=== PATIENT | female | born 1940 | race Caucasian/White ===

== ENCOUNTER → 2017-04-13 13:57 | Outpatient (CLI) | payer MEDICARE, SELFPAY ==
[2017-04-13 15:16] LABS: Absolute Lymphocyte Count 2.19 X10^3/ul (0.83-4.51); Absolute Neutrophil Count 9.7 X10^3/uL (2.0-7.7); Basophil# 0.07 X10^3/uL; Basophil% 0.5 % (0-1); Eosinophil# 0.39 X10^3/uL; Hematocrit 42.2 % (37-47); Hemoglobin 13.9 g/dl (12.0-15.0); Lymphocyte # 2.19 X10^3/ul (4.0); Lymphocyte % 16.6 % (19-41); Mean Corp Hgb Conc 32.9 g/gl (32-36); Mean Corpuscular Hgb 26.4 pg (27.0-32.0); Mean Corpuscular Volume 80.2 fL (81-99); Mean Platelet Vol. 11.4 fl (6.2-12.0); Monocyte# 0.81 X10^3/uL; Monocyte% 6.1 % (0-10); Neutrophil # 9.67 X10^3/uL (2.7-7.7); Neutrophil % 73.4 % (47-70); Platelet Count 323 K/mm3 (150-450); RBC Distribution Width SD 46.7 fl (35.1-43.9); Red Blood Count 5.26 M/mm3 (4.2-5.4); White Blood Count 13.2 K/mm3 (4.4-11.0)
[2017-04-13 15:17] LABS: POSITIVE COUNT NO; POSITIVE DIFFERENTIAL NO; POSITIVE MORPHOLOGY NO
[2017-04-13 16:02] LABS: AST(SGOT) 22 U/L (15-37); Alanine Aminotransfer ALT/SGPT 20 U/L (13-56); Albumin, Serum 3.8 g/dL (3.2-5.0); Alkaline Phosphatase 82 U/L (45-117); Anion Gap 11 (5-15); BUN 21 mg/dL (7-18); Calcium,Total 9.3 mg/dL (8.5-10.1); Chloride 100 mmol/L (98-107); Creatinine, Serum 0.96 mg/dL (0.55-1.02); EST Glomerular Filtration Rate 60 mL/min (>60); Est Glom Filt Rate - Afr Amer 73 mL/min (>60); Glucose 98 mg/dL (74-106); Potassium 4.1 mmol/L (3.5-5.1); Protein, Total 7.8 g/dL (6.4-8.2); Sodium Level 135 mmol/L (136-145); Thyroid Stim Hormone (TSH) 0.99 uIU/mL (0.358-3.74)
[2017-04-14 11:32] LABS: Vitamin D,25 Hydroxy 32.4 ng/mL (19.95-100.01)
== END ==
PROVIDERS: Visit Provider Family Medicine Geriatric Medicine
DX: I10 Essential (primary) hypertension (principal); E55.9 Vitamin D deficiency, unspecified
CPT/HCPCS: 36415; 80053; 82306; 84443; 85025

== ENCOUNTER → 2017-05-18 11:46 | Outpatient (CLI) | payer MEDICARE, SELFPAY ==
--- NOTE | 2017-05-18 11:49 | RAD_ITS ---
STUDY: X-RAY - LUMBAR SPINE REASON FOR EXAM: Female, 77 years old. Low back pain, no known injury TECHNIQUE: 2 view(s) of the lumbar spine were obtained. COMPARISON: None FINDINGS: There is an exaggerated lumbar lordosis. There is a mild thoracolumbar levoscoliosis. There is a normal alignment of the vertebrae. There is a mild decrease in vertical height with anterior wedging of the L1 and L2 vertebral bodies as well as mild decrease in vertical height of L3. There is disc space narrowing with reactive sclerosis of the adjacent endplates at the L1-2 and L2-3 levels. There is no evidence of acute fracture or spondylolisthesis. There are densely calcified plaques of the abdominal aorta and iliac arteries. RAD/Lumbar Spine 2 or 3 Views IMPRESSION: Decrease in vertical height of the L1, L2, and L3 vertebral bodies with reactive sclerosis and disc space narrowing at these levels. Findings are suggestive of old osteoporotic endplate collapse. The bones are osteopenic. There is a mild thoracolumbar levoscoliosis. There is no evidence of acute fracture or spondylolisthesis. Densely calcified plaques of the abdominal aorta and iliac arteries. Electronically Signed: Waqas Fong MD at 17:31 EDT , Service support ,
== END ==
PROVIDERS: Family Provider Family Medicine Geriatric Medicine; PCP Family Medicine Geriatric Medicine; Visit Provider Family Medicine Geriatric Medicine
DX: M54.5 Low back pain (principal)
CPT/HCPCS: 72100

== ENCOUNTER → 2017-10-20 10:38 | Outpatient (CLI) | payer MEDICARE, SELFPAY ==
--- NOTE | 2017-10-22 19:59 | LEAS ---
Arterial Study - Arterial Study Arterial Study: This is a 77-year-old female with a history of hypertension and coronary artery disease. The patient presents with bilateral lower extremity pain with ambulation, suspicious for intermittent claudication. She also experiences rest pain in her right foot. Suspecting the presence of atherosclerotic peripheral arterial occlusive disease, the patient was brought to the noninvasive vascular laboratory at this time for the purpose of bilateral noninvasive lower extremity arterial assessment. Doppler signal assessment was used to evaluate the pulses at ankle level bilaterally. The posterior tibial and dorsalis pedis pulses were monophasic bilaterally. Segmental limb pressures were obtained at ankle level bilaterally. The right ankle pressure, as determined by posterior tibial pulse, was measured at 33 mmHg. The right ankle pressure, as determined by dorsalis pedis pulse, was measured at 38 mmHg. The left ankle pressure, as determined by posterior tibial pulse, was measured at 20 mmHg. The left ankle pressure, as determined by dorsalis pedis pulse, was measured at 46 mmHg. Pulse-volume recordings were obtained at ankle and digital levels bilaterally. Waveform amplitudes were markedly diminished bilaterally. Resting ankle-brachial indices were calculated bilaterally. The resting right ankle-brachial index was calculated to be 0.36. The resting left ankle-brachial index was calculated to be 0.46. Impression: Based upon the findings of this resting noninvasive lower extremity arterial study, there is evidence of severe arterial occlusive disease in the lower extremities bilaterally. Monophasic waveforms were noted at ankle level bilaterally. Resting ankle-brachial indices were severely diminished bilaterally. In summary, there is evidence of severe arterial occlusive disease in the lower extremities bilaterally.
== END ==
PROVIDERS: Family Provider Family Medicine Geriatric Medicine; PCP Family Medicine Geriatric Medicine; Visit Provider Family Medicine Geriatric Medicine
DX: I73.9 Peripheral vascular disease, unspecified (principal)
CPT/HCPCS: 93922

== ENCOUNTER → 2017-11-16 07:40 | Outpatient (CLI) | payer MEDICARE, SELFPAY ==
--- NOTE | 2017-11-16 07:46 | ADU_ITS ---
Reason For Study: ATHEROSCLEROSIS Right Velocities Left Velocities Common Iliac Artery, dist = 65.2 cm./sec. Ext Iliac Artery, dist = 133.0 cm./sec. Common Femoral Artery, mid = 78.6 cm./sec. Common Femoral Artery, mid = 98.2 cm./sec. Supf Femoral Artery, prox = 96.2 cm./sec. Supf. Femoral Artery, prox = 69.9 cm./sec. Supf Femoral Artery, mid = 60.5 cm./sec. Supf. Femoral Artery, mid = 37.6 cm./sec. Supf Femoral Artery, dist. = 53.0 cm./sec. Supf. Femoral Artery, dist = 51.9 cm./sec. Profunda Femoral Artery = 30.2 cm./sec. Profunda Femoral Artery = 56.2 cm./sec. Popliteal Artery, prox. = 37.7 cm./sec. Popliteal Artery, proximal, = 30.6 cm./sec. Popliteal Artery, mid = 21.7 cm./sec. Popliteal Artery, mid = 25.5 cm./sec. Popliteal Artery, dist = 25.2 cm./sec. Popliteal Artery, distal = 27.5 cm./sec. Post. Tibial Artery, prox = 25.5 cm./sec. Post. Tibial Artery, prox = 28.3 cm./sec. Post. Tibial Artery, mid = 15.9 cm./sec. Post Tibial Artery, mid = 22.1 cm./sec. Post. Tibial Artery, dist = 13.4 cm./sec. Post Tibial Artery, dist. = 18.3 cm./sec. Peroneal Artery, prox = 11.2 cm./sec. Peroneal Artery, prox = 21.9 cm./sec. Peroneal Artery, mid = 13.0 cm./sec. Peroneal Artery, mid = 24.5 cm./sec. Peroneal Artery, dist = Unable to obtain Peroneal Artery,dist. = 13.3 cm./sec. velocity. Ant.Tibial Artery, prox = 17.4 cm./sec. Ant. Tibial Artery, prox = 17.3 cm./sec. Ant Tibial Artery, mid = 17.6 cm./sec. Ant. Tibial Artery, mid = 14.9 cm./sec. Ant. Tibial Artery, distal = 21.2 cm./sec. Ant. Tibial Artery, dist = 17.9 cm./sec. Procedure The exam was diagnostic. Technically difficult study. Exam performed in department. Interpretation Summary 1. Right distal peroneal with no flow, otherwise all vessels widely patent. But monophasic flow noted throughout. Ordering Physician: Antwan Buckley Referring Physician: Cody Hassan Chi Performed By: Darcie Braga, FABRICIO, RVT
== END ==
PROVIDERS: Family Provider Family Medicine Geriatric Medicine; PCP Family Medicine Geriatric Medicine; Visit Provider Surgery Vascular Surgery
DX: I70.235 Atherosclerosis of native arteries of right leg with ulceration of other part of foot (principal)
CPT/HCPCS: 93925

== ENCOUNTER → 2017-11-27 08:57 | Outpatient (CLI) | payer MEDICARE, SELFPAY ==
[2017-11-27 10:02] LABS: Creatinine, Serum 1.03 mg/dL (0.55-1.02); EST Glomerular Filtration Rate 55 mL/min (>60); Est Glom Filt Rate - Afr Amer 67 mL/min (>60)
--- NOTE | 2017-11-27 10:56 | CT_ITS ---
STUDY: CTA OF THE ABDOMINAL AORTA AND BILATERAL LOWER EXTREMITIES REASON FOR EXAM: Female, 77 years old. Infected toes of the right foot. RADIATION DOSAGE (If Supplied By Facility): CTDIvol = ( 6.40 ) mGy, DLP = ( 988.38 ) mGycm TECHNIQUE: Axial CT angiography multi-detector data acquisition was obtained from the dome of the liver to the feet following intravenous administration of 100CC ml of Isovue 370 contrast. Axial images and MIP images were reconstructed from the axial data set. Post-processing of the angiographic images was performed, with multiplanar reformation and 3D reconstruction. Individualized dose optimization techniques were used for this CT. TECHNICAL QUALITY: Good COMPARISON: None. Descriptors of Narrowing: None (0%) Mild (< 50%) Moderate (50-70%) Severe (70-90%) Subtotal/Total Occlusion (90-100%) Non-Evaluable (technically non-diagnostic FINDINGS: Moderate sized hiatal hernia. Diffuse fatty infiltration of the liver. Multiple bilateral renal cysts. The patient is status post cholecystectomy. Abdominal aorta: Diffuse atherosclerotic plaque formation of the abdominal aorta. Mural thrombus. The distal abdominal aorta is slightly dilated and measures 2.4 cm. Celiac and superior mesenteric arteries: Nonstenotic calcific plaque at the origin of the superior mesenteric and celiac arteries. Inferior mesenteric artery: Patent and enlarged. Right renal artery(arteries): Not stenotic calcific plaques at the origin of the right renal artery. Left renal artery(arteries): Nonstenotic calcific plaque at the origin of the left renal artery. Right common iliac artery: Diffuse calcific plaque with areas of stenosis. Right external iliac artery: Diffuse calcific plaque with focal areas of stenosis. Right internal iliac artery: No demonstrated narrowing. Left common iliac artery: Diffuse calcific plaque with areas of stenosis. Left external iliac artery: Diffuse calcific plaque with areas of stenosis. Left internal iliac artery: No demonstrated narrowing. RIGHT LOWER EXTREMITY Right common femoral artery: Focal tight stenosis at its origin. Right profundus femoris: No demonstrated narrowing. Right superficial femoral: Patent with multiple focal stenoses throughout its course. Right popliteal artery: No demonstrated narrowing. Right tibioperoneal trunk: No demonstrated narrowing. Right anterior tibial artery: No demonstrated narrowing. Right posterior tibial artery: No demonstrated narrowing. Right peroneal artery: No demonstrated narrowing. LEFT LOWER EXTREMITY Left common femoral artery: No demonstrated narrowing. Left profundus femoris: No demonstrated narrowing. Left superficial femoral: Focal occlusion in the distal portion of the left superficial femoral artery. Left popliteal artery: No demonstrated narrowing. Left tibioperoneal trunk: No demonstrated narrowing. Left anterior tibial artery: No demonstrated narrowing. Left posterior tibial artery: No demonstrated narrowing. Left peroneal artery: No demonstrated narrowing. CT/CTA Abd w/Runoff W/WO Contrast IMPRESSION: Multiple plaque formation as described. Atherosclerotic plaques and mural thrombus of the abdominal aorta. Focal occlusion of the distal portion of the left superficial femoral artery with reconstitution of the popliteal artery. Electronically Signed: Jatinder Olivas MD at 13:12 EDT Tel [phone], Service support ,
== END ==
PROVIDERS: Surgery Vascular Surgery; Family Provider Family Medicine Geriatric Medicine; PCP Family Medicine Geriatric Medicine; Visit Provider Family Medicine Geriatric Medicine
DX: I73.9 Peripheral vascular disease, unspecified (principal); I70.235 Atherosclerosis of native arteries of right leg with ulceration of other part of foot
CPT/HCPCS: 36415; 75635; 82565; Q9967

== ENCOUNTER 2017-12-06 08:58 | Day surgery (SDC) | payer MEDICARE, SELFPAY ==
[2017-12-05 14:27] VITALS: BMI 25.4
[2017-12-06 09:11] LABS: Hematocrit 41.2 % (37-47); Hemoglobin 13.5 g/dl (12.0-15.0); Mean Corp Hgb Conc 32.8 g/gl (32-36); Mean Corpuscular Hgb 28.2 pg (27.0-32.0); Mean Platelet Vol. 9.7 fl (6.2-12.0); Platelet Count 371 K/mm3 (150-450); RBC Distribution Width CV 13.3 % (11.6-14.6); Red Blood Count 4.79 M/mm3 (4.2-5.4); Scan Indicated on CBC? Y/N NO; White Blood Count 12.7 K/mm3 (4.4-11.0)
[2017-12-06 09:33] LABS: Albumin, Serum 3.7 g/dL (3.2-5.0); BUN 24 mg/dL (7-18); BUN/Creat Ratio 16.6 RATIO (10-20); Calcium,Total 10.1 mg/dL (8.5-10.1); Chloride 101 mmol/L (98-107); Creatinine, Serum 1.45 mg/dL (0.55-1.02); EST Glomerular Filtration Rate 37 mL/min (>60); Est Glom Filt Rate - Afr Amer 45 mL/min (>60); Glucose 163 mg/dL (74-106); Phosphorus 3.6 mg/dL (2.5-4.9); Potassium 4.1 mmol/L (3.5-5.1); Sodium Level 135 mmol/L (136-145)
--- NOTE | 2017-12-06 11:51 | PCM.OPRPT ---
Report of Operation Date of Procedure: 12/06/17 Pre-Operative Diagnosis: PAD with ulcer right foot Post-Operative Diagnosis: The same Surgery/Procedure Performed:: 1. Ultrasound-guided access retrograde left brachial artery. 2. Aortogram with bilateral iliofemoral imaging. With right leg angioplasty the popliteal artery. 3. Stent right common iliac with a 7 x 29 Nichol. 4. Stent to the left common iliac with a 7 x 29 Nichol Type of Anesthesia:: Sedation,Conscious Description of Procedure: Patient brought to the Complaint Evaluation Supervisor. Underwent the appropriate timeout consent. Underwent sedation. Was prepped and draped in a sterile fashion. We did ultrasound-guided access retrograde in the left brachial artery. Put a Glidewire up brought in a 5 [place] sheath and gave 3000 units of heparin. Using a KMP catheter we got the Glidewire down the descending thoracic aorta the infrarenal aorta. With switch to a stiff Glidewire brought in a long 6 [place] 90 cm sheath. The wire was through the right side. We did an aortogram showing almost subtotal occlusion on the right common iliac severe stenosis left common iliac rest iliacs appear to have good flow into the common femoral artery. Some plaque noted but no severe stenosis we stented the right common iliac into the aorta is some narrowing of the distal aorta with a 7 x 29 Nichol we ballooned it further into the aorta with another 7 mm balloon. We then get the sheath into the stent image from there with oblique views showing the right external iliac common femoral still widely patent good flow into the profunda the SFA moderate narrowing proximally with good flow through this. Some calcifications noted throughout the vanessa but no significant stenosis through the rest of the SFA and popliteal to just below the knee. There is a little more severe stenosis in the left common iliac now, we got the wire through here at the sheath through and then stented this with a 7 x 29 Nichol. We did a completion aortogram showing bilateral common iliac artery stents widely patent with good flow through here. They had a little crusting on each other into the aortic segment. But much improved flow. We gave 20 of protamine as we have given 3000 units of heparin earlier. We put in a short 6 [place] sheath. This was then removed pressure held good hemostasis she was brought to recovery stable condition Sedation: This 77-year-old underwent moderate sedation given by Dr. Antwan Buckley. She was monitored for over 30 minutes of the procedure. She was given fentanyl and Versed. She was monitored with EKG blood pressure and pulse ox. See the EMR for the complete record.
--- NOTE | 2017-12-06 11:56 | OP.PCM_ITS ---
Report of Operation Date of Procedure: 12/06/17 Pre-Operative Diagnosis: PAD with ulcer right foot Post-Operative Diagnosis: The same Surgery/Procedure Performed:: 1. Ultrasound-guided access retrograde left brachial artery. 2. Aortogram with bilateral iliofemoral imaging. With right leg angioplasty the popliteal artery. 3. Stent right common iliac with a 7 x 29 Nichol. 4. Stent to the left common iliac with a 7 x 29 Nichol Type of Anesthesia:: Sedation,Conscious Description of Procedure: Patient brought to the Insulation Hoseman. Underwent the appropriate timeout consent. Underwent sedation. Was prepped and draped in a sterile fashion. We did ultrasound-guided access retrograde in the left brachial artery. Put a Glidewire up brought in a 5 [place] sheath and gave 3000 units of heparin. Using a KMP catheter we got the Glidewire down the descending thoracic aorta the infrarenal aorta. With switch to a stiff Glidewire brought in a long 6 [place] 90 cm sheath. The wire was through the right side. We did an aortogram showing almost subtotal occlusion on the right common iliac severe stenosis left common iliac rest iliacs appear to have good flow into the common femoral artery. Some plaque noted but no severe stenosis we stented the right common iliac into the aorta is some narrowing of the distal aorta with a 7 x 29 Nichol we ballooned it further into the aorta with another 7 mm balloon. We then get the sheath into the stent image from there with oblique views showing the right external iliac common femoral still widely patent good flow into the profunda the SFA moderate narrowing proximally with good flow through this. Some calcifications noted throughout the vanessa but no significant stenosis through the rest of the SFA and popliteal to just below the knee. There is a little more severe stenosis in the left common iliac now, we got the wire through here at the sheath through and then stented this with a 7 x 29 Nichol. We did a completion aortogram showing bilateral common iliac artery stents widely patent with good flow through here. They had a little crusting on each other into the aortic segment. But much improved flow. We gave 20 of protamine as we have given 3000 units of heparin earlier. We put in a short 6 [place] sheath. This was then removed pressure held good hemostasis she was brought to recovery stable condition Sedation: This 77-year-old underwent moderate sedation given by Dr. Antwan Buckley. She was monitored for over 30 minutes of the procedure. She was given fentanyl and Versed. She was monitored with EKG blood pressure and pulse ox. See the EMR for the complete record.
== END 2017-12-06 16:51 | disposition home or self-care (01) ==
LOC: CLSP 08:59
PROVIDERS: Family Provider Family Medicine Geriatric Medicine; PCP Family Medicine Geriatric Medicine; Referring Provider Surgery Vascular Surgery; Visit Provider Surgery Vascular Surgery
DX: I70.235 Atherosclerosis of native arteries of right leg with ulceration of other part of foot (principal); I74.5 Embolism and thrombosis of iliac artery; I70.213 Atherosclerosis of native arteries of extremities with intermittent claudication, bilateral legs; I10 Essential (primary) hypertension; E78.00 Pure hypercholesterolemia, unspecified; M19.90 Unspecified osteoarthritis, unspecified site; I25.2 Old myocardial infarction; Z79.82 Long term (current) use of aspirin; Z79.899 Other long term (current) drug therapy; Z85.828 Personal history of other malignant neoplasm of skin; Z87.891 Personal history of nicotine dependence; Z95.5 Presence of coronary angioplasty implant and graft
CPT/HCPCS: 36245; 36246; 36415; 37221; 75716; 76937; 80069; 85027; 99152; 99153; J7040; Q9967; C1725; C1769; C1876; C1894

== ENCOUNTER → 2017-12-11 11:00 | Outpatient (CLI) | payer MEDICARE, SELFPAY ==
[2017-12-11 12:46] LABS: Anion Gap 12 (5-15); BUN 21 mg/dL (7-18); BUN/Creat Ratio 16.9 RATIO (10-20); Calcium,Total 10.1 mg/dL (8.5-10.1); Chloride 96 mmol/L (98-107); Creatinine, Serum 1.24 mg/dL (0.55-1.02); EST Glomerular Filtration Rate 45 mL/min (>60); Est Glom Filt Rate - Afr Amer 54 mL/min (>60); Glucose 138 mg/dL (74-106); Potassium 3.5 mmol/L (3.5-5.1); Sodium Level 132 mmol/L (136-145); Uric Acid 7.3 mg/dL (2.6-6.0)
[2017-12-11 12:51] LABS: Absolute Lymphocyte Count 1.13 X10^3/ul (0.83-4.51); Absolute Neutrophil Count 8.8 X10^3/uL (2.0-7.7); Basophil# 0.03 X10^3/uL; Basophil% 0.3 % (0-1); Eosinophil# 0.37 X10^3/uL; Eosinophils% 3.4 % (0-5); Hematocrit 38.2 % (37-47); Hemoglobin 12.5 g/dl (12.0-15.0); Lymphocyte # 1.13 X10^3/ul (4.0); Lymphocyte % 10.2 % (19-41); Mean Corp Hgb Conc 32.7 g/gl (32-36); Mean Corpuscular Hgb 27.8 pg (27.0-32.0); Mean Corpuscular Volume 84.9 fL (81-99); Mean Platelet Vol. 10.3 fl (6.2-12.0); Monocyte# 0.71 X10^3/uL; Monocyte% 6.4 % (0-10); Neutrophil # 8.79 X10^3/uL (2.7-7.7); Neutrophil % 79.6 % (47-70); POSITIVE COUNT NO; POSITIVE DIFFERENTIAL NO; POSITIVE MORPHOLOGY NO; Platelet Count 366 K/mm3 (150-450); RBC Distribution Width CV 13.4 % (11.6-14.6)
[2017-12-11 12:57] LABS: Erythrocyte Sedimentation Rate 42 mm/hr (0-30)
== END ==
PROVIDERS: Family Provider Family Medicine Geriatric Medicine; PCP Family Medicine Geriatric Medicine; Visit Provider Family Medicine Geriatric Medicine
DX: M10.9 Gout, unspecified (principal)
CPT/HCPCS: 36415; 80048; 84550; 85025; 85652; 86140

== ENCOUNTER → 2017-12-11 12:29 | Outpatient (CLI) | payer MEDICARE, SELFPAY ==
--- NOTE | 2017-12-11 12:38 | CT_ITS ---
STUDY: CTA OF THE ABDOMINAL AORTA AND BILATERAL LOWER EXTREMITIES REASON FOR EXAM: Female, 77 years old. Pain, redness of the right toes, right leg ulcer and gangrene of the toe. History of stents. RADIATION DOSAGE (If Supplied By Facility): DLP = ( 1038 ) mGycm TECHNIQUE: Axial CT angiography multi-detector data acquisition was obtained from the lung bases to the toes following intravenous administration of 100 ml of Isovue 370 contrast. Axial images and MIP images were reconstructed from the axial data set. Post-processing of the angiographic images was performed, with multiplanar reformation and 3D reconstruction. Individualized dose optimization techniques were used for this CT. TECHNICAL QUALITY: Good COMPARISON: None. Descriptors of Narrowing: None (0%) Mild (< 50%) Moderate (50-70%) Severe (70-90%) Subtotal/Total Occlusion (90-100%) Non-Evaluable (technically non-diagnostic FINDINGS: Abdominopelvic body wall soft tissues: No acute process. Lower extremity soft tissues: There is mild circumferential edema in the subcutaneous fat of the mid lower legs, ankles and the dorsum of the foot bilaterally, relatively symmetric right to left. Inferior chest: Clear lung bases with features of COPD/emphysema. Prominent sliding hiatal hernia containing a portion of the gastric fundus. Evidence of reflux into the middle 3rd of the esophagus with circumferential thickening of the wall the esophagus suggesting the presence of reflux esophagitis. Borderline cardiomegaly. Prominent three-vessel coronary calcifications. Mild aortic valve calcifications and mitral annulus calcifications. Nondilated aortic root and central pulmonary arteries. Ectasia in particular of the left atrium. Hepatobiliary: Mild hepatomegaly, craniocaudal right liver 18 cm. Gallbladder absent. Nondilated biliary tree. Pancreas: Mild atrophy. Spleen: Normal. Adrenal glands: Normal. Urogenital: Multiple benign renal cysts bilaterally, the largest on the left measuring 5.9 cm. The largest on the right measuring 5.1 cm. Normal collecting systems, ureters, urinary bladder. Uterus absent. No adnexal mass or cyst. Pelvic floor and sidewalls and retroperitoneum: No mass or lymphadenopathy. Gastric: Hiatal hernia, otherwise no acute process. Small bowel and mesentery: No acute process. Large bowel: The appendix is not clearly visible. No acute inflammatory features in the region of the cecum. Scattered diverticulosis of the proximal to mid large bowel more diffuse in the sigmoid colon without evidence of acute diverticulitis. Normal rectum. Free fluid or free air: None. Abdominopelvic vasculature: Prominent calcified plaque of the wall of the aorta. Mild narrowing of the origins of the celiac trunk and superior mesenteric artery, and renal arteries. JORGE L patent. Extensive the common iliac arteries bilaterally are patent. Moderate plaque of the external iliac arteries bilaterally contributing to mild stenosis. Moderate plaque of the internal iliac arteries bilaterally contributing to mild stenosis. Right lower extremity vasculature: [employer]IR moderate calcified plaque, less than 50% stenosis. DFA mild plaque at its origin, widely patent arborization. SFA moderate calcified plaque in the proximal 3rd, contributing to moderately severe stenosis in the vicinity of 70%. Scattered plaque thereafter through the distal SFA contributing to only mild luminal narrowing. Popliteal mild plaque, less than 50% stenosis. Tibioperoneal trunk and trifurcation no significant plaque, three-vessel runoff to the ankle, flow seen to the distal digits. Left lower extremity vasculature: Moderate calcified plaque [employer] CHAIR with less than 50% stenosis. Mild plaque at the origin of the DFA, no stenosis, widely patent arborization. SFA severe plaque at its origin, near occlusive stenosis greater than 90% proximally, moderate stenosis 50-70% mid SFA, occluded distal SFA. Popliteal reconstituted via deep arterial collaterals with minimal plaque, no stenosis. Tibioperoneal trifurcation mild plaque, no stenosis, three-vessel runoff to the ankle, attenuated flow into the foot compared to the right. CT/CTA Abd w/Runoff W/WO Contrast IMPRESSION: 1. Hilum hernia with evidence of reflux and suspected reflux esophagitis. 2. Diverticulosis without diverticulitis. 3. No other acute abdominopelvic process is evident. 4. Bilateral lower leg and pedal edema. 5. No evidence of hemodynamically significant aortoiliac stenosis. 6. Right lower extremity only mild stenosis femoral vessels, vigorous three-vessel runoff to the ankle and flow seen to the distal digits. 7. Near occlusive stenosis of the proximal left SFA, moderately severe stenosis of the mid left SFA, and occlusion of the distal, reconstituted by deep collaterals into the popliteal artery. 8. From the popliteal artery downward, no stenosis. However, flow into the foot is attenuated secondary to stenosis at the level of the distal SFA and proximal SFA. Majority of flow into the left lower extremity via the deep femoral artery, deep muscular collaterals and geniculate collaterals. Electronically Signed: Zaheer Couch, at 14:15 EDT Tel , Service support ,
--- NOTE | 2017-12-11 12:59 | VDLE_ITS ---
Reason For Study: LEG SWELLING RIGHT LEFT GSV is normal. GSV is normal. CFV is compressible, spontaneous, phasic, CFV is compressible, spontaneous, phasic, competent and demonstrates normal competent, and demonstrates normal augmentation. augmentation. FV is compressible, spontaneous, phasic, FV is compressible, spontaneous, phasic, competent and demonstrates normal competent and demonstrates normal augmentation. augmentation. POP V is compressible, spontaneous, phasic, POP V is compressible, spontaneous, phasic, competent and demonstrates normal competent and demonstrates normal augmentation. augmentation. T/P Trunk is compressible. T/P Trunk is compressible. PTV is compressible. PTV is compressible. RT PerV is compressible. LT PerV is compressible. Procedure Exam performed in department. A preliminary report was called and/or faxed to Dr. Hassan. Interpretation Summary Deep veins of the lower extremities are bilaterally patent and compressible segmentally. There is no evidence of deep vein thrombosis on either side. Valvular competence appears intact within the proximal deep venous systems bilaterally. The greater saphenous veins appear bilaterally patent and compressible segmentally. Ordering Physician: Cody Hassan Referring Physician: Cody Hassan Chi Performed By: Tamica Russo RVT
== END ==
PROVIDERS: Family Provider Family Medicine Geriatric Medicine; PCP Family Medicine Geriatric Medicine; Visit Provider Family Medicine Geriatric Medicine
DX: R60.0 Localized edema (principal); I96 Gangrene, not elsewhere classified; I70.235 Atherosclerosis of native arteries of right leg with ulceration of other part of foot; L03.039 Cellulitis of unspecified toe; M10.9 Gout, unspecified
CPT/HCPCS: 36415; 75635; 80048; 84550; 85025; 85652; 86140; 93970; Q9967

== ENCOUNTER → 2017-12-12 18:00 | Outpatient (CLI) | payer MEDICARE, SELFPAY | PROVIDERS: Family Provider Family Medicine Geriatric Medicine; PCP Family Medicine Geriatric Medicine; Referring Provider Podiatrist; Visit Provider Podiatrist | DX: L03.031 Cellulitis of right toe (principal) | CPT/HCPCS: 87070; 87075; 87077; 87186; 87205 ==

== ENCOUNTER 2018-01-03 10:45 | Outpatient (RCR) | payer MEDICARE, SELFPAY ==
[2017-12-27 09:53] VITALS: BP 144/75; PULSE 129; RESP 16; TEMP 36.3; BMI 24.9
--- NOTE | 2017-12-27 11:26 | RAD_ITS ---
STUDY: X-RAY RIGHT FOOT, FIFTH TOE REASON FOR EXAM: Female, 77 years old. Ulcer TECHNIQUE: Three view(s) of the toe were obtained. COMPARISON: None. FINDINGS: Bones: There is no obvious cortical destruction or periosteal reaction. Joints: The visualized joints are unremarkable. Soft tissues: There is a soft tissue defect in the tip of the fifth toe. Foreign body: None RAD/Toe(s) Min 2 Views IMPRESSION: There are no obvious radiographic signs of osteomyelitis in the fifth toe, however early osteomyelitis may be present at the tuft of the distal phalanx since this is in close proximity to the ulcer. Electronically Signed: Diana Alcaraz MD at 23:58 EDT Tel Direct: [phone], Service support ,
--- NOTE | 2017-12-27 11:52 | PCM.WC.HP ---
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 Current Visit: Yes Code(s): L97.512 - Non-pressure chronic ulcer of other part of right foot with fat layer exposed (2) Peripheral vascular disease Status: Chronic Current Visit: Yes Code(s): I73.9 - Peripheral vascular disease, unspecified (3) Hammer toe of right foot Status: Chronic Current Visit: Yes Code(s): M20.41 - Other hammer toe(s) (acquired), right foot (4) Malnutrition Status: Suspected Current Visit: Yes Code(s): E46 - Unspecified protein-calorie malnutrition History of Present Illness Date of Service: 12/27/17 Chief Complaint: right fifth toe ulcer History of Wound: This 77-year-old pleasant female patient with multiple comorbidities presents to the wound healing center today for right fifth toe ulcer. This is been present for over 1 month. She was previously treated by her primary care physician, Dr. Hassan as well as Dr. Buckley who performed a right leg angioplasty to the popliteal artery and stent to the right common iliac artery and stent to the left common iliac artery under conscious sedation on December 06, 2017 at [facility]. She has been wearing closed shoes. She denies taking nutritional supplements. She applies Betadine and a Vaseline type dressing to the open ulcer site. She denies redness odor fever, chill, nausea, vomiting. She denies specific traumatic incident. She denies having a previous foot x-ray. Her pain is rated as mild to moderate at rest and with direct touch. 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 (Chronic) Peripheral vascular disease (Chronic) Hammer toe of right foot (Chronic) Past Medical History: Hypertension, peripheral vascular disease on Plavix Surgical History: angioplasty Allergies/Adverse Reactions: Allergies No Known Allergies Allergy (Verified 12/05/17 14:36) Home Medications: Ambulatory Orders Medication Instructions Recorded Amlodipine [Norvasc] 5 mg PO DAILY 12/05/17 Aspirin 325 mg PO DAILY@0800 12/05/17 Atorvastatin Calcium [Lipitor] 40 mg PO QHS 12/05/17 Cilostazol 100 mg PO BID 12/05/17 Cinnamon Bark [Cinnamon] 1,000 mg PO DAILY 12/05/17 Fish Oil/Dha/Epa [Fish Oil 1,200 2 each PO DAILY 12/05/17 mg Fish Oil] Lisinopril/Hydrochlorothiazide 1 tablet PO DAILY 12/05/17 [Zestoretic 12/15.5 Tablet] Metoprolol Tartrate [Lopressor 50 mg PO DAILY 12/05/17 (Beta Jamison)] Multivitamin [Daily Multiple 1 each PO DAILY 12/05/17 Vitamin] Lives: Alone Smoking Status: Former smoker Tobacco Use: Non-smoker Review of Systems Constitutional: Denies: Chills, Fever, Weakness Cardiovascular: Denies: Chest Pain, Claudication Respiratory: Denies: Shortness of Breath Gastrointestinal: Denies: Nausea, Vomiting Musculoskeletal: Reports: Foot Pain. Denies: Joint Tenderness, Leg Pain Skin: Reports: Skin Changes, Wounds Neurological: Denies: Numbness - Physical Exam Vital Signs Temp Pulse Resp BP 97.3 F L 129 H 16 144/75 H 12/27/17 09:53 12/27/17 09:53 12/27/17 09:53 12/27/17 09:53 General: Alert, Oriented x3, Cooperative HEENT: Atraumatic Extremities: No cyanosis, Capillary Refill Less than 3 Seconds - Digits 1, 2, 3, 4 right foot. Capillary fill time is delayed to the distal tip of the fifth toe where the ulcer site is noted, No Calf Tenderness - Negative Yunior and Crawford sign bilateral, Diminished Peripheral Pulses - 2 out of 4 palpable dorsalis pedis pulse right foot and nonpalpable posterior tibial artery pulse right, Edema - Very scant edema to right foot compared to contralateral limb, Tenderness - Tenderness with ulcer manipulation right fifth toe Skin: Ulcer/ Wound - No purulence, erythema, streaking, odor, or infection. The ulcer site is covered with the fibronecrotic plug upon debridement there is fibrous tissue and very minimal sub-hemorrhagic and subcutaneous tissue exposed. The peripheral skin is hairless and atrophic. There is no interdigital maceration or other ulcer sites noted bilateral lower extremities. Wound Measurements and Assessment WC - Nurse 1 - General Ulcer Measurement Start: 12/27/17 09:53 Freq: Status: Active Protocol: Activity Type Activity Date Activity User E-Sign Co-Sign Detail Recorded Client Recorded Date Recorded By Document 12/27/17 09:53 [id number] 12/27/17 10:12 12/27/17 09:53 Wound Center Nurse 1 [Ulcer Assessment] R 5TH TOE -Combined with other wound No -Current Size (cm) - Length 1.9 -Current Size (cm) - Width 1.0 -Current Size (cm) - Depth 0.1 -Total Square Cm 1.90 -Date of Last Picture (Recall this 12/27/17 field) -Photo Taken Yes -Tunneling No -Undermining/Tunneling No -Circular Undermining No -Exudate Amt None Present (0 %) -Wound Margin Distinct, Outline Attached -Granulation Amt None Present (0 %) -Slough/Fibrin Yes -Necrosis Amt Large (67-100%) -Necrotic Tissue Type Eschar -Texture (Zora-wound Skin Appearance) Assessed Scarring -Moisture (Zora-wound Skin Appearance Assessed ) Dry/Scaly -Color (Zora-wound Skin Appearance) Assessed Erythema -Temperature (Zora-wound Skin No Abnormality Appearance) (Pt Warm) -Tenderness on Palpation (Zora-wound No Skin Appearance) -Ulcer Cleansing Rinsed/ Irrigated with Saline -Foul Odor after Cleansing No -Anesthetic Used 4% Lidocaine Solution [Edema Assessment] -Right Calf (cm) 31.5 -Right Ankle (cm) 20.5 -Left Calf (cm) 32 -Left Ankle (cm) 20 WC - Nurse 2 - General Ulcer CM Notes Start: 12/27/17 09:53 Freq: Status: Active Protocol: Activity Type Activity Date Activity User E-Sign Co-Sign Detail Recorded Client Recorded Date Recorded By Document 12/27/17 10:53 [id number] 12/27/17 10:56 12/27/17 10:53 Wound Center Nurse 2 [Procedure/Treatment] R 5TH TOE -Time 10:53 -Correct Patient Yes -Correct Side, Site, Position Yes -Correct Procedure Yes -Procedure Performed Yes -Type of Procedure Debridement -Clinical Debridement Subcutaneous -Post Debridement Size (cm) - Length 2.0 -Post Debridement Size (cm) - Width 1.2 -Post Debridement Size (cm) - Depth 0.1 -Total Square Cm 2.40 -Wound/Ulcer Outcome Not Healed -Ulcer Cleansing Rinsed/ Irrigated with Saline -Foul Odor after Cleansing No -Bioengineered Tissue No -Topical Lidocaine (%) 4 -Bleeding Controlled with Pressure -Treatment Response Procedure Tolerated Well [See Physician Procedure note for Specifics] Pain Scale: 0-10 Numeric [Pain] -Is Patient Pain Free? Yes Musculoskeletal: No Tenderness to Palpation of Joints or Extremities, Muscle Wasting, - - Dorsal contraction and varus rotation of the right fifth toe. The compartments of the right foot ankle and leg remains soft to touch. Neurological: Sensory exam intact to light touch and pain Psych/Mental Status: Normal Affect, Appropriate Debridement Note Post-Debridement Measurements/Treatment WC - Nurse 2 - General Ulcer CM Notes Start: 12/27/17 09:53 Freq: Status: Active Protocol: Activity Type Activity Date Activity User E-Sign Co-Sign Detail Recorded Client Recorded Date Recorded By Document 12/27/17 10:53 [id number] 12/27/17 10:56 TM 12/27/17 10:53 Wound Center Nurse 2 R 5TH TOE -Time 10:53 -Correct Patient Yes -Correct Side, Site, Position Yes -Correct Procedure Yes -Procedure Performed Yes -Type of Procedure Debridement -Clinical Debridement Subcutaneous -Post Debridement Size (cm) - Length 2.0 -Post Debridement Size (cm) - Width 1.2 -Post Debridement Size (cm) - Depth 0.1 -Total Square Cm 2.40 -Wound/Ulcer Outcome Not Healed -Ulcer Cleansing Rinsed/ Irrigated with Saline -Foul Odor after Cleansing No -Bioengineered Tissue No -Topical Lidocaine (%) 4 -Bleeding Controlled with Pressure -Treatment Response Procedure Tolerated Well Pain Scale: 0-10 Numeric Is Patient Pain Free? 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 Hammertoe right fifth toe. Peripheral vascular disease status post intervention. Malnutrition suspected Plan: I reviewed and discussed her case today. I reviewed her previous diagnostic data including her vascular surgery intervention performed by Dr. Buckley on 12/06/2017. It is also noted that she had a venous duplex Doppler performed on 12/11/2017 which demonstrated incompetent bilateral veins and there was no evidence of a deep venous thrombosis bilateral. She also had some lab work performed including a CBC, ESR, and CMP. No leukocytosis was noted. Her previous sedimentation rate was 42. Her previous uric acid was 7.3. Her hemoglobin A1c was 6.1%. It appears that her creatinine function is also within fairly normal range. Her C-reactive protein was 17.2. Subcutaneous excisional debridement was performed is noted in the clinical panel. I recommend changing the dressing daily with hydrogel; this was demonstrated. To offload this ulcer friable site with a surgical shoe that she already has at home. To bring to clinic next week for modifications. I recommend nutritional supplementation and a prescription for Hal was provided. I also recommended foot x-ray and an order form was provided for her to obtain later today. As her wound progresses and improves in quality advanced wound care products will be considered. We discussed the anticipated healing time and management course. I answered all of her questions. To follow-up at the wound healing center next week or call sooner if she has any questions or concerns. She was reassured there are no local or systemic signs of infection noted today.
--- NOTE | 2017-12-27 11:56 | HP.PCM_ITS ---
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 Current Visit: Yes Code(s): L97.512 - Non-pressure chronic ulcer of other part of right foot with fat layer exposed (2) Peripheral vascular disease Status: Chronic Current Visit: Yes Code(s): I73.9 - Peripheral vascular disease, unspecified (3) Hammer toe of right foot Status: Chronic Current Visit: Yes Code(s): M20.41 - Other hammer toe(s) (acquired), right foot (4) Malnutrition Status: Suspected Current Visit: Yes Code(s): E46 - Unspecified protein- calorie malnutrition History of Present Illness Date of Service: 12/27/17 Chief Complaint: right fifth toe ulcer History of Wound: This 77-year-old pleasant female patient with multiple comorbidities presents to the wound healing center today for right fifth toe ulcer. This is been present for over 1 month. She was previously treated by her primary care physician, Dr. Hassan as well as Dr. Buckley who performed a right leg angioplasty to the popliteal artery and stent to the right common iliac artery and stent to the left common iliac artery under conscious sedation on December 06, 2017 at [facility]. She has been wearing closed shoes. She denies taking nutritional supplements. She applies Betadine and a Vaseline type dressing to the open ulcer site. She denies redness odor fever, chill, nausea, vomiting. She denies specific traumatic incident. She denies having a previous foot x-ray. Her pain is rated as mild to moderate at rest and with direct touch. 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 (Chronic) Peripheral vascular disease (Chronic) Hammer toe of right foot (Chronic) Past Medical History: Hypertension, peripheral vascular disease on Plavix Surgical History: angioplasty Allergies/Adverse Reactions: Allergies No Known Allergies Allergy (Verified 12/05/17 14:36) Home Medications: Ambulatory Orders Medication Instructions Recorded Amlodipine [Norvasc] 5 mg PO DAILY 12/05/17 Aspirin 325 mg PO DAILY@0800 12/05/17 Atorvastatin Calcium [Lipitor] 40 mg PO QHS 12/05/17 Cilostazol 100 mg PO BID 12/05/17 Cinnamon Bark [Cinnamon] 1,000 mg PO DAILY 12/05/17 Fish Oil/Dha/Epa [Fish Oil 1,200 2 each PO DAILY 12/05/17 mg Fish Oil] Lisinopril/Hydrochlorothiazide 1 tablet PO DAILY 12/05/17 [Zestoretic 12/15.5 Tablet] Metoprolol Tartrate [Lopressor 50 mg PO DAILY 12/05/17 (Beta Jamison)] Multivitamin [Daily Multiple 1 each PO DAILY 12/05/17 Vitamin] Lives: Alone Smoking Status: Former smoker Tobacco Use: Non-smoker Review of Systems Constitutional: Denies: Chills, Fever, Weakness Cardiovascular: Denies: Chest Pain, Claudication Respiratory: Denies: Shortness of Breath Gastrointestinal: Denies: Nausea, Vomiting Musculoskeletal: Reports: Foot Pain. Denies: Joint Tenderness, Leg Pain Skin: Reports: Skin Changes, Wounds Neurological: Denies: Numbness - Physical Exam Vital Signs Temp Pulse Resp BP 97.3 F L 129 H 16 144/75 H 12/27/17 09:53 12/27/17 09:53 12/27/17 09:53 12/27/17 09:53 General: Alert, Oriented x3, Cooperative HEENT: Atraumatic Extremities: No cyanosis, Capillary Refill Less than 3 Seconds - Digits 1, 2, 3, 4 right foot. Capillary fill time is delayed to the distal tip of the fifth toe where the ulcer site is noted, No Calf Tenderness - Negative Yunior and Crawford sign bilateral, Diminished Peripheral Pulses - 2 out of 4 palpable dorsalis pedis pulse right foot and nonpalpable posterior tibial artery pulse right, Edema - Very scant edema to right foot compared to contralateral limb, Tenderness - Tenderness with ulcer manipulation right fifth toe Skin: Ulcer/ Wound - No purulence, erythema, streaking, odor, or infection. The ulcer site is covered with the fibronecrotic plug upon debridement there is fibrous tissue and very minimal sub-hemorrhagic and subcutaneous tissue exposed. The peripheral skin is hairless and atrophic. There is no interdigital maceration or other ulcer sites noted bilateral lower extremities. Wound Measurements and Assessment WC - Nurse 1 - General Ulcer Measurement Start: 12/27/17 09:53 Freq: Status: Active Protocol: Activity Type Activity Date Activity User E-Sign Co-Sign Detail Recorded Client Recorded Date Recorded By Document 12/27/17 09:53 [id number] 12/27/17 10:12 12/27/17 09:53 Wound Center Nurse 1 [Ulcer Assessment] R 5TH TOE -Combined with other wound No -Current Size (cm) - Length 1.9 -Current Size (cm) - Width 1.0 -Current Size (cm) - Depth 0.1 -Total Square Cm 1.90 -Date of Last Picture (Recall this 12/27/17 field) -Photo Taken Yes -Tunneling No -Undermining/Tunneling No -Circular Undermining No -Exudate Amt None Present (0 %) -Wound Margin Distinct, Outline Attached -Granulation Amt None Present (0 %) -Slough/Fibrin Yes -Necrosis Amt Large (67-100%) -Necrotic Tissue Type Eschar -Texture (Zora-wound Skin Appearance) Assessed Scarring -Moisture (Zora-wound Skin Appearance Assessed ) Dry/Scaly -Color (Zora-wound Skin Appearance) Assessed Erythema -Temperature (Zora-wound Skin No Abnormality Appearance) (Pt Warm) -Tenderness on Palpation (Zoar-wound No Skin Appearance) -Ulcer Cleansing Rinsed/ Irrigated with Saline -Foul Odor after Cleansing No -Anesthetic Used 4% Lidocaine Solution [Edema Assessment] -Right Calf (cm) 31.5 -Right Ankle (cm) 20.5 -Left Calf (cm) 32 -Left Ankle (cm) 20 WC - Nurse 2 - General Ulcer CM Notes Start: 12/27/17 09:53 Freq: Status: Active Protocol: Activity Type Activity Date Activity User E-Sign Co-Sign Detail Recorded Client Recorded Date Recorded By Document 12/27/17 10:53 [id number] 12/27/17 10:56 12/27/17 10:53 Wound Center Nurse 2 [Procedure/Treatment] R 5TH TOE -Time 10:53 -Correct Patient Yes -Correct Side, Site, Position Yes -Correct Procedure Yes -Procedure Performed Yes -Type of Procedure Debridement -Clinical Debridement Subcutaneous -Post Debridement Size (cm) - Length 2.0 -Post Debridement Size (cm) - Width 1.2 -Post Debridement Size (cm) - Depth 0.1 -Total Square Cm 2.40 -Wound/Ulcer Outcome Not Healed -Ulcer Cleansing Rinsed/ Irrigated with Saline -Foul Odor after Cleansing No -Bioengineered Tissue No -Topical Lidocaine (%) 4 -Bleeding Controlled with Pressure -Treatment Response Procedure Tolerated Well [See Physician Procedure note for Specifics] Pain Scale: 0-10 Numeric [Pain] -Is Patient Pain Free? Yes Musculoskeletal: No Tenderness to Palpation of Joints or Extremities, Muscle Wasting, - - Dorsal contraction and varus rotation of the right fifth toe. The compartments of the right foot ankle and leg remains soft to touch. Neurological: Sensory exam intact to light touch and pain Psych/Mental Status: Normal Affect, Appropriate Debridement Note Post-Debridement Measurements/Treatment WC - Nurse 2 - General Ulcer CM Notes Start: 12/27/17 09:53 Freq: Status: Active Protocol: Activity Type Activity Date Activity User E-Sign Co-Sign Detail Recorded Client Recorded Date Recorded By Document 12/27/17 10:53 [id number] 12/27/17 10:56 TM 12/27/17 10:53 Wound Center Nurse 2 R 5TH TOE -Time 10:53 -Correct Patient Yes -Correct Side, Site, Position Yes -Correct Procedure Yes -Procedure Performed Yes -Type of Procedure Debridement -Clinical Debridement Subcutaneous -Post Debridement Size (cm) - Length 2.0 -Post Debridement Size (cm) - Width 1.2 -Post Debridement Size (cm) - Depth 0.1 -Total Square Cm 2.40 -Wound/Ulcer Outcome Not Healed -Ulcer Cleansing Rinsed/ Irrigated with Saline -Foul Odor after Cleansing No -Bioengineered Tissue No -Topical Lidocaine (%) 4 -Bleeding Controlled with Pressure -Treatment Response Procedure Tolerated Well Pain Scale: 0-10 Numeric Is Patient Pain Free? 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 Hammertoe right fifth toe. Peripheral vascular disease status post intervention. Malnutrition suspected Plan: I reviewed and discussed her case today. I reviewed her previous diagnostic data including her vascular surgery intervention performed by Dr. Buckley on 12/06/2017. It is also noted that she had a venous duplex Doppler per formed on 12/11/2017 which demonstrated incompetent bilateral veins and there was no evidence of a deep venous thrombosis bilateral. She also had some lab work performed including a CBC, ESR, and CMP. No leukocytosis was noted. Her previous sedimentation rate was 42. Her previous uric acid was 7.3. Her hemoglobin A1c was 6.1%. It appears that her creatinine function is also within fairly normal range. Her C-reactive protein was 17.2. Subcutaneous excisional debridement was performed is noted in the clinical panel. I recommend changing the dressing daily with hydrogel; this was demonstrated. To offload this ulcer friable site with a surgical shoe that she already has at home. To bring to clinic next week for modifications. I recommend nutritional supplementation and a prescription for Hal was provided. I also recommended foot x-ray and an order form was provided for her to obtain later today. As her wound progresses and improves in quality advanced wound care products will be considered. We discussed the anticipated healing time and management course. I answered all of her questions. To follow-up at the wound healing center next week or call sooner if she has any questions or concerns. She was reassured there are no local or systemic signs of infection noted today.
[2018-01-03 10:32] VITALS: BP 125/72; PULSE 109; RESP 18; TEMP 36.4; BMI 24.9
--- NOTE | 2018-01-03 13:08 | PCM.WC.PN ---
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 Code(s): L97.512 - Non-pressure chronic ulcer of other part of right foot with fat layer exposed (2) Peripheral vascular disease Status: Chronic Code(s): I73.9 - Peripheral vascular disease, unspecified (3) Hammer toe of right foot Status: Chronic Code(s): M20.41 - Other hammer toe(s) (acquired), right foot (4) Malnutrition Status: Suspected Code(s): E46 - Unspecified protein-calorie malnutrition Type of Wound Date of Service: 01/03/18 Chief Complaint: right fifth toe ulcer History of Wound: This 77-year-old pleasant female patient with multiple comorbidities presents to the wound healing center today for right fifth toe ulcer. This is been present for over 1 month. She was previously treated by her primary care physician, Dr. Hassan as well as Dr. Buckley who performed a right leg angioplasty to the popliteal artery and stent to the right common iliac artery and stent to the left common iliac artery under conscious sedation on December 06, 2017 at [facility]. She denies redness odor fever, chill, nausea, vomiting. She continues to wear closed shoes and this is not recommended. She discontinued all of the recommended wound care and daily dressing changes because she cannot see the ulcer. She admits she has trouble with her eyes. Progress of Wound: Stable - Physical Exam Vital Signs Temp Pulse Resp BP 97.5 F L 109 H 18 125/72 H 01/03/18 10:32 01/03/18 10:32 01/03/18 10:32 01/03/18 10:32 General: Alert, Oriented x3, Cooperative HEENT: Atraumatic Extremities: No cyanosis, Capillary Refill Less than 3 Seconds, No Calf Tenderness - Negative Yunior and Crawford right, Diminished Peripheral Pulses, Edema - Minor, - - Dorsal contraction varus rotation of fifth toe. No crepitus on palpation of the right foot Skin: Ulcer/ Wound - No purulence, no erythema, streaking, no odor, no acute signs of infection. The peripheral skin is hairless and atrophic. The wound bed is fibrous and dry. There is no exposed deep tissue or eschar noted today Wound Measurements and Assessment WC - Nurse 1 - General Ulcer Measurement Start: 12/27/17 09:53 Freq: Status: Active Protocol: Activity Type Activity Date Activity User E-Sign Co-Sign Detail Recorded Client Recorded Date Recorded By Document 01/03/18 10:32 [id number] 01/03/18 10:33 01/03/18 10:32 Wound Center Nurse 1 [Ulcer Assessment] R 5TH TOE -Combined with other wound No -Current Size (cm) - Length 1 -Current Size (cm) - Width 0.6 -Current Size (cm) - Depth 0.1 -Total Square Cm 0.6 -Photo Taken No -Epithelialization Medium 34-66% -Tunneling No -Undermining/Tunneling No -Circular Undermining No -Exudate Amt None Present (0 %) -Granulation Amt None Present (0 %) -Slough/Fibrin Yes -Necrosis Amt Large (67-100%) -Necrotic Tissue Type Adherent Slough -Structure Exposed N/A -Texture (Zora-wound Skin Appearance) Assessed -Moisture (Zora-wound Skin Appearance Assessed ) Dry/Scaly -Color (Zora-wound Skin Appearance) Assessed -Temperature (Zora-wound Skin No Abnormality Appearance) (Pt Warm) -Tenderness on Palpation (Zora-wound No Skin Appearance) -Ulcer Cleansing Rinsed/ Irrigated with Saline -Foul Odor after Cleansing No -Anesthetic Used 5% Lidocaine Gel [Edema Assessment] -Lower Limb Edema Present Yes -Left Calf (cm) 30.8 -Left Ankle (cm) 18.6 - Nurse 2 - General Ulcer CM Notes Start: 12/27/17 09:53 Freq: Status: Active Protocol: Activity Type Activity Date Activity User E-Sign Co-Sign Detail Recorded Client Recorded Date Recorded By Document 01/03/18 10:46 [id number] 01/03/18 10:47 01/03/18 10:46 Wound Center Nurse 2 [Procedure/Treatment] R 5TH TOE -Time 10:46 -Correct Patient Yes -Correct Side, Site, Position Yes -Correct Procedure Yes -Procedure Performed Yes -Type of Procedure Debridement -Clinical Debridement Subcutaneous -Post Debridement Size (cm) - Length 1.0 -Post Debridement Size (cm) - Width 0.9 -Post Debridement Size (cm) - Depth 0.1 -Total Square Cm 0.90 -Wound/Ulcer Outcome Not Healed -Ulcer Cleansing Rinsed/ Irrigated with Saline -Foul Odor after Cleansing No -Bioengineered Tissue No -Topical Lidocaine (%) 5 -Bleeding Controlled with Pressure -Treatment Response Procedure Tolerated Well [See Physician Procedure note for Specifics] Pain Scale: 0-10 Numeric [Pain] -Is Patient Pain Free? Yes Musculoskeletal: No Tenderness to Palpation of Joints or Extremities, Muscle Wasting Neurological: Sensory exam intact to light touch and pain Psych/Mental Status: Normal Affect, Appropriate Debridement Note Post-Debridement Measurements/Treatment WC - Nurse 2 - General Ulcer CM Notes Start: 12/27/17 09:53 Freq: Status: Active Protocol: Activity Type Activity Date Activity User E-Sign Co-Sign Detail Recorded Client Recorded Date Recorded By Document 12/27/17 10:53 [id number] 12/27/17 10:56 TM Document 01/03/18 10:46 [id number] 01/03/18 10:47 TM 12/27/17 01/03/18 10:53 10:46 Wound Center Nurse 2 R 5TH TOE -Time 10:53 10:46 -Correct Patient Yes Yes -Correct Side, Site, Position Yes Yes -Correct Procedure Yes Yes -Procedure Performed Yes Yes -Type of Procedure Debridement Debridement -Clinical Debridement Subcutaneous Subcutaneous -Post Debridement Size (cm) - Length 2.0 1.0 -Post Debridement Size (cm) - Width 1.2 0.9 -Post Debridement Size (cm) - Depth 0.1 0.1 -Total Square Cm 2.40 0.90 -Wound/Ulcer Outcome Not Healed Not Healed -Ulcer Cleansing Rinsed/ Rinsed/ Irrigated with Irrigated with Saline Saline -Foul Odor after Cleansing No No -Bioengineered Tissue No No -Topical Lidocaine (%) 4 5 -Bleeding Controlled with Pressure Pressure -Treatment Response Procedure Procedure Tolerated Well Tolerated Well Pain Scale: 0-10 Numeric Is Patient Pain Free? Yes Yes Wound debrided: 5th toe Laterality: Right Type of Debridement: Excisional debridement Anesthesia Used: 4% Lidocaine Solution Depth: in the subcutaneous layer Percentage of wound debrided: 100 Instrument Used: #15 blade Tissue Removed: fibrous, devitalized subcutaneous, biofilm, slough Severity: Fat Layer Exposed Amount of bleeding with debridement: Mild Bleeding Controlled with: Pressure Patient tolerated procedure well Assessment/Plan Clinical Impression(s) from Imaging Studies Toe X-Ray 12/27/17 11:26 IMPRESSION: There are no obvious radiographic signs of osteomyelitis in the fifth toe, however early osteomyelitis may be present at the tuft of the distal phalanx since this is in close proximity to the ulcer. Electronically Signed: Diana Alcaraz MD at 23:58 EDT Tel Direct: [phone], Service support , Assessment: Right fifth toe ulcer with fat layer exposed. Hammertoe right fifth toe. Peripheral vascular disease status post intervention. Malnutrition suspected Plan: I reviewed and discussed her case today. I reviewed her previous diagnostic data including her vascular surgery intervention performed by Dr. Buckley on 12/06/2017. It is also noted that she had a venous duplex Doppler performed on 12/11/2017 which demonstrated incompetent bilateral veins and there was no evidence of a deep venous thrombosis bilateral. She also had some lab work performed including a CBC, ESR, and CMP. No leukocytosis was noted. Her previous sedimentation rate was 42. Her previous uric acid was 7.3. Her hemoglobin A1c was 6.1%. It appears that her creatinine function is also within fairly normal range. Her C-reactive protein was 17.2. Her foot x-ray was reviewed and I do not appreciate any osseous destruction periosteal reaction and soft tissue emphysema foreign body or acute fracture dislocation to the right foot particularly adjacent to the ulceration site. Subcutaneous excisional debridement was performed is noted in the clinical panel. I recommend changing the dressing daily with hydrogel; this was demonstrated. Compliance was discussed with the dressing care and offloading; this is imperative for healing. To offload this ulcer friable site with a surgical shoe that she already has at home. She is not amenable to wearing open toe shoe but will bring an athletic shoe next week and I will cut the upper part of the shoe to offload this ulcer site. To bring to clinic next week for modifications. I recommend nutritional supplementation and a prescription for Hal was provided. As her wound progresses and improves in quality advanced wound care products will be considered. This ulcer is less than 1 cm in diameter and she will not qualify at this time. We discussed the anticipated healing time and management course. I answered all of her questions. To follow-up at the wound healing center next week or call sooner if she has any questions or concerns. She was reassured there are no local or systemic signs of infection noted today.
== END 2018-01-03 23:59 ==
LOC: WC 10:45
PROVIDERS: Family Provider Family Medicine Geriatric Medicine; PCP Family Medicine Geriatric Medicine; Referring Provider Podiatrist; Visit Provider Podiatrist
DX: I73.9 Peripheral vascular disease, unspecified (principal); L97.512 Non-pressure chronic ulcer of other part of right foot with fat layer exposed; M20.41 Other hammer toe(s) (acquired), right foot; I10 Essential (primary) hypertension; Z87.891 Personal history of nicotine dependence; Z79.899 Other long term (current) drug therapy; Z79.82 Long term (current) use of aspirin; R09.89 Other specified symptoms and signs involving the circulatory and respiratory systems
CPT/HCPCS: 11042; 73660; 99213; G0463

== ENCOUNTER 2018-01-31 09:00 | Outpatient (RCR) | payer MEDICARE, SELFPAY ==
[2018-01-04 02:00] VITALS: BP 125/72; PULSE 109; RESP 18; TEMP 36.4
[2018-01-10 08:43] VITALS: BP 122/59; PULSE 121; RESP 20; TEMP 35.8
--- NOTE | 2018-01-10 09:29 | PCM.WC.PN ---
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 Current Visit: Yes Code(s): L97.512 - Non-pressure chronic ulcer of other part of right foot with fat layer exposed (2) Peripheral vascular disease Status: Chronic Current Visit: Yes Code(s): I73.9 - Peripheral vascular disease, unspecified (3) Hammer toe of right foot Status: Chronic Current Visit: Yes Code(s): M20.41 - Other hammer toe(s) (acquired), right foot (4) Malnutrition Status: Suspected Current Visit: Yes Code(s): E46 - Unspecified protein-calorie malnutrition Type of Wound Date of Service: 01/10/18 Chief Complaint: right fifth toe ulcer History of Wound: This 77-year-old pleasant female patient with multiple comorbidities presents to the wound healing center today for right fifth toe ulcer. Dr. Buckley performed a right leg angioplasty to the popliteal artery and stent to the right common iliac artery and stent to the left common iliac artery under conscious sedation on December 06, 2017 at [facility]. She denies redness odor fever, chill, nausea, vomiting. She brought her shoe to get modified today to take pressure off of the site. She has been compliant with dressing changes this past week. Progress of Wound: Improving quality - Physical Exam Vital Signs Temp Pulse Resp BP 96.5 F L 121 H 20 H 122/59 H 01/10/18 08:43 01/10/18 08:43 01/10/18 08:43 01/10/18 08:43 General: Alert, Oriented x3, Cooperative Extremities: No cyanosis, No edema, Capillary Refill Less than 3 Seconds, No Calf Tenderness, Diminished Peripheral Pulses, - - Subtle varus rotation of right fifth toe Skin: Ulcer/ Wound - No purulence, no erythema, streaking, no odor, no infection. Though ulcer wound bed has increased pale granulation tissue decreased fibrous tissue and resolved eschar tissue. There is no adjacent interdigital maceration. The peripheral skin is hairless and atrophic. Wound Measurements and Assessment WC - Nurse 1 - General Ulcer Measurement Start: 01/10/18 08:43 Freq: Status: Active Protocol: Activity Type Activity Date Activity User E-Sign Co-Sign Detail Recorded Client Recorded Date Recorded By Document 01/10/18 08:43 DL [id number] 01/10/18 08:49 DL 01/10/18 08:43 Wound Center Nurse 1 [Ulcer Assessment] R 5TH TOE -Current Size (cm) - Length 1.2 -Current Size (cm) - Width 0.5 -Current Size (cm) - Depth 0.1 -Total Square Cm 0.60 -Photo Taken No -Exudate Amt Small (1-33%) -Exudate Type Serosanguineous -Wound Margin Distinct, Outline Attached -Granulation Amt Small (1-33%) -Granulation Quality [place] -Necrosis Amt Large (67-100%) -Necrotic Tissue Type Adherent Slough -Structure Exposed N/A -Texture (Zora-wound Skin Appearance) Scarring -Moisture (Zora-wound Skin Appearance Maceration ) -Color (Zora-wound Skin Appearance) No Abnormality -Temperature (Zora-wound Skin No Abnormality Appearance) (Pt Warm) -Tenderness on Palpation (Zora-wound No Skin Appearance) -Ulcer Cleansing Wound Cleanser -Foul Odor after Cleansing No -Anesthetic Used 4% Lidocaine Solution WC - Nurse 2 - General Ulcer CM Notes Start: 01/10/18 08:43 Freq: Status: Active Protocol: Activity Type Activity Date Activity User E-Sign Co-Sign Detail Recorded Client Recorded Date Recorded By Document 01/10/18 09:00 [id number] 01/10/18 09:01 REGINO 01/10/18 09:00 Wound Center Nurse 2 [Procedure/Treatment] -Time 09:00 -Correct Patient Yes -Correct Side, Site, Position Yes -Correct Procedure Yes -Procedure Performed Yes -Type of Procedure Debridement -Clinical Debridement Subcutaneous -Post Debridement Size (cm) - Length 1.3 -Post Debridement Size (cm) - Width 0.7 -Post Debridement Size (cm) - Depth 0.1 -Total Square Cm 0.91 -Wound/Ulcer Outcome Not Healed -Ulcer Cleansing Rinsed/ Irrigated with Saline -Foul Odor after Cleansing No -Bioengineered Tissue No -Bleeding Controlled with Pressure -Treatment Response Procedure Tolerated Well [See Physician Procedure note for Specifics] Pain Scale: 0-10 Numeric [Pain] -Is Patient Pain Free? Yes Musculoskeletal: No Tenderness to Palpation of Joints or Extremities, Muscle Wasting Neurological: Sensory exam intact to light touch and pain Psych/Mental Status: Normal Affect, Appropriate Debridement Note Post-Debridement Measurements/Treatment WC - Nurse 2 - General Ulcer CM Notes Start: 01/10/18 08:43 Freq: Status: Active Protocol: Activity Type Activity Date Activity User E-Sign Co-Sign Detail Recorded Client Recorded Date Recorded By Document 01/10/18 09:00 [email or web address] [id number] 01/10/18 09:01 REGINO 01/10/18 09:00 Wound Center Nurse 2 R 5TH TOE -Time 09:00 -Correct Patient Yes -Correct Side, Site, Position Yes -Correct Procedure Yes -Procedure Performed Yes -Type of Procedure Debridement -Clinical Debridement Subcutaneous -Post Debridement Size (cm) - Length 1.3 -Post Debridement Size (cm) - Width 0.7 -Post Debridement Size (cm) - Depth 0.1 -Total Square Cm 0.91 -Wound/Ulcer Outcome Not Healed -Ulcer Cleansing Rinsed/ Irrigated with Saline -Foul Odor after Cleansing No -Bioengineered Tissue No -Bleeding Controlled with Pressure -Treatment Response Procedure Tolerated Well Pain Scale: 0-10 Numeric Is Patient Pain Free? 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 Hammertoe right fifth toe. Peripheral vascular disease status post intervention. Malnutrition suspected Plan: I reviewed and discussed her case today. I reviewed her previous diagnostic data including her vascular surgery intervention performed by Dr. Buckley on 12/06/2017. It is also noted that she had a venous duplex Doppler performed on 12/11/2017 which demonstrated incompetent bilateral veins and there was no evidence of a deep venous thrombosis bilateral. She also had some lab work performed including a CBC, ESR, and CMP. No leukocytosis was noted. Her previous sedimentation rate was 42. Her previous uric acid was 7.3. Her hemoglobin A1c was 6.1%. It appears that her creatinine function is also within fairly normal range. Her C-reactive protein was 17.2. Her x-rays are previously reviewed without any acute injuries, soft tissue emphysema, foreign body, or osseous destruction adjacent to the ulcer site. Subcutaneous excisional debridement was performed is noted in the clinical panel. I recommend changing the dressing daily with santyl; this was demonstrated. This will be ordered for her to change at home and apply it with nickel thickness. To offload this ulcer friable site with a surgical shoe that she already has at home. Her shoe was modified by cutting a hole in the upper and last portion to relieve pressure to the ulcer site. I recommend nutritional supplementation and a prescription for Hal was provided. As her wound progresses and improves in quality advanced wound care products will be considered. We discussed the anticipated healing time and management course. I also recommend nutritional supplementation optimize healing. She obtain Hal however is no longer able to afford this on a long-term basis. I also recommended taking Glucerna or Premier as an alternative option. I answered all of her questions. To follow-up at the wound healing center next week or call sooner if she has any questions or concerns.
--- NOTE | 2018-01-10 09:33 | PN.PCM_ITS ---
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 Current Visit: Yes Code(s): L97.512 - Non-pressure chronic ulcer of other part of right foot with fat layer exposed (2) Peripheral vascular disease Status: Chronic Current Visit: Yes Code(s): I73.9 - Peripheral vascular disease, unspecified (3) Hammer toe of right foot Status: Chronic Current Visit: Yes Code(s): M20.41 - Other hammer toe(s) (acquired), right foot (4) Malnutrition Status: Suspected Current Visit: Yes Code(s): E46 - Unspecified protein- calorie malnutrition Type of Wound Date of Service: 01/10/18 Chief Complaint: right fifth toe ulcer History of Wound: This 77-year-old pleasant female patient with multiple comorbidities presents to the wound healing center today for right fifth toe ulcer. Dr. Buckley performed a right leg angioplasty to the popliteal artery and stent to the right common iliac artery and stent to the left common iliac artery under conscious sedation on December 06, 2017 at [facility]. She denies redness odor fever, chill, nausea, vomiting. She brought her shoe to get modified today to take pressure off of the site. She has been compliant with dressing changes this past week. Progress of Wound: Improving quality - Physical Exam Vital Signs Temp Pulse Resp BP 96.5 F L 121 H 20 H 122/59 H 01/10/18 08:43 01/10/18 08:43 01/10/18 08:43 01/10/18 08:43 General: Alert, Oriented x3, Cooperative Extremities: No cyanosis, No edema, Capillary Refill Less than 3 Seconds, No Calf Tenderness, Diminished Peripheral Pulses, - - Subtle varus rotation of right fifth toe Skin: Ulcer/ Wound - No purulence, no erythema, streaking, no odor, no infection. Though ulcer wound bed has increased pale granulation tissue decreased fibrous tissue and resolved eschar tissue. There is no adjacent interdigital maceration. The peripheral skin is hairless and atrophic. Wound Measurements and Assessment WC - Nurse 1 - General Ulcer Measurement Start: 01/10/18 08:43 Freq: Status: Active Protocol: Activity Type Activity Date Activity User E-Sign Co-Sign Detail Recorded Client Recorded Date Recorded By Document 01/10/18 08:43 DL [id number] 01/10/18 08:49 DL 01/10/18 08:43 Wound Center Nurse 1 [Ulcer Assessment] R 5TH TOE -Current Size (cm) - Length 1.2 -Current Size (cm) - Width 0.5 -Current Size (cm) - Depth 0.1 -Total Square Cm 0.60 -Photo Taken No -Exudate Amt Small (1-33%) -Exudate Type Serosanguineous -Wound Margin Distinct, Outline Attached -Granulation Amt Small (1-33%) -Granulation Quality [place] -Necrosis Amt Large (67-100%) -Necrotic Tissue Type Adherent Slough -Structure Exposed N/A -Texture (Zora-wound Skin Appearance) Scarring -Moisture (Zora-wound Skin Appearance Maceration ) -Color (Zora-wound Skin Appearance) No Abnormality -Temperature (Zora-wound Skin No Abnormality Appearance) (Pt Warm) -Tenderness on Palpation (Zora-wound No Skin Appearance) -Ulcer Cleansing Wound Cleanser -Foul Odor after Cleansing No -Anesthetic Used 4% Lidocaine Solution WC - Nurse 2 - General Ulcer CM Notes Start: 01/10/18 08:43 Freq: Status: Active Protocol: Activity Type Activity Date Activity User E-Sign Co-Sign Detail Recorded Client Recorded Date Recorded By Document 01/10/18 09:00 [id number] 01/10/18 09:01 REGINO 01/10/18 09:00 Wound Center Nurse 2 [Procedure/Treatment] -Time 09:00 -Correct Patient Yes -Correct Side, Site, Position Yes -Correct Procedure Yes -Procedure Performed Yes -Type of Procedure Debridement -Clinical Debridement Subcutaneous -Post Debridement Size (cm) - Length 1.3 -Post Debridement Size (cm) - Width 0.7 -Post Debridement Size (cm) - Depth 0.1 -Total Square Cm 0.91 -Wound/Ulcer Outcome Not Healed -Ulcer Cleansing Rinsed/ Irrigated with Saline -Foul Odor after Cleansing No -Bioengineered Tissue No -Bleeding Controlled with Pressure -Treatment Response Procedure Tolerated Well [See Physician Procedure note for Specifics] Pain Scale: 0-10 Numeric [Pain] -Is Patient Pain Free? Yes Musculoskeletal: No Tenderness to Palpation of Joints or Extremities, Muscle Wasting Neurological: Sensory exam intact to light touch and pain Psych/Mental Status: Normal Affect, Appropriate Debridement Note Post-Debridement Measurements/Treatment WC - Nurse 2 - General Ulcer CM Notes Start: 01/10/18 08:43 Freq: Status: Active Protocol: Activity Type Activity Date Activity User E-Sign Co-Sign Detail Recorded Client Recorded Date Recorded By Document 01/10/18 09:00 REGINO [id number] 01/10/18 09:01 REGINO 01/10/18 09:00 Wound Center Nurse 2 R 5TH TOE -Time 09:00 -Correct Patient Yes -Correct Side, Site, Position Yes -Correct Procedure Yes -Procedure Performed Yes -Type of Procedure Debridement -Clinical Debridement Subcutaneous -Post Debridement Size (cm) - Length 1.3 -Post Debridement Size (cm) - Width 0.7 -Post Debridement Size (cm) - Depth 0.1 -Total Square Cm 0.91 -Wound/Ulcer Outcome Not Healed -Ulcer Cleansing Rinsed/ Irrigated with Saline -Foul Odor after Cleansing No -Bioengineered Tissue No -Bleeding Controlled with Pressure -Treatment Response Procedure Tolerated Well Pain Scale: 0-10 Numeric Is Patient Pain Free? 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 Hammertoe right fifth toe. Peripheral vascular disease status post intervention. Malnutrition suspected Plan: I reviewed and discussed her case today. I reviewed her previous diagnostic data including her vascular surgery intervention performed by Dr. Buckley on 12/06/2017. It is also noted that she had a venous duplex Doppler performed on 12/11/2017 which demonstrated incompetent bilateral veins and there was no evidence of a deep venous thrombosis bilateral. She also had some lab work performed including a CBC, ESR, and CMP. No leukocytosis was noted. Her previous sedimentation rate was 42. Her previous uric acid was 7.3. Her hemoglobin A1c was 6.1%. It appears that her creatinine function is also within fairly normal range. Her C-reactive protein was 17.2. Her x-rays are previously reviewed without any acute injuries, soft tissue emphysema, foreign body, or osseous destruction adjacent to the ulcer site. Subcutaneous excisional debridement was performed is noted in the clinical panel. I recommend changing the dressing daily with santyl; this was demonstrated. This will be ordered for her to change at home and apply it with nickel thickness. To offload this ulcer friable site with a surgical shoe that she already has at home. Her shoe was modified by cutting a hole in the upper and last portion to relieve pressure to the ulcer site. I recommend nutritional supplementation and a prescription for Hal was provided. As her wound progresses and improves in quality advanced wound care products will be considered. We discussed the anticipated healing time and management course. I also recommend nutritional supplementation optimize healing. She obtain Hal however is no longer able to afford this on a long-term basis. I also recommended taking Glucerna or Premier as an alternative option. I answered all of her questions. To follow- up at the wound healing center next week or call sooner if she has any questions or concerns.
[2018-01-17 08:52] VITALS: BP 128/68; PULSE 96; RESP 18; TEMP 36
--- NOTE | 2018-01-17 09:29 | PCM.WC.PN ---
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 Current Visit: Yes Code(s): L97.512 - Non-pressure chronic ulcer of other part of right foot with fat layer exposed (2) Peripheral vascular disease Status: Chronic Current Visit: Yes Code(s): I73.9 - Peripheral vascular disease, unspecified (3) Hammer toe of right foot Status: Chronic Current Visit: Yes Code(s): M20.41 - Other hammer toe(s) (acquired), right foot (4) Malnutrition Status: Suspected Current Visit: Yes Code(s): E46 - Unspecified protein-calorie malnutrition Type of Wound Date of Service: 01/17/18 Chief Complaint: right fifth toe ulcer History of Wound: This 77-year-old pleasant female patient with multiple comorbidities presents to the wound healing center today for right fifth toe ulcer. Dr. Buckley performed a right leg angioplasty to the popliteal artery and stent to the right common iliac artery and stent to the left common iliac artery under conscious sedation on December 06, 2017 at [facility]. She denies redness odor fever, chill, nausea, vomiting. She brought her shoe to get modified today to take pressure off of the site. She has been compliant with dressing changes and recommended offloading this past week. She has stopped her Plavix due to some dark discoloration on her hands. She denies blood in her stool urine or her oral cavity while brushing teeth. She try to follow-up with Dr. Buckley and was unable to get in today. She denies that she received a phone call in regards to obtaining her Santyl prescription medication that was ordered last week. Progress of Wound: Improving quality - Physical Exam Vital Signs Temp Pulse Resp BP 96.8 F L 96 18 128/68 H 01/17/18 08:52 01/17/18 08:52 01/17/18 08:52 01/17/18 08:52 General: Alert, Oriented x3, Cooperative Extremities: No cyanosis, Capillary Refill Less than 3 Seconds, No Calf Tenderness - Negative Yunior and Crawford sign bilateral, Edema - Mild right fifth toe, Tenderness - Tenderness with ulcer manipulation Skin: Ulcer/ Wound - No purulence, erythema, streaking, odor, infection, deep tissue exposure. The peripheral skin is hairless and atrophic. Wound Measurements and Assessment WC - Nurse 1 - General Ulcer Measurement Start: 01/10/18 08:43 Freq: Status: Active Protocol: Activity Type Activity Date Activity User E-Sign Co-Sign Detail Recorded Client Recorded Date Recorded By Document 01/17/18 08:52 [id number] 01/17/18 08:57 DL 01/17/18 08:52 Wound Center Nurse 1 [Ulcer Assessment] R 5TH TOE -Current Size (cm) - Length 0.8 -Current Size (cm) - Width 0.6 -Current Size (cm) - Depth 0.1 -Total Square Cm 0.48 -Photo Taken No -Exudate Amt None Present (0 %) -Wound Margin Flat & Intact -Granulation Amt None Present (0 %) -Necrosis Amt Large (67-100%) -Necrotic Tissue Type Adherent Slough -Structure Exposed N/A -Texture (Zora-wound Skin Appearance) No Abnormality -Moisture (Zora-wound Skin Appearance Dry/Scaly ) -Color (Zora-wound Skin Appearance) Erythema Rubor -Temperature (Zora-wound Skin No Abnormality Appearance) (Pt Warm) -Tenderness on Palpation (Zora-wound Yes Skin Appearance) -Ulcer Cleansing Rinsed/ Irrigated with Saline -Foul Odor after Cleansing No -Anesthetic Used 4% Lidocaine Solution WC - Nurse 2 - General Ulcer CM Notes Start: 01/10/18 08:43 Freq: Status: Active Protocol: Activity Type Activity Date Activity User E-Sign Co-Sign Detail Recorded Client Recorded Date Recorded By Document 01/17/18 09:21 [id number] 01/17/18 09:23 01/17/18 09:21 Wound Center Nurse 2 [Procedure/Treatment] -Time 09:22 -Correct Patient Yes -Correct Side, Site, Position Yes -Correct Procedure Yes -Procedure Performed Yes -Type of Procedure Debridement -Clinical Debridement Subcutaneous -Post Debridement Size (cm) - Length 0.9 -Post Debridement Size (cm) - Width 0.7 -Post Debridement Size (cm) - Depth 0.1 -Total Square Cm 0.63 -Wound/Ulcer Outcome Not Healed -Ulcer Cleansing Rinsed/ Irrigated with Saline -Foul Odor after Cleansing No -Bioengineered Tissue No -Injectable Lidocaine (%) 1 -Bleeding Controlled with Pressure -Treatment Response Procedure Tolerated Well [See Physician Procedure note for Specifics] Pain Scale: 0-10 Numeric [Pain] -Is Patient Pain Free? Yes Musculoskeletal: No Tenderness to Palpation of Joints or Extremities, Muscle Wasting, - - Varus rotation right fifth toe Neurological: Sensory exam intact to light touch and pain Psych/Mental Status: Normal Affect, Appropriate Debridement Note Post-Debridement Measurements/Treatment WC - Nurse 2 - General Ulcer CM Notes Start: 01/10/18 08:43 Freq: Status: Active Protocol: Activity Type Activity Date Activity User E-Sign Co-Sign Detail Recorded Client Recorded Date Recorded By Document 01/10/18 09:00 [id number] 01/10/18 09:01 Document 01/17/18 09:21 [id number] 01/17/18 09:23 TM 01/10/18 01/17/18 09:00 09:21 Wound Center Nurse 2 R 5TH TOE -Time 09:00 09:22 -Correct Patient Yes Yes -Correct Side, Site, Position Yes Yes -Correct Procedure Yes Yes -Procedure Performed Yes Yes -Type of Procedure Debridement Debridement -Clinical Debridement Subcutaneous Subcutaneous -Post Debridement Size (cm) - Length 1.3 0.9 -Post Debridement Size (cm) - Width 0.7 0.7 -Post Debridement Size (cm) - Depth 0.1 0.1 -Total Square Cm 0.91 0.63 -Wound/Ulcer Outcome Not Healed Not Healed -Ulcer Cleansing Rinsed/ Rinsed/ Irrigated with Irrigated with Saline Saline -Foul Odor after Cleansing No No -Bioengineered Tissue No No -Injectable Lidocaine (%) 1 -Bleeding Controlled with Pressure Pressure -Treatment Response Procedure Procedure Tolerated Well Tolerated Well Pain Scale: 0-10 Numeric Is Patient Pain Free? 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 Hammertoe right fifth toe. Peripheral vascular disease status post intervention. Malnutrition suspected Plan: I reviewed and discussed her case today. I reviewed her previous diagnostic data including her vascular surgery intervention performed by Dr. Buckley on 12/06/2017. It is also noted that she had a venous duplex Doppler performed on 12/11/2017 which demonstrated incompetent bilateral veins and there was no evidence of a deep venous thrombosis bilateral. She also had some lab work performed including a CBC, ESR, and CMP. No leukocytosis was noted. Her previous sedimentation rate was 42. Her previous uric acid was 7.3. Her hemoglobin A1c was 6.1%. It appears that her creatinine function is also within fairly normal range. Her C-reactive protein was 17.2. Her x-rays are previously reviewed without any acute injuries, soft tissue emphysema, foreign body, or osseous destruction adjacent to the ulcer site. Subcutaneous excisional debridement was performed is noted in the clinical panel after administration of local anesthetic; she tolerated this very well. I recommend changing the dressing daily with santyl; this was demonstrated. This will be ordered for her to change at home and apply it with nickel thickness. To offload this ulcer friable site with a surgical shoe that she already has at home. Her shoe was modified by cutting a hole in the upper and last portion to relieve pressure to the ulcer site at her previous visit. I recommend nutritional supplementation and a prescription for Hal was provided. As her wound progresses and improves in quality advanced wound care products will be considered. We discussed the anticipated healing time and management course. I also recommend nutritional supplementation optimize healing. She obtain Hal however is no longer able to afford this on a long-term basis. I also recommended taking Glucerna or Premier as an alternative option. I recommend she follow-up with Dr. Buckley and call his office to review her concern about the Plavix use with either the physician or his nurse. I advised her not to stop any medication on her own. She does not appear to have any other acute bleeding sequela issues; she will monitor this very closely. I answered all of her questions. To follow-up at the wound healing center next week or call sooner if she has any questions or concerns.
--- NOTE | 2018-01-17 09:47 | PN.PCM_ITS ---
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 Current Visit: Yes Code(s): L97.512 - Non-pressure chronic ulcer of other part of right foot with fat layer exposed (2) Peripheral vascular disease Status: Chronic Current Visit: Yes Code(s): I73.9 - Peripheral vascular disease, unspecified (3) Hammer toe of right foot Status: Chronic Current Visit: Yes Code(s): M20.41 - Other hammer toe(s) (acquired), right foot (4) Malnutrition Status: Suspected Current Visit: Yes Code(s): E46 - Unspecified protein- calorie malnutrition Type of Wound Date of Service: 01/17/18 Chief Complaint: right fifth toe ulcer History of Wound: This 77-year-old pleasant female patient with multiple comorbidities presents to the wound healing center today for right fifth toe ulcer. Dr. Buckley performed a right leg angioplasty to the popliteal artery and stent to the right common iliac artery and stent to the left common iliac artery under conscious sedation on December 06, [address] [facility]. She denies redness odor fever, chill, nausea, vomiting. She brought her shoe to get modified today to take pressure off of the site. She has been compliant with dressing changes and recommended offloading this past week. She has stopped her Plavix due to some dark discoloration on her hands. She denies blood in her stool urine or her oral cavity while brushing teeth. She try to follow-up with Dr. Buckley and was unable to get in today. She denies that she received a phone call in regards to obtaining her Santyl prescription medication that was ordered last week. Progress of Wound: Improving quality - Physical Exam Vital Signs Temp Pulse Resp BP 96.8 F L 96 18 128/68 H 01/17/18 08:52 01/17/18 08:52 01/17/18 08:52 01/17/18 08:52 General: Alert, Oriented x3, Cooperative Extremities: No cyanosis, Capillary Refill Less than 3 Seconds, No Calf Tenderness - Negative Yunior and Crawford sign bilateral, Edema - Mild right fifth toe, Tenderness - Tenderness with ulcer manipulation Skin: Ulcer/ Wound - No purulence, erythema, streaking, odor, infection, deep tissue exposure. The peripheral skin is hairless and atrophic. Wound Measurements and Assessment WC - Nurse 1 - General Ulcer Measurement Start: 01/10/18 08:43 Freq: Status: Active Protocol: Activity Type Activity Date Activity User E-Sign Co-Sign Detail Recorded Client Recorded Date Recorded By Document 01/17/18 08:52 [id number] 01/17/18 08:57 DL 01/17/18 08:52 Wound Center Nurse 1 [Ulcer Assessment] R 5TH TOE -Current Size (cm) - Length 0.8 -Current Size (cm) - Width 0.6 -Current Size (cm) - Depth 0.1 -Total Square Cm 0.48 -Photo Taken No -Exudate Amt None Present (0 %) -Wound Margin Flat & Intact -Granulation Amt None Present (0 %) -Necrosis Amt Large (67-100%) -Necrotic Tissue Type Adherent Slough -Structure Exposed N/A -Texture (Zora-wound Skin Appearance) No Abnormality -Moisture (Zora-wound Skin Appearance Dry/Scaly ) -Color (Zora-wound Skin Appearance) Erythema Rubor -Temperature (Zora-wound Skin No Abnormality Appearance) (Pt Warm) -Tenderness on Palpation (Zora-wound Yes Skin Appearance) -Ulcer Cleansing Rinsed/ Irrigated with Saline -Foul Odor after Cleansing No -Anesthetic Used 4% Lidocaine Solution WC - Nurse 2 - General Ulcer CM Notes Start: 01/10/18 08:43 Freq: Status: Active Protocol: Activity Type Activity Date Activity User E-Sign Co-Sign Detail Recorded Client Recorded Date Recorded By Document 01/17/18 09:21 [id number] 01/17/18 09:23 01/17/18 09:21 Wound Center Nurse 2 [Procedure/Treatment] -Time 09:22 -Correct Patient Yes -Correct Side, Site, Position Yes -Correct Procedure Yes -Procedure Performed Yes -Type of Procedure Debridement -Clinical Debridement Subcutaneous -Post Debridement Size (cm) - Length 0.9 -Post Debridement Size (cm) - Width 0.7 -Post Debridement Size (cm) - Depth 0.1 -Total Square Cm 0.63 -Wound/Ulcer Outcome Not Healed -Ulcer Cleansing Rinsed/ Irrigated with Saline -Foul Odor after Cleansing No -Bioengineered Tissue No -Injectable Lidocaine (%) 1 -Bleeding Controlled with Pressure -Treatment Response Procedure Tolerated Well [See Physician Procedure note for Specifics] Pain Scale: 0-10 Numeric [Pain] -Is Patient Pain Free? Yes Musculoskeletal: No Tenderness to Palpation of Joints or Extremities, Muscle Wasting, - - Varus rotation right fifth toe Neurological: Sensory exam intact to light touch and pain Psych/Mental Status: Normal Affect, Appropriate Debridement Note Post-Debridement Measurements/Treatment WC - Nurse 2 - General Ulcer CM Notes Start: 01/10/18 08:43 Freq: Status: Active Protocol: Activity Type Activity Date Activity User E-Sign Co-Sign Detail Recorded Client Recorded Date Recorded By Document 01/10/18 09:00 [id number] 01/10/18 09:01 Document 01/17/18 09:21 [id number] 01/17/18 09:23 TM 01/10/18 01/17/18 09:00 09:21 Wound Center Nurse 2 R 5TH TOE -Time 09:00 09:22 -Correct Patient Yes Yes -Correct Side, Site, Position Yes Yes -Correct Procedure Yes Yes -Procedure Performed Yes Yes -Type of Procedure Debridement Debridement -Clinical Debridement Subcutaneous Subcutaneous -Post Debridement Size (cm) - Length 1.3 0.9 -Post Debridement Size (cm) - Width 0.7 0.7 -Post Debridement Size (cm) - Depth 0.1 0.1 -Total Square Cm 0.91 0.63 -Wound/Ulcer Outcome Not Healed Not Healed -Ulcer Cleansing Rinsed/ Rinsed/ Irrigated with Irrigated with Saline Saline -Foul Odor after Cleansing No No -Bioengineered Tissue No No -Injectable Lidocaine (%) 1 -Bleeding Controlled with Pressure Pressure -Treatment Response Procedure Procedure Tolerated Well Tolerated Well Pain Scale: 0-10 Numeric Is Patient Pain Free? 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 Hammertoe right fifth toe. Peripheral vascular disease status post intervention. Malnutrition suspected Plan: I reviewed and discussed her case today. I reviewed her previous diagnostic data including her vascular surgery intervention performed by Dr. Buckley on 12/06/2017. It is also noted that she had a venous duplex Doppler performed on 12/11/2017 which demonstrated incompetent bilateral veins and there was no evidence of a deep venous thrombosis bilateral. She also had some lab work performed including a CBC, ESR, and CMP. No leukocytosis was noted. Her previous sedimentation rate was 42. Her previous uric acid was 7.3. Her hemoglobin A1c was 6.1%. It appears that her creatinine function is also within fairly normal range. Her C-reactive protein was 17.2. Her x-rays are previously reviewed without any acute injuries, soft tissue emphysema, foreign body, or osseous destruction adjacent to the ulcer site. Subcutaneous excisional debridement was performed is noted in the clinical panel after administration of local anesthetic; she tolerated this very well. I recommend changing the dressing daily with santyl; this was demonstrated. This will be ordered for her to change at home and apply it with nickel thickness. To offload this ulcer friable site with a surgical shoe that she already has at home. Her shoe was modified by cutting a hole in the upper and last portion to relieve pressure to the ulcer site at her previous visit. I recommend nutritional supplementation and a prescription for Hal was provided. As her wound progresses and improves in quality advanced wound care products will be considered. We discussed the anticipated healing time and management course. I also recommend nutritional supplementation optimize healing. She obtain Hal however is no longer able to afford this on a long-term basis. I also recommended taking Glucerna or Premier as an alternative option. I recommend she follow-up with Dr. Buckley and call his office to review her concern about the Plavix use with either the physician or his nurse. I advised her not to stop any medication on her own. She does not appear to have any other acute bleeding sequela issues; she will monitor this very closely. I answered all of her questions. To follow-up at the wound healing center next week or call jose cortez if she has any questions or concerns.
[2018-01-24 09:00] VITALS: BP 120/70; PULSE 103; RESP 18; TEMP 35.9
--- NOTE | 2018-01-24 11:35 | PN.PCM_ITS ---
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 Code(s): L97.512 - Non-pressure chronic ulcer of other part of right foot with fat layer exposed (2) Peripheral vascular disease Status: Chronic Code(s): I73.9 - Peripheral vascular disease, unspecified (3) Hammer toe of right foot Status: Chronic Code(s): M20.41 - Other hammer toe(s) (acquired), right foot (4) Malnutrition Status: Suspected Code(s): E46 - Unspecified protein-calorie malnutrition Type of Wound Date of Service: 01/24/18 Chief Complaint: right fifth toe ulcer History of Wound: This 77-year-old pleasant female patient with multiple comorbi dities presents to the wound healing center today for right fifth toe ulcer. Dr. Buckley performed a right leg angioplasty to the popliteal artery and stent to the right common iliac artery and stent to the left common iliac artery under conscious sedation on December 06, 2017 at [facility]. She denies redness odor fever, chill, nausea, vomiting. She brought her shoe to get modified today to take pressure off of the site. She has been compliant with dressing changes and recommended offloading this past week. She apply Santyl as advised. Progress of Wound: Improving - Physical Exam Vital Signs Temp Pulse Resp BP 96.6 F L 103 H 18 120/70 01/24/18 09:00 01/24/18 09:00 01/24/18 09:00 01/24/18 09:00 General: Alert, Oriented x3, Cooperative Extremities: No cyanosis, Capillary Refill Less than 3 Seconds, No Calf Tenderness, Diminished Peripheral Pulses, Edema, - - Dorsal contraction right fifth toe Skin: Ulcer/ Wound - No purulence, erythema, swelling, odor, or infection. Peripheral epithelialization is noted and there is no deep tissue exposure or necrosis. The peripheral skin is very hairless and atrophic. Wound Measurements and Assessment WC - Nurse 1 - General Ulcer Measurement Start: 01/10/18 08:43 Freq: Status: Active Protocol: Activity Type Activity Date Activity User E-Sign Co-Sign Detail Recorded Client Recorded Date Recorded By Document 01/24/18 09:00 JF [id number] 01/24/18 09:05 [email or web address] 01/24/18 09:00 Wound Center Nurse 1 [Ulcer Assessment] R 5TH TOE -Combined with other wound No -Current Size (cm) - Length 0.5 -Current Size (cm) - Width 0.1 -Current Size (cm) - Depth 0.1 -Total Square Cm 0.05 -Photo Taken Yes -Epithelialization Large 67-100% -Tunneling No -Undermining/Tunneling No -Circular Undermining No -Exudate Amt Small (1-33%) -Exudate Type Serosanguineous -Wound Margin Flat & Intact -Granulation Amt Medium (34-66%) -Granulation Quality Pale -Slough/Fibrin Yes -Necrosis Amt Small (1-33%) -Necrotic Tissue Type Adherent Slough -Structure Exposed N/A -Texture (Zora-wound Skin Appearance) Assessed Callus -Moisture (Zora-wound Skin Appearance Assessed ) -Color (Zora-wound Skin Appearance) Assessed -Temperature (Zora-wound Skin No Abnormality Appearance) (Pt Warm) -Tenderness on Palpation (Zora-wound No Skin Appearance) -Ulcer Cleansing Rinsed/ Irrigated with Saline -Foul Odor after Cleansing No -Anesthetic Used 4% Lidocaine Solution [Edema Assessment] -Lower Limb Edema Present NA WC - Nurse 2 - General Ulcer CM Notes Start: 01/10/18 08:43 Freq: Status: Active Protocol: Activity Type Activity Date Activity User E-Sign Co-Sign Detail Recorded Client Recorded Date Recorded By Document 01/24/18 09:13 [id number] 01/24/18 09:14 01/24/18 09:13 Wound Center Nurse 2 [Procedure/Treatment] R 5TH TOE -Time 09:13 -Correct Patient Yes -Correct Side, Site, Position Yes -Correct Procedure Yes -Procedure Performed Yes -Type of Procedure Debridement -Clinical Debridement Subcutaneous -Post Debridement Size (cm) - Length 0.7 -Post Debridement Size (cm) - Width 0.2 -Post Debridement Size (cm) - Depth 0.1 -Total Square Cm 0.14 -Wound/Ulcer Outcome Not Healed -Ulcer Cleansing Rinsed/ Irrigated with Saline -Foul Odor after Cleansing No -Bioengineered Tissue No -Topical Lidocaine (%) 4 -Bleeding Controlled with Pressure -Treatment Response Procedure Tolerated Well [See Physician Procedure note for Specifics] Pain Scale: 0-10 Numeric [Pain] -Is Patient Pain Free? Yes Musculoskeletal: No Tenderness to Palpation of Joints or Extremities, Muscle Wasting Neurological: Sensory exam intact to light touch and pain Psych/Mental Status: Normal Affect, Appropriate Debridement Note Post-Debridement Measurements/Treatment WC - Nurse 2 - General Ulcer CM Notes Start: 01/10/18 08:43 Freq: Status: Active Protocol: Activity Type Activity Date Activity User E-Sign Co-Sign Detail Recorded Client Recorded Date Recorded By Document 01/10/18 09:00 [id number] 01/10/18 09:01 JF Document 01/17/18 09:21 TM [id number] 01/17/18 09:23 TM Document 01/24/18 09:13 [id number] 01/24/18 09:14 TM 01/10/18 01/17/18 01/24/18 09:00 09:21 09:13 Wound Center Nurse 2 R 5TH TOE -Time 09:00 09:22 09:13 -Correct Patient Yes Yes Yes -Correct Side, Site, Position Yes Yes Yes -Correct Procedure Yes Yes Yes -Procedure Performed Yes Yes Yes -Type of Procedure Debridement Debridement Debridement -Clinical Debridement Subcutaneous Subcutaneous Subcutaneous -Post Debridement Size (cm) - Length 1.3 0.9 0.7 -Post Debridement Size (cm) - Width 0.7 0.7 0.2 -Post Debridement Size (cm) - Depth 0.1 0.1 0.1 -Total Square Cm 0.91 0.63 0.14 -Wound/Ulcer Outcome Not Healed Not Healed Not Healed -Ulcer Cleansing Rinsed/ Rinsed/ Rinsed/ Irrigated with Irrigated with Irrigated with Saline Saline Saline -Foul Odor after Cleansing No No No -Bioengineered Tissue No No No -Topical Lidocaine (%) 4 -Injectable Lidocaine (%) 1 -Bleeding Controlled with Pressure Pressure Pressure -Treatment Response Procedure Procedure Procedure Tolerated Well Tolerated Well Tolerated Well Pain Scale: 0-10 Numeric Is Patient Pain Free? Yes Yes Yes Wound debrided: distal toe Laterality: Right Wound Grade/Stage: stage 3 Type of Debridement: Excisional debridement Anesthesia Used: 4% Lidocaine Solution Depth: in the subcutaneous layer Percentage of wound debrided: 100 Instrument Used: #15 blade Tissue Removed: fibrous, devitalized subcutaneous, biofilm, slough Severity: Fat Layer Exposed Amount of bleeding with debridement: Mild Bleeding Controlled with: Pressure Patient tolerated procedure well Assessment/Plan Assessment: Right fifth toe ulcer with fat layer exposed. Hammertoe right fifth toe. Peripheral vascular disease status post intervention. Malnutrition suspected Plan: I reviewed and discussed her case today. I reviewed her previous diagnostic data including her vascular surgery intervention performed by Dr. Buckley on 12/06/2017. It is also noted that she had a venous duplex Doppler performed on 12/11/2017 which demonstrated incompetent bilateral veins and there was no evidence of a deep venous thrombosis bilateral. She also had some lab work performed including a CBC, ESR, and CMP. No leukocytosis was noted. Her previous sedimentation rate was 42. Her previous uric acid was 7.3. Her hemoglobin A1c was 6.1%. It appears that her creatinine function is also within fairly normal range. Her C-reactive protein was 17.2. Her x-rays are previously reviewed without any acute injuries, soft tissue emphysema, foreign body, or osseous destruction adjacent to the ulcer site. Subcutaneous excisional debridement was performed is noted in the clinical panel after administration of local anesthetic; she tolerated this very well. I recommend changing the dressing daily with santyl; this was demonstrated. She was advised to apply this with nickel thickness. To offload this ulcer friable site with her modified Skechers shoe that has a hole cut out at the toe ulcer site. I recommend nutritional supplementation and a prescription for Hal was provided previously. As her wound progresses and improves in quality advanced wound care products will be considered. We discussed the anticipated healing time and management course. I also recommend nutritional supplementation optimize healing. She obtain Hal however is no longer able to afford this on a long- term basis. I also recommended taking Glucerna or Premier as an alternative option. I answered all of her questions. To follow-up at the wound healing center next week or call sooner if she has any questions or concerns.
[2018-01-31 08:46] VITALS: BP 114/68; PULSE 107; RESP 18; TEMP 36.5
--- NOTE | 2018-01-31 09:47 | PCM.WC.PN ---
(1) Ulcer of right foot with fat layer exposed Status: Resolved Current Visit: Yes Code(s): L97.512 - Non-pressure chronic ulcer of other part of right foot with fat layer exposed (2) Peripheral vascular disease Status: Chronic Current Visit: Yes Code(s): I73.9 - Peripheral vascular disease, unspecified (3) Hammer toe of right foot Status: Chronic Current Visit: Yes Code(s): M20.41 - Other hammer toe(s) (acquired), right foot (4) Malnutrition Status: Suspected Current Visit: Yes Code(s): E46 - Unspecified protein-calorie malnutrition Type of Wound Chief Complaint: right fifth toe ulcer healed History of Wound: This 77-year-old pleasant female patient with multiple comorbidities presents to the wound healing center today for right fifth toe ulcer. Dr. Buckley performed a right leg angioplasty to the popliteal artery and stent to the right common iliac artery and stent to the left common iliac artery under conscious sedation on December 06, 2017 at [facility]. She denies redness odor fever, chill, nausea, vomiting. She denies drainage or pain the last four days. Progress of Wound: healed - Physical Exam Vital Signs Temp Pulse Resp BP 97.7 F L 107 H 18 114/68 01/31/18 08:46 01/31/18 08:46 01/31/18 08:46 01/31/18 08:46 General: Alert, Oriented x3, Cooperative Extremities: No cyanosis, Capillary Refill Less than 3 Seconds, No Calf Tenderness, Diminished Peripheral Pulses, - - varus right fifth toe rotation noted Skin: Ulcer/ Wound - full epithelialization noted. no purulence, no odor, no necrosis, no erythema, no infection, no interdigital maceration. the adjacent skin is hairless and atrophic Wound Measurements and Assessment WC - Nurse 1 - General Ulcer Measurement Start: 01/10/18 08:43 Freq: Status: Active Protocol: Activity Type Activity Date Activity User E-Sign Co-Sign Detail Recorded Client Recorded Date Recorded By Document 01/31/18 08:46 DL [id number] 01/31/18 08:50 DL 01/31/18 08:46 Wound Center Nurse 1 [Ulcer Assessment] R 5TH TOE -Current Size (cm) - Length 0.1 -Current Size (cm) - Width 0.1 -Current Size (cm) - Depth 1 -Total Square Cm 0.01 -Photo Taken No -Exudate Amt None Present (0 %) -Wound Margin Thickened -Granulation Amt Large (67-100%) -Granulation Quality Pale [place] -Necrosis Amt Small (1-33%) -Necrotic Tissue Type Adherent Slough -Structure Exposed N/A -Texture (Zora-wound Skin Appearance) Scarring -Moisture (Zora-wound Skin Appearance Dry/Scaly ) -Color (Zora-wound Skin Appearance) No Abnormality -Temperature (Zora-wound Skin No Abnormality Appearance) (Pt Warm) -Tenderness on Palpation (Zora-wound No Skin Appearance) -Ulcer Cleansing Rinsed/ Irrigated with Saline -Foul Odor after Cleansing No -Anesthetic Used 5% Lidocaine Gel WC - Nurse 2 - General Ulcer CM Notes Start: 01/10/18 08:43 Freq: Status: Active Protocol: Activity Type Activity Date Activity User E-Sign Co-Sign Detail Recorded Client Recorded Date Recorded By Document 01/31/18 09:07 [id number] 01/31/18 09:11 01/31/18 09:07 Wound Center Nurse 2 [Procedure/Treatment] -Time 09:08 -Correct Patient Yes -Correct Side, Site, Position Yes -Correct Procedure Yes -Procedure Performed Yes -Post Debridement Size (cm) - Length 0 -Post Debridement Size (cm) - Width 0 -Post Debridement Size (cm) - Depth 0 -Total Square Cm 0 -Wound/Ulcer Outcome Healed- Epithelialized -Ulcer Cleansing Rinsed/ Irrigated with Saline -Foul Odor after Cleansing No -Bioengineered Tissue No -Topical Lidocaine (%) 4 -Bleeding Controlled with NA -Treatment Response Procedure Tolerated Well [See Physician Procedure note for Specifics] Pain Scale: 0-10 Numeric [Pain] -Is Patient Pain Free? Yes Musculoskeletal: No Tenderness to Palpation of Joints or Extremities, Muscle Wasting Neurological: Sensory exam intact to light touch and pain Psych/Mental Status: Normal Affect, Appropriate Debridement Note Post-Debridement Measurements/Treatment - Nurse 2 - General Ulcer CM Notes Start: 01/10/18 08:43 Freq: Status: Active Protocol: Activity Type Activity Date Activity User E-Sign Co-Sign Detail Recorded Client Recorded Date Recorded By Document 01/10/18 09:00 [id number] 01/10/18 09:01 Document 01/17/18 09:21 [id number] 01/17/18 09:23 TM Document 01/24/18 09:13 [id number] 01/24/18 09:14 TM Document 01/31/18 09:07 [id number] 01/31/18 09:11 01/10/18 01/17/18 01/24/18 09:00 09:21 09:13 Wound Center Nurse 2 R 5TH TOE -Time 09:00 09:22 09:13 -Correct Patient Yes Yes Yes -Correct Side, Site, Position Yes Yes Yes -Correct Procedure Yes Yes Yes -Procedure Performed Yes Yes Yes -Type of Procedure Debridement Debridement Debridement -Clinical Debridement Subcutaneous Subcutaneous Subcutaneous -Post Debridement Size (cm) - Length 1.3 0.9 0.7 -Post Debridement Size (cm) - Width 0.7 0.7 0.2 -Post Debridement Size (cm) - Depth 0.1 0.1 0.1 -Total Square Cm 0.91 0.63 0.14 -Wound/Ulcer Outcome Not Healed Not Healed Not Healed -Ulcer Cleansing Rinsed/ Rinsed/ Rinsed/ Irrigated with Irrigated with Irrigated with Saline Saline Saline -Foul Odor after Cleansing No No No -Bioengineered Tissue No No No -Topical Lidocaine (%) 4 -Injectable Lidocaine (%) 1 -Bleeding Controlled with Pressure Pressure Pressure -Treatment Response Procedure Procedure Procedure Tolerated Well Tolerated Well Tolerated Well Pain Scale: 0-10 Numeric Is Patient Pain Free? Yes Yes Yes 01/31/18 09:07 Wound Center Nurse 2 R 5TH TOE -Time 09:08 -Correct Patient Yes -Correct Side, Site, Position Yes -Correct Procedure Yes -Procedure Performed Yes -Type of Procedure -Clinical Debridement -Post Debridement Size (cm) - Length 0 -Post Debridement Size (cm) - Width 0 -Post Debridement Size (cm) - Depth 0 -Total Square Cm 0 -Wound/Ulcer Outcome Healed- Epithelialized -Ulcer Cleansing Rinsed/ Irrigated with Saline -Foul Odor after Cleansing No -Bioengineered Tissue No -Topical Lidocaine (%) 4 -Injectable Lidocaine (%) -Bleeding Controlled with NA -Treatment Response Procedure Tolerated Well Pain Scale: 0-10 Numeric Is Patient Pain Free? Yes No debridement was completed today - healed today Assessment/Plan Active Problems Peripheral vascular disease (Chronic) Hammer toe of right foot (Chronic) Assessment: Right fifth toe ulcer healed. Hammertoe right fifth toe. Peripheral vascular disease status post intervention. Malnutrition suspected Plan: I reviewed and discussed her case today. Her ulcer site has healed today. She was advised she can discontinue dressing care. She was advised to wear properly fitted shoes that do not pressure on this toe site. I reviewed her previous diagnostic data including her vascular surgery intervention performed by Dr. Buckley on 12/06/2017. To follow-up as advised. To check her lower extremities daily and to apply moisturization cream to maintain good skin integrity. She is discharged from the wound healing center at this time and she was advised to follow-up as needed. I offered her a routine check and palliative home health care provider at the [facility] and she defers today. I answered multiple questions.
--- NOTE | 2018-01-31 09:53 | PN.PCM_ITS ---
(1) Ulcer of right foot with fat layer exposed Status: Resolved Current Visit: Yes Code(s): L97.512 - Non-pressure chronic ulcer of other part of right foot with fat layer exposed (2) Peripheral vascular disease Status: Chronic Current Visit: Yes Code(s): I73.9 - Peripheral vascular disease, unspecified (3) Hammer toe of right foot Status: Chronic Current Visit: Yes Code(s): M20.41 - Other hammer toe(s) (acquired), right foot (4) Malnutrition Status: Suspected Current Visit: Yes Code(s): E46 - Unspecified protein- calorie malnutrition Type of Wound Chief Complaint: right fifth toe ulcer healed History of Wound: This 77-year-old pleasant female patient with multiple comorbidities presents to the wound healing center today for right fifth toe ulcer. Dr. Buckley performed a right leg angioplasty to the popliteal artery and stent to the right common iliac artery and stent to the left common iliac artery under conscious sedation on December 06, 2017 at [facility]. She denies redness odor fever, chill, nausea, vomiting. She denies drainage or pain the last four days. Progress of Wound: healed - Physical Exam Vital Signs Temp Pulse Resp BP 97.7 F L 107 H 18 114/68 01/31/18 08:46 01/31/18 08:46 01/31/18 08:46 01/31/18 08:46 General: Alert, Oriented x3, Cooperative Extremities: No cyanosis, Capillary Refill Less than 3 Seconds, No Calf Tenderness, Diminished Peripheral Pulses, - - varus right fifth toe rotation noted Skin: Ulcer/ Wound - full epithelialization noted. no purulence, no odor, no necrosis, no erythema, no infection, no interdigital maceration. the adjacent skin is hairless and atrophic Wound Measurements and Assessment WC - Nurse 1 - General Ulcer Measurement Start: 01/10/18 08:43 Freq: Status: Active Protocol: Activity Type Activity Date Activity User E-Sign Co-Sign Detail Recorded Client Recorded Date Recorded By Document 01/31/18 08:46 DL [id number] 01/31/18 08:50 DL 01/31/18 08:46 Wound Center Nurse 1 [Ulcer Assessment] R 5TH TOE -Current Size (cm) - Length 0.1 -Current Size (cm) - Width 0.1 -Current Size (cm) - Depth 1 -Total Square Cm 0.01 -Photo Taken No -Exudate Amt None Present (0 %) -Wound Margin Thickened -Granulation Amt Large (67-100%) -Granulation Quality Pale Damon -Necrosis Amt Small (1-33%) -Necrotic Tissue Type Adherent Slough -Structure Exposed N/A -Texture (Zora-wound Skin Appearance) Scarring -Moisture (Zora-wound Skin Appearance Dry/Scaly ) -Color (Zora-wound Skin Appearance) No Abnormality -Temperature (Zora-wound Skin No Abnormality Appearance) (Pt Warm) -Tenderness on Palpation (Zora-wound No Skin Appearance) -Ulcer Cleansing Rinsed/ Irrigated with Saline -Foul Odor after Cleansing No -Anesthetic Used 5% Lidocaine Gel WC - Nurse 2 - General Ulcer CM Notes Start: 01/10/18 08:43 Freq: Status: Active Protocol: Activity Type Activity Date Activity User E-Sign Co-Sign Detail Recorded Client Recorded Date Recorded By Document 01/31/18 09:07 [id number] 01/31/18 09:11 01/31/18 09:07 Wound Center Nurse 2 [Procedure/Treatment] -Time 09:08 -Correct Patient Yes -Correct Side, Site, Position Yes -Correct Procedure Yes -Procedure Performed Yes -Post Debridement Size (cm) - Length 0 -Post Debridement Size (cm) - Width 0 -Post Debridement Size (cm) - Depth 0 -Total Square Cm 0 -Wound/Ulcer Outcome Healed- Epithelialized -Ulcer Cleansing Rinsed/ Irrigated with Saline -Foul Odor after Cleansing No -Bioengineered Tissue No -Topical Lidocaine (%) 4 -Bleeding Controlled with NA -Treatment Response Procedure Tolerated Well [See Physician Procedure note for Specifics] Pain Scale: 0-10 Numeric [Pain] -Is Patient Pain Free? Yes Musculoskeletal: No Tenderness to Palpation of Joints or Extremities, Muscle Wasting Neurological: Sensory exam intact to light touch and pain Psych/Mental Status: Normal Affect, Appropriate Debridement Note Post-Debridement Measurements/Treatment - Nurse 2 - General Ulcer CM Notes Start: 01/10/18 08:43 Freq: Status: Active Protocol: Activity Type Activity Date Activity User E-Sign Co-Sign Detail Recorded Client Recorded Date Recorded By Document 01/10/18 09:00 [id number] 01/10/18 09:01 Document 01/17/18 09:21 [id number] 01/17/18 09:23 TM Document 01/24/18 09:13 [id number] 01/24/18 09:14 TM Document 01/31/18 09:07 [id number] 01/31/18 09:11 01/10/18 01/17/18 01/24/18 09:00 09:21 09:13 Wound Center Nurse 2 R 5TH TOE -Time 09:00 09:22 09:13 -Correct Patient Yes Yes Yes -Correct Side, Site, Position Yes Yes Yes -Correct Procedure Yes Yes Yes -Procedure Performed Yes Yes Yes -Type of Procedure Debridement Debridement Debridement -Clinical Debridement Subcutaneous Subcutaneous Subcutaneous -Post Debridement Size (cm) - Length 1.3 0.9 0.7 -Post Debridement Size (cm) - Width 0.7 0.7 0.2 -Post Debridement Size (cm) - Depth 0.1 0.1 0.1 -Total Square Cm 0.91 0.63 0.14 -Wound/Ulcer Outcome Not Healed Not Healed Not Healed -Ulcer Cleansing Rinsed/ Rinsed/ Rinsed/ Irrigated with Irrigated with Irrigated with Saline Saline Saline -Foul Odor after Cleansing No No No -Bioengineered Tissue No No No -Topical Lidocaine (%) 4 -Injectable Lidocaine (%) 1 -Bleeding Controlled with Pressure Pressure Pressure -Treatment Response Procedure Procedure Procedure Tolerated Well Tolerated Well Tolerated Well Pain Scale: 0-10 Numeric Is Patient Pain Free? Yes Yes Yes 01/31/18 09:07 Wound Center Nurse 2 R 5TH TOE -Time 09:08 -Correct Patient Yes -Correct Side, Site, Position Yes -Correct Procedure Yes -Procedure Performed Yes -Type of Procedure -Clinical Debridement -Post Debridement Size (cm) - Length 0 -Post Debridement Size (cm) - Width 0 -Post Debridement Size (cm) - Depth 0 -Total Square Cm 0 -Wound/Ulcer Outcome Healed- Epithelialized -Ulcer Cleansing Rinsed/ Irrigated with Saline -Foul Odor after Cleansing No -Bioengineered Tissue No -Topical Lidocaine (%) 4 -Injectable Lidocaine (%) -Bleeding Controlled with NA -Treatment Response Procedure Tolerated Well Pain Scale: 0-10 Numeric Is Patient Pain Free? Yes No debridement was completed today - healed today Assessment/Plan Active Problems Peripheral vascular disease (Chronic) Hammer toe of right foot (Chronic) Assessment: Right fifth toe ulcer healed. Hammertoe right fifth toe. Peripheral vascular disease status post intervention. Malnutrition suspected Plan: I reviewed and discussed her case today. Her ulcer site has healed today. She was advised she can discontinue dressing care. She was advised to wear properly fitted shoes that do not pressure on this toe site. I reviewed her previous diagnostic data including her vascular surgery intervention performed by Dr. Buckley on 12/06/2017. To follow-up as advised. To check her lower e xtremities daily and to apply moisturization cream to maintain good skin integrity. She is discharged from the wound healing center at this time and she was advised to follow-up as needed. I offered her a routine check and palliative palliative care specialist at the [facility] and she defers today. I answered multiple questions.
== END 2018-02-02 23:59 ==
LOC: WC 09:00
PROVIDERS: Family Provider Family Medicine Geriatric Medicine; PCP Family Medicine Geriatric Medicine; Referring Provider Podiatrist; Visit Provider Podiatrist
DX: I73.9 Peripheral vascular disease, unspecified (principal); L97.512 Non-pressure chronic ulcer of other part of right foot with fat layer exposed; M20.41 Other hammer toe(s) (acquired), right foot; I10 Essential (primary) hypertension; R09.89 Other specified symptoms and signs involving the circulatory and respiratory systems; Z87.891 Personal history of nicotine dependence; Z79.899 Other long term (current) drug therapy; Z79.82 Long term (current) use of aspirin
CPT/HCPCS: 11042; 97602; 99213; G0463

== ENCOUNTER → 2018-04-16 11:31 | Outpatient (CLI) | payer MEDICARE, SELFPAY ==
[2018-04-16 13:45] LABS: Basophil# 0.05 X10^3/uL; Basophil% 0.4 % (0-1); Eosinophil# 0.17 X10^3/uL; Eosinophils% 1.3 % (0-5); Hemoglobin 13.6 g/dl (12.0-15.0); Lymphocyte % 15.4 % (19-41); Mean Corp Hgb Conc 32.4 g/gl (32-36); Mean Corpuscular Hgb 28.2 pg (27.0-32.0); Mean Platelet Vol. 10.2 fl (6.2-12.0); Monocyte# 0.76 X10^3/uL; Monocyte% 5.9 % (0-10); Neutrophil # 9.96 X10^3/uL (2.7-7.7); Neutrophil % 76.7 % (47-70); Platelet Count 431 K/mm3 (150-450); RBC Distribution Width CV 13.6 % (11.6-14.6); RBC Distribution Width SD 43.2 fl (35.1-43.9); Red Blood Count 4.83 M/mm3 (4.2-5.4)
[2018-04-16 13:47] LABS: POSITIVE COUNT NO; POSITIVE DIFFERENTIAL NO; POSITIVE MORPHOLOGY NO
[2018-04-16 13:58] LABS: Vitamin D,25 Hydroxy 32.9 ng/mL (29.95-100.01)
[2018-04-16 14:04] LABS: AST(SGOT) 23 U/L (15-37); Alanine Aminotransfer ALT/SGPT 32 U/L (13-56); Albumin, Serum 3.8 g/dL (3.2-5.0); Alkaline Phosphatase 103 U/L (45-117); Anion Gap 14 (5-15); BUN 19 mg/dL (7-18); BUN/Creat Ratio 17.4 RATIO (10-20); Calcium,Total 9.5 mg/dL (8.5-10.1); Chloride 100 mmol/L (98-107); Creatinine, Serum 1.09 mg/dL (0.55-1.02); EST Glomerular Filtration Rate 52 mL/min (>60); Est Glom Filt Rate - Afr Amer 63 mL/min (>60); Glucose 103 mg/dL (74-106); Potassium 4.2 mmol/L (3.5-5.1); Protein, Total 7.8 g/dL (6.4-8.2); Sodium Level 137 mmol/L (136-145); Thyroid Stim Hormone (TSH) 1.08 uIU/mL (0.358-3.74); Uric Acid 5.8 mg/dL (2.6-6.0)
== END ==
PROVIDERS: Family Provider Family Medicine Geriatric Medicine; PCP Family Medicine Geriatric Medicine; Visit Provider Family Medicine Geriatric Medicine
DX: I10 Essential (primary) hypertension (principal); E55.9 Vitamin D deficiency, unspecified; M10.9 Gout, unspecified
CPT/HCPCS: 36415; 80053; 82306; 84443; 84550; 85025

== ENCOUNTER → 2018-05-01 10:11 | Outpatient (CLI) | payer MEDICARE, SELFPAY | PROVIDERS: Family Provider Family Medicine Geriatric Medicine; PCP Family Medicine Geriatric Medicine; Visit Provider Family Medicine Geriatric Medicine | DX: R69 Illness, unspecified (principal) ==

== ENCOUNTER 2018-10-08 16:35 | Emergency (ER) | payer MEDICARE, SELFPAY ==
[2018-10-08 16:36] VITALS: BP 162/87; PULSE 116; RESP 16; TEMP 36.4; BMI 25.1
--- NOTE | 2018-10-08 18:03 | ED.VIS.GEN ---
History of Present Illness Chief Complaint: Laceration Detail of Chief Complaint: Skin avulsion right fourth finger Informant: Patient Onset: Today Current Severity: Moderate Maximum Severity: Moderate Narrative: Patient was using a mandolin to slice a cucumber. She suffered a skin avulsion to the distal aspect of the right fourth finger. She continues to have bleeding. She is not on blood thinners. Past Medical History - Allergies and Home Meds Allergies/Adverse Reactions: Allergies No Known Allergies Allergy (Verified 12/05/17 14:36) Primary Care Physician: Cody Hassan Chi, MD [Primary Care Provider] - Prior records reviewed: Yes Past Medical History: - - Reviewed Surgical History: angioplasty Smoking Status: Former smoker Review of Systems General: Denies: Chills, Fever Eyes: Denies: Visual changes - bilaterally ENT: Denies: Bilateral ear pain Cardiovascular: Denies: Chest pain Respiratory: Denies: Dyspnea Gastrointestinal: Denies: Abdominal pain, Nausea, Vomiting Musculoskeletal: Reports: Arthralgias, Extremity Pain Neurological: Denies: Headache, Weakness, Parasthesia Psych: Denies: Depression Hematologic: Denies: Easy bruising Allergy: Denies: Uticaria Physical Exam Vital Signs/Narrative: Vital Signs Temp Pulse Resp BP 10/08/18 16:36 97.5 F L 116 H 16 162/87 H Inital Vital Signs reviewed: Yes General: Well nourished, Well developed ENT: Moist mucous membranes Cardiovascular: Regular rate, Regular rhythm Respiratory: No distress Extremities: - - There is an approximately 4 x 6 mm area of skin avulsion on the distal right fourth finger. Mild bleeding is noted. She has good range of motion. Wound is not deep enough to involve bone. Neurological: Alert, Oriented x3, Normal Strength, Normal Sensation Psychological: Normal affect Diagnostic/Tx/Re-eval - Medical Decision Making Tourniquet was tight at the proximal fourth finger. Wound is cleansed and silver nitrate used. Surgifoam was then placed and pressure dressing was applied. Patient held the hand and elevation. On repeat examination patient did have some bleeding through the gauze dressing. This was removed down to the level of the Surgifoam. Hand was cleansed. No active bleeding noted at this time. Wound was redressed and on final repeat check she has no bleeding through the dressing. Patient will follow with her PCP. ED Disposition - Plan for ED Patient: Disposition: Home or Assisted Living Diagnosis: Avulsion of skin of finger Instructions: Skin Avulsion Referrals: Cody Hassan Chi, MD [Primary Care Provider] - 1 Week
[2018-10-08] MEDS: Silver Nitrate (BKC) 2 EACH TOPICAL (18:39)
[2018-10-08] MEDS: Acetaminophen 325 MG Tablet 650 MG PO (19:09)
[2018-10-08 19:19] VITALS: BP 123/78; PULSE 100; RESP 17; O2SAT 98
== END 2018-10-08 19:19 | disposition home or self-care (01) ==
PROVIDERS: Emergency Provider Emergency Medicine; Family Provider Family Medicine Geriatric Medicine; PCP Family Medicine Geriatric Medicine
DX: S61.204A Unspecified open wound of right ring finger without damage to nail, initial encounter (principal); Z87.891 Personal history of nicotine dependence; W26.8XXA Contact with other sharp object(s), not elsewhere classified, initial encounter; Y93.G1 Activity, food preparation and clean up; Y92.000 Kitchen of unspecified non-institutional (private) residence as the place of occurrence of the external cause; Y99.8 Other external cause status
CPT/HCPCS: 99283

== ENCOUNTER → 2018-10-18 | Outpatient (CLI) | payer MEDICARE, SELFPAY ==
[2018-10-08 16:36] VITALS: BMI 25.1
[2018-10-18 12:51] LABS: Absolute Lymphocyte Count 1.04 X10^3/uL (0.83-4.51); Absolute Neutrophil Count 5.1 X10^3/uL (2.0-7.7); Basophil# 0.06 X10^3/uL; Basophil% 0.8 % (0-1); Eosinophil# 0.48 X10^3/uL; Eosinophils% 6.5 % (0-5); Hematocrit 41.2 % (37-47); Lymphocyte # 1.04 X10^3/ul (4.0); Lymphocyte % 14.2 % (19-41); Mean Corp Hgb Conc 31.6 g/dL (32-36); Mean Corpuscular Hgb 26.1 pg (27.0-32.0); Mean Corpuscular Volume 82.6 fL (81-99); Mean Platelet Vol. 10.7 fl (6.2-12.0); Monocyte% 8.2 % (0-10); NRBC Flagged by Analyzer 0 % (0-5); Neutrophil # 5.13 X10^3/uL (2.7-7.7); Platelet Count 310 K/mm3 (150-450); RBC Distribution Width CV 15.4 % (11.6-14.6); RBC Distribution Width SD 46.2 fl (35.1-43.9); Red Blood Count 4.99 M/mm3 (4.2-5.4); White Blood Count 7.3 K/mm3 (4.4-11.0)
[2018-10-18 13:13] LABS: Vitamin D,25 Hydroxy 39.2 ng/mL (29.95-100.01)
[2018-10-18 13:14] LABS: ALB/GLOB Ratio 0.9 RATIO (0.9-2.4); AST(SGOT) 22 U/L (15-37); Alanine Aminotransfer ALT/SGPT 24 U/L (13-56); Albumin, Serum 3.7 g/dL (3.2-5.0); Alkaline Phosphatase 104 U/L (45-117); Anion Gap 7 (5-15); BUN 16 mg/dL (7-18); BUN/Creat Ratio 13.4 RATIO (10-20); Calcium,Total 9.5 mg/dL (8.5-10.1); Chloride 106 mmol/L (98-107); Creatinine, Serum 1.19 mg/dL (0.55-1.02); EST Glomerular Filtration Rate 47 mL/min (>60); Est Glom Filt Rate - Afr Amer 57 mL/min (>60); Globulin 4.1 g/dL (2.2-4.2); Glucose 113 mg/dL (74-106); Potassium 4.2 mmol/L (3.5-5.1); Protein, Total 7.8 g/dL (6.4-8.2); Sodium Level 138 mmol/L (136-145); Thyroid Stim Hormone (TSH) 1.66 uIU/mL (0.358-3.74)
== END | disposition home or self-care (01) ==
LOC: POLAB3 09:30
PROVIDERS: Family Provider Family Medicine Geriatric Medicine; PCP Family Medicine Geriatric Medicine; Visit Provider Family Medicine Geriatric Medicine
DX: E55.9 Vitamin D deficiency, unspecified (principal); I10 Essential (primary) hypertension
CPT/HCPCS: 36415; 80053; 82306; 84443; 85025

== ENCOUNTER 2018-12-07 10:56 | Emergency (ER) | payer MEDICARE, SELFPAY ==
[2018-12-07 10:58] VITALS: BP 145/81; PULSE 105; RESP 14; TEMP 36.2; O2SAT 81; BMI 25.3
[2018-12-07 11:01] VITALS: O2SAT 92
--- NOTE | 2018-12-07 11:04 | ED.RN ---
AWARE OF PT SX.
--- NOTE | 2018-12-07 11:09 | CT_ITS ---
We are attempting to reach an attending provider to discuss findings. An addendum with communication details will be sent when the communication is complete. STUDY: CT BRAIN WITHOUT CONTRAST REASON FOR EXAM: Female, 78 years old. LEFT SIDED WEAKNESS since last night per family RADIATION DOSAGE (If Supplied By Facility): CTDIvol = ( 44.99 ) mGy, DLP = ( 745.49 ) mGycm TECHNIQUE: Transaxial CT imaging of the brain was performed without administration of intravenous contrast material. Individualized dose optimization techniques were used for this CT. COMPARISON: None. FINDINGS: There is a right temporoparietal hypodensity, consistent with acute infarct. There is cerebral atrophy with widening of the extra-axial spaces and ventricular dilatation. There are areas of decreased attenuation within the white matter tracts of the supratentorial brain, consistent with microvascular disease changes. Normal soft tissue structures. There is left mastoid opacification. CT/Brain/Head without Contrast IMPRESSION: Acute right MCA infarction. No intracranial hemorrhage. Electronically Signed: Ruddy Dobbs MD at 11:40 EDT Tel , Service support ,
--- NOTE | 2018-12-07 11:09 | EKG12_ITS ---
Test Reason : STROKE Blood Pressure : / mmHG Vent. Rate : 106 BPM Atrial Rate : 088 BPM P-R Int : 000 ms QRS Dur : 102 ms QT Int : 364 ms P-R-T Axes : 000 074 217 degrees QTc Int : 483 ms Atrial fibrillation with rapid ventricular response Low voltage QRS (Limb Leads) Septal infarct, age undetermined ST & T wave abnormality, consider lateral ischemia Abnormal ECG Confirmed by FARNAZ ROSS, TAE ([id number]), online content editor EMILEE FREEMAN ([id number]) on 12/11/2018 10:17:19 AM Referred By: KENTRELL Confirmed By:TAE OSEI MD
--- NOTE | 2018-12-07 11:11 | ED.VIS.STROK ---
History of Present Illness Chief Complaint: Weakness Informant: Patient, Family Onset: Today - 899 Quality and Location: Left Facial Droop, Left Arm Parasthesia, Left Leg Parasthesia, Left Arm Weakness, Left Leg Weakness, Slurred Speech Onset: 899 Current Severity: Moderate Maximum Severity: Moderate Worsened by: Nothing Relieved by: Nothing Associated Symptoms: Headache - Right-sided. Negative for: Nausea, Vomiting, Chest Pain Narrative: Patient is an elderly woman who lives with her son. Her son is out of state. She presents because of difficulty with speech and use of left side. Onset 899. She reports mild right-sided head discomfort. She denies taking any anticoagulant. She states her vision is poor because she does not have her glasses. She has no other complaints. Prior similar symptoms: No Recent Illness/Hospitalization: No - Past Medical History (1) Peripheral vascular disease Status: Chronic (2) Malnutrition Status: Suspected Past Medical History - Allergies and Home Meds Allergies/Adverse Reactions: Allergies coffee (Coffea arabica) Adverse Reaction (Verified 12/07/18 11:01) Abd cramps/diarrhea Primary Care Physician: Cody Hassan Chi, MD [Primary Care Provider] - Prior records reviewed: Yes Surgical History: angioplasty Lives: With Family Smoking Status: Never smoker Alcohol: None Drugs: None Review of Systems General: Denies: Chills, Fever, Subjective, Sweats Eyes: Denies: Visual changes - bilaterally, Blurred Vision - bilaterally, Diplopia ENT: Denies: Bilateral ear pain, Rhinorrhea, Sore throat Cardiovascular: Denies: Chest pain, Palpitations Respiratory: Denies: Dyspnea, Cough, Dyspnea on exertion Gastrointestinal: Denies: Abdominal pain, Nausea, Vomiting, Diarrhea, Melena, Hematochezia Genitourinary: Denies: Dysuria, Hematuria, Frequency Musculoskeletal: Denies: Myalgias, Arthralgias, Neck pain, Back pain, Swelling, Extremity Pain, -, - Skin: Denies: Rash, Wounds Neurological: Reports: Headache, Weakness, Parasthesia, Numbness Hematologic: Denies: Easy bruising, Easy bleeding STROKE Vital Signs/Narrative: Vital Signs Temp Pulse Resp BP Pulse Ox 12/07/18 11:01 92 12/07/18 10:58 97.1 F L 105 H 14 145/81 H 81 Inital Vital Signs reviewed: Yes - NIHSS Initial 1a Level of Consciousness: 1 1b LOC Questions (Score 2 if aphasic/stupor): 0 1c LOC Commands (Only score 1st attempt): 0 2 Best Gaze (If aphasic, use reflexive mvmts.): 0 3 Visual: 0 4 Facial Palsy: 1 5 Motor Arm Right (UN = amputation/fusion): 0 5 Motor Arm Left: 3 6 Motor Leg Right: 0 6 Motor Leg Left: 1 7 Limb ataxia (Only + if out of proportion): 0 8 Sensory (Aphasia/stupor=0 or 1, coma=2): 2 9 Best Language: 0 10 Dysarthria (mute, coma=2, intubated=UN): 1 11 Extinction and Inattention (only scored if +): 1 Total Score: 10 General: Well nourished, Well developed Head: Normocephalic, Atraumatic Eyes: Perrl, EOMI. Negative for: Pale conjunctiva, Scleral icterus ENT: Moist mucous membranes, No rhinorrhea, TM's clear Neck: Supple, Nontender, No lymphadenopathy, No JVD Cardiovascular: Regular rate, Regular rhythm, No murmurs, Normal S1, Normal S2 Respiratory: No distress, CTA bilaterally, Chest nontender Abdomen: Soft, Nontender, Nondistended, Normal bowel sounds Back: Nontender, Normal Inspection Extremities: Nontender, No edema Skin: Normal color, No rash Neurological: Oriented x3. Negative for: Alert, Cranial nerves II-XII grossly intact, Normal Strength, Normal Sensation, Normal DTR Psychological: Normal affect Diagnostic/Tx/Re-eval - EKG Initial EKG Interpretation: Atrial Fibrillation - Ocular rate is 106. QRS duration 102 ms. QT duration 3 and 64 ms. There is evidence of low voltage. Decreased anterior forces noted. No ossific ST-T wave changes are noted. - Medical Decision Making Stroke Team Activated: Yes Reviewed Inclusion/Exclusion criteria: Yes Was Patient considered for Endovascular Intervention?: Yes - Obtaining CTA of the head neck IV Alteplase (t-PA) Administered: No - Large stroke seen on CAT scan and onset unknown No contraindications for IV Alteplase (t-PA) administration.: Yes - Not a candidate for thrombolytics Alteplase (t-PA) risks, benefits, alternative discussed: No I was informed by patient's nurse that sister believes this may have started a week ago and was waxing and waning. Patient now states she was not able to use her left hand last evening. Hence, the consent is truly unknown. Stroke order set was initiated. Patient has findings consistent with a stroke. Spoke with neurologist at [facility]. Dr. Tapia who would like a CTA of the head neck and patient will be transferred to [facility]. The [facility] transfer line will be contacted. Critical care time (excluding procedures): 30-74 minutes - Critical care time 32 minutes which included discussion with patient and family. Also involved discussion with neurologist at [facility] by telemedicine and to facilitate critical care air transport as well. ED Disposition - Plan for ED Patient: Disposition: [facility] Diagnosis: Acute right arterial ischemic stroke, middle cerebral artery (MCA), Atrial fibrillation with rapid ventricular response Referrals: Cody Hassan Chi, MD [Primary Care Provider] -
[2018-12-07 11:12] VITALS: BP 137/94; PULSE 115; RESP 18; TEMP 36.6; O2SAT 97
[2018-12-07 11:26] LABS: Bedside Glucose 120 mg/dL (70-110)
--- NOTE | 2018-12-07 11:34 | CT_ITS ---
STUDY: CTA HEAD AND NECK WITH CONTRAST REASON FOR EXAM: Female, 78 years old. Right-sided stroke RADIATION DOSAGE (If Supplied By Facility): CTDIvol = ( 27.45 ) mGy, DLP = ( 658.48 ) mGycm TECHNIQUE: CT angiography was performed with a multi-detector CT scanner. Data acquisition was obtained from the skull base through the vertex following intravenous administration of IV Isovue 370 100. MIP images were reconstructed from the axial data set. Post-processing of the angiographic images was performed, with multiplanar reformation and 3D reconstruction. Individualized dose optimization techniques were used for this CT. COMPARISON: 12/07/2018 CT head FINDINGS: There is punctate calcification involving the right greater than left petrous carotid artery. There is calcified plaque formation of the right cavernous carotid artery, with a mild stenosis (less than 50%). There is calcified plaque formation of the left cavernous carotid artery, with a mild stenosis (less than 50%). Normal right A1 segments of the anterior cerebral artery. Normal left A1 segments of the anterior cerebral artery. There is non-visualization of the anterior communicating artery (ACOM). Normal bilateral A2 segments of the anterior cerebral arteries. There is occlusion of the insular branch of right M2 image #208 axial views. There is a visualized absence of vascularity and low attenuation compatible with acute infarct within the right posterior temporal lobe extending into the right parietal lobe. There is edema and effacement of the smaller vessels. Normalleft M1 and M2 segments of the middle cerebral arteries, with a normal M1 bifurcation. Normal right posterior communicating artery (PCOM). Normal left posterior communicating artery (PCOM). There is punctate calcification of the left-sided vertebral artery. Normal basilar artery with a normal basilar bifurcation. The visualized bilateral superior cerebellar (SCA) arteries are normal. Normal bilateral P1, P2 and visualized P3 segments of the posterior cerebral arteries. There is no demonstrated aneurysm of the [place]. There is atrophy. As mentioned above there is a acute right MCA infarct. AORTIC ARCH: There is calcification of the aorta with tortuosity. This calcification takeoff of the left subclavian left carotid and the innominate. There is visualized moderate to large bilateral effusions and pulmonary edema. RIGHT CAROTID ARTERIES: Normal right common carotid artery (CCA). There is moderate atherosclerotic plaque formation with moderate narrowing of the right carotid bulb. There is moderate atherosclerotic plaque formation of the origin of the right internal carotid artery with an estimated stenosis of 50-69% stenosis. There is atherosclerotic tortuous elongation of the cervical portion of the right internal carotid artery. There is mild atherosclerotic plaque formation of the origin of the right external carotid artery with less than 50% cross sectional diameter stenosis. LEFT CAROTID ARTERIES: Normal left common carotid artery (CCA). There is moderate atherosclerotic plaque formation with moderate narrowing of the carotid bulb. There is moderate atherosclerotic plaque formation of the origin of the left internal carotid artery with an estimated stenosis of 50-69% stenosis. There is atherosclerotic tortuous elongation of the cervical portion of the left internal carotid artery. There is mild atherosclerotic plaque formation of the origin of the left external carotid artery with less than 50% cross sectional diameter stenosis. VERTEBRAL ARTERIES: Normal bilateral vertebral arteries. There is visualized degenerative change in the cervical spine. CT/CTA Head AND Neck W/ Contrast IMPRESSION: Acute occlusion of the insular segment of the right M2/MCA artery. Acute right MCA infarction. These findings were caught on a stat basis to Dr. Major. 50-69% stenosis of the bilateral carotid arteries. Moderate to large bilateral effusions. Atherosclerotic disease of the visualized aorta Degenerative change of the thoracolumbar spine. N.B. : The above information has been verbally conveyed by Nohemi Almaraz MD to Dr. Major;[phone], on 12/07/2018 12:56:17 (ET). Electronically Signed: Nohemi Almaraz MD at 13:05 EDT Tel , Service support ,
[2018-12-07 11:36] LABS: Absolute Lymphocyte Count 1.23 X10^3/uL (0.83-4.51); Absolute Neutrophil Count 8.7 X10^3/uL (2.0-7.7); Basophil# 0.07 X10^3/uL; Basophil% 0.7 % (0-1); Eosinophil# 0.09 X10^3/uL; Eosinophils% 0.8 % (0-5); Hematocrit 41.2 % (37-47); Hemoglobin 13.3 g/dL (12.0-15.0); Lymphocyte # 1.23 X10^3/ul (4.0); Lymphocyte % 11.5 % (19-41); Mean Corp Hgb Conc 32.3 g/dL (32-36); Mean Corpuscular Hgb 26.6 pg (27.0-32.0); Mean Corpuscular Volume 82.4 fL (81-99); Mean Platelet Vol. 10.6 fl (6.2-12.0); Monocyte# 0.57 X10^3/uL; Monocyte% 5.3 % (0-10); NRBC Flagged by Analyzer 0 % (0-5); Neutrophil # 8.68 X10^3/uL (2.7-7.7); Neutrophil % 81.1 % (47-70); Platelet Count 351 K/mm3 (150-450); RBC Distribution Width CV 14.8 % (11.6-14.6); RBC Distribution Width SD 44.5 fl (35.1-43.9); White Blood Count 10.7 K/mm3 (4.4-11.0)
[2018-12-07 11:39] VITALS: BP 141/86; PULSE 101; RESP 14; O2SAT 96
[2018-12-07 11:48] VITALS: BP 144/88; PULSE 111; RESP 22; O2SAT 95
[2018-12-07 11:53] LABS: Anion Gap 7 (5-15); BUN 11 mg/dL (7-18); BUN/Creat Ratio 12.5 RATIO (10-20); Calcium,Total 9.2 mg/dL (8.5-10.1); Chloride 101 mmol/L (98-107); Creatinine, Serum 0.88 mg/dL (0.55-1.02); EST Glomerular Filtration Rate 66 mL/min (>60); Est Glom Filt Rate - Afr Amer 80 mL/min (>60); Estimated Creatinine Clearance 46.23 ml/min; Glucose 133 mg/dL (74-106); Potassium 3.3 mmol/L (3.5-5.1); Sodium Level 134 mmol/L (136-145)
[2018-12-07 11:57] LABS: International Normalized Ratio 1.2; Prothrombin Time (Protime)PT. 14.8 SECONDS (11.7-14.9)
[2018-12-07 11:58] LABS: Partial Thromboplast Time 28.2 Seconds (24.1-36.2)
[2018-12-07 12:09] VITALS: BP 138/81; PULSE 107; RESP 23; O2SAT 94
--- NOTE | 2018-12-07 12:29 | CHAPLAIN ---
Type of Pastoral Visit ___ Initial Visit ___ Follow-up Visit ___ On-call Visit ___ General Patient Visit ___ Spiritual Assessment ___ Family Conference ___ Bereavement _x__ Rapid Response ___ Code Blue ___ Other (describe below) Pastoral Care Referral From ___ Patient ___ Family ___ Nurse ___ Physician ___ Chief Nuclear Medicine Technologist ___ Operating System Programmer _x__ Other (describe below) Sacrament/Intervention ___ Active listening ___ Anointing ___ Moravian ___ Bereavement ___ Communion ___ Bharati exploration ___ ___ Life review _x__ Prayer ___ Reconciliation ___ Sacrament of Sick _x__ Supportive presence ___ Wedding ___ Other (describe below) Pastoral Comments responded to stroke alert in ED; patient and family in room; pt will be transferred out; 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
== END 2018-12-07 12:30 | disposition short-term general hospital (02) ==
PROVIDERS: Emergency Provider Emergency Medicine; Family Provider Family Medicine Geriatric Medicine; PCP Family Medicine Geriatric Medicine
DX: I63.9 Cerebral infarction, unspecified (principal); R29.810 Facial weakness; R20.2 Paresthesia of skin; G83.21 Monoplegia of upper limb affecting right dominant side; G83.14 Monoplegia of lower limb affecting left nondominant side; R47.81 Slurred speech; I48.91 Unspecified atrial fibrillation; R40.2420 Glasgow coma scale score 9-12, unspecified time; I73.9 Peripheral vascular disease, unspecified
CPT/HCPCS: 70450; 70496; 70498; 80048; 82962; 84484; 85025; 85610; 85730; 93005; 99285; J7030; A4216

== ENCOUNTER → 2019-04-18 11:01 | Outpatient (CLI) | payer MEDICARE, SELFPAY ==
[2019-04-18 12:33] LABS: Absolute Neutrophil Count 6.9 X10^3/uL (2.0-7.7); Eosinophil# 0.69 X10^3/uL; Eosinophils% 6.6 % (0-5); Hematocrit 40.8 % (37-47); Hemoglobin 12.4 g/dL (12.0-15.0); Mean Corp Hgb Conc 30.4 g/dL (32-36); Mean Corpuscular Hgb 23.4 pg (27.0-32.0); Mean Platelet Vol. 11.2 fl (6.2-12.0); Monocyte# 0.75 X10^3/uL; Monocyte% 7.1 % (0-10); NRBC Flagged by Analyzer 0 % (0-5); Neutrophil # 6.85 X10^3/uL (2.7-7.7); Platelet Count 352 K/mm3 (150-450); RBC Distribution Width CV 15.7 % (11.6-14.6); RBC Distribution Width SD 43.4 fl (35.1-43.9); White Blood Count 10.5 K/mm3 (4.4-11.0)
[2019-04-18 12:57] LABS: Vitamin D,25 Hydroxy 37.2 ng/mL (29.95-100.01)
[2019-04-18 13:08] LABS: ALB/GLOB Ratio 0.9 RATIO (0.9-2.4); AST(SGOT) 18 U/L (15-37); Alanine Aminotransfer ALT/SGPT 23 U/L (13-56); Albumin, Serum 3.5 g/dL (3.2-5.0); Alkaline Phosphatase 101 U/L (45-117); Anion Gap 7 (5-15); BUN 20 mg/dL (7-18); BUN/Creat Ratio 20.1 RATIO (10-20); Calcium,Total 9.4 mg/dL (8.5-10.1); Chloride 108 mmol/L (98-107); Creatinine, Serum 0.99 mg/dL (0.55-1.02); EST Glomerular Filtration Rate 57 mL/min (>60); Est Glom Filt Rate - Afr Amer 70 mL/min (>60); Globulin 3.9 g/dL (2.2-4.2); Glucose 106 mg/dL (74-106); Potassium 4.1 mmol/L (3.5-5.1); Protein, Total 7.4 g/dL (6.4-8.2); Sodium Level 139 mmol/L (136-145); Thyroid Stim Hormone (TSH) 2.16 uIU/mL (0.358-3.74)
== END ==
PROVIDERS: PCP Family Medicine Geriatric Medicine; Visit Provider Family Medicine Geriatric Medicine
DX: I10 Essential (primary) hypertension (principal); E55.9 Vitamin D deficiency, unspecified
CPT/HCPCS: 36415; 80053; 82306; 84443; 85025

== ENCOUNTER → 2019-08-30 12:50 | Outpatient (CLI) | payer MEDICARE, SELFPAY ==
[2019-08-14 08:45] VITALS: BMI 24.4
--- NOTE | 2019-08-30 12:51 | ECHOD_ITS ---
Version 2 Reason For Study: Arrhythmia Procedure This was a 2D Doppler, Color Flow transthoracic echocardiogram. Exam performed in department. Left Ventricle Normal LV size. Mild concentric left ventricular hypertrophy. The estimated ejection fraction is 20 %. Severe segmental systolic dysfunction (see wall motion). Infero-Basal: Akinetic. The rest of the wall segments are hypokinetic. Right Ventricle Normal RV size. Normal systolic function. Atria The left atrium is severely enlarged. The right atrium is mildly enlarged. Mitral Valve Bileaflet diffuse mitral valve thickening. Mild-Moderate (1-2+) eccentric mitral valve insufficiency. Tricuspid Valve Normal tricuspid valve. Unable to estimate RV systolic pressure due to insufficient tricuspid regurgitant envelope. Aortic Valve Normal aortic valve. Mild (1+) aortic valve insufficiency. Pulmonic Valve Normal pulmonic valve. Mild (1+) pulmonic valve insufficiency. Great Vessels Normal aortic root. The pulmonary artery is normal size. Normal inferior vena cava. Pericardium/Pleural No pericardial effusion. MMode/2D Measurements & Calculations LVIDd: 4.9 cm IVSd: 1.5 cm LVOT diam: 2.0 cm LVIDs: 4.3 cm LVPWd: 1.2 cm LVOT area: 3.1 cm2 FS: 13.6 % Ao root diam: 3.0 cm LAV(MOD-bp): 128.5 ml LA A4 area: 31.3 cm2 LA dimension: 4.5 cm LAV(MOD-bp) Indexed: 75.6 ml/m2 LAV(MOD-sp2): 125.7 ml LAV(MOD-sp4): 117.1 ml RA A4 area: 16.4 cm2 Time Measurements MV dec time: 0.17 sec Doppler Measurements & Calculations MV E max callie: 88.4 cm/sec MV V2 max: 100.8 cm/sec MV P1/2t max callie: 100.3 cm/sec MV A max callie: 38.8 cm/sec MV max P.1 mmHg MV P1/2t: 45.0 msec MV E/A: 2.3 MV V2 mean: 49.2 cm/sec MV dec slope: 653.0 cm/sec2 MV mean P.2 mmHg MV V2 VTI: 19.5 cm MVA(P1/2t): 4.9 cm2 MVA(VTI): 2.9 cm2 Ao V2 max: 168.9 cm/sec AI max callie: 490.5 cm/sec LV V1 max: 104.0 cm/sec Ao max P.4 mmHg AI max P.3 mmHg LV V1 max P.3 mmHg Ao V2 mean: 115.5 cm/sec LV V1 mean P.2 mmHg Ao mean P.0 mmHg AI dec slope: 444.3 cm/sec2 LV V1 mean: 68.1 cm/sec Ao V2 VTI: 30.1 cm AI P1/2t: 323.4 msec LV V1 VTI: 18.7 cm JAYA(I,D): 1.9 cm2 JAYA(V,D): 1.9 cm2 MR max callie: 507.6 cm/sec SV(LVOT): 57.4 ml PA V2 max: 66.4 cm/sec MR max P.0 mmHg MR mean callie: 386.7 cm/sec MR mean P.8 mmHg MR VTI: 154.5 cm Interpretation Summary Normal LV size. The left atrium is severely enlarged. Mild-Moderate (1-2+) eccentric mitral valve insufficiency. Mild (1+) aortic valve insufficiency. Mild concentric left ventricular hypertrophy. The estimated ejection fraction is 20 %. Ordering Physician: Esvin Varghese Referring Physician: Cody Hassan Chi Performed By: Surjit Avila RCS
== END ==
PROVIDERS: PCP Family Medicine Geriatric Medicine; Referring Provider Internal Medicine Cardiovascular Disease; Visit Provider Internal Medicine Cardiovascular Disease
DX: I48.0 Paroxysmal atrial fibrillation (principal); I25.10 Atherosclerotic heart disease of native coronary artery without angina pectoris
CPT/HCPCS: 93306

== ENCOUNTER 2019-10-25 20:59 | Observation (INO) | payer MEDICARE, SELFPAY ==
[2019-08-14 08:45] VITALS: BMI 24.4
[2019-10-25] VITALS (8 sets, daily range): BP systolic 97–140; BP diastolic 60–79; PULSE 101–127; RESP 20–96; TEMP 36.2–36.4; O2SAT 94–100; BMI 25.3; BMI 23.8
--- NOTE | 2019-10-25 21:01 | EKG12_ITS ---
Test Reason : STROKE TEAM Blood Pressure : / mmHG Vent. Rate : 109 BPM Atrial Rate : 108 BPM P-R Int : 000 ms QRS Dur : 106 ms QT Int : 338 ms P-R-T Axes : 000 058 123 degrees QTc Int : 455 ms Poor data quality, interpretation may be adversely affected Atrial fibrillation with rapid ventricular response with premature ventricular or aberrantly conducte d complexes Septal infarct , age undetermined ST & T wave abnormality, consider lateral ischemia Abnormal ECG Confirmed by TINA ROSS, JONN ([id number]), publication editor SAKSHI SINGH ([id number]) on 10/29/2019 9:01:09 AM Referred By: Confirmed By:KAITLIN WILDER MD
--- NOTE | 2019-10-25 21:01 | CT_ITS ---
We are attempting to reach an attending provider to discuss findings. An addendum with communication details will be sent when the communication is complete. STUDY: CT BRAIN WITHOUT CONTRAST REASON FOR EXAM: Female, 79 years old. Stroke evaluation RADIATION DOSAGE (If Supplied By Facility): CTDIvol = ( 44.99 ) mGy, DLP = ( 880.47 ) mGycm TECHNIQUE: Transaxial CT imaging of the brain was performed without administration of intravenous contrast material. Individualized dose optimization techniques were used for this CT. COMPARISON: December 07 2018 FINDINGS: Examination is mildly to moderately degraded by motion. Some diagnostic information is available. There is vague ill-defined mixed density in the right posterior temporal and adjacent parietal lobe representing chronic infarct and likely internal partially dense parenchyma. There is no mass effect, midline shift, hydrocephalus or herniation. The skull is intact without depressed fractures. CT/Brain/Head without Contrast IMPRESSION: 1. Technically limited exam. In the presence of neurologic symptoms recommend repeat with patient immobilization to avoid motion artifact. 2. Remote right temporoparietal extensive infarct. Electronically Signed: Josias Cortez, at 21:24 EDT Tel , Service support ,
[2019-10-25] MEDS: LORazepam 2 MG/ML Syringe 1 MG IV (21:02)
--- NOTE | 2019-10-25 21:02 | CT_ITS ---
We are attempting to reach an attending provider to discuss findings. An addendum with communication details will be sent when the communication is complete. STUDY: CTA HEAD AND NECK WITH CONTRAST REASON FOR EXAM: Female, 79 years old. POSS STROKE. RADIATION DOSAGE (If Supplied By Facility): CTDIvol = ( 25.675 ) mGy, DLP = ( 701.82 ) mGycm TECHNIQUE: CT angiography was performed with a multi-detector CT scanner. Data acquisition was obtained from the skull base through the vertex following intravenous administration of IV 100 ML ISOVUE 370. MIP images were reconstructed from the axial data set. Post-processing of the angiographic images was performed, with multiplanar reformation and 3D reconstruction. Individualized dose optimization techniques were used for this CT. COMPARISON: No relevant priors. FINDINGS: The aorta has a normal branching pattern. Right brachiocephalic, right subclavian, right common carotid, left common carotid and left subclavian arteries are patent. Vertebral arteries arise bilaterally from the subclavian arteries and a patent in the cervical intraosseous segments. There are bilateral calcified atherosclerotic plaques producing low-grade, less than 30%, stenosis in the left ICA. Right ICA is patent. Remainder of the cervical carotids are patent. External carotid arteries are patent. Base of skull carotids are patent with mild cavernous segment atherosclerosis. Bifurcations, anterior and middle cervical arteries and proximal branches are patent. There is a large left and small right posterior communicating arteries. Intradural vertebral arteries, basilar and superior cerebellar arteries are patent. Left P1 is hypoplastic. CT/CTA Head AND Neck W/ Contrast IMPRESSION: 1. Patent craniocervical arteries. 2. No intracranial large vessel occlusion. Electronically Signed: Josias Cortez, at 21:29 EDT Tel , Service support ,
[2019-10-25 21:25] LABS: Absolute Lymphocyte Count 2.15 X10^3/uL (0.83-4.51); Absolute Neutrophil Count 5.7 X10^3/uL (2.0-7.7); Basophil# 0.09 X10^3/uL; Eosinophil# 0.53 X10^3/uL; Eosinophils% 5.7 % (0-5); Hemoglobin 11.6 g/dL (12.0-15.0); Lymphocyte # 2.15 X10^3/ul (4.0); Mean Corp Hgb Conc 30.5 g/dL (32-36); Mean Corpuscular Hgb 22.9 pg (27.0-32.0); Mean Corpuscular Volume 75.1 fL (81-99); Mean Platelet Vol. 10.4 fl (6.2-12.0); Monocyte# 0.84 X10^3/uL; NRBC Flagged by Analyzer 0 % (0-5); Neutrophil # 5.71 X10^3/uL (2.7-7.7); Platelet Count 355 K/mm3 (150-450); RBC Distribution Width CV 18.1 % (11.6-14.6); RBC Distribution Width SD 48.6 fl (35.1-43.9); Red Blood Count 5.06 M/mm3 (4.2-5.4); White Blood Count 9.4 K/mm3 (4.4-11.0)
[2019-10-25 21:32] LABS: International Normalized Ratio 1.3; Prothrombin Time (Protime)PT. 15.3 SECONDS (11.7-14.9)
[2019-10-25 21:33] LABS: Partial Thromboplast Time 28.7 Seconds (24.1-36.2)
[2019-10-25 21:42] LABS: Anion Gap 11 (5-15); BUN 21 mg/dL (7-18); BUN/Creat Ratio 18.6 RATIO (10-20); Calcium,Total 8.5 mg/dL (8.5-10.1); Chloride 105 mmol/L (98-107); Creatinine, Serum 1.13 mg/dL (0.55-1.02); EST Glomerular Filtration Rate 49 mL/min (>60); Est Glom Filt Rate - Afr Amer 60 mL/min (>60); Estimated Creatinine Clearance 36.92 ml/min; Glucose 148 mg/dL (74-106); Potassium 3.9 mmol/L (3.5-5.1); Sodium Level 135 mmol/L (136-145)
--- NOTE | 2019-10-25 21:45 | RAD_ITS ---
STUDY: X-RAY CHEST REASON FOR EXAM: Female, 79 years old. STROKE. WEAKNESS TECHNIQUE: Frontal view of the chest COMPARISON: August 29 2012 FINDINGS: there are extensive bilateral, right greater than left ill-defined probably interstitial mixed pulmonary opacities. There is no pneumothorax. Detection of pulmonary edema is not reliable. Cardiac size is normal. There are no pleural effusions or pneumothorax. The skeletal structures are intact. RAD/Chest 1 View IMPRESSION: Extensive bilateral pulmonary opacities, unclear etiology, possibly acute viral pneumonia. Refer to definitive confirmatory imaging. Electronically Signed: Josias Cortez, at 22:04 EDT Tel , Service support ,
--- NOTE | 2019-10-25 22:09 | HP.PCM_ITS ---
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 fib who presents emergency department with slurred speech. Her symptoms started 30 minutes prior to arrival at the emergency department treated . Associated with her symptoms is left facial droop. Patient had a CVA in December 2018 which affected her left arm. On this presentation she reports left arm weakness no different from when she had a CVA in 2019. At emergency department she was found with repeated movements of her left and she was given Ativan for probable partial seizure. Patient is on home Eliquis and was not a candidate for TPA. Past Medical History Past Medical History (Chronic Problems): Chronic Problems (Last Reviewed 10/26/19 @ 02:[address] 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 Paroxysmal atrial fibrillation (Chronic) Onset Date: 12/2018 I48.0 Paroxysmal supraventricular tachycardia (Chronic) I47.1 Hyperlipidemia (Chronic) E78.5 Peripheral vascular occlusive disease (Chronic) I73.9 Bilateral iliac stents 12/2017 Hammer toe of right foot M20.41 History of right MCA stroke Z86.73 Peripheral vascular disease I73.9 Malnutrition E46 Ulcer of right foot with fat layer exposed (Resolved) L97.512 Allergies coffee (Coffea arabica) Adverse Reaction (Verified 10/25/19 21:09) Abd cramps/diarrhea Home Medications: Ambulatory Orders Medication Instructions Recorded Atorvastatin Calcium [Lipitor] 40 mg PO QHS 12/05/17 apixaban 5 mg tablet 5 mg PO BID 05/21/19 cilostazol 100 mg tablet 100 mg PO BID tab 08/14/19 metoprolol tartrate 50 mg tablet 50 mg PO BID #60 tab 08/14/19 Surgical History: Surgical History (Last Reviewed 10/26/19 @ 02:[address] Ellis Ontiveros MD) History of coronary artery stent placement (Chronic) Onset Date: 03/18/99 Z95.5 [id number] RCA and Prox RPDA 3.0 x 23 mm and 3.0 x 13 mm Multi-Link Rx Tristar 03/18/1999 History of loop recorder (Chronic) Onset Date: 12/11/18 Z98.890 History of angioplasty of peripheral vessel Onset Date: 12/2017 Z98.62 right leg angioplasty-popliteal artery, Stent right common iliac with a 7 x 29 Nichol, Stent to the left common iliac with a 7 x 29 Nichol 12/2017 Surgical History: angioplasty Smoking Status: Former smoker - *Family History Maternal Family History: Family History (Last Reviewed 10/26/19 @ 02:[address] Ellis Ontiveros MD) Other CAD (coronary artery disease) Review of Systems Constitutional: Denies: Chills, Fever, Weight Change HEENT: Denies: Head Aches, Sinus Congestion, Sinus Drainage Cardiovascular: Denies: Chest Pain, Palpitations Respiratory: Denies: Cough, Shortness of breath at rest, Sputum production Gastrointestinal: Denies: Abdominal Pain, Nausea, Vomiting Genitourinary: Denies: Dysuria Musculoskeletal: Denies: Joint Pain, Joint Tenderness Skin: Denies: Rash, Wounds Neurological: Reports: Slurred speech, Focal weakness - Chronic left arm. Denies: Numbness, Tingling Psychiatric: Denies: Anxiety, Depression, Homicidal Ideations, Suicidal Ideations Hematologic/ Lymphatic: Denies: Easy Bruising, Easy Bleeding VTE Information - Inpt Only VTE Present on Admission: No VTE Mechan Device Prophylaxis: None VTE Pharm Prophylaxis ordered?: No Reason prophylaxis not ordered:: Treatment Not Indicated - Continue home Eliquis for A. fib Patient Problems: Active and Suspected Problems (Last Reviewed 10/26/19 @ 02:[address] Ellis Ontiveros MD) Stroke-like symptoms (Acute) - Physical Exam Vitals/I&O's: Vital Signs Temp Pulse Resp BP Pulse Ox 97.2 F L 117 H 24 H 140/79 H 100 10/25/19 21:35 10/25/19 21:31 10/25/19 21:31 10/25/19 21:31 10/25/19 21:31 Oxygen Flow Rate (L/min) 15 Oxygen Delivery Method Non-Rebreather Weight: 69 kg Body Mass Index (BMI) 25.3 Finger Stick Blood Glucose 124 General: Alert, Oriented x3, Cooperative HEENT: Atraumatic, PERRLA, EOMI, Normocephalic Neck: Supple, No JVD, Negative Carotid Bruits Lungs: Clear to auscultation, Normal air movement, No rhonchi, No wheeze, No ra les Cardiovascular: Normal S1, Normal S2, No murmurs, Tachycardic Abdomen: Bowel Sounds Present, Soft, Non Tender Extremities: No edema, Capillary Refill Less than 3 Seconds Skin: No rashes, No breakdown Musculoskeletal: No Tenderness to Palpation of Joints or Extremities Neurological: Cranial nerves II-XII grossly intact, Motor Exam 5/5 strength throughout, - - Mild dysarthria. Mild left facial droop Psych/Mental Status: Normal Affect, Appropriate Laboratory Results 10/25/19 21:15: WBC 9.4, RBC 5.06, Hgb 11.6 L, Hct 38.0, MCV 75.1 L, MCH 22.9 L, MCHC 30.5 L, RDW Std Deviation 48.6 H, RDW Coeff of Zachary 18.1 H, Plt Count 355, MPV 10.4, Immature Gran % (Auto) 0.300, Neut % (Auto) 61.0, Lymph % (Auto) 23.0, [place] % (Auto) 9.0, Eos % (Auto) 5.7 H, Baso % (Auto) 1.0, Absolute Neuts (auto) 5.7, Absolute Lymphs (auto) 2.15, Nucleated RBC % 0 10/25/19 21:15: PT 15.3 H, INR 1.3, APTT 28.7 10/25/19 21:15: Sodium 135 L, Potassium 3.9, Chloride 105, Carbon Dioxide 19.0 L , Anion Gap 11, BUN 21 H, Creatinine 1.13 H, Estim Creat Clear Calc 36.92, Est GFR (MDRD) Af Amer 60, Est GFR (MDRD) Non-Af 49 L, BUN/Creatinine Ratio 18.6, Glucose 148 H, Calcium 8.5, Troponin I < 0.015 Current Medications Labetalol HCl (Trandate) 20 mg IV X1 PRN PRN Reason: BLOOD PRESSURE Assessment/Plan All Active Problems (Last Reviewed 10/26/19 @ 02:[address] Ellis Ontiveros MD) Stroke-like symptoms (Acute) Ulcer of right foot with fat layer exposed (Resolved) The patient is a 79 year old F with a significant history of CVA; ischemic cardiomyopathy; paroxysmal A. fib who presents emergency department with slurred speech; facial droop and was found to have repeated movements of her left upper extremity. Strokelike symptoms Frequent NINDS NIH Scale was 0 CT of the head and CTA head and neck was unrevealing. -Check Hba1c, Lipid level Physical therapy, occupational therapy and speech therapy to work with patient. N.p.o. until bedside swallow eval. patient feels swallow eval and speech therapy will see patient. Daily aspirin added High intensity statin continued Permissive hypertension. Control blood pressure with labetalol for systolic blood pressure of more than 220 or diastolic blood pressure of more than 120. -Permissive HTN for 24 hrs, intermediate teacher goal BP < 120/80 mmHg and goal Hba1c < 7% MRI in a.m. Echocardiogram ordered. Atrial fibrillation Because of permissive hypertension hold home metoprolol for now. Eliquis continued Abnormal chest x-ray Chest x-ray with diffuse opacities. Covid test negative. Patient is a low risk of covid. We will get a CT scan of chest. DVT prophylaxis not indicated since patient is on Eliquis. Inpatient E&M: 61126 Init Hosp L3
--- NOTE | 2019-10-25 23:23 | ED.DCSUM_ITS ---
- ER Visit Summary Date of Service: 10/25/19 Chief Complaint: Stroke like symptoms History of Present Illness: The patient is a 79 F presenting with stroke symptoms. This started 30 minutes prior to arrival. Patient started having difficulty speaking. She had left facial droop and difficulty controlling her left arm. Per EMS she had left arm weakness. He has history of previous stroke. She is on Eliquis. She has a history of A. fib. Stroke team was called on patient's arrival. Physical Examination: Blood pressure 124/72, temp 97.2, heart rate 127, respiratory rate 36. Pulse ox 95% on nasal cannula. Alert no acute distress. HEENT exam is unremarkable. Neck is supple. Lungs are diminished bilaterally. Heart is irregularly irregular and tachycardic Abdomen is soft nontender nondistended. Extremities are unremarkable. Skin is warm and dry. NIH 5 Remainder of exam is unremarkable. Emergency Department Course and Treatment: On arrival to the ED patient is having what appears to be a left arm focal seizure. She was given Ativan with improvement of the symptoms. She was taken straight to CT scan. CT head shows no acute bleed. CTA head and neck shows no large vessel occlusion. [facility] telemetry consultation recommends admission for further stroke work-up. She is not a TPA candidate due to Eliquis. Her initial NIH was 5: 2 for dysarthria, 1 for facial droop, 1 for sensation, 1 for left arm drift. Repeat NIH is 3: 1 for dysarthria, 1 for sensation, and 1 for facial droop. Patient was admitted to the hospitalist. Chest x-ray then returned read by radiology as extensive bilateral pulmonary opacities concern for viral pneumonia. COVID test was added on. Patient denied fever, cough or other complaints. EKG is A. fib rate of 109. CBC, chemistries unremarkable. Troponin is negative. Patient will be admitted to the ICU. Disposition: Admission Impression: Acute CVA, viral pneumonia This note was generated with [employer] dictation software. It may contain incorrect words, spelling, and punctuation that were not noted in review of the chart prior to signing ED Disposition - Plan for ED Patient: Disposition: Home or Assisted Living
[2019-10-26] VITALS (25 sets, daily range): BP systolic 116–177; BP diastolic 43–137; PULSE 86–126; RESP 14–22; TEMP 36.2–37.3; O2SAT 94–100; BMI 23.8
[2019-10-26 01:14] LABS: Probe Check PASS; Specimen Processing Control PASS
--- NOTE | 2019-10-26 02:26 | CT_ITS ---
HISTORY: PNEUMONIA TECHNIQUE: Helically acquired images were obtained of the chest. A radiation dose optimization technique was used for this scan. IV Contrast dosage and agent: None. COMPARISON: A CT scan of the abdomen and pelvis was performed on December 11, 2017 and began at the level of the ascending thoracic aorta and images all of the heart and much of the lower lungs FINDINGS: # of images incl. paperwork: [id number] LUNGS AND LARGE AIRWAYS: Interstitial lung disease likely representing interstitial pulmonary edema is present throughout. There is some alveolar edema as well. This is slightly greater in the right lung than left. PLEURA: Tiny pleural effusions with some area of pleural thickening BONES: A levoscoliosis is present at the thoracolumbar junction. Vertebral body height is fairly well preserved. Degenerative disc disease is greatest within the lower cervical spine. Facets are adequately aligned. No acute rib lesions are perceived. HEART AND PERICARDIUM: The heart is enlarged. Severe coronary artery calcific ASCVD. Aortic valvular disease. VESSELS: Is severely diseased with calcific plaque without aneurysm MEDIASTINUM AND FERNANDO: Some mediastinal lymph nodes are present SOFT TISSUES: The thyroid gland is atrophic. Moderate-sized paraesophageal hiatal hernia. Dense calcifications within both kidneys likely representing contrast related to the CTA of the head performed earlier. Renal cysts remain. CT/Chest without Contrast IMPRESSION: Cardiomegaly with interstitial and alveolar pulmonary edema and tiny pleural effusions suggestive CHF in this patient with severe coronary artery atherosclerotic disease. Moderate-sized paraesophageal hernia.. Individualized dose optimization techniques were used for this CT. at 0415 Reported and signed by: Sebas Hood MD Electronically Signed: Sebas Hood MD at 4:14 EDT Tel , Service support ,
--- NOTE | 2019-10-26 03:11 | NURSING ---
spoke with ED regarding patient's glasses, forrest Multani, assistant corporate secretary, stated ED RN gave patient's glasses to son.
[2019-10-26 03:13] LABS: Hemoglobin A1c 6.6 % (3.8-5.6)
[2019-10-26 04:42] LABS: Anion Gap 4 (5-15); BUN 17 mg/dL (7-18); BUN/Creat Ratio 18.3 RATIO (10-20); Calcium,Total 8.5 mg/dL (8.5-10.1); Chloride 107 mmol/L (98-107); Cholesterol 123 mg/dL (200); Creatinine, Serum 0.93 mg/dL (0.55-1.02); EST Glomerular Filtration Rate 62 mL/min (>60); Est Glom Filt Rate - Afr Amer 75 mL/min (>60); Estimated Creatinine Clearance 44.86 ml/min; Glucose 117 mg/dL (74-106); High Density Lipoprotein 52 mg/dL; Potassium 4.2 mmol/L (3.5-5.1); Sodium Level 137 mmol/L (136-145); Triglycerides 51 mg/dL; Very Low Density Lipoprotein 10 mg/dL (5-40)
--- NOTE | 2019-10-26 09:15 | PCM.PN.HOSP ---
Patient Problems: Active and Suspected Problems (Last Reviewed 10/26/19 @ 02:[address] Ellis Ontiveros MD) Stroke-like symptoms (Acute) Subjective: Doing well, no issues overnight. She feels like she is doing better and speaking better. NIH is scored at the 1-2 Vitals/I&O's: Vital Signs Temp Pulse Resp BP Pulse Ox 98.1 F 100 22 H 177/92 H 95 10/26/19 05:00 10/26/19 07:36 10/26/19 07:36 10/26/19 07:36 10/26/19 07:36 Oxygen Flow Rate (L/min) 1 Oxygen Delivery Method Room Air Weight: 143 lb 8.335 oz Body Mass Index (BMI) 23.8 Finger Stick Blood Glucose 124 General: Alert, Oriented x3, Cooperative, No apparent distress HEENT: Atraumatic, PERRLA, EOMI, Normocephalic Oral: Moist Mucosa Neck: Supple, No JVD Lungs: Clear to auscultation, Normal air movement, No rhonchi, No wheeze, No rales, Diminished Cardiovascular: Regular rate, Regular Rhythm, Normal S1, Normal S2, No murmurs Abdomen: Soft, Non Tender, Non-Distended, No Hepato-splenomegaly Extremities: No edema, Capillary Refill Less than 3 Seconds Skin: No rashes, No breakdown Neurological: Deep Tendon Reflexes 2+/4 and Symmetrical, Neuro grossly intact, Motor Exam 5/5 strength throughout, Sensory exam intact to light touch and pain, - - No dysarthria or facial droop this morning Psych/Mental Status: Normal Affect, Appropriate Laboratory Results 10/25/19 21:15: WBC 9.4, RBC 5.06, Hgb 11.6 L, Hct 38.0, MCV 75.1 L, MCH 22.9 L, MCHC 30.5 L, RDW Std Deviation 48.6 H, RDW Coeff of Zachary 18.1 H, Plt Count 355, MPV 10.4, Immature Gran % (Auto) 0.300, Neut % (Auto) 61.0, Lymph % (Auto) 23.0, Coryell % (Auto) 9.0, Eos % (Auto) 5.7 H, Baso % (Auto) 1.0, Absolute Neuts (auto) 5.7, Absolute Lymphs (auto) 2.15, Nucleated RBC % 0 10/25/19 21:15: PT 15.3 H, INR 1.3, APTT 28.7 10/25/19 21:15: Sodium 135 L, Potassium 3.9, Chloride 105, Carbon Dioxide 19.0 L, Anion Gap 11, BUN 21 H, Creatinine 1.13 H, Estim Creat Clear Calc 36.92, Est GFR (MDRD) Af Amer 60, Est GFR (MDRD) Non-Af 49 L, BUN/Creatinine Ratio 18.6, Glucose 148 H, Calcium 8.5, Troponin I < 0.015 10/25/19 21:15: Hemoglobin A1c 6.6 H 10/26/19 00:01: COVID-19 ([facility]) Negative 10/26/19 04:10: Sodium 137, Potassium 4.2, Chloride 107, Carbon Dioxide 26.0, Anion Gap 4 L, BUN 17, Creatinine 0.93, Estim Creat Clear Calc 44.86, Est GFR (MDRD) Af Amer 75, Est GFR (MDRD) Non-Af 62, BUN/Creatinine Ratio 18.3, Glucose 117 H, Calcium 8.5, Triglycerides 51, Cholesterol 123, LDL Cholesterol 61, VLDL Cholesterol 10, HDL Cholesterol 52 Current Medications Acetaminophen (Tylenol) 650 mg PO Q6H PRN PRN PRN Reason: Pain Score 1-10/Temp > 100.7 F Apixaban (Eliquis) 5 mg PO BID [facility] Aspirin (Aspirin, Baby) 81 mg PO DAILY@0800 [facility] Atorvastatin Calcium (Lipitor) 40 mg PO QHS [facility] Cilostazol (Pletal) 100 mg PO BID [facility] Hydralazine HCl (Apresoline Iv) 5 mg IV Q30M PRN PRN Reason: to maintain BP goals Sodium Chloride () 250 mls @ 15 mls/hr IV .[id number] PRN PRN Reason: Saline Flush Sodium Chloride () 250 mls @ 15 mls/hr IV .[id number] PRN PRN Reason: Additional IVPB Infusion Labetalol HCl (Trandate) 10 - 20 mg IV Q10M PRN PRN PRN Reason: to Maintain BP Goals Melatonin (Melatonin) 3 mg PO QHS PRN PRN PRN Reason: INSOMNIA Sodium Chloride () 10 - 40 ml IV UD PRN PRN Reason: SALINE FLUSH STROKE Vital Signs/Narrative: Vital Signs Pulse Resp BP Pulse Ox 10/26/19 07:36 100 22 H 177/92 H 95 10/26/19 07:32 97 10/26/19 06:30 125 H 16 166/85 H 99 10/26/19 05:30 93 20 H 131/70 H 99 Medical Necessity - Tobacco Use Smoking Status: Former smoker Assessment/Plan All Active Problems (Last Reviewed 10/26/19 @ 02:[address] Ellis Ontiveros MD) Stroke-like symptoms (Acute) Ulcer of right foot with fat layer exposed (Resolved) 1. Right CVA versus TIA -When she presented she had significant deficits with a facial dysarthria and a facial droop -Unfortunately she is precluded from TPA secondary to her Eliquis -Aspirin was added -We will obtain an MRI, the echo can be discontinued as she had an echo in August of this year -Can likely transfer out of the ICU today as she is improving 2. A. fib/HTN/HLD/CAD status post stents/peripheral vascular disease -Tinea with Eliquis and aspirin, blood pressure is also stable -Can restart her home metoprolol as well as cilostazol -Continue with Lipitor VTE: Eliquis OBSV E&M: 81100 Subsequent observation care L2
--- NOTE | 2019-10-26 10:30 | MRI_ITS ---
STUDY: MRI BRAIN WITHOUT CONTRAST REASON FOR EXAM: Female, 79 years old. va,slurred speech, lt facial droop, hx prior rt mca stroke TECHNIQUE: Standardized multiplanar fat and water weighted pulse sequences were obtained. COMPARISON: October 25 2019 FINDINGS: There is a large remote right posterior MCA division infarct involving majority of the temporal lobe with extension into the parietal lobe with hemosiderin staining and cortical laminar necrosis. There is no acute infarct. There is no acute intracranial hemorrhage. There is no mass effect, hydrocephalus or herniation. Appearance is similar to recent CT. MRI/Brain without Contrast IMPRESSION: 1. No acute infarct. 2. Remote right MCA infarct. Electronically Signed: Josias Cortez, at 14:27 EDT Tel , Service support ,
--- NOTE | 2019-10-26 11:29 | ECHOD_ITS ---
Reason For Study: TIA/CVA Procedure This was a 2D Doppler, Color Flow transthoracic echocardiogram. Exam performed portable in patient room. Left Ventricle Severely dilated left ventricle. Mild eccentric left ventricular hypertrophy. No LV thrombus. The estimated ejection fraction is 15-20 %. There is severe global hypokinesis of the left ventricle. Right Ventricle Normal right ventricle. Mitral Valve Moderate mitral annular calcification. Mild-Moderate (1-2+) mitral valve insufficiency. Tricuspid Valve Trivial tricuspid valve insufficiency. Aortic Valve Moderate restriction of the aortic valve. Mild to moderate aortic stenosis. Mild (1+) aortic valve insufficiency. Pulmonic Valve Normal pulmonic valve. Mild (1+) pulmonic valve insufficiency. Pericardium/Pleural No pericardial effusion. Medication Performed a rapid injection of agitated mix of 9 cc saline and 1cc air to assess for atrial septal defect. MMode/2D Measurements & Calculations LVIDd: 4.6 cm IVSd: 1.2 cm LVOT diam: 2.0 cm LVIDs: 3.8 cm LVPWd: 0.82 cm LVOT area: 3.0 cm2 RVDd: 3.3 cm FS: 16.7 % Ao root diam: 3.3 cm LAV(MOD-bp): 90.9 ml LVAd ap4: 31.7 cm2 LAV(MOD-bp) Indexed: 51.6 ml/m2 EDV(MOD-sp4): 111.0 ml LAV(MOD-sp2): 87.9 ml EDV(sp4-el): 111.5 ml LAV(MOD-sp4): 94.7 ml LVAs ap4: 26.2 cm2 ESV(MOD-sp4): 76.4 ml ESV(sp4-el): 76.8 ml EF(MOD-sp4): 31.2 % EF(sp4-el): 31.1 % SV(MOD-sp4): 34.6 ml SV(sp4-el): 34.7 ml LA A4 area: 26.5 cm2 LA dimension(2D): 5.5 cm RA A4 area: 19.1 cm2 Doppler Measurements & Calculations MV E max callie: 84.3 cm/sec Ao V2 max: 176.0 cm/sec AI max callie: 454.2 cm/sec Ao max P.4 mmHg AI max P.6 mmHg Ao V2 mean: 116.2 cm/sec Ao mean P.1 mmHg AI dec slope: 305.6 cm/sec2 Ao V2 VTI: 30.3 cm AI P1/2t: 435.4 msec JAYA(I,D): 1.6 cm2 JAYA(V,D): 1.6 cm2 LV V1 max: 92.3 cm/sec SV(LVOT): 47.2 ml PA V2 max: 64.0 cm/sec LV V1 max P.5 mmHg LV V1 mean P.7 mmHg LV V1 mean: 60.4 cm/sec LV V1 VTI: 15.8 cm Interpretation Summary The estimated ejection fraction is 15-20 %. There is severe global hypokinesis of the left ventricle. Mild-Moderate (1-2+) mitral valve insufficiency. Moderate mitral annular calcification. Trivial tricuspid valve insufficiency. Mild to moderate aortic stenosis. Recommendation: Consider DSE for AV stenosis accurate assessment if clinically indicated. Ordering Physician: Ellis Ontiveros Referring Physician: Cody Hassan Chi Performed By: Sonal Gay RDCS
[2019-10-26] MEDS: Cilostazol 50 MG Tablet 100 MG PO ×2 (12:39→21:06)
[2019-10-26] MEDS: Aspirin 81 MG TAB.CHEW PO (12:39)
[2019-10-26] MEDS: APIXABAN 5 MG TABLET PO ×2 (12:39→21:06)
--- NOTE | 2019-10-26 14:30 | CASEMGMT ---
RN CM Assessment Chart reviewed, Patient was @ testing and moving to another unit. Presentation: difficulty speaking, L facial droop, L arm weakness. MRI pending. Diagnosis: Possible Stroke PCP: Dr. Hassan Pharmacy: [facility] Benefit: yes Insurance: Felipe BURRELL LNOK: SonTuan Living arrangements: one story home, lives with son and grandson. Prior independent with ADLs, family assists with home management. DME: [employer]ator Transportation: family drives DC Plan: anticipate home. PT eval recommended further therapy, OT- no therapy recommended. If pt is dc'd, recommend script for outpatient therapy for discharge. Kylah MARESN RN ACM
--- NOTE | 2019-10-26 14:58 | CM.UR ---
KEVIN HAMILTON Note: Intro role of CM to patient and [facility] form explained re: Observation status for treatment of stroke like symptoms. Pt is awake and alert. Explained hospitalization will be paid per? insurance policy for Outpatient billing?and condition will continue to be evaluated for Inpt necessity. Also let pt know that [facility] sends paper in the billing packet with their phone number if questions arise. Discussed Pharmacy section of [facility] form and self administered medication guideline.? Pt verbalizes understanding, questions answered. Form signed and placed in chart, copy to pt. KENROY BROWN BSN CM
[2019-10-26] MEDS: Metoprolol Tartrate 50 MG Tablet PO (17:19)
[2019-10-26] MEDS: Atorvastatin Calcium 40 MG Tablet PO (21:06)
[2019-10-27] VITALS (9 sets, daily range): BP systolic 113–140; BP diastolic 70–76; PULSE 83–114; RESP 16; TEMP 36.4–37.2; O2SAT 98–99
[2019-10-27] MEDS: Aspirin 81 MG TAB.CHEW PO (09:24)
[2019-10-27] MEDS: APIXABAN 5 MG TABLET PO (09:24)
[2019-10-27] MEDS: Metoprolol Tartrate 50 MG Tablet PO (09:24)
[2019-10-27] MEDS: Cilostazol 50 MG Tablet 100 MG PO (09:25)
--- NOTE | 2019-10-27 13:15 | NURSING ---
Spoke with son, Tuan. He informed this RN that he does want pt to get therapy however does not want pt to go to inpatient SNF d/t COVID. Dr. Shannon updated.
--- NOTE | 2019-10-27 15:11 | DCINST_ITS ---
- Discharge Diagnoses Current Active Problems: Current Active and Chronic Problems (Last Reviewed 10/26/19 @ 02:[address] Ellis Ontiveros MD) Stroke-like symptoms (Acute) You will use the following diet at home:: Cardiac Your food should be the consistency of: Regular Your liquids should be the consistency of: Regular/Thin Discharge Activity: Return to Normal Activity Call your doctor if you observe: Fever of 101 or Higher, Shortness of breath, Dizziness, Fainting spells, Swelling in the ankles, Chest pain, Increased palpitations (irregular heartbeat) Allergies/Adverse Reactions: Allergies coffee (Coffea arabica) Adverse Reaction (Verified 10/25/19 21:09) Abd cramps/diarrhea Medications to take at Discharge Atorvastatin Calcium [Lipitor] 40 mg PO QHS 12/05/17 apixaban 5 mg tablet 5 mg PO BID 05/21/19 cilostazol 100 mg tablet 100 mg PO BID tab 08/14/19 metoprolol tartrate 50 mg tablet 50 mg PO BID #60 tab 08/14/19 Aspirin [Aspirin, Baby] 81 mg PO DAILY@0800 #0 tab.chew 10/27/19 Primary Care Physician: Cody Hassan Chi, MD [Primary Care Provider] - Please follow up with your Primary Care Physician in: 3-5 days Test Results: Test results from this visit will be discussed in further detail at your follow- up appointment, if applicable. Please Follow Up With: Neurology When: 2-4 weeks
--- NOTE | 2019-10-27 15:13 | PCM.DC.SUM ---
Discharge Date and Diagnosis - Problem List Patient Problems: Active and Suspected Problems (Last Reviewed 10/26/19 @ 02:[address] Ellis Ontiveros MD) Stroke-like symptoms (Acute) Date of Admission: 10/25/19 Date of Discharge: 10/27/19 - Primary Discharge Diagnosis Acute Problems: Active Problems (Last Reviewed 10/26/19 @ 02:[address] Ellis Ontiveros MD) Stroke-like symptoms (Acute) - Secondary Discharge Diagnosis Chronic Problems: Chronic Problems (Last Reviewed 10/26/19 @ 02:[address] 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 Technically limited exam. In the presence of neurologic symptoms recommend repeat with patient immobilization to avoid motion artifact. 2. Remote right temporoparietal extensive infarct. Electronically Signed: Josias Cortez, at 21:24 EDT Tel , Service support , ADDENDUM: 10/25/19 2132 IMPRESSION: 1. Technically limited exam. In the presence of neurologic symptoms recommend repeat with patient immobilization to avoid motion artifact. 2. Remote right temporoparietal extensive infarct. N.B. : The above information has been verbally conveyed by Josias Cortez to Maryan Bocanegra MD, on 10/25/2019 21:25:55 (ET). Electronically Signed: Josias Cortez, at 21:24 EDT Tel , Service support , Head/Neck CTA 10/25/19 21:02 IMPRESSION: 1. Patent craniocervical arteries. 2. No intracranial large vessel occlusion. Electronically Signed: Josias Cortez, at 21:29 EDT Tel , Service support , ADDENDUM: 10/25/19 2141 IMPRESSION: 1. Patent craniocervical arteries. 2. No intracranial large vessel occlusion. N.B. : The above information has been verbally conveyed by Josias Cortez to Maryan Bocanegra MD, on 10/25/2019 21:34:42 (ET). Electronically Signed: Josias Cortez at 21:29 EDT Tel , Service support , Chest X-Ray 10/25/19 21:45 IMPRESSION: Extensive bilateral pulmonary opacities, unclear etiology, possibly acute viral pneumonia. Refer to definitive confirmatory imaging. Electronically Signed: Josias Cortez at 22:04 EDT Tel , Service support , Chest CT 10/26/19 02:26 IMPRESSION: Cardiomegaly with interstitial and alveolar pulmonary edema and tiny pleural effusions suggestive CHF in this patient with severe coronary artery atherosclerotic disease. Moderate-sized paraesophageal hernia.. Individualized dose optimization techniques were used for this CT. at 0415 Reported and signed by: Sebas Hood MD Electronically Signed: Sebas Hood MD at 4:14 EDT Tel , Service support , Brain MRI 10/26/19 10:30 IMPRESSION: 1. No acute infarct. 2. Remote right MCA infarct. Electronically Signed: Josias Cortez, at 14:27 EDT Tel , Service support , Echo: Interpretation Summary The estimated ejection fraction is 15-20 %. There is severe global hypokinesis of the left ventricle. Mild-Moderate (1-2+) mitral valve insufficiency. Moderate mitral annular calcification. Trivial tricuspid valve insufficiency. Mild to moderate aortic stenosis. Recommendation: Consider DSE for AV stenosis accurate assessment if clinically indicated. Consults: [facility] neurology Operations: None Procedures: 2-D Echocardiogram Summary of Care Provided: Per HPI: The patient is a 79 year old F with a significant history of CVA; ischemic cardiomyopathy; paroxysmal A. fib who presents emergency department with slurred speech. Her symptoms started 30 minutes prior to arrival at the emergency department treated . Associated with her symptoms is left facial droop. Patient had a CVA in December 2018 which affected her left arm. On this presentation she reports left arm weakness no different from when she had a CVA in 2019. At emergency department she was found with repeated movements of her left and she was given Ativan for probable partial seizure. Patient is on home Eliquis and was not a candidate for TPA. Hospital Course: 1. Right CVA/UUP-89-tpcl-old female who presented to the hospital with left facial droop, aphasia, dysarthria underwent a MRI of the brain which did not show a lesion, other than her previous MCA stroke on the right. Unfortunately even though she came in on time because she is on Eliquis secondary to her A. fib she was not a candidate for TPA. She was admitted for further observation and monitoring. All of her deficits resolved and today she has an NIH of 0. Her son states that she is about back to baseline, she still has some left upper extremity weakness though this is chronic since December 2018. I discussed with him the possible plan for discharge today and if he felt comfortable taking her home, and he stated that he felt that she would do fine at home today and would be happy to take her home. I discussed the risks and benefits of discharge with both him and his mother both of whom expressed understanding of the risks and benefits of discharge. 2. A. fib, hypertension, hyperlipidemia, CAD status post stents, peripheral vascular disease are all chronic medical conditions which complicate her care and her home medications were continued where appropriate Patient Problems: Active and Suspected Problems (Last Reviewed 10/26/19 @ 02:[address] Ellis Ontiveros MD) Stroke-like symptoms (Acute) - Physical Exam Vitals/I&O's: Vital Signs Temp Pulse Resp BP Pulse Ox 98.1 F 83 16 113/76 99 10/27/19 09:00 10/27/19 11:06 10/27/19 09:00 10/27/19 09:00 10/27/19 09:00 Oxygen Flow Rate (L/min) 1 Oxygen Delivery Method Room Air Weight: 143 lb 8.335 oz Body Mass Index (BMI) 23.8 Finger Stick Blood Glucose 124 Intake and Output for Last 24 Hours 10/25/19 10/26/19 10/27/19 23:59 23:59 23:59 Intake Total 630 / 1050 1080 / 1080 Balance 630 / 1050 1080 / 1080 General: Alert, Oriented x3, Cooperative, No apparent distress HEENT: Atraumatic, PERRLA, EOMI, Normocephalic Oral: Moist Mucosa Neck: Supple, No JVD Lungs: Clear to auscultation, Normal air movement, No rhonchi, No wheeze, No rales, Diminished Cardiovascular: Regular rate, Regular Rhythm, Normal S1, Normal S2, No murmurs Abdomen: Soft, Non Tender, Non-Distended, No Hepato-splenomegaly Extremities: No edema, Capillary Refill Less than 3 Seconds Skin: No rashes, No breakdown Neurological: Deep Tendon Reflexes 2+/4 and Symmetrical, Neuro grossly intact, Motor Exam 5/5 strength throughout, Sensory exam intact to light touch and pain, - - No dysarthria or facial droop this morning Psych/Mental Status: Normal Affect, Appropriate Current Medications Acetaminophen (Tylenol) 650 mg PO Q6H PRN PRN PRN Reason: Pain Score 1-10/Temp > 100.7 F Apixaban (Eliquis) 5 mg PO BID [facility] Last Admin: 10/27/19 09:24 Dose: 5 mg Documented by: Aspirin (Aspirin, Baby) 81 mg PO DAILY@0800 [facility] Last Admin: 10/27/19 09:24 Dose: 81 mg Documented by: Atorvastatin Calcium (Lipitor) 40 mg PO QHS [facility] Last Admin: 10/26/19 21:06 Dose: 40 mg Documented by: Cilostazol (Pletal) 100 mg PO BID [facility] Last Admin: 10/27/19 09:25 Dose: 100 mg Documented by: Hydralazine HCl (Apresoline Iv) 5 mg IV Q30M PRN PRN Reason: to maintain BP goals Sodium Chloride () 250 mls @ 15 mls/hr IV .[id number] PRN PRN Reason: Saline Flush Sodium Chloride () 250 mls @ 15 mls/hr IV .[id number] PRN PRN Reason: Additional IVPB Infusion Labetalol HCl (Trandate) 10 - 20 mg IV Q10M PRN PRN PRN Reason: to Maintain BP Goals Melatonin (Melatonin) 3 mg PO QHS PRN PRN PRN Reason: INSOMNIA Metoprolol Tartrate (Lopressor (Beta Jamison)) 50 mg PO BID [facility] Last Admin: 10/27/19 09:24 Dose: 50 mg Documented by: Sodium Chloride () 10 - 40 ml IV UD PRN PRN Reason: SALINE FLUSH Discharge Activity: Return to Normal Activity Call your doctor if you observe: Fever of 101 or Higher, Shortness of breath, Dizziness, Fainting spells, Swelling in the ankles, Chest pain, Increased palpitations (irregular heartbeat) Home Medications: Medications to take at Discharge Atorvastatin Calcium [Lipitor] 40 mg PO QHS 12/05/17 apixaban 5 mg tablet 5 mg PO BID 05/21/19 cilostazol 100 mg tablet 100 mg PO BID tab 08/14/19 metoprolol tartrate 50 mg tablet 50 mg PO BID #60 tab 08/14/19 Aspirin [Aspirin, Baby] 81 mg PO DAILY@0800 #0 tab.chew 10/27/19 Primary Care Physician: Cody Hassan Chi, MD [Primary Care Provider] - Please follow up with your Primary Care Physician in: 3-5 days Please Follow Up With: Neurology When: 2-4 weeks Disposition: Home Minutes spent on discharge:: 35 Patient Condition:: Stable Medical Necessity - Tobacco Use Smoking Status: Former smoker Meaningful Use Info Meaningful Use Diagnoses (Choose all that apply): None applicable OBSV E&M: 53819 Observation care discharge
== END 2019-10-27 15:12 | disposition home or self-care (01) ==
LOC: ED 21:10 → PCU 22:54 → ICU 10-26 03:53 → PCU 10-28 08:14
PROVIDERS: Admitting Provider Hospitalist; Emergency Provider Emergency Medicine; PCP Family Medicine Geriatric Medicine; Visit Provider Family Medicine
DX: R47.1 Dysarthria and anarthria (principal); R29.810 Facial weakness; I48.0 Paroxysmal atrial fibrillation; R29.700 NIHSS score 0; I25.5 Ischemic cardiomyopathy; I25.10 Atherosclerotic heart disease of native coronary artery without angina pectoris; I25.2 Old myocardial infarction; E78.5 Hyperlipidemia, unspecified; I47.1 Supraventricular tachycardia; Z86.73 Personal history of transient ischemic attack (TIA), and cerebral infarction without residual deficits; Z79.899 Other long term (current) drug therapy; Z79.01 Long term (current) use of anticoagulants; Z95.5 Presence of coronary angioplasty implant and graft; Z87.891 Personal history of nicotine dependence; I10 Essential (primary) hypertension; I73.9 Peripheral vascular disease, unspecified
CPT/HCPCS: 70450; 70496; 70498; 70551; 71045; 71250; 80048; 80061; 83036; 84484; 85025; 85610; 85730; 87635; 92526; 92610; 93005; 93306; 96374; 97116; 97162; 97165; 97802; 99218; 99285; J7030; Q9967; A4216; G0378; U0003

== ENCOUNTER → 2019-10-30 14:54 | Outpatient (CLI) | payer MEDICARE, SELFPAY ==
[2019-10-26 10:41] VITALS: BMI 23.8
[2019-10-30 15:34] LABS: Absolute Lymphocyte Count 1.58 X10^3/uL (0.83-4.51); Absolute Neutrophil Count 5.6 X10^3/uL (2.0-7.7); Basophil# 0.08 X10^3/uL; Basophil% 0.8 % (0-1); Eosinophils% 15.7 % (0-5); Hematocrit 39.4 % (37-47); Lymphocyte # 1.58 X10^3/ul (4.0); Lymphocyte % 16.6 % (19-41); Mean Corp Hgb Conc 30.5 g/dL (32-36); Mean Corpuscular Hgb 22.8 pg (27.0-32.0); Mean Corpuscular Volume 74.8 fL (81-99); Mean Platelet Vol. 10.8 fl (6.2-12.0); Monocyte# 0.72 X10^3/uL; Monocyte% 7.6 % (0-10); NRBC Flagged by Analyzer 0 % (0-5); Neutrophil # 5.63 X10^3/uL (2.7-7.7); Neutrophil % 59.1 % (47-70); Platelet Count 396 K/mm3 (150-450); RBC Distribution Width CV 18.8 % (11.6-14.6); RBC Distribution Width SD 49.1 fl (35.1-43.9); Red Blood Count 5.27 M/mm3 (4.2-5.4); White Blood Count 9.5 K/mm3 (4.4-11.0)
[2019-10-30 16:27] LABS: ALB/GLOB Ratio 0.9 RATIO (0.9-2.4); AST(SGOT) 20 U/L (15-37); Alanine Aminotransfer ALT/SGPT 18 U/L (13-56); Albumin, Serum 3.6 g/dL (3.2-5.0); Alkaline Phosphatase 102 U/L (45-117); Anion Gap 6 (5-15); BUN 24 mg/dL (7-18); BUN/Creat Ratio 19.5 RATIO (10-20); Calcium,Total 9.5 mg/dL (8.5-10.1); Chloride 108 mmol/L (98-107); Creatinine, Serum 1.23 mg/dL (0.55-1.02); EST Glomerular Filtration Rate 45 mL/min (>60); Est Glom Filt Rate - Afr Amer 54 mL/min (>60); Globulin 3.8 g/dL (2.2-4.2); Glucose 127 mg/dL (74-106); Protein, Total 7.4 g/dL (6.4-8.2); Sodium Level 138 mmol/L (136-145); Thyroid Stim Hormone (TSH) 3.09 uIU/mL (0.358-3.74)
== END ==
PROVIDERS: PCP Family Medicine Geriatric Medicine; Referring Provider Family Medicine Geriatric Medicine; Visit Provider Family Medicine Geriatric Medicine
DX: E55.9 Vitamin D deficiency, unspecified (principal); I10 Essential (primary) hypertension
CPT/HCPCS: 36415; 80053; 82306; 84443; 85025

== ENCOUNTER → 2020-01-13 06:42 | Outpatient (CLI) | payer MEDICARE, SELFPAY ==
[2019-12-18 11:25] VITALS: BMI 23.4
--- NOTE | 2020-01-13 09:20 | STRESSREP_ITS ---
Stress Test Report Pharmacologic myocardial perfusion stress test. History of coronary artery disease and supraventricular tachyarrhythmia. Stress protocol: Resting EKG demonstrates atrial fibrillation with a rate of 83 bpm incomplete left bundle branch block is noted. Resting blood pressure is 132/76 mmHg. 0.4 mg of regadenoson was infused per usual protocol followed by rapid venous saline flush injection continuous EKG monitoring was performed. The maximum heart rate attained was 109 bpm which was 76% of max impacted heart rate the maximum worklo ad was 1 metabolic equivalent. At rest nonspecific ST-T wave changes were noted at peak infusion nonspecific ST-T wave changes were noted. Myocardial perfusion protocol. 11.2 mCi of technetium 99m sestamibi was injected at rest. 0.4 mg of regadenoson was infused per usual protocol. At peak infusion 33.3 mCi of technetium 99m sestamibi was injected stress images were obtained stress and rest images were reconstructed and compared in the short axis vertical long horizontal long axis. Gated images were also obtained Perfusion SPECT analysis: Review of the stress images demonstrate normal uptake of tracer noted in the septum and lateral wall. The mid to distal anterior wall, apex and the entire inferior wall has a perfusion defect. The resting images demonstrate a similar pattern. The above appears to be suggestive of multiterritory infarct involving the distal anterior wall as well as the inferior wall. No obvious reversibility is noted to suggest ischemia though small robert-infarct ischemia cannot be completely excluded. Gated SPECT analysis: The gated ejection fraction is 40%. Conclusion: Ischemic cardiomyopathy. Previous mid to distal anterior infarct noted. Previous inferior infarct noted. Reduced ejection fraction of 40% with segmental wall motion abnormalities noted. Atrial fibrillation present.
== END ==
PROVIDERS: PCP Family Medicine Geriatric Medicine; Referring Provider Physician Assistant Medical; Visit Provider Physician Assistant Medical
DX: I25.10 Atherosclerotic heart disease of native coronary artery without angina pectoris (principal)
CPT/HCPCS: 78452; 93017; A9500; A4216; J2785

== ENCOUNTER 2020-01-21 10:06 | Day surgery (SDC) | payer MEDICARE, SELFPAY ==
[2019-12-18 11:25] VITALS: BMI 23.4
[2020-01-17 09:56] LABS: Anion Gap 3 (5-15); BUN 14 mg/dL (7-18); BUN/Creat Ratio 12.7 RATIO (10-20); Calcium,Total 9.1 mg/dL (8.5-10.1); Chloride 109 mmol/L (98-107); EST Glomerular Filtration Rate 51 mL/min (>60); Est Glom Filt Rate - Afr Amer 62 mL/min (>60); Glucose 130 mg/dL (74-106); Potassium 4.1 mmol/L (3.5-5.1); Sodium Level 138 mmol/L (136-145)
[2020-01-20 09:10] VITALS: BMI 23.4
--- NOTE | 2020-01-21 05:49 | HP_ITS ---
HPI HPI History of Present Illness Details: This is a 79-year-old female that presents here today for a cardiovascular follow-up. She has a history of coronary artery disease with angioplasty and stenting in 1999. 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 Thrombus was noted in the right MCA. She was transferred to [facility]. She was noted at that time to be in atrial fibrillation. During her hospital stay she had multiple episodes of SVT. She did undergo a loop recorder. Echocardiogram at that time demonstrated an ejection fraction of 37%, abnormal diastolic dysfunction, severe left atrial enlargement, mild aortic stenosis and mild regurgitation. LINDSAY did not demonstrate any patent foramen ovale or thrombus. She was discharged home on metoprolol, aspirin, and atorvastatin and Eliquis. She does have a history of peripheral vascular occlusive disease requiring stenting in her lower extremities and hyperlipidemia. She presented to our office for a follow-up in August of this year. It appears that her metoprolol had been stopped. This was restarted. We did obtain an echocardiogram which demonstrated an ejection fraction of 20%. Plan was to repeat her echocardiogram since we resumed her metoprolol. Patient was in the hospital in October for TIA. Neurology felt that her TIA was related to the recent of her son. Pt sts that overall she has been doing okay since she came home from the hospital. She does not have any SOB with exertion unless she is walking up the steps. She does not have any orthopnea. She no longer has swelling since her medication was adjusted. She does not chest pain/heaviness. She does not have any lightheadedness/dizziness. She does not have any near syncope. 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 Is patient in pain?: No Allergies coffee (Coffea arabica) Adverse Reaction (Verified 12/18/19 11:23) Abd cramps/diarrhea Medications Atorvastatin Calcium [Lipitor] 40 mg PO QHS 12/05/17 [History Confirmed 12/18/19] apixaban 5 mg tablet 5 mg PO BID 05/21/19 [History Confirmed 12/18/19] cilostazol 100 mg tablet 100 mg PO BID tab 08/14/19 [History Confirmed 12/18/19] Aspirin [Aspirin, Baby] 81 mg PO DAILY@0800 #0 tab.chew 10/27/19 [Rx Confirmed 12/18/19] carvedilol 12.5 mg tablet 12.5 mg PO BID #180 tab 11/29/19 [Rx Confirmed 12/18/19] sacubitril 24 mg-valsartan 26 mg tablet 1 tab PO BID #60 tab 12/18/19 [Rx] [facility] Medical History Atherosclerosis of coronary artery of [place] heart without angina pectoris (Chronic) 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) Ischemic cardiomyopathy (Chronic) History of CVA (cerebrovascular accident) (Chronic 12/2018) Paroxysmal atrial fibrillation (Chronic 12/2018) Paroxysmal supraventricular tachycardia (Chronic) Hyperlipidemia (Chronic) Peripheral vascular occlusive disease (Chronic) Hammer toe of right foot (Chronic) History of right MCA stroke (Chronic) Peripheral vascular disease (Chronic) Malnutrition (Suspected) Ulcer of right foot with fat layer exposed (Resolved) Surgical History History of coronary artery stent placement (Chronic 03/18/99) History of loop recorder (Chronic 12/11/18) History of angioplasty of peripheral vessel (Resolved 12/2017) Family History Other CAD (coronary artery disease) Social History (Updated 12/19/19 @ 10:49 by Ellyn BENAVIDES, PA) Smoking Status: Former smoker ROS Const Const: Negative for fatigue, weakness, fever(s) or headache(s) Eyes Eyes: Negative for blind spots, loss of peripheral vision or transient loss of vision ENT ENT: Negative for headache(s), dizziness, tinnitus or Nosebleed/epistaxis Cardio Chest Pain: No Palpitations: No Edema: None Muscle aches with walking: None Resp Respiratory: Negative for SOB with activity, SOB at rest, SOB orthopnea\SOB lying down or Cough GI GI: Negative nausea, vomiting, heartburn or vomiting blood/hematemesis : Negative for hematuria Musc Musc: Negative for muscle aches/ myalgia Neuro Neuro: Negative for dizziness, lightheadedness, near syncope, syncope, orthostatic symptoms, headache(s) or weakness Bishop Hematologic/Lymphatic: Negative for easy bleeding Endo Endo: Negative for fatigue Cardiology Exam Const Appearance: cooperative, no acute distress and well developed Orientation: alert, awake and oriented x3 Head Head: normocephalic and atraumatic Mouth: moist mucous membranes Eyes General: appearance normal, both eyes and all related structures Conjunctivae: conjunctivae normal Pupils: PERRL EOM: EOM intact bilaterally Neck Neck: normal visual inspection, no lymphadenopathy and no JVD Carotids: Negative bruit Neck Mass: Negative Neck mass Chest Chest inspection: normal inspection of the chest and symmetric chest movement Auscultation: Bilateral: Clear to Auscultation Cardio Palpation: normal PMI Rate: regular rate Rhythm: irregularly irregular Heart sounds: S1 normal, S2 normal and murmur; negative rub or gallop Murmur: Grade 2/6, harsh and mid systolic GI GI: normal to inspection, soft, no hepatosplenomegaly and bowel sounds present; negative tender Neuro General: alert, awake, oriented x3, CN's II-XI intact bilaterally and moves all extremities Extremities Pulses: Normal: Right Posterior Tibial Pulse, Left Posterior Tibial Pulse, Right Radial Pulse, Left Radial Pulse Lower Extremity Edema: None: Bilateral Psych Psychological: normal affect Assessment & Plan 1. Atherosclerosis of coronary artery of [place] heart without angina pectoris I25.10 Plan With patient's history of coronary artery disease and decrease of her ejection fraction from 3531-6680 where it went from 37 to 20% would like to pursue a stress test to evaluate for underlying ischemia as a potential cause of her worsening heart function. Patient will continue with her Coreg, atorvastatin, aspirin. She is also going to be starting Entresto for her heart function. Patient Instructions I am going to obtain a stress test to evaluate for lack of blood flow, once this is done will decide if you need to have a cardioversion first or proceed to an ICD. Orders Orders: Nuclear Stress Test - Chemical 12/18/19 2. Ischemic cardiomyopathy I25.5 Plan Patient is undergoing a stress test to further evaluate her worsening heart function. She is not symptomatic with this. If this does not demonstrate any reversible ischemia would like for patient to consider a prophylactic ICD. She is agreeable to consider this. We will also continue to maximize her medications. She will be starting Entresto. We will continue to try and titrate upwards. 3. Paroxysmal atrial fibrillation I48.0 Plan It appears the patient's atrial fibrillation is more persistent. Patient's heart rate is controlled. She is on metoprolol. We are switching this to Coreg. She is also anticoagulated with a factor Xa inhibitor. Would consider a possible cardioversion however feel that her atrial fibrillation is likely more persistent with her significance of her enlarged atrium. 4. Hyperlipidemia E78.5 Plan Recent lipid profile demonstrates total cholesterol 1 23, HDL 52, LDL 61. She will continue with moderate intensity statin. 5. History of loop recorder Z98.890 Plan Patient will continue with regular scheduled loop recorder interrogations. 6. History of CVA (cerebrovascular accident) Z86.73 History of right MCA stroke w/ right parietal petechial hemorrhage Plan Detail Other Medications Discontinued: lisinopril Discontinued Reason: Discontinued by PCP/other physicians 2.5 mg PO DAILY 90 tabs 3RF Follow Up 12/18/19 (keep as is) Coding Level of Care Code Off vis,est,level 3 Diagnoses Atherosclerosis of coronary artery of [place] heart without angina pectoris I25.10 Ischemic cardiomyopathy I25.5 Paroxysmal atrial fibrillation I48.0 Hyperlipidemia E78.5 History of loop recorder Z98.890 History of CVA (cerebrovascular accident) Z86.73 Coding Level of Care Code Off vis,est,level 3 Diagnoses Atherosclerosis of coronary artery of [place] heart without angina pectoris I25.10 Ischemic cardiomyopathy I25.5 Paroxysmal atrial fibrillation I48.0 Hyperlipidemia E78.5 History of loop recorder Z98.890 History of CVA (cerebrovascular accident) Z86.73 Supplemental Info Supplemental Information Echocardiogram 10/2019: The estimated ejection fraction is 15-20 %. There is severe global hypokinesis of the left ventricle. Mild-Moderate (1-2+) mitral valve insufficiency. Moderate mitral annular calcification. Trivial tricuspid valve insufficiency. Mild to moderate aortic stenosis. Recommendation: Consider DSE for AV stenosis accurate assessment if clinically indicated. Echocardiogram 08/2019: Normal LV size. The left atrium is severely enlarged. Mild-Moderate (1-2+) eccentric mitral valve insufficiency. Mild (1+) aortic valve insufficiency. Mild concentric left ventricular hypertrophy. The estimated ejection fraction is 20 %. Labs LDL Cholesterol 61 mg/dL (0-130) 10/26/19 HDL Cholesterol 52 mg/dL (40-) 10/26/19 Triglycerides 51 mg/dL (-199) 10/26/19 VLDL Cholesterol 10 mg/dL (5-40) 10/26/19 Diagnostics Electrocardiogram 10/25/19 Echocardiogram 10/26/19 Pacemaker Check 10/29/19 Chest X-Ray 10/25/19
--- NOTE | 2020-01-21 12:30 | PRO.PCM_ITS ---
Procedure Report Date of Procedure: 01/21/20 CONSCIOUS SEDATION REPORT DATE OF SERVICE: January 21, 2020 BRIEF HISTORY OF PRESENT ILLNESS: The patient is a 79-year-old female who presented to [facility] for an elective outpatient cardioversion due to underlying atrial fibrillation. The patient denies ever having undergone a previous cardioversion. She is systemically anticoagulated on Eliquis. Her last surface echocardiogram revealed an ejection fraction of approximately 20%. She denies any previous anesthetic complications. She has never been diagnosed with obstructive sleep apnea before. PHYSICAL EXAMINATION: VITAL SIGNS: Reviewed and were acceptable. GENERAL: The patient is an elderly female, in no apparent distress, speaking in full sentences. HEENT: Normocephalic, atraumatic. Meet membranes are moist and pink. Good mouth opening noted. Trachea is midline. Good neck mobility. CHEST: S1, S2 irregularly irregular. No murmurs, rubs or gallops were noted. LUNGS: Clear to auscultation bilaterally without appreciable wheezes, rales or rhonchi. ABDOMEN: Soft, nontender, nondistended. Positive bowel sounds. EXTREMITIES: There is no clubbing, cyanosis or edema. ASA Class: II DESCRIPTION OF PROCEDURE: After confirmation of informed consent, the patient's anesthesia plan was reviewed in detail. Etomidate was chosen. Risks and benefits were reviewed and the patient agreed to proceed. At 1205, the patient was given 4 mg of etomidate. The patient achieved an appropriate level of sedation and was given a 200 joule synchronized cardioversion by Dr. Varghese at the bedside. This was successful in achieving normal sinus rhythm. The patient was monitored until 1215, at which time she reached her baseline mental status and function. The patient tolerated the procedure well. COMPLICATIONS: None ESTIMATED BLOOD LOSS: None RECOMMENDATIONS: Okay to recover in usual fashion. 9xxxx: Other Procedure See Report - [id number]
--- NOTE | 2020-01-24 10:43 | CARDIOVERS ---
Cardioversion Cardioversion: DC cardioversion 79-year-old lady with a history of atrial fibrillation flutter. Patient has been on anticoagulation. Patient was brought to the cardiac catheterization lab in the postabsorptive nonsedated state. Patient was seen by Dr. Min of the critical care division. Informed consent was obtained. Anterior posterior pads were applied. The patient was administered 4 mg of intravenous etomidate. 200 J of synchronized DC cardioversion energy were applied with prompt reversal to sinus rhythm. Patient tolerated the procedure well. Conclusion: Continue current medical therapy. Follow-up in my office.
== END 2020-01-21 13:10 | disposition home or self-care (01) ==
LOC: CLSP 10:07
PROVIDERS: Physician Assistant Medical; PCP Family Medicine Geriatric Medicine; Referring Provider Internal Medicine Cardiovascular Disease; Visit Provider Internal Medicine Cardiovascular Disease
DX: I48.0 Paroxysmal atrial fibrillation (principal); Z79.01 Long term (current) use of anticoagulants; Z95.5 Presence of coronary angioplasty implant and graft; I25.10 Atherosclerotic heart disease of native coronary artery without angina pectoris; E78.5 Hyperlipidemia, unspecified; Z79.82 Long term (current) use of aspirin; I25.2 Old myocardial infarction; I25.5 Ischemic cardiomyopathy; Z86.73 Personal history of transient ischemic attack (TIA), and cerebral infarction without residual deficits; I73.9 Peripheral vascular disease, unspecified; Z87.891 Personal history of nicotine dependence
CPT/HCPCS: 36415; 80048; 92960; 93005; J7040

== ENCOUNTER 2020-04-06 07:39 | Day surgery (SDC) | payer MEDICARE, SELFPAY ==
[2020-03-17 10:15] VITALS: BMI 23.3
[2020-03-17 12:33] LABS: Absolute Lymphocyte Count 1.65 X10^3/uL (0.83-4.51); Eosinophil# 0.71 X10^3/uL; Hematocrit 40.7 % (37-47); Hemoglobin 12.6 g/dL (12.0-15.0); Lymphocyte # 1.65 X10^3/ul (4.0); Lymphocyte % 16.2 % (19-41); Mean Corpuscular Hgb 24.3 pg (27.0-32.0); Mean Corpuscular Volume 78.6 fL (81-99); Mean Platelet Vol. 11.4 fl (6.2-12.0); Monocyte% 6.9 % (0-10); NRBC Flagged by Analyzer 0 % (0-5); Neutrophil # 6.99 X10^3/uL (2.7-7.7); Neutrophil % 68.5 % (47-70); Platelet Count 336 K/mm3 (150-450); RBC Distribution Width CV 18.4 % (11.6-14.6); RBC Distribution Width SD 51.9 fl (35.1-43.9); Red Blood Count 5.18 M/mm3 (4.2-5.4); White Blood Count 10.2 K/mm3 (4.4-11.0)
[2020-03-17 13:02] LABS: Anion Gap 6 (5-15); BUN 37 mg/dL (7-18); BUN/Creat Ratio 30.6 RATIO (10-20); Calcium,Total 9.6 mg/dL (8.5-10.1); Chloride 107 mmol/L (98-107); Creatinine, Serum 1.21 mg/dL (0.55-1.02); EST Glomerular Filtration Rate 46 mL/min (>60); Est Glom Filt Rate - Afr Amer 55 mL/min (>60); Glucose 110 mg/dL (74-106); Potassium 4.3 mmol/L (3.5-5.1); Sodium Level 138 mmol/L (136-145)
[2020-03-17 13:10] LABS: International Normalized Ratio 1.4; Prothrombin Time (Protime)PT. 16.8 SECONDS (11.7-14.9)
[2020-03-17 13:11] LABS: Partial Thromboplast Time 31.8 Seconds (24.1-36.2)
[2020-04-03 11:09] VITALS: BMI 24.0
--- NOTE | 2020-04-06 06:00 | HP_ITS ---
HPI HPI History of Present Illness Surgical H&P: Yes Details: This is a 79-year-old female that presents here today for a cardiovascular follow-up. She has a history of coronary artery disease with angioplasty and stenting in 1999. 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 Thrombus was noted in the right MCA. She was transferred to [facility]. She was noted at that time to be in atrial fibrillation. During her hospital stay she had multiple episodes of SVT. She did undergo a loop recorder. Echocardiogram at that time demonstrated an ejection fraction of 37%, abnormal diastolic dysfunction, severe left atrial enlargement, mild aortic stenosis and mild regurgitation. LINDSAY did not demonstrate any patent foramen ovale or thrombus. She was discharged home on metoprolol, aspirin, and atorvastatin and Eliquis. She does have a history of peripheral vascular occlusive disease requiring stenting in her lower extremities and hyperlipidemia. She presented to our office for a follow-up in August of this year. It appears that her metoprolol had been stopped. This was restarted. We did obtain an echocardiogram which demonstrated an ejection fraction of 20%. Plan was to repeat her echocardiogram since we resumed her metoprolol. Patient was in the hospital in October for TIA. Neurology felt that her TIA was related to the recent of her son. She did undergo a stress test to evaluate for underlying ischemia. Stress test demonstrated previous infarct persistent atrial fibrillation and cardiomyopathy. Patient did undergo a cardioversion 6 weeks ago. Her medications were optimized for her cardiomyopathy. Plan was to then consider a heart catheterization to further evaluate her cardiomyopathy. She has not had any chest pain. Overall from a heart standpoint she feels like she is doing well. She does not have any worsening shortness of breath. She does not have any irregular heartbeats that she is aware of. She does not have any lightheadedness dizziness. She does not have any lower extremity edema. She is not having any issues with claudication. 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 Is patient in pain?: No Allergies coffee (Coffea arabica) Adverse Reaction (Verified 03/17/20 10:13) Abd cramps/diarrhea Medications Atorvastatin Calcium [Lipitor] 40 mg PO QHS 12/05/17 [History Confirmed 03/17/20] apixaban 5 mg tablet 5 mg PO BID 05/21/19 [History Confirmed 03/17/20] cilostazol 100 mg tablet 100 mg PO BID tab 08/14/19 [History Confirmed 03/17/20] Aspirin [Aspirin, Baby] 81 mg PO DAILY@0800 #0 tab.chew 10/27/19 [Rx Confirmed 03/17/20] sacubitril 24 mg-valsartan 26 mg tablet 1 tab PO BID #60 tab 12/18/19 [Rx Confirmed 03/17/20] carvedilol 25 mg tablet 25 mg PO BID #180 tab 03/17/20 [Rx Confirmed 03/17/20] clopidogrel 75 mg tablet 75 mg PO DAILY #30 tab 03/17/20 [Rx Confirmed 03/17/20] [facility] Medical History Atherosclerosis of coronary artery of [place] heart without angina pectoris (Chronic) 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) Ischemic cardiomyopathy (Chronic) History of CVA (cerebrovascular accident) (Chronic 12/2018) Paroxysmal atrial fibrillation (Chronic 12/2018) Paroxysmal supraventricular tachycardia (Chronic) Hyperlipidemia (Chronic) Peripheral vascular occlusive disease (Chronic) Hammer toe of right foot (Chronic) History of right MCA stroke (Chronic) Peripheral vascular disease (Chronic) Malnutrition (Suspected) Ulcer of right foot with fat layer exposed (Resolved) Surgical History History of coronary artery stent placement (Chronic 03/18/99) History of loop recorder (Chronic 12/11/18) History of angioplasty of peripheral vessel (Resolved 12/2017) History of cardioversion (Resolved 01/21/20) Family History Other CAD (coronary artery disease) Social History (Updated 03/17/20 @ 11:25 by Ellyn BENAVIDES, PA) Smoking Status: Former smoker ROS Const Const: Negative for fatigue, weakness, fever(s) or headache(s) Eyes Eyes: Negative for blind spots, loss of peripheral vision or transient loss of vision ENT ENT: Negative for headache(s), dizziness, tinnitus or Nosebleed/epistaxis Cardio Chest Pain: No Palpitations: No Edema: None Muscle aches with walking: None Resp Respiratory: Negative for SOB with activity, SOB at rest, SOB orthopnea\SOB lying down or Cough GI GI: Negative nausea, vomiting, heartburn or vomiting blood/hematemesis : Negative for hematuria Musc Musc: Negative for muscle aches/ myalgia Neuro Neuro: Negative for dizziness, lightheadedness, near syncope, syncope, orthostatic symptoms, headache(s) or weakness Bishop Hematologic/Lymphatic: Negative for easy bleeding Endo Endo: Negative for fatigue Cardiology Exam Const Appearance: cooperative, no acute distress and well developed Orientation: alert, awake and oriented x3 Head Head: normocephalic and atraumatic Mouth: moist mucous membranes Eyes General: appearance normal, both eyes and all related structures Conjunctivae: conjunctivae normal Pupils: PERRL EOM: EOM intact bilaterally Neck Neck: normal visual inspection, no lymphadenopathy and no JVD Carotids: Negative bruit Neck Mass: Negative Neck mass Chest Chest inspection: normal inspection of the chest and symmetric chest movement Auscultation: Bilateral: Clear to Auscultation Cardio Palpation: normal PMI Rate: regular rate Rhythm: regular rhythm Heart sounds: S1 normal and S2 normal; negative rub, gallop or murmur GI GI: normal to inspection, soft, no hepatosplenomegaly and bowel sounds present; negative tender Neuro General: alert, awake, oriented x3, CN's II-XI intact bilaterally and moves all extremities Extremities Pulses: Normal: Right Posterior Tibial Pulse, Left Posterior Tibial Pulse, Right Radial Pulse, Left Radial Pulse Lower Extremity Edema: None: Bilateral Psych Psychological: normal affect Assessment & Plan 1. Atherosclerosis of coronary artery of [place] heart without angina pectoris I25.10 Plan Patient does not have any symptoms of angina however with her stress test that does demonstrate previous infarct and her cardiomyopathy would like to proceed with a diagnostic heart catheterization to further evaluate. Patient is agreeable to proceed. Instructions were given to her. Patient Instructions Your heart cath is scheduled for 04/06/2020. You will arrive at 0800 and your procedure will be 0930. 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 If not you can go home that afternoon. You need to stop your eliquis 3 days prior to your heart cath. Your last day will be 04/02. I am going to start your on Plavix, you can start this now. If you need a stent you will need to stay on this., If you dont, you can stop this. Stop the Pletal (cilostazol) now since your will be starting plavix (clopidogrel). If you do not need a stent this will be resumed since you will be stopping the plavix. Nothing it eat or drink after midnight, the night before your procedure. In the morning with a sip of water take your Plavix, ASA, carvedilolol, and your entresto. Orders Orders: Left Heart Cath/COR/LV Percut Today Basic Metabolic Profile (BMP) Today Partial Thromboplast Time Today Prothrombin Time w/INR Today CBC W/Diff, Automated Today 2. Ischemic cardiomyopathy I25.5 Plan Patient does not have any symptoms of congestive heart failure. Would like to continue to maximize her medications and increase her Coreg to 25 mg twice a day. Patient Instructions Increase your coreg to 25 mg twice a day 3. Paroxysmal atrial fibrillation I48.0 Plan Patient has not had any further recurrence. For now she will continue with her anticoagulation and her rate limiting medication. Orders Orders: Partial Thromboplast Time Today 4. Hyperlipidemia E78.5 Plan Recent lipid profile demonstrates total cholesterol 1 23, HDL 52, LDL 61. She will continue with moderate intensity statin. 5. Peripheral vascular occlusive disease I73.9 Bilateral iliac stents 12/2017 Plan She currently does not have any symptoms of claudication. This will be held until after her heart catheterization. If she requires stents we will continue to hold this. If she does not require stents she will resume this as she will be stopping her Plavix. 6. History of CVA (cerebrovascular accident) Z86.73 History of right MCA stroke w/ right parietal petechial hemorrhage Plan Detail Other Orders Orders: CBC W/Diff, Automated Today R29.90 Other Medications New: clopidogrel (Plavix) 75 mg PO DAILY 30 tabs 3RF Changed: From: carvedilol (Coreg) must administer with a meal/food 12.5 mg PO BID 180 tabs 3RF To: carvedilol must administer with a meal/food 25 mg PO BID 180 tabs 3RF Follow Up 1 Month (2 weeks after heart cath- mmm) Coding Level of Care Code Off vis,est,level 4 Diagnoses Atherosclerosis of coronary artery of [place] heart without angina pectoris I25.10 Ischemic cardiomyopathy I25.5 Paroxysmal atrial fibrillation I48.0 Hyperlipidemia E78.5 Peripheral vascular occlusive disease I73.9 History of CVA (cerebrovascular accident) Z86.73 Coding Level of Care Code Off vis,est,level 4 Diagnoses Atherosclerosis of coronary artery of [place] heart without angina pectoris I25.10 Ischemic cardiomyopathy I25.5 Paroxysmal atrial fibrillation I48.0 Hyperlipidemia E78.5 Peripheral vascular occlusive disease I73.9 History of CVA (cerebrovascular accident) Z86.73 Supplemental Info Supplemental Information Echocardiogram 10/2019: The estimated ejection fraction is 15-20 %. There is severe global hypokinesis of the left ventricle. Mild-Moderate (1-2+) mitral valve insufficiency. Moderate mitral annular calcification. Trivial tricuspid valve insufficiency. Mild to moderate aortic stenosis. Recommendation: Consider DSE for AV stenosis accurate assessment if clinically indicated. Echocardiogram 08/2019: Normal LV size. The left atrium is severely enlarged. Mild-Moderate (1-2+) eccentric mitral valve insufficiency. Mild (1+) aortic valve insufficiency. Mild concentric left ventricular hypertrophy. The estimated ejection fraction is 20 %. Stress test 01/2020: Ischemic cardiomyopathy. Previous mid to distal anterior infarct noted. Previous inferior infarct noted. Reduced ejection fraction of 40% with segmental wall motion abnormalities noted. Atrial fibrillation present. Diagnostics Electrocardiogram 01/28/20 Stress Test Nuclear Medicine 01/13/20 Stress Test 01/13/20 Pacemaker Check 02/05/20 COVID (Procedure Consent) Procedure Criteria Procedure Criteria: Yes Elective The surgeon/proceduralist and patient have discussed in detail the risk of exposure to and/or potential harm posed by the COVID-19 virus with having a surgery/procedure at this time versus the risk of? delaying the surgery/procedure. It is not possible to know either the risk of delaying the surgery or procedure or chance of getting an infection with perfect accuracy, but a joint decision was made between the patient and the surgeon/proceduralist ?to proceed at this time with the scheduled surgery/procedure as indicated on the consent form.
--- NOTE | 2020-04-06 09:42 | ECHOD_ITS ---
Reason For Study: CAD/ASHD Procedure This was a 2D Doppler, Color Flow transthoracic echocardiogram. Exam performed portable in patient room. Left Ventricle Normal LV size. Sigmoid septum. Left ventricular systolic function is normal. The estimated ejection fraction is 60 %. Stage 1 diastolic dysfunction. Right Ventricle Normal RV size. Normal systolic function. Atria The left atrium is moderately enlarged. Normal right atrium. Mitral Valve There is mild to moderate mitral annular calcification. Trivial eccentric mitral valve insufficiency. Tricuspid Valve Normal tricuspid valve. Mild tricuspid valve insufficiency. Pulmonary artery systolic pressure is 20 mmHg. Aortic Valve Trisinus/trileaflet aortic valve. Mild focal aortic valve calcification. Mild (1+) aortic valve insufficiency. Pulmonic Valve Normal pulmonic valve. Great Vessels Normal aortic root. The pulmonary artery is normal size. Normal inferior vena cava. Pericardium/Pleural No pericardial effusion. MMode/2D Measurements & Calculations LVIDd: 4.4 cm IVSd: 1.6 cm LVOT diam: 2.0 cm LVIDs: 3.4 cm LVPWd: 0.97 cm LVOT area: 3.0 cm2 RVDd: 3.6 cm FS: 22.6 % LAV(MOD-bp): 92.3 ml LA A4 area: 27.2 cm2 RA A4 area: 16.6 cm2 LAV(MOD-bp) Indexed: 54.9 ml/m2 LAV(MOD-sp2): 94.5 ml LAV(MOD-sp4): 89.7 ml Time Measurements MV dec time: 0.26 sec Doppler Measurements & Calculations MV E max moose: 63.4 cm/sec Lat Peak E' Moose: 5.8 cm/sec Med Peak E' Moose: 4.0 cm/sec MV A max moose: 76.4 cm/sec E/E' lat: 10.9 E/E' med: 15.8 MV E/A: 0.83 Ao V2 max: 216.9 cm/sec AI max moose: 355.8 cm/sec LV V1 max: 101.2 cm/sec Ao max P.8 mmHg AI max P.6 mmHg LV V1 max P.1 mmHg Ao V2 mean: 155.4 cm/sec AI dec slope: 196.2 cm/sec2 LV V1 mean P.1 mmHg Ao mean P.6 mmHg AI P1/2t: 531.0 msec LV V1 mean: 68.5 cm/sec Ao V2 VTI: 49.9 cm LV V1 VTI: 26.0 cm JAYA(I,D): 1.6 cm2 JAYA(V,D): 1.4 cm2 SV(LVOT): 78.7 ml PA V2 max: 126.4 cm/sec TR max moose: 197.4 cm/sec TR max P.6 mmHg Interpretation Summary Normal LV size. Sigmoid septum. Left ventricular systolic function is normal. The estimated ejection fraction is 60 %. Stage 1 diastolic dysfunction. Mild tricuspid valve insufficiency. The left atrium is moderately enlarged. Mild focal aortic valve calcification. Ordering Physician: Esvin Varghese Referring Physician: Cody Hassan Chi Performed By: Omi, Darcie, RDCS, RVT
--- NOTE | 2020-04-06 09:43 | CL.D_ITS ---
Patient Name: TOVA MCINTOSH Study Date: 04/06/2020 Performing: Esvin Varghese MD Ht: 64.17 inches 163 cm : 1940 Wt: 141.1 lbs 64 kg Age: 79 Gender: female BSA: 1.69 PROCEDURE(S) PERFORMED [id number]/LV CLINICAL PROFILE AND INDICATIONS Indications: Suspected CAD Heart Failure: NYHA Class: 2, Newly Diagnosed: No, Heart Failure Type: Systolic Stress/Imaging Date: 01/13/2020Stress Test with SPECT MPI: Positive Intermediate Risk CAD Presentations: Symptom unlikely to be ischemic. CONCLUSIONS Triple-vessel disease with poor LV function. RECOMMENDATIONS Medical therapy DESCRIPTION OF PROCEDURE The patient arrived to the procedure lab. The risks and benefits of the procedure as well as a full d escription of our services here and current unavailability of surgical backup were fully explained to the patient and/or their significant other prior to the catheterization. The Timeout was completed, verifying the correct patient and procedure. The patient's procedural site was prepped and draped in the usual fashion. Local anesthetic was given subcutaneously to right radial region with Lidocaine 2% . Using a modified Seldinger technique, arterial access was obtained via the right radial artery, a 6 Fr sheath was inserted. Right Coronary Artery selective angiography was then performed in multiple v iews using a 5 Fr. 4.0 Damascus catheter. Left Coronary Artery selective angiography was performed in mu ltiple views using a 5 Fr. 4.0 Damascus catheter. Left Ventriculography was performed in [place] projection using a 5 Fr. Pigtail catheter. LV to AO pullback pressures were then recorded.The arterial sheath was pulled and a TR Band was applied for hemostasis CORONARY ANGIOGRAPHY DOMINANCE: Right Dominant LEFT HEART ASSESSMENT Left Ventricular Ejection Fraction: by LV Gram 40% Anterior Hypokinesis - Severe. Inferior Mid Akinesis. Inferior Basal Hypokinesis - Severe LEFT MAIN: Mild calcification, Mild luminal irregularities LEFT ANTERIOR DESCENDING ARTERY: PROX LAD: Mild luminal irregularities less than 30% DIAGONAL 1: Ostial - is occluded SEPTAL: Large septal which is patent and provides blood flow to the apex as well as left to left and left to right collaterals. CIRCUMFLEX ARTERY: Moderate luminal irregularities up to 50% RAMUS: Mild luminal irregularities less than 30% RIGHT CORONARY ARTERY: MID RCA: Previously placed stent is occluded DISTAL RCA: Fills via collaterals COLLATERAL FLOW: Collateral flow from Right to Right Collateral flow from Left to Right COMPLICATIONS No Complications PROCEDURE MEDICATIONS Versed .5 mg IV Fentanyl 25 mcg IV Oxygen: 2 L/min via nasal cannula Baby Aspirin (81mg) 1 Tabs PO @ 04/06/2020 08:08:11 Heparin given IA 04/06/2020 09:06:05 Verapamil 2.5mg, Ntg 100mcgs, 2000 units of Heparin given IA 04/06/2020 09:06:05 SUMMARY OF HEMODYNAMIC DATA Time AIR REST ECG 08:06:49 AO 96/39 (57) SA 09:08:38 AO 91/37 (56) 09:11:36 LV 115/5, 15 09:20:13 LV 112/6, 15 09:20:20 LVp 113/9, 18 09:22:03 AOp 111/43 (67) 09:22:08 AO 118/43 (68) 09:24:15 Signed By Esvin Varghese MD On 04/06/2020 10:59:04 Signed By Esvin Varghese MD On 04/06/2020 09:42:03 Esvin Varghese MD
== END 2020-04-06 12:30 | disposition home or self-care (01) ==
PROVIDERS: Physician Assistant Medical; PCP Family Medicine Geriatric Medicine; Referring Provider Internal Medicine Cardiovascular Disease; Visit Provider Internal Medicine Cardiovascular Disease
DX: I25.10 Atherosclerotic heart disease of native coronary artery without angina pectoris (principal); E78.5 Hyperlipidemia, unspecified; I73.9 Peripheral vascular disease, unspecified; I48.0 Paroxysmal atrial fibrillation; I25.5 Ischemic cardiomyopathy; I25.2 Old myocardial infarction; Z79.899 Other long term (current) drug therapy; Z79.02 Long term (current) use of antithrombotics/antiplatelets; Z95.5 Presence of coronary angioplasty implant and graft; Z79.82 Long term (current) use of aspirin; Z79.01 Long term (current) use of anticoagulants; Z87.891 Personal history of nicotine dependence
CPT/HCPCS: 36415; 80048; 85025; 85610; 85730; 93005; 93306; 93458; 99152; 99153; J7040; Q9967; C1769; C1894

== ENCOUNTER → 2020-04-29 11:33 | Outpatient (CLI) | payer MEDICARE, SELFPAY ==
[2020-04-20 11:27] VITALS: BMI 24.1
[2020-04-29 11:56] LABS: Absolute Neutrophil Count 4.8 X10^3/uL (2.0-7.7); Basophil# 0.11 X10^3/uL; Basophil% 1.3 % (0-1); Eosinophil# 1.29 X10^3/uL; Eosinophils% 15.1 % (0-5); Hematocrit 35.8 % (37-47); Lymphocyte % 19.8 % (19-41); Mean Corp Hgb Conc 30.7 g/dL (32-36); Mean Corpuscular Hgb 25.2 pg (27.0-32.0); Mean Corpuscular Volume 82.1 fL (81-99); Mean Platelet Vol. 10.6 fl (6.2-12.0); Monocyte# 0.61 X10^3/uL; Monocyte% 7.1 % (0-10); NRBC Flagged by Analyzer 0 % (0-5); Neutrophil # 4.81 X10^3/uL (2.7-7.7); Neutrophil % 56.1 % (47-70); Platelet Count 363 K/mm3 (150-450); RBC Distribution Width CV 16.3 % (11.6-14.6); RBC Distribution Width SD 48.8 fl (35.1-43.9); Red Blood Count 4.36 M/mm3 (4.2-5.4); White Blood Count 8.6 K/mm3 (4.4-11.0)
[2020-04-29 12:26] LABS: Vitamin D,25 Hydroxy 30.9 ng/mL
[2020-04-29 12:41] LABS: ALB/GLOB Ratio 0.9 RATIO (0.9-2.4); AST(SGOT) 19 U/L (15-37); Alanine Aminotransfer ALT/SGPT 19 U/L (13-56); Albumin, Serum 3.4 g/dL (3.2-5.0); Alkaline Phosphatase 91 U/L (45-117); Anion Gap 6 (5-15); BUN 20 mg/dL (7-18); Calcium,Total 9.3 mg/dL (8.5-10.1); Chloride 108 mmol/L (98-107); Creatinine, Serum 1.25 mg/dL (0.55-1.02); EST Glomerular Filtration Rate 44 mL/min (>60); Est Glom Filt Rate - Afr Amer 53 mL/min (>60); Globulin 3.7 g/dL (2.2-4.2); Glucose 126 mg/dL (74-106); Potassium 4.1 mmol/L (3.5-5.1); Protein, Total 7.1 g/dL (6.4-8.2); Sodium Level 138 mmol/L (136-145); Thyroid Stim Hormone (TSH) 2.26 uIU/mL (0.358-3.74)
== END ==
PROVIDERS: PCP Family Medicine Geriatric Medicine; Visit Provider Family Medicine Geriatric Medicine
DX: E55.9 Vitamin D deficiency, unspecified (principal); I10 Essential (primary) hypertension
CPT/HCPCS: 36415; 80053; 82306; 84443; 85025

== ENCOUNTER → 2020-05-07 10:32 | Outpatient (CLI) | payer MEDICARE, SELFPAY ==
[2020-04-20 11:27] VITALS: BMI 24.1
[2020-05-07 12:17] LABS: Absolute Lymphocyte Count 1.29 X10^3/uL (0.83-4.51); Absolute Neutrophil Count 6.4 X10^3/uL (2.0-7.7); Basophil# 0.07 X10^3/uL; Basophil% 0.7 % (0-1); Eosinophil# 1.29 X10^3/uL; Eosinophils% 13.1 % (0-5); Hematocrit 34.6 % (37-47); Hemoglobin 10.6 g/dL (12.0-15.0); Lymphocyte # 1.29 X10^3/ul (4.0); Lymphocyte % 13.1 % (19-41); Mean Corp Hgb Conc 30.6 g/dL (32-36); Mean Corpuscular Hgb 24.9 pg (27.0-32.0); Mean Corpuscular Volume 81.4 fL (81-99); Mean Platelet Vol. 10.8 fl (6.2-12.0); Monocyte# 0.72 X10^3/uL; Monocyte% 7.3 % (0-10); NRBC Flagged by Analyzer 0 % (0-5); Neutrophil # 6.42 X10^3/uL (2.7-7.7); Neutrophil % 65.4 % (47-70); Platelet Count 353 K/mm3 (150-450); RBC Distribution Width CV 15.9 % (11.6-14.6); RBC Distribution Width SD 47.1 fl (35.1-43.9); Red Blood Count 4.25 M/mm3 (4.2-5.4); Reticulocyte Count 1.59 % (0.5-1.5); White Blood Count 9.8 K/mm3 (4.4-11.0)
[2020-05-07 12:45] LABS: Ferritin 14 ng/mL (8-252); Iron 25 ug/dL (50-170); Iron Binding Capacity,Total 429 ug/dL (250-450); PERCENT IRON SATURATION 5.8 % (15.0-55.0)
[2020-05-07 12:50] LABS: Vitamin B12 354 pg/mL (211-911)
== END ==
PROVIDERS: PCP Family Medicine Geriatric Medicine; Visit Provider Family Medicine Geriatric Medicine
DX: D50.9 Iron deficiency anemia, unspecified (principal)
CPT/HCPCS: 36415; 82607; 82728; 82746; 83540; 83550; 85025; 85045

== ENCOUNTER 2020-05-07 17:19 | Outpatient (RCR) | payer MEDICARE, SELFPAY ==
[2020-04-20 11:27] VITALS: BMI 24.1
[2020-05-07] MEDS: COVID-19 VACC, MRNA(PFIZER)/PF 30 MCG/0.3 ML SYRINGE IM (11:05)
[2020-06-09] MEDS: COVID-19 VACC, MRNA(PFIZER)/PF 30 MCG/0.3 ML SYRINGE IM (16:45)
== END 2020-05-07 23:59 ==
LOC: IMMUN 17:19
PROVIDERS: PCP Family Medicine Geriatric Medicine; Visit Provider Family Medicine
DX: Z23 Encounter for immunization (principal)
CPT/HCPCS: 0001A; 0002A

== ENCOUNTER 2020-05-19 15:45 | Emergency (ER) | payer MEDICARE, SELFPAY ==
[2020-04-20 11:27] VITALS: BMI 24.1
[2020-05-19] VITALS (11 sets, daily range): BP systolic 88–160; BP diastolic 9–104; PULSE 89–129; RESP 16–33; TEMP 36.8; O2SAT 95–99; BMI 24.0
--- NOTE | 2020-05-19 15:46 | CT_ITS ---
STUDY: CT HEAD STROKE PROTOCOL W/O CONTRAST INJECTION REASON FOR EXAM: Female, 80 years old. Neuro deficit, acute, stroke suspected RADIATION DOSAGE (If Supplied By Facility): CTDIvol = ( 44.99 ) mGy, DLP = ( a 46.73 ) mGycm TECHNIQUE: Transaxial CT imaging of the brain was performed without administration of intravenous contrast material. Individualized dose optimization techniques were used for this CT. COMPARISON: Comparison is made with prior study dated 10/25/2019. FINDINGS: Normal soft tissue structures. Normal calvarium. There is moderate cerebral atrophy with widening of the extra-axial spaces and ventricular dilatation. There are areas of decreased attenuation within the white matter tracts of the supratentorial brain, consistent with microvascular disease changes. Normal basal ganglia and thalami. Normal brainstem. Normal cerebellum. There is evidence of old infarction in the posterior right temporal parietal lobe. I suspect petechial hemorrhage along the gyri within the area of chronic infarction. Normal visualized paranasal sinuses. CT/STROKE Brain/Head without Cont IMPRESSION: Findings suggestive of possible petechial hemorrhage in a gyriform distribution at the level of the previous right posterior temporal parietal infarct. N.B. : The above information has been verbally conveyed by Jatinder Olivas MD to DAPHNIE Palomino on 05/19/2020 16:00:42 (ET). Electronically Signed: Jatinder Olivas MD at 16:01 EDT , Service support ,
--- NOTE | 2020-05-19 15:47 | CT_ITS ---
We are attempting to reach an attending provider to discuss findings. An addendum with communication details will be sent when the communication is complete. STUDY: CTA HEAD AND NECK WITH CONTRAST REASON FOR EXAM: Female, 80 years old. Neuro deficit, acute, stroke suspected RADIATION DOSAGE (If Supplied By Facility): CTDIvol = ( ) mGy, DLP = ( ) mGycm TECHNIQUE: CT angiography was performed with a multi-detector CT scanner. Data acquisition was obtained from the skull base through the vertex following intravenous administration of IV 100mL Isovue-370. MIP images were reconstructed from the axial data set. Post-processing of the angiographic images was performed, with multiplanar reformation and 3D reconstruction. Individualized dose optimization techniques were used for this CT. COMPARISON: No relevant priors. FINDINGS: Normal bilateral petrous carotid arteries. There is calcified plaque formation of the right cavernous carotid artery, without a cross-sectional luminal stenosis. There is calcified plaque formation of the left cavernous carotid artery, without a cross-sectional luminal stenosis. There is hypoplastic development of the right A1 segment of the anterior cerebral arteries with an atretic but intact artery. Normal left A1 segments of the anterior cerebral artery. Normal intact anterior communicating artery (ACOM). Normal bilateral A2 segments of the anterior cerebral arteries. Normal right M1 and M2 segments of the middle cerebral arteries, with a normal M1 bifurcation. Normal left M1 and M2 segments of the middle cerebral arteries, with a normal M1 bifurcation. Normal right posterior communicating artery (PCOM). There is a persistent origin of the left posterior cerebral artery with absence of the posterior communicating artery (PCOM). Normal bilateral vertebral arteries. Normal basilar artery with a normal basilar bifurcation. The visualized bilateral superior cerebellar (SCA) arteries are normal. Normal bilateral P1, P2 and visualized P3 segments of the posterior cerebral arteries. There is no demonstrated aneurysm of the [place] of [place]. There is no demonstrated abnormality of the visualized brain. AORTIC ARCH: Normal visualized aortic arch. Normal origins of the brachiocephalic, left common carotid, and left subclavian arteries. RIGHT CAROTID ARTERIES: Normal right common carotid artery (CCA). There is extensive atherosclerotic plaque formation with severe narrowing of the right carotid bulb with a hemodynamically significant stenosis. There is extensive atherosclerotic plaque formation of the origin of the right internal carotid artery with an estimated stenosis of greater than 70%. Normal visualized cervical portion of the right internal carotid artery. Normal origin of the right external carotid artery (ECA). LEFT CAROTID ARTERIES: Normal left common carotid artery (CCA). There is extensive atherosclerotic plaque formation with severe narrowing of the carotid bulb with a hemodynamically significant stenosis. There is extensive atherosclerotic plaque formation of the origin of the left internal carotid artery with an estimated stenosis of greater than 70%. Normal visualized cervical portion of the left internal carotid artery. Normal origin of the left external carotid artery (ECA). VERTEBRAL ARTERIES: Normal bilateral vertebral arteries. CT/STROKE CTA Head AND Neck W/Con IMPRESSION: 1. Normal CTA Head with contrast. 2. Severe (80%) carotid stenosis bilaterally. 3. Patent vertebral arteries bilaterally. Electronically Signed: Zaheer Argueta MD at 16:31 EDT Tel , Service support ,
--- NOTE | 2020-05-19 15:50 | CM.ED ---
SOCIAL WORK Stroke Alert Responded to Stroke Alert. Patient out of room at this time, no family present. This worker to remain available for needs. Norman Coleman, CHEMICAL EQUIPMENT SALES ENGINEER, MATERIAL HANDLING [employer]MENT [employer]
[2020-05-19] MEDS: LORazepam 2 MG/ML Syringe 1 MG IV (16:20)
--- NOTE | 2020-05-19 16:20 | RAD_ITS ---
STUDY: X-RAY CHEST REASON FOR EXAM: Female, 80 years old. Neuro deficit, acute, stroke suspected TECHNIQUE: Single AP portable view of the chest. 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 The lungs are clear and expanded. There is no demonstrated pleural abnormality. There is moderate cardiac enlargement. Normal mediastinum and thad. Normal visualized pulmonary arteries. Normal visualized aortic arch and descending thoracic aorta. There is a dextroscoliosis of the thoracic spine. Normal visualized ribs, clavicles, and shoulders. There is no demonstrated abnormality of the visualized soft tissue structures of the upper abdomen. RAD/Chest 1 View IMPRESSION: No active disease. Electronically Signed: Zaheer Argueta MD at 16:37 EDT Tel , Service support ,
[2020-05-19] MEDS: levETIRAcetam IV 1,000 MG/100 ML BAG 400 MG IV (16:24)
[2020-05-19 16:39] LABS: International Normalized Ratio 1.9; Prothrombin Time (Protime)PT. 21.2 SECONDS (11.7-14.9)
[2020-05-19 16:40] LABS: Partial Thromboplast Time 30.2 Seconds (24.1-36.2)
[2020-05-19 16:42] LABS: Absolute Lymphocyte Count 2.32 X10^3/uL (0.83-4.51); Absolute Neutrophil Count 4.5 X10^3/uL (2.0-7.7); Basophil% 1.2 % (0-1); Eosinophil# 0.53 X10^3/uL; Eosinophils% 6.3 % (0-5); Hematocrit 37.5 % (37-47); Hemoglobin 11.2 g/dL (12.0-15.0); Lymphocyte # 2.32 X10^3/ul (4.0); Lymphocyte % 27.6 % (19-41); Mean Corp Hgb Conc 29.9 g/dL (32-36); Mean Corpuscular Volume 80.5 fL (81-99); Mean Platelet Vol. 10.4 fl (6.2-12.0); Monocyte# 0.99 X10^3/uL; Monocyte% 11.8 % (0-10); NRBC Flagged by Analyzer 0 % (0-5); Neutrophil # 4.45 X10^3/uL (2.7-7.7); Neutrophil % 52.7 % (47-70); Platelet Count 376 K/mm3 (150-450); RBC Distribution Width CV 15.1 % (11.6-14.6); RBC Distribution Width SD 43.8 fl (35.1-43.9); Red Blood Count 4.66 M/mm3 (4.2-5.4); White Blood Count 8.4 K/mm3 (4.4-11.0)
--- NOTE | 2020-05-19 17:02 | ED.RN ---
salvatore did not want to start aqua mephylon. said they would take it with them.
[2020-05-19 17:16] LABS: Anion Gap 8 (5-15); BUN 21 mg/dL (7-18); BUN/Creat Ratio 18.3 RATIO (10-20); Calcium,Total 8.8 mg/dL (8.5-10.1); Chloride 102 mmol/L (98-107); Creatinine, Serum 1.15 mg/dL (0.55-1.02); EST Glomerular Filtration Rate 48 mL/min (>60); Est Glom Filt Rate - Afr Amer 59 mL/min (>60); Estimated Creatinine Clearance 37.13 ml/min; Glucose 125 mg/dL (74-106); Potassium 4.3 mmol/L (3.5-5.1); Sodium Level 132 mmol/L (136-145)
--- NOTE | 2020-05-19 18:52 | ED.DCSUM_ITS ---
History of Present Illness Chief Complaint: Neuro S/Sx Informant: Patient, Family Onset: Today Timing: Continuous Quality and Location: Left Facial Droop, Left Arm Weakness Narrative: Patient initially arrives as a stroke alert with concern for left-sided facial droop and left arm weakness. Initial NIH of 5. Patient states this began approximately 5 hours ago. Patient has had a history of CVA in the past and had some slight weakness to her left hand as well as some slight slurred speech but otherwise no residual deficits. Patient is on Eliquis and Plavix. Denies any recent head injury. Past Medical History - Allergies and Home Meds Allergies/Adverse Reactions: Allergies coffee (Coffea arabica) Adverse Reaction (Verified 05/19/20 16:08) Abd cramps/diarrhea Primary Care Physician: Cody Hassan Chi, MD [Primary Care Provider] - Prior records reviewed: Yes Past Medical History: - - CVA, HTN, COPD, CHF Surgical History: angioplasty Lives: With Family Smoking Status: Former smoker Alcohol: None Drugs: None Review of Systems General: Denies: Chills, Fever, Sweats Eyes: Denies: Visual changes - bilaterally, Diplopia ENT: Denies: Rhinorrhea, Sore throat Cardiovascular: Denies: Chest pain, Palpitations Respiratory: Denies: Dyspnea, Cough, Dyspnea on exertion Gastrointestinal: Denies: Abdominal pain, Nausea, Vomiting, Diarrhea, Melena, Hematochezia Genitourinary: Denies: Dysuria, Hematuria, Frequency Musculoskeletal: Denies: Back pain, Extremity Pain Skin: Denies: Rash, Wounds Neurological: Reports: Weakness, - - Facial droop. Denies: Headache, Numbness STROKE Vital Signs/Narrative: Vital Signs Temp Pulse Resp BP Pulse Ox 05/19/20 17:10 89 17 98/57 L 97 05/19/20 16:51 100 22 H 88/55 L 05/19/20 16:38 99 26 H 101/75 96 05/19/20 16:34 113 H 33 H 99/61 96 05/19/20 16:23 115 H 28 H 129/104 H 96 05/19/20 16:17 107 H 24 H 129/104 H 97 05/19/20 16:09 129 H 32 H 141/95 H 97 05/19/20 16:06 98 05/19/20 16:02 110 H 16 141/95 H 99 05/19/20 15:53 98.2 F 110 H 160/69 H 95 05/19/20 15:47 110 H 160/9 H 95 Inital Vital Signs reviewed: Yes General: Well nourished, Well developed Head: Normocephalic, Atraumatic Eyes: Perrl, EOMI ENT: Moist mucous membranes, No rhinorrhea Neck: Supple, Nontender Cardiovascular: Regular rate, Regular rhythm, No murmurs Respiratory: No distress, CTA bilaterally, Chest nontender Abdomen: Soft, Nontender, Nondistended, Normal bowel sounds Back: Nontender, Normal Inspection Extremities: Nontender, No edema Skin: Normal color, No rash Neurological: Alert, Oriented x3, Cranial nerves II-XII grossly intact, Normal Sensation, Right side facial droop, - - Drift of the left upper extremity. Mild slurred speech. Tremor of the left hand. Psychological: Normal affect Diagnostic/Tx/Re-eval Clinical Impression(s) from Imaging Studies Brain CT 05/19/20 15:46 IMPRESSION: Findings suggestive of possible petechial hemorrhage in a gyriform distribution at the level of the previous right posterior temporal parietal infarct. N.B. : The above information has been verbally conveyed by Jatinder Olivas MD to DAPHNIE Palomino on 05/19/2020 16:00:42 (ET). Electronically Signed: Jatinder Olivas MD at 16:01 EDT , Service support , ADDENDUM: 05/19/20 1608 IMPRESSION: Findings suggestive of possible petechial hemorrhage in a gyriform distribution at the level of the previous right posterior temporal parietal infarct. N.B. : The above information has been verbally conveyed by Jatnider Olivas MD to DAPHNIE Palomino on 05/19/2020 16:00:42 (ET). Electronically Signed: Jatinder Olivas MD at 16:01 EDT , Service support , Head/Neck CTA 05/19/20 15:47 IMPRESSION: 1. Normal CTA Head with contrast. 2. Severe (80%) carotid stenosis bilaterally. 3. Patent vertebral arteries bilaterally. Electronically Signed: Zaheer Argueta MD at 16:31 EDT Tel , Service support , ADDENDUM: 05/19/20 1641 IMPRESSION: 1. Normal CTA Head with contrast. 2. Severe (80%) carotid stenosis bilaterally. 3. Patent vertebral arteries bilaterally. N.B. : The above information has been verbally conveyed by Zaheer Argueta MD to Dr. Mavis MD, MD, on 05/19/2020 16:34:41 (ET). Electronically Signed: Zaheer Argueta MD at 16:31 EDT Tel , Service support , Chest X-Ray 05/19/20 16:20 IMPRESSION: No active disease. Electronically Signed: Zaheer Argueta MD at 16:37 EDT Tel , Service support , Laboratory Data 05/19/20 05/19/20 05/19/20 16:00 16:00 16:00 WBC 8.4 RBC 4.66 Hgb 11.2 L Hct 37.5 MCV 80.5 L MCH 24.0 L MCHC 29.9 L RDW Std Deviation 43.8 RDW Coeff of Zachary 15.1 H Plt Count 376 MPV 10.4 Immature Gran % (Auto) 0.400 Neut % (Auto) 52.7 Lymph % (Auto) 27.6 Loving % (Auto) 11.8 H Eos % (Auto) 6.3 H Baso % (Auto) 1.2 H Absolute Neuts (auto) 4.5 Absolute Lymphs (auto) 2.32 Nucleated RBC % 0 PT 21.2 H INR 1.9 APTT 30.2 Sodium 132 L Potassium 4.3 Chloride 102 Carbon Dioxide 22.0 Anion Gap 8 BUN 21 H Creatinine 1.15 H Estim Creat Clear Calc 37.13 Est GFR (MDRD) Af Amer 59 L Est GFR (MDRD) Non-Af 48 L BUN/Creatinine Ratio 18.3 Glucose 125 H Calcium 8.8 Troponin I < 0.015 Chest X-Ray - ED: 1 View, Read by ED Physician, Read by Radiologist, Normal - Medical Decision Making Stroke Team Activated: Yes Reviewed Inclusion/Exclusion criteria: Yes Was Patient considered for Endovascular Intervention?: No IV Alteplase (t-PA) Administered: No No contraindications for IV Alteplase (t-PA) administration.: Yes Patient initial NIH of 5. Sent emergently for CT brain and CTA of the head and neck. Patient began to have what appeared to be focal seizures in CAT scan. On return patient's NIH remains 5. Blood pressure 140/90. CT brain shows concern for punctate hemorrhage at the area of previous large MCA. Telestroke contacted. Following their exam they recommended Ativan and Keppra for her seizures. Also recommended transfer emergently by air to [facility] for further evaluation. tPA will not be given given she has intracranial hemorrhage. Neurologist feels this may be calcification so does not want to give Kcentra. Following discussion with [facility] they cannot fly into [place]. I feel patient needs emergent transport. [facility] transfer line was contacted and I spoke with neurologist Dr. Yu who stated the patient did need to be transferred to their neuro ICU. She did state that given she could not look at the films and they did have concern for intracranial hemorrhage given her being on Eliquis to give Kcentra. Patient was given Kcentra. Patient's focal seizures following the Ativan and Keppra significantly improved however she continued to have a slight tremor of her left hand as well as twitching to the left face. Patient became hypotensive was given 500 cc of normal saline shortly before the arrival of [facility]. After discussion with [facility] physician he will continue to give a small amount of volume and consider phenytoin and Ativan following resolution of her hypotension. Patient transported in critical but stable condition by air to [facility] for further treatment and evaluation. Dorsey: 1. Intracranial hemorrhage 2. Focal seizures 3. Hypotension Critical care time (excluding procedures): Performing Direct Patient Care at Bedside ED Disposition - Plan for ED Patient: Disposition: [facility] Referrals: Cody Hassan Chi, MD [Primary Care Provider] -
== END 2020-05-19 17:10 | disposition short-term general hospital (02) ==
LOC: ED 15:57
PROVIDERS: Emergency Provider Emergency Medicine; PCP Family Medicine Geriatric Medicine
DX: I62.9 Nontraumatic intracranial hemorrhage, unspecified (principal); I95.9 Hypotension, unspecified; Z87.891 Personal history of nicotine dependence; Z86.73 Personal history of transient ischemic attack (TIA), and cerebral infarction without residual deficits; Z79.02 Long term (current) use of antithrombotics/antiplatelets
CPT/HCPCS: 70450; 70496; 70498; 71045; 80048; 84484; 85025; 85610; 85730; 87426; 96374; 99285; C9132; Q9967; A4216; J3490

== ENCOUNTER → 2020-06-19 12:26 | Outpatient (CLI) | payer MEDICARE, SELFPAY ==
[2020-04-20 11:27] VITALS: BMI 24.1
[2020-05-19 16:00] VITALS: BMI 24.0
[2020-06-19 12:54] LABS: Basophil# 0.16 X10^3/uL; Basophil% 1.4 % (0-1); Eosinophils% 0.9 % (0-5); Hemoglobin 11.7 g/dL (12.0-15.0); Lymphocyte % 9.7 % (19-41); Mean Corp Hgb Conc 29.3 g/dL (32-36); Mean Corpuscular Hgb 23.3 pg (27.0-32.0); Mean Corpuscular Volume 79.7 fL (81-99); Mean Platelet Vol. 10.4 fl (6.2-12.0); Monocyte# 0.89 X10^3/uL; Monocyte% 7.8 % (0-10); NRBC Flagged by Analyzer 0 % (0-5); Neutrophil # 8.96 X10^3/uL (2.7-7.7); Neutrophil % 79.1 % (47-70); Platelet Count 442 K/mm3 (150-450); RBC Distribution Width CV 16.6 % (11.6-14.6); RBC Distribution Width SD 46.4 fl (35.1-43.9); Red Blood Count 5.02 M/mm3 (4.2-5.4); White Blood Count 11.3 K/mm3 (4.4-11.0)
[2020-06-19 13:26] LABS: Anion Gap 4 (5-15); BUN 21 mg/dL (7-18); BUN/Creat Ratio 29.2 RATIO (10-20); Calcium,Total 9.9 mg/dL (8.5-10.1); Chloride 102 mmol/L (98-107); Cholesterol 124 mg/dL (200); Creatinine, Serum 0.72 mg/dL (0.55-1.02); EST Glomerular Filtration Rate 83 mL/min (>60); Est Glom Filt Rate - Afr Amer 101 mL/min (>60); Glucose 97 mg/dL (74-106); High Density Lipoprotein 38 mg/dL; Potassium 4.2 mmol/L (3.5-5.1); Sodium Level 135 mmol/L (136-145); Triglycerides 125 mg/dL; Very Low Density Lipoprotein 25 mg/dL (5-40)
== END ==
PROVIDERS: PCP Family Medicine Geriatric Medicine; Visit Provider Family Medicine Geriatric Medicine
DX: D50.9 Iron deficiency anemia, unspecified (principal); E78.5 Hyperlipidemia, unspecified
CPT/HCPCS: 36415; 80048; 80061; 85025

== ENCOUNTER → 2020-07-02 10:08 | Outpatient (CLI) | payer MEDICARE, SELFPAY ==
[2020-05-19 16:00] VITALS: BMI 24.0
[2020-07-02 12:31] LABS: Absolute Lymphocyte Count 0.75 X10^3/uL (0.83-4.51); Absolute Neutrophil Count 7.8 X10^3/uL (2.0-7.7); Eosinophil# 0.12 X10^3/uL; Eosinophils% 1.2 % (0-5); Hematocrit 35.9 % (37-47); Hemoglobin 11.1 g/dL (12.0-15.0); Lymphocyte # 0.75 X10^3/ul (0.83-4.51); Lymphocyte % 7.6 % (19-41); Mean Corp Hgb Conc 30.9 g/dL (32-36); Mean Corpuscular Hgb 24.7 pg (27.0-32.0); Mean Corpuscular Volume 79.8 fL (81-99); Monocyte# 0.96 X10^3/uL; Monocyte% 9.8 % (0-10); NRBC Flagged by Analyzer 0 % (0-5); Neutrophil # 7.78 X10^3/uL (2.7-7.7); Neutrophil % 79.4 % (47-70); Platelet Count 341 K/mm3 (150-450); RBC Distribution Width SD 51.4 fl (35.1-43.9); White Blood Count 9.8 K/mm3 (4.4-11.0)
[2020-07-02 12:58] LABS: Anion Gap 7 (5-15); BUN 22 mg/dL (7-18); BUN/Creat Ratio 28.8 RATIO (10-20); Calcium,Total 9.2 mg/dL (8.5-10.1); Chloride 99 mmol/L (98-107); Creatinine, Serum 0.76 mg/dL (0.55-1.02); EST Glomerular Filtration Rate 78 mL/min (>60); Est Glom Filt Rate - Afr Amer 94 mL/min (>60); Glucose 85 mg/dL (74-106); Potassium 4.7 mmol/L (3.5-5.1); Sodium Level 134 mmol/L (136-145); Thyroid Stim Hormone (TSH) 4.07 uIU/mL (0.358-3.74)
== END ==
PROVIDERS: PCP Family Medicine Geriatric Medicine; Visit Provider Family Medicine Geriatric Medicine
DX: G92 Toxic encephalopathy (principal); R53.83 Other fatigue
CPT/HCPCS: 36415; 80048; 84443; 85025

== ENCOUNTER → 2020-07-20 16:04 | Outpatient (CLI) | payer MEDICARE, SELFPAY ==
[2020-05-19 16:00] VITALS: BMI 24.0
[2020-07-20 16:47] LABS: Absolute Lymphocyte Count 1.07 X10^3/uL (0.83-4.51); Absolute Neutrophil Count 4.9 X10^3/uL (2.0-7.7); Basophil# 0.05 X10^3/uL; Basophil% 0.7 % (0-1); Eosinophils% 2.9 % (0-5); Hematocrit 28.5 % (37-47); Hemoglobin 8.6 g/dL (12.0-15.0); Lymphocyte # 1.07 X10^3/ul (0.83-4.51); Lymphocyte % 15.5 % (19-41); Mean Corp Hgb Conc 30.2 g/dL (32-36); Mean Corpuscular Hgb 25.9 pg (27.0-32.0); Mean Corpuscular Volume 85.8 fL (81-99); Mean Platelet Vol. 10.6 fl (6.2-12.0); Monocyte% 10.1 % (0-10); NRBC Flagged by Analyzer 0 % (0-5); Neutrophil # 4.87 X10^3/uL (2.7-7.7); Neutrophil % 70.5 % (47-70); POSITIVE MORPHOLOGY YES; Platelet Count 304 K/mm3 (150-450); RBC Distribution Width CV 23.8 % (11.6-14.6); RBC Distribution Width SD 71.2 fl (35.1-43.9); Red Blood Count 3.32 M/mm3 (4.2-5.4); White Blood Count 6.9 K/mm3 (4.4-11.0)
[2020-07-20 16:48] LABS: Differential Indicated SCAN CRITERIA MET
[2020-07-20 17:05] LABS: Anion Gap 7 (5-15); BUN 22 mg/dL (7-18); BUN/Creat Ratio 21.8 RATIO (10-20); Calcium,Total 9.1 mg/dL (8.5-10.1); Chloride 103 mmol/L (98-107); Creatinine, Serum 1.01 mg/dL (0.55-1.02); EST Glomerular Filtration Rate 56 mL/min (>60); Est Glom Filt Rate - Afr Amer 68 mL/min (>60); Glucose 117 mg/dL (74-106); Potassium 3.9 mmol/L (3.5-5.1); Sodium Level 137 mmol/L (136-145)
[2020-07-20 17:24] LABS: Differential Comment SCANNED
[2020-07-20 17:55] LABS: Probe Check PASS; Staph aureus DNA By PCR POSITIVE (Negative)
[2020-07-20 17:56] LABS: M R Staph aureus DNA By PCR POSITIVE (Negative)
== END ==
PROVIDERS: PCP Family Medicine Geriatric Medicine; Visit Provider Family Medicine Geriatric Medicine
DX: L03.119 Cellulitis of unspecified part of limb (principal); R60.9 Edema, unspecified
CPT/HCPCS: 36415; 80048; 85025; 87070; 87077; 87205; 87640

== ENCOUNTER 2020-07-21 11:14 | Inpatient (IN) | payer MEDICARE, SELFPAY ==
[2020-05-19 16:00] VITALS: BMI 24.0
[2020-07-21] VITALS (11 sets, daily range): BP systolic 105–122; BP diastolic 65–74; PULSE 67–99; RESP 16–18; TEMP 35.9–37.1; O2SAT 92–98; BMI 23.5; BMI 22.6
--- NOTE | 2020-07-21 11:24 | EKG12_ITS ---
Test Reason : ABNORMAL LABS Blood Pressure : / mmHG Vent. Rate : 083 BPM Atrial Rate : 083 BPM P-R Int : 000 ms QRS Dur : 108 ms QT Int : 400 ms P-R-T Axes : 000 -15 012 degrees QTc Int : 470 ms Atrial fibrillation with premature ventricular or aberrantly conducted complexes Low voltage QRS Septal infarct , age undetermined Abnormal ECG Confirmed by TINA ROSS, JONN ([id number]), website/blog editor SAKSHI SINGH ([id number]) on 07/24/2020 11:24:29 A M Referred By: BERNICE Confirmed By:KAITLIN WILDER MD
[2020-07-21] MEDS: Ondansetron 4 MG/2 ML Vial IV (11:58)
[2020-07-21] MEDS: fentaNYL 100 MCG/2 ML Ampul 25 MCG IV (11:58)
[2020-07-21 12:42] LABS: Mucous, Urine 0 SEEN /hpf (<or=2+); Red Blood Cells-Urine 0 SEEN /hpf (0-5); Squamous Epithelial Cells - UA 0 SEEN /hpf (5-10)
[2020-07-21 12:52] LABS: Color, Urine Yellow (Yellow); Glucose, Dipstick Normal (Normal); Ketone-Dipstick Negative (Negative); Leukocyte Esterase-Dipstick 25 /ul (Negative); Nitrite-Dipstick Negative (Negative); Occult Blood-Urine Negative /ul (Negative); Protein-Dipstick Negative (Negative); Specific Gravity, Urine 1.005 (1.002-1.030); Urine Bilirubin Dipstick Negative (Negative); Urine Clarity Clear (Clear); Urine Urobilinogen Normal (Normal)
[2020-07-21 13:01] LABS: Absolute Lymphocyte Count 1.03 X10^3/uL (0.83-4.51); Absolute Neutrophil Count 4.8 X10^3/uL (2.0-7.7); Basophil# 0.08 X10^3/uL; Basophil% 1.2 % (0-1); Eosinophil# 0.22 X10^3/uL; Eosinophils% 3.2 % (0-5); Hematocrit 28.4 % (37-47); Hemoglobin 8.7 g/dL (12.0-15.0); Lymphocyte # 1.03 X10^3/ul (0.83-4.51); Lymphocyte % 14.9 % (19-41); Mean Corp Hgb Conc 30.6 g/dL (32-36); Mean Corpuscular Hgb 26.8 pg (27.0-32.0); Mean Corpuscular Volume 87.4 fL (81-99); Monocyte# 0.76 X10^3/uL; NRBC Flagged by Analyzer 0.3 % (0-5); Neutrophil # 4.79 X10^3/uL (2.7-7.7); Neutrophil % 69.3 % (47-70); POSITIVE MORPHOLOGY YES; Platelet Count 263 K/mm3 (150-450); RBC Distribution Width CV 24.1 % (11.6-14.6); RBC Distribution Width SD 73.4 fl (35.1-43.9); Red Blood Count 3.25 M/mm3 (4.2-5.4); White Blood Count 6.9 K/mm3 (4.4-11.0)
[2020-07-21 13:07] LABS: Differential Indicated SCAN CRITERIA MET
[2020-07-21 13:07] LABS: Bacteria 1+ /hpf (None Seen); White Blood Cells 0-5 SEEN /hpf (0-5)
[2020-07-21 13:22] LABS: ALB/GLOB Ratio 0.8 RATIO (0.9-2.4); AST(SGOT) 20 U/L (15-37); Alanine Aminotransfer ALT/SGPT 17 U/L (13-56); Alkaline Phosphatase 71 U/L (45-117); Anion Gap 9 (5-15); BUN 22 mg/dL (7-18); BUN/Creat Ratio 21.6 RATIO (10-20); Calcium,Total 9.3 mg/dL (8.5-10.1); Chloride 102 mmol/L (98-107); Creatinine, Serum 1.02 mg/dL (0.55-1.02); EST Glomerular Filtration Rate 56 mL/min (>60); Est Glom Filt Rate - Afr Amer 67 mL/min (>60); Estimated Creatinine Clearance 38.62 ml/min; Glucose 94 mg/dL (74-106); Potassium 4.6 mmol/L (3.5-5.1); Sodium Level 135 mmol/L (136-145)
[2020-07-21 13:25] LABS: Anisocytosis 1+; Poikilocytosis 1+
[2020-07-21 13:26] LABS: Burr Cells 2+
[2020-07-21 14:32] LABS: International Normalized Ratio 1.6; Prothrombin Time (Protime)PT. 18.6 SECONDS (11.7-14.9)
[2020-07-21 14:33] LABS: Partial Thromboplast Time 37.3 Seconds (24.1-36.2)
--- NOTE | 2020-07-21 14:42 | PCM.HP.STD ---
HPI - General General Date of Admission: 07/21/20 HPI Narrative TOVA MCINTOSH, is a 80 F with a PMH as outlined below who presents with a complaint of a RLE wound, with worsening edema. She saw hwer PCP in the office, and was given a dose of zosyn and clindamycin. Labs done showed Hb of 8.7, with a known baseline of 11-12. Wound swab done in the ER was positive for MRSA. She is being admitted for cellulitis and acute on chronic anemia. Stool for occult blood was pending. Vitals showed temperature of 97.9 Fahrenheit with pulse rate of 81 and blood pressure of 105/74 with respiratory of 18. She is being admitted for cellulitis of the RLE with acute on chronic anemia. She was started on IV vancomycin and Zosyn in the ED. Labs done showed WBC of 6.9 with hemoglobin of 8.7 and platelets of 263. Chemistry showed sodium of 135 with BUN of 22 and creatinine of 1.02. 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) Paroxysmal atrial fibrillation (12/2018) Paroxysmal supraventricular tachycardia Peripheral vascular disease Peripheral vascular occlusive disease Ulcer of right foot with fat layer exposed Home Medications apixaban 5 mg tablet 5 mg PO BID 05/21/19 [History Last Taken 07/21/20] atorvastatin 80 mg PO QHS 07/21/20 [History Last Taken 07/20/20] citalopram 10 mg PO DAILY 07/21/20 [History Last Taken 07/21/20] divalproex 250 mg PO TID 07/21/20 [History Last Taken 07/21/20] levetiracetam 1,000 mg PO BID 07/21/20 [History Last Taken 07/21/20] levothyroxine 25 mcg PO DAILY 07/21/20 [History Last Taken 07/19/20] metoprolol tartrate 25 mg PO BID 07/21/20 [History Last Taken 07/21/20] potassium chloride 20 meq PO DAILY 07/21/20 [History Last Taken 07/21/20] Allergy/AdvReac Type Severity Reaction Status Date / Time coffee (Coffea arabica) AdvReac Abd Verified 05/19/20 16:08 cramps/diarrhea Family History Other CAD (coronary artery disease) Surgical History (Updated 07/21/20 @ 15:43 by Debi Rosado) History of angioplasty of peripheral vessel (12/2017) History of cardioversion (01/21/20) History of coronary artery stent placement (03/18/99) History of hysterectomy History of left heart catheterization (04/06/20) History of loop recorder (12/11/18) Social History Smoking Status: Former smoker ROS Constitutional Constitutional: Reports anorexia; Denies chills, fatigue or fever(s) Eyes Eyes: Denies erythema or eye pain ENT HEENT: Denies abnormal hearing, ear pain, epistaxis, headache(s) or hearing loss Cardiovascular Cardiovascular: Denies chest pain, dyspnea on exertion, edema or palpitations Respiratory/Chest Respiratory/Chest: Denies cough or dyspnea Gastrointestinal Gastrointestinal: Denies abdominal pain Genitourinary Genitourinary: Denies burning urination or dysuria Neurologic Neurologic: Denies abnormal speech, confusion or focal weakness Psychiatric Psychiatric: Denies anxiety or depression Endocrine Endocrinology: Denies change in body appearance or cold intolerance Hematologic/Lymphatic Hematologic/Lymphatic: Denies anemia Vital Signs Vital Signs Vital Signs: 07/21/20 11:15 07/21/20 11:16 07/21/20 11:24 Temperature 97.9 F 96.6 F L 97.9 F Temperature Source Temporal Temporal Temporal Pulse Rate 81 81 Respiratory Rate 18 18 Blood Pressure 105/74 105/74 Blood Pressure Mean 84 84 Pulse Ox 98 98 Oxygen Delivery Method Room Air Room Air Room Air 07/21/20 14:16 07/21/20 14:18 Temperature 98.3 F Temperature Source Oral Pulse Rate Respiratory Rate 16 Blood Pressure 112/71 Blood Pressure Mean 84 Pulse Ox Oxygen Delivery Method Physical Exam Const alert and oriented x3 General Appearance: cooperative Orientation / Consciousness: lethargic HEENT normocephalic, head/scalp atraumatic, hearing grossly normal bilaterally and moist oral mucous membranes Eyes EOMs intact bilaterally and conjunctivae normal Neck no lymphadenopathy Resp normal respiratory effort Cardio regular rate, regular rhythm, S1 normal heart sound, S2 normal heart sound and no murmurs GI normal to inspection, nondistended, normoactive bowel sounds, soft to palpation, non-tender, non-distended and hepatosplenomegaly Palpation: hernia Extremity normal to inspection, full ROM and no clubbing, cyanosis or edema Peripheral Pulses: Yes pulses 2+ throughout Skin Skin Narrative: SPIKE has a superficial ulceration on the dorsum of her foot, measuring ~ 10cm x 8cm, appears to be due to a ruptured blister. Also has superficial erythema of the right foot extending up to mid palacios. Has 1+ pitting edema of right lower extremity. Neuro Neuro Narrative: has residual right sided weakness from recent stroke Sensorium / Orientation: awake and alert Psych Psych Narrative: flat affect Lab / Micro Data Result Diagrams: 07/22/20 06:50 07/22/20 06:50 Labs: Laboratory Results - last 24 hr 07/21/20 07/21/20 07/21/20 12:30 12:49 12:49 WBC 6.9 RBC 3.25 L Hgb 8.7 L Hct 28.4 L MCV 87.4 MCH 26.8 L MCHC 30.6 L RDW Std Deviation 73.4 H RDW Coeff of Zach[place] 24.1 H Plt Count 263 MPV 11.0 Immature Gran % (Auto) 0.400 Neut % (Auto) 69.3 Lymph % (Auto) 14.[address] [place] % (Auto) 11.0 H Eos % (Auto) 3.2 Baso % (Auto) 1.2 H Absolute Neuts (auto) 4.8 Absolute Lymphs (auto) 1.03 Nucleated RBC % 0.3 Poikilocytosis 1+ Anisocytosis 1+ Miles Cells 2+ PT INR APTT Sodium 135 L Potassium 4.6 Chloride 102 Carbon Dioxide 24.0 Anion Gap 9 BUN 22 H Creatinine 1.02 Estim Creat Clear Calc 38.62 Est GFR (MDRD) Af Amer 67 Est GFR (MDRD) Non-Af 56 L BUN/Creatinine Ratio 21.6 H Glucose 94 Calcium 9.3 Total Bilirubin 1.00 AST 20 ALT 17 Alkaline Phosphatase 71 Troponin I < 0.015 Total Protein 7.0 Albumin 3.0 L Globulin 4.0 Albumin/Globulin Ratio 0.8 L Urine Color Yellow Urine Clarity Clear Urine pH 7.0 Ur Specific [place] 1.005 Urine Protein Negative Urine Glucose (UA) Normal Urine Ketones Negative Urine Occult Blood Negative Urine Nitrite Negative Urine Bilirubin Negative Urine Urobilinogen Normal Ur Leukocyte Esterase 25 H Urine RBC 0 SEEN Urine WBC 0-5 SEEN Ur Squamous Epith Cells 0 SEEN Urine Bacteria 1+ Urine Mucus 0 SEEN 07/21/20 14:10 WBC RBC Hgb Hct MCV MCH MCHC RDW Std Deviation RDW Coeff of Zachary Plt Count MPV Immature Gran % (Auto) Neut % (Auto) Lymph % (Auto) [place] % (Auto) Eos % (Auto) Baso % (Auto) Absolute Neuts (auto) Absolute Lymphs (auto) Nucleated RBC % Poikilocytosis Anisocytosis Miles Cells PT 18.6 H INR 1.6 APTT 37.3 H Sodium Potassium Chloride Carbon Dioxide Anion Gap BUN Creatinine Estim Creat Clear Calc Est GFR (MDRD) Af Amer Est GFR (MDRD) Non-Af BUN/Creatinine Ratio Glucose Calcium Total Bilirubin AST ALT Alkaline Phosphatase Troponin I Total Protein Albumin Globulin Albumin/Globulin Ratio Urine Color Urine Clarity Urine pH Ur Specific [place] Urine Protein Urine Glucose (UA) Urine Ketones Urine Occult Blood Urine Nitrite Urine Bilirubin Urine Urobilinogen Ur Leukocyte Esterase Urine RBC Urine WBC Ur Squamous Epith Cells Urine Bacteria Urine Mucus Assessment & Plan Assessment/Plan (1) Cellulitis: PLAN: #Cellulitis of the RLE Admit to PCU on account of severe anemia. Patient started on IV vancomycin and Zosyn in the ED. In light of her MRSA screen be positive, will DC Zosyn and continue with IV vancomycin. Get blood cultures and wound cultures Consult wound care. Tylenol as needed for pain. Area of cellulitis demarcated to monitor for progression and/or resolution #Acute on chronic anemia Hemoglobin is 8.7 today. Patient's baseline hemoglobin is around 11. Son states he does remember having a colonoscopy but knows that she was being worked up for EGD and colonoscopy on account of chronic anemia prior to her having the stroke. She was able to have the work-up completed on account of her having stroke. Stool for occult blood is pending. DC Eliquis if stool for occult blood is positive. 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 Has residual right-sided weakness. On atorvastatin and metoprolol #Hypothyroidism: On Synthroid #History of seizure disorder: On Keppra and divalproex #History of afib: on metoprolol. on eliquis. Hold eliquis if fobt is positive DVT prophylaxis: on eliquis Code status: DNRCCA- no intubation CODE STATUS discussed with patient's son and he was counseled about differences between full code, DNR CCA and DNR CCA. He stated that mother had told him after she had her stroke that she did not want to have any resuscitation done if needed. Total aihs-bi-ssyx time 17 minutes. Visit Charges Inpatient E&M: 53104 Init Hosp L3 Procedures Hospitalists Procedures: 61094 Advncd Care Plan 30 Min
[2020-07-21 14:45] LABS: Lactic Acid 1.5 mmol/L (0.4-1.9)
--- NOTE | 2020-07-21 15:11 | EDS_ITS ---
HPI History of Present Illness Chief Complaint: Lower Extremity Injury Informant: patient, family and PCP Narrative Narrative: Patient is a 80-year-old female with extensive medical history including atrial fibrillation on Eliquis as well as recent ischemic stroke with some hemorrhagic conversion presenting by direction of her PCP for worsening cellulitis of her right foot. Patient has a wound on the dorsal aspect of her foot and has had swelling of her lower extremities has been present for the past week and a half. Patient blood work performed yesterday by her PCP and was found to have an acute anemia of 8.6. Patient denies any bleeding. Denies any black or blood in her stool. She had normal white blood cell count. She received a dose of IV Zosyn and clindamycin. She was reevaluated today and her PCP was concerned there was no improvement. In addition she test positive for MRSA from her wound swab. Patient was sent to the emergency room to be evaluated and to be admitted. Patient states has been feeling weak and cold but denies any specific complaints. 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) Paroxysmal atrial fibrillation (12/2018) Paroxysmal supraventricular tachycardia Peripheral vascular disease Peripheral vascular occlusive disease Ulcer of right foot with fat layer exposed Home Medications apixaban 5 mg tablet 5 mg PO BID 05/21/19 [History Last Taken 07/21/20] atorvastatin 80 mg PO QHS 07/21/20 [History Last Taken 07/20/20] citalopram 10 mg PO DAILY 07/21/20 [History Last Taken 07/21/20] divalproex 250 mg PO TID 07/21/20 [History Last Taken 07/21/20] levetiracetam 1,000 mg PO BID 07/21/20 [History Last Taken 07/21/20] levothyroxine 25 mcg PO DAILY 07/21/20 [History Last Taken 07/19/20] metoprolol tartrate 25 mg PO BID 07/21/20 [History Last Taken 07/21/20] potassium chloride 20 meq PO DAILY 07/21/20 [History Last Taken 07/21/20] Allergy/AdvReac Type Severity Reaction Status Date / Time coffee (Coffea arabica) AdvReac Abd Verified 05/19/20 16:08 cramps/diarrhea Family History Other CAD (coronary artery disease) Surgical History History of angioplasty of peripheral vessel (12/2017) History of cardioversion (01/21/20) History of coronary artery stent placement (03/18/99) History of left heart catheterization (04/06/20) History of loop recorder (12/11/18) Social History Smoking Status: Former smoker ROS ROS ED Constitutional Constitutional ED: Reports chills; Denies fever(s) or malaise Eyes Eyes: Denies blurry vision or loss of vision ENT ENT ED: Denies rhinorrhea or sore throat Cardiovascular Cardiovascular: Denies chest pain or dizziness Respiratory/Chest Respiratory/Chest: Denies cough or dyspnea Gastrointestinal Gastrointestinal: Denies melena, nausea or vomiting Genitourinary Genitourinary ED: Denies dysuria or hematuria Musculoskeletal Musculoskeletal: Denies arthralgias or myalgias Integumentary Reports rash and other Details: wound, right foot ; Denies wounds Neurologic Neurologic: Denies focal weakness or headache(s) Psychiatric Psychiatric: Denies anxiety or behavioral changes EXAM Physical Exam Const Vital Signs: 07/21/20 11:15 07/21/20 11:16 07/21/20 11:24 Temperature 97.9 F 96.6 F L 97.9 F Temperature Source Temporal Temporal Temporal Pulse Rate 81 81 Respiratory Rate 18 18 Blood Pressure 105/74 105/74 Blood Pressure Mean 84 84 Pulse Ox 98 98 Oxygen Delivery Method Room Air Room Air Room Air 07/21/20 14:16 07/21/20 14:18 Temperature 98.3 F Temperature Source Oral Pulse Rate Respiratory Rate 16 Blood Pressure 112/71 Blood Pressure Mean 84 Pulse Ox Oxygen Delivery Method Positive cachectic and no apparent distress General Appearance ED: cachectic and NAD Nutritional Appearance: cachectic HEENT Reports normocephalic and moist mucous membranes atraumatic Nose: no nasal discharge General Ear: hearing grossly impaired External Ear: external ears normal Mouth ED: Yes moist mucous membranes abnormal Mouth: moist mucous membranes abnormal Eyes PERRL and EOMs intact bilaterally General Eye ED: Yes pale conjunctiva Neck full ROM, no lymphadenopathy, supple and no meningeal signs Chest Wall inspection of chest normal Resp normal respiratory effort, normal air movement and clear to auscultation bilaterally Cardio regular rate and no murmurs Cardio Narrative: irregularly irregular GI normal to inspection, nondistended, normoactive bowel sounds Extremity full ROM Extremity Narrative: Bilateral bitting edema lower extremities up to mid palacios General Extremety ED: Yes edema General Extremity: edema Neuro oriented x3 and no focal motor deficits Psych mental status grossly normal and thought process normal Skin Skin Narrative: 6 cm circumferential wound dorsum of right foot consistent with an ulceration/ruptured blister. No active drainage. There is surrounding erythema and warmth of the foot and ankle going up to the midshin. No associated crepitus appreciated MDM MDM MDM Narrative Medical decision making narrative: Patient evaluated for anemia as well as cellulitis to her right foot. Exam is consistent with cellulitis. Patient is brown stool on rectal exam. Fecal occult is still pending. Patient is frail- appearing but does not meet criteria for sepsis. She started on broad-spectrum antibiotics include vancomycin and Zosyn especially she did test positive for MRSA yesterday. Blood cultures and urine culture pending. Patient be admitted for further evaluation of her anemia as well as cellulitis. Patient's anemia is stable from yesterday and her BUN is normal. I have a low suspicion for GI bleed. Patient's lactate is normal. She does not meet criteria for sepsis, severe sepsis or septic shock. She did have a delay in her work-up because of a difficult IV stick. Lab Data Attestation: I reviewed the patient's lab results. Labs: Laboratory Results - last 24 hr 07/21/20 07/21/20 07/21/20 12:30 12:49 12:49 WBC 6.9 RBC 3.25 L Hgb 8.7 L Hct 28.4 L MCV 87.4 MCH 26.8 L MCHC 30.6 L RDW Std Deviation 73.4 H RDW Coeff of Zach[place] 24.1 H Plt Count 263 MPV 11.0 Immature Gran % (Auto) 0.400 Neut % (Auto) 69.3 Lymph % (Auto) 14.9 L [place] % (Auto) 11.0 H Eos % (Auto) 3.2 Baso % (Auto) 1.2 H Absolute Neuts (auto) 4.8 Absolute Lymphs (auto) 1.03 Nucleated RBC % 0.3 Poikilocytosis 1+ Anisocytosis 1+ Miles Cells 2+ PT INR APTT Sodium 135 L Potassium 4.6 Chloride 102 Carbon Dioxide 24.0 Anion Gap 9 BUN 22 H Creatinine 1.02 Estim Creat Clear Calc 38.62 Est GFR (MDRD) Af Amer 67 Est GFR (MDRD) Non-Af 56 L BUN/Creatinine Ratio 21.6 H Glucose 94 Lactic Acid Calcium 9.3 Total Bilirubin 1.00 AST 20 ALT 17 Alkaline Phosphatase 71 Troponin I < 0.015 Total Protein 7.0 Albumin 3.0 L Globulin 4.0 Albumin/Globulin Ratio 0.8 L Urine Color Yellow Urine Clarity Clear Urine pH 7.0 Ur Specific [place] 1.005 Urine Protein Negative Urine Glucose (UA) Normal Urine Ketones Negative Urine Occult Blood Negative Urine Nitrite Negative Urine Bilirubin Negative Urine Urobilinogen Normal Ur Leukocyte Esterase 25 H Urine RBC 0 SEEN Urine WBC 0-5 SEEN Ur Squamous Epith Cells 0 SEEN Urine Bacteria 1+ Urine Mucus 0 SEEN 07/21/20 07/21/20 14:10 14:10 WBC RBC Hgb Hct MCV MCH MCHC RDW Std Deviation RDW Coeff of [place] Plt Count MPV Immature Gran % (Auto) Neut % (Auto) Lymph % (Auto) [place] % (Auto) Eos % (Auto) Baso % (Auto) Absolute Neuts (auto) Absolute Lymphs (auto) Nucleated RBC % Poikilocytosis Anisocytosis [place] Cells PT 18.6 H INR 1.6 APTT 37.3 H Sodium Potassium Chloride Carbon Dioxide Anion Gap BUN Creatinine Estim Creat Clear Calc Est GFR (MDRD) Af Amer Est GFR (MDRD) Non-Af BUN/Creatinine Ratio Glucose Lactic Acid 1.5 Calcium Total Bilirubin AST ALT Alkaline Phosphatase Troponin I Total Protein Albumin Globulin Albumin/Globulin Ratio Urine Color Urine Clarity Urine pH Ur Specific [place] Urine Protein Urine Glucose (UA) Urine Ketones Urine Occult Blood Urine Nitrite Urine Bilirubin Urine Urobilinogen Ur Leukocyte Esterase Urine RBC Urine WBC Ur Squamous Epith Cells Urine Bacteria Urine Mucus Rhythm Strip Rhythm Strip: A-fib Rate: 83 EKG Initial EKG: Attestation: I personally reviewed and interpreted this EKG as follows: Interpretation: Atrial Fibrillation Comments: Atrial fibrillation at a rate of 83 Normal QRS Normal QTC Left axis deviation Discharge Plan Triage Chief Complaint: Lower Extremity Injury ED Provider: Melva Toth Dx/Rx/DC Orders Clinical Impression: Cellulitis, Anemia, Open wound of right foot Primary Care Provider: Cody Hassan Chi Disposition Disposition: Acute Care Hospital [facility]
[2020-07-21] MEDS: 0.9% Normal Saline 1,000 ML 75 ML IV (18:04)
--- NOTE | 2020-07-21 18:54 | PCM.RX.CS ---
Consult Pharmacy has been consulted to manage selected antiobiotic: Vancomycin Type of Consult: New start Suspected Infection: Sepsis, Skin/Soft tissue Labs: Sodium 135 mmol/L (136-145) L 07/21/20 12:49 Potassium 4.6 mmol/L (3.5-5.1) 07/21/20 12:49 Chloride 102 mmol/L (98-107) 07/21/20 12:49 Carbon Dioxide 24.0 mmol/L (21.0-32.0) 07/21/20 12:49 Anion Gap 9 (5-15) 07/21/20 12:49 BUN 22 mg/dL (7-18) H 07/21/20 12:49 Creatinine 1.02 mg/dL (0.55-1.02) 07/21/20 12:49 Est GFR (MDRD) Af Amer 67 mL/min (>60) 07/21/20 12:49 Est GFR (MDRD) Non-Af 56 mL/min (>60) L 07/21/20 12:49 BUN/Creatinine Ratio 21.6 RATIO (10-20) H 07/21/20 12:49 Glucose 94 mg/dL (74-106) 07/21/20 12:49 Microbiology: Microbiology 07/21/20 Unknown Stool Stool Occult Blood (PEDRO) - Final Weight used for dosin kg Estimated Creatinine Clearance: 39ml/min Goal Trough: 15-20 mcg/mL Pharmacy Plan for Drug Dosing: NEW START IV VANCOMYCIN Consulting Physician: Chun Indication: Cellulitis\Sepsis Goal Trough: 15-20 SrCr: 1.02 CrCl: 39 Comments: pt received 1500mg IV x1 in the ER on 07/21/20 at 1512 Vancomcyin Dose: based on pts weight and renal function, recommend Vancomycin 750mg q24h starting 07/22/20 at 1500 Pending Level: 07/23/20 @ 1430 Pharmacy Service will continue to monitor and adjust dosing as required. Follow-Up Labs: Trough Vancomycin - 07/23/20 @ 1430
[2020-07-21] MEDS: Metoprolol Tartrate 25 MG Tablet PO (21:06)
[2020-07-21] MEDS: levETIRAcetam 1,000 MG Tablet 1000 MG PO (21:06)
[2020-07-21] MEDS: Atorvastatin Calcium 80 MG Tablet PO (21:07)
[2020-07-21] MEDS: Divalproex Sodium 125 MG SPRINKLE 250 MG PO (21:35)
[2020-07-22] VITALS (16 sets, daily range): BP systolic 104–114; BP diastolic 55–86; PULSE 70–103; RESP 15–18; TEMP 36.6–38.1; O2SAT 91–97
[2020-07-22] MEDS: Levothyroxine 25 MCG TABLET PO (05:31)
[2020-07-22] MEDS: Divalproex Sodium 125 MG SPRINKLE 250 MG PO ×3 (05:31→22:00)
[2020-07-22 07:09] LABS: Absolute Lymphocyte Count 0.84 X10^3/uL (0.83-4.51); Basophil# 0.07 X10^3/uL; Basophil% 1.2 % (0-1); Eosinophil# 0.18 X10^3/uL; Eosinophils% 3.1 % (0-5); Hematocrit 24.8 % (37-47); Hemoglobin 7.7 g/dL (12.0-15.0); Lymphocyte # 0.84 X10^3/ul (0.83-4.51); Lymphocyte % 14.5 % (19-41); Mean Corpuscular Hgb 26.5 pg (27.0-32.0); Mean Corpuscular Volume 85.2 fL (81-99); Mean Platelet Vol. 10.4 fl (6.2-12.0); Monocyte# 0.71 X10^3/uL; Monocyte% 12.2 % (0-10); NRBC Flagged by Analyzer 0.5 % (0-5); Neutrophil # 3.96 X10^3/uL (2.7-7.7); Neutrophil % 68.1 % (47-70); POSITIVE MORPHOLOGY YES; Platelet Count 288 K/mm3 (150-450); RBC Distribution Width CV 24.2 % (11.6-14.6); RBC Distribution Width SD 72.7 fl (35.1-43.9); Red Blood Count 2.91 M/mm3 (4.2-5.4); White Blood Count 5.8 K/mm3 (4.4-11.0)
[2020-07-22 07:10] LABS: Differential Indicated SCAN CRITERIA MET
[2020-07-22 07:36] LABS: Anisocytosis 1+; Burr Cells 1+; Differential Comment SCANNED
[2020-07-22 07:41] LABS: Anion Gap 6 (5-15); BUN 21 mg/dL (7-18); Calcium,Total 8.8 mg/dL (8.5-10.1); Chloride 105 mmol/L (98-107); Creatinine, Serum 0.95 mg/dL (0.55-1.02); EST Glomerular Filtration Rate 60 mL/min (>60); Est Glom Filt Rate - Afr Amer 73 mL/min (>60); Estimated Creatinine Clearance 41.46 ml/min; Glucose 116 mg/dL (74-106); Potassium 4.4 mmol/L (3.5-5.1); Sodium Level 138 mmol/L (136-145)
--- NOTE | 2020-07-22 08:12 | PCM.PN.HOSP ---
Subjective Subjective Patient is a 80-year-old lady with multiple comorbidities who presented with redness and erythema surrounding right foot dorsal surface wound. Objective Data Objective Data Vital Signs: Vital Signs Temp Pulse Resp BP Pulse Ox 97.9 F 90 18 114/66 92 07/22/20 03:03 07/22/20 07:03 07/22/20 03:03 07/22/20 03:03 07/22/20 07:30 Oxygen Flow Rate (L/min) 2 Oxygen Delivery Method Nasal Cannula Weight: 59.7 kg Body Mass Index (BMI) 22.6 Intake & Output: Intake and Output for Last 24 Hours 07/20/20 07/21/20 07/22/20 23:59 23:59 23:59 Intake Total 796.25 / 1096.25 700 / 700 Balance 796.25 / 1096.25 700 / 700 Lab / Micro Data Result Diagrams: 07/22/20 06:50 07/22/20 06:50 Micro: Microbiology 07/21/20 Unknown Stool Stool Occult Blood (PEDRO) - Final Rhythm Strip Rhythm Strip: A-fib Rate: 83 Physical Exam Narrative GENERAL: cooperative HEENT: Atraumatic; EYES; Anicteric, Normal Conjunctiva NECK; supple, normal thyroid, RESPIRATORY: Diminished to auscultation CARDIOVASCULAR: Irregular S1-S2 GI: soft, normoactive bowel sounds, : No Renal angle tenderness; EXTREMITIES: Trace edema, no clubbing, MUSCULOSKELETAL: no muscle waisting NEURO: Awake; no lateralizing signs. SKIN: An ulceration involving the dorsal surface of the right foot PSYCH; Flat affect Assessment & Plan Assessment/Plan (1) Cellulitis: PLAN: Patient is a 80-year-old lady with multiple comorbidities who presented with redness and erythema surrounding right foot dorsal surface wound. 1. Cellulitis surrounding the right foot dorsal surface wound ?Patient MRSA screen was positive subsequently started on vancomycin. Cultures sent. Consult placed wound care nurse 2. Anemia - Secondary to chronic disorder monitoring H&H and transfuse if patient becomes symptomatic or hemoglobin falls below 7 3. Hypothyroidism - Patient is on levothyroxine home dose continued 4. Seizure disorder ?Patient is on Keppra as well as valproic acid 5. Paroxysmal A. fib ?Rate controlled on metoprolol as well as systemic anticoagulation with Eliquis continued 6. Dyslipidemia -Patient is on statin therapy, continued at home dose 7. History of previous CVA (ischemic with hemorrhagic conversion) ?With patient has residual right-sided weakness 8. Hypertension - Blood pressure controlled, home medications continued with dose adjustment as needed 9. Depression ?Patient is on SSRI 10. DVT prophylaxis ?On Eliquis Visit Charges Inpatient E&M: 18030 Subs Hosp L2
--- NOTE | 2020-07-22 09:21 | NURSING ---
wound photo: right dorsal foot
[2020-07-22] MEDS: Metoprolol Tartrate 25 MG Tablet PO ×2 (10:53→21:59)
[2020-07-22] MEDS: Potassium Chloride Oral Tablet 20 MEQ PO (10:53)
[2020-07-22] MEDS: Citalopram 10 MG Tablet PO (10:53)
[2020-07-22] MEDS: levETIRAcetam 1,000 MG Tablet 1000 MG PO ×2 (10:53→22:00)
--- NOTE | 2020-07-22 11:15 | CASEMGMT ---
KEVIN HAMILTON Assessment: Face to Face with pt for initial transition planning/care coordination assessment. RN JOY introduced self and role at [facility], pt voices understanding and consents to assessment. Pt is A/O x4 and answers all questions appropriately at this time. Pt lying in bed, made no eye contact with CM. Care providers, pharmacy, and demographics verified/updated. Admitting Dx: cellulitis, acute on chronic anemia PCP: Mo Specialists: Pt denies having any specialists. [facility]erred [facility]acy: [facility] Insurance: [facility] Prescription Benefit: yes LW/HPOA: Pt denies having a LW/DPOA. LNOK: Tuan Bright, son; Willow Neyda, dtr Living Arrangements: Pt lives with her 3 sons and her ex in a two story home with 4 steps to enter with rails. Pt reports she is I in ADL's and denies concerns at home. Transportation: Pt states she drives and does not have issues with transportation. DME/HHC/SNF: Pt has a walker and shower chair. States she does not use walker. She said she was recently set up with home SN and PT through 's office but is unsure of who it is. CM called 's office and left message for nurse for this information. Pt denies any previous SNF stays. Pt states no concerns with going home at time of dc. Pt states no further concerns/needs. Pt would like to resume HHC at dc. CM to follow. Advised pt to ask CM if any further question/concerns/needs arise, voices understanding. Pt Goal: Home with HHC resumption. Plan: Home with resumption of HHC and family support.
--- NOTE | 2020-07-22 15:28 | CASEMGMT ---
Pt screened with [facility] Palliative Care Screening Tool due to Strata 3, pt did not meet criteria.
[2020-07-22] MEDS: Atorvastatin Calcium 80 MG Tablet PO (22:00)
[2020-07-23] VITALS (10 sets, daily range): BP systolic 93–121; BP diastolic 65–75; PULSE 72–92; RESP 15–18; TEMP 36.4–36.9; O2SAT 93–99
[2020-07-23 06:40] LABS: Absolute Lymphocyte Count 1.19 X10^3/uL (0.83-4.51); Absolute Neutrophil Count 5.3 X10^3/uL (2.0-7.7); Basophil# 0.07 X10^3/uL; Basophil% 0.9 % (0-1); Eosinophil# 0.25 X10^3/uL; Eosinophils% 3.1 % (0-5); Hematocrit 25.3 % (37-47); Hemoglobin 7.7 g/dL (12.0-15.0); Lymphocyte # 1.19 X10^3/ul (0.83-4.51); Lymphocyte % 14.8 % (19-41); Mean Corp Hgb Conc 30.4 g/dL (32-36); Mean Corpuscular Hgb 26.3 pg (27.0-32.0); Mean Corpuscular Volume 86.3 fL (81-99); Mean Platelet Vol. 10.2 fl (6.2-12.0); Monocyte# 1.13 X10^3/uL; Monocyte% 14.1 % (0-10); NRBC Flagged by Analyzer 0.5 % (0-5); Neutrophil # 5.33 X10^3/uL (2.7-7.7); Neutrophil % 66.2 % (47-70); POSITIVE MORPHOLOGY YES; Platelet Count 287 K/mm3 (150-450); RBC Distribution Width CV 23.9 % (11.6-14.6); Red Blood Count 2.93 M/mm3 (4.2-5.4)
[2020-07-23 06:54] LABS: Differential Indicated SCAN CRITERIA MET
[2020-07-23 07:06] LABS: Anion Gap 5 (5-15); BUN 19 mg/dL (7-18); Calcium,Total 8.6 mg/dL (8.5-10.1); Chloride 104 mmol/L (98-107); Creatinine, Serum 0.79 mg/dL (0.55-1.02); EST Glomerular Filtration Rate 75 mL/min (>60); Est Glom Filt Rate - Afr Amer 90 mL/min (>60); Estimated Creatinine Clearance 39.39 ml/min; Glucose 92 mg/dL (74-106); Potassium 4.3 mmol/L (3.5-5.1); Sodium Level 136 mmol/L (136-145)
--- NOTE | 2020-07-23 07:29 | PCM.PN.HOSP ---
Subjective Subjective Patient seen had a regular uneventful night. Wound cultures were positive for staph. Final identification and sensitivities pending. Initial MRSA screen was positive. Patient remains on vancomycin consult placed infectious disease Objective Data Objective Data Vital Signs: Vital Signs Temp Pulse Resp BP Pulse Ox 97.8 F 81 15 93/65 93 07/23/20 04:00 07/23/20 07:09 07/23/20 04:00 07/23/20 04:00 07/23/20 04:00 Oxygen Flow Rate (L/min) 2 Oxygen Delivery Method Nasal Cannula Weight: 59.7 kg Body Mass Index (BMI) 22.6 Intake & Output: Intake and Output for Last 24 Hours 07/21/20 07/22/20 07/23/20 23:59 23:59 23:59 Intake Total 796.25 / 1096.25 1848.75 / 1848.75 Balance 796.25 / 1096.25 1848.75 / 1848.75 Lab / Micro Data Result Diagrams: 07/23/20 06:15 07/23/20 06:15 Micro: Microbiology 07/21/20 18:10 Wound - Right Foot Gram Stain - Final 07/21/20 18:10 Wound - Right Foot Wound Culture - Preliminary Staphylococcus aureus 07/21/20 Unknown Stool Stool Occult Blood (PEDRO) - Final Rhythm Strip Rhythm Strip: A-fib Rate: 83 Physical Exam Narrative GENERAL: cooperative HEENT: Atraumatic; EYES; Anicteric, Normal Conjunctiva NECK; supple, normal thyroid, RESPIRATORY: Diminished to auscultation CARDIOVASCULAR: Irregular S1-S2 GI: soft, normoactive bowel sounds, : No Renal angle tenderness; EXTREMITIES: Trace edema, no clubbing, MUSCULOSKELETAL: no muscle waisting NEURO: Awake; right-sided weakness. SKIN: An ulceration involving the dorsal surface of the right foot PSYCH; Flat affect Assessment & Plan Assessment/Plan (1) Cellulitis: PLAN: Patient is a 80-year-old lady with multiple comorbidities who presented with redness and erythema surrounding right foot dorsal surface wound. 1. Cellulitis surrounding the right foot dorsal surface wound ?Patient MRSA screen was positive subsequently started on vancomycin. Cultures sent. Consult placed wound care nurse -Wound cultures positive for staph most likely MRSA final identification and sensitivities pending consult placed to infectious disease 2. Anemia - Secondary to chronic disorder monitoring H&H and transfuse if patient becomes symptomatic or hemoglobin falls below 7 -07/23/2020; patient hemoglobin still remains low ordered iron studies and an order given for patient to receive parenteral iron 3. Hypothyroidism - Patient is on levothyroxine home dose continued 4. Seizure disorder ?Patient is on Keppra as well as valproic acid 5. Paroxysmal A. fib ?Rate controlled on metoprolol as well as systemic anticoagulation with Eliquis continued 6. Dyslipidemia -Patient is on statin therapy, continued at home dose 7. History of previous CVA (ischemic with hemorrhagic conversion) ?With patient has residual right-sided weakness 8. Hypertension - Blood pressure controlled, home medications continued with dose adjustment as needed 9. Depression ?Patient is on SSRI 10. DVT prophylaxis ?On Eliquis Visit Charges Inpatient E&M: 40697 Subs Hosp L2
[2020-07-23 07:53] LABS: Differential Comment SCANNED; Schistocytes 1+
[2020-07-23 07:54] LABS: Acanthocytes 3+
[2020-07-23 07:55] LABS: Anisocytosis 2+
[2020-07-23 07:56] LABS: Hypochromasia 1+
[2020-07-23] MEDS: Divalproex Sodium 125 MG SPRINKLE 250 MG PO ×3 (08:30→21:22)
[2020-07-23] MEDS: Potassium Chloride Oral Tablet 20 MEQ PO (08:31)
[2020-07-23] MEDS: Metoprolol Tartrate 25 MG Tablet PO ×2 (08:31→21:27)
[2020-07-23] MEDS: Levothyroxine 25 MCG TABLET PO (08:31)
[2020-07-23] MEDS: Citalopram 10 MG Tablet PO (08:31)
[2020-07-23] MEDS: levETIRAcetam 1,000 MG Tablet 1000 MG PO ×2 (10:20→21:28)
--- NOTE | 2020-07-23 10:55 | CASEMGMT ---
Received tc back from 's office, pt is active with [facility]. 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 Aware pt to be dc'ing. Obtained phone and fax. [phone], [phone].
[2020-07-23 11:32] LABS: Ferritin 155 ng/mL (8-252); Iron 28 ug/dL (50-170); Iron Binding Capacity,Total 263 ug/dL (250-450); PERCENT IRON SATURATION 10.6 % (15.0-55.0)
[2020-07-23 12:13] LABS: Pathologist Review Reviewed
[2020-07-23 15:38] LABS: Vancomycin, Trough Level 8.1 ug/mL (5.0-15.0)
--- NOTE | 2020-07-23 17:10 | PCM.RX.CS ---
Consult Pharmacy has been consulted to manage selected antiobiotic: Vancomycin Type of Consult: Follow-up Suspected Infection: Sepsis, Skin/Soft tissue Prior Doses of Antibiotics Received/Current Regimen: 750MG IV Q24H. Labs: Sodium 136 mmol/L (136-145) 07/23/20 06:15 Potassium 4.3 mmol/L (3.5-5.1) 07/23/20 06:15 Chloride 104 mmol/L (98-107) 07/23/20 06:15 Carbon Dioxide 27.0 mmol/L (21.0-32.0) 07/23/20 06:15 Anion Gap 5 (5-15) 07/23/20 06:15 BUN 19 mg/dL (7-18) H 07/23/20 06:15 Creatinine 0.79 mg/dL (0.55-1.02) 07/23/20 06:15 Est GFR (MDRD) Af Amer 90 mL/min (>60) 07/23/20 06:15 Est GFR (MDRD) Non-Af 75 mL/min (>60) 07/23/20 06:15 BUN/Creatinine Ratio 24.0 RATIO (10-20) H 07/23/20 06:15 Glucose 92 mg/dL (74-106) 07/23/20 06:15 Vancomycin Trough 8.1 ug/mL (5.0-15.0) 07/23/20 14:33 Microbiology: Microbiology 07/21/20 18:10 Wound - Right Foot Gram Stain - Final 07/21/20 18:10 Wound - Right Foot Wound Culture - Preliminary Staphylococcus aureus 07/21/20 12:30 Urine, Clean Catch Urine Culture - Final Mixed Gram Positive Organisms 07/21/20 12:49 Blood Culture (Wb) - Left Forearm Blood Culture - Preliminary No growth in 48 hours. 07/21/20 11:46 Blood Culture (Wb) - Anticubital Right Blood Culture - Preliminary No growth in 48 hours. 07/21/20 Unknown Stool Stool Occult Blood (PEDRO) - Final Weight used for dosin kg Estimated Creatinine Clearance: 39 ml/min Goal Trough: 15-20 mcg/mL Pharmacy Plan for Drug Dosing: Today's trough level was 8.1 (goal range 15-20mcg/ml). Renal function reviewed. Will increase dose to 1250mg iv q24h. Another trough level ordered for before 3rd dose of new regimen per protocol. Pharmacy Service will continue to monitor and adjust dosing as required. Follow-Up Labs: Trough Vancomycin - 5.23.21 @1430 before 1500 dose
[2020-07-23] MEDS: MELATONIN 3 MG TABLET PO (21:22)
[2020-07-23] MEDS: Atorvastatin Calcium 80 MG Tablet PO (21:27)
[2020-07-24] VITALS (9 sets, daily range): BP systolic 93–115; BP diastolic 45–69; PULSE 78–99; RESP 16–18; TEMP 36.6–36.7; O2SAT 93–95
[2020-07-24] MEDS: 0.9% Saline Lock 10 ML Syringe IV (00:39)
[2020-07-24] MEDS: Divalproex Sodium 125 MG SPRINKLE 250 MG PO ×2 (05:48→14:32)
[2020-07-24] MEDS: Levothyroxine 25 MCG TABLET PO (05:48)
[2020-07-24 06:41] LABS: Absolute Neutrophil Count 5.2 X10^3/uL (2.0-7.7); Basophil# 0.03 X10^3/uL; Basophil% 0.4 % (0-1); Eosinophil# 0.28 X10^3/uL; Eosinophils% 4.1 % (0-5); Hematocrit 26.3 % (37-47); Hemoglobin 7.9 g/dL (12.0-15.0); Lymphocyte % 7.4 % (19-41); Mean Corpuscular Hgb 26.3 pg (27.0-32.0); Mean Corpuscular Volume 87.7 fL (81-99); Mean Platelet Vol. 10.4 fl (6.2-12.0); Monocyte# 0.68 X10^3/uL; NRBC Flagged by Analyzer 0.6 % (0-5); Neutrophil # 5.19 X10^3/uL (2.7-7.7); Neutrophil % 76.6 % (47-70); POSITIVE DIFFERENTIAL YES; POSITIVE MORPHOLOGY YES; Platelet Count 278 K/mm3 (150-450); RBC Distribution Width CV 24.1 % (11.6-14.6); RBC Distribution Width SD 74.2 fl (35.1-43.9); White Blood Count 6.8 K/mm3 (4.4-11.0)
[2020-07-24 06:51] LABS: Differential Indicated SCAN CRITERIA MET
[2020-07-24 07:04] LABS: Anion Gap 6 (5-15); BUN 18 mg/dL (7-18); Calcium,Total 8.3 mg/dL (8.5-10.1); Chloride 107 mmol/L (98-107); Creatinine, Serum 0.75 mg/dL (0.55-1.02); EST Glomerular Filtration Rate 79 mL/min (>60); Est Glom Filt Rate - Afr Amer 96 mL/min (>60); Estimated Creatinine Clearance 39.39 ml/min; Glucose 87 mg/dL (74-106); Potassium 4.3 mmol/L (3.5-5.1); Sodium Level 140 mmol/L (136-145)
[2020-07-24 07:25] LABS: Anisocytosis 2+; Differential Comment SCANNED; Polychromasia 1+; Schistocytes 1+
[2020-07-24 07:26] LABS: Acanthocytes 3+
--- NOTE | 2020-07-24 07:54 | PCM.PN.HOSP ---
Subjective Subjective Patient seen remains on broad-spectrum antibiotic therapy. Erythema involving the right foot improving.. Cultures from 07/20/2020 + for MRSA, E. coli as well as Acinetobacter species. Consult was placed to infectious disease. Definitive antibiotic therapy deferred Objective Data Objective Data Vital Signs: Vital Signs Temp Pulse Resp BP Pulse Ox 98.0 F 99 18 100/53 L 94 07/24/20 06:20 07/24/20 06:20 07/24/20 06:20 07/24/20 06:20 07/24/20 06:20 Oxygen Flow Rate (L/min) 2 Oxygen Delivery Method Nasal Cannula Weight: 59.7 kg Body Mass Index (BMI) 22.6 Intake & Output: Intake and Output for Last 24 Hours 07/22/20 07/23/20 07/24/20 23:59 23:59 23:59 Intake Total 1848.75 / 1848.75 647 / 647 224 / 224 Balance 1848.75 / 1848.75 647 / 647 224 / 224 Lab / Micro Data Result Diagrams: 07/24/20 06:00 07/24/20 06:00 Labs: Laboratory Results - last 24 hr 07/23/20 07/23/20 07/23/20 06:14 06:15 14:33 WBC RBC Hgb Hct MCV MCH MCHC RDW Std Deviation RDW Coeff of Zachary Plt Count MPV Immature Gran % (Auto) Neut % (Auto) Lymph % (Auto) [place] % (Auto) Eos % (Auto) Baso % (Auto) Absolute Neuts (auto) Absolute Lymphs (auto) Nucleated RBC % Differential Comment SCANNED Diff Path Review Reviewed Polychromasia Hypochromasia 1+ Anisocytosis 2+ Acanthocytes (Spur) 3+ Schistocytes 1+ Sodium Potassium Chloride Carbon Dioxide Anion Gap BUN Creatinine Estim Creat Clear Calc Est GFR (MDRD) Af Amer Est GFR (MDRD) Non-Af BUN/Creatinine Ratio Glucose Calcium Iron 28 L TIBC 263 Iron Saturation 10.6 L Ferritin 155 Vancomycin Trough 8.1 07/24/20 07/24/20 06:00 06:00 WBC 6.8 RBC 3.00 L Hgb 7.9 L Hct 26.3 L MCV 87.7 MCH 26.3 L MCHC 30.0 L RDW Std Deviation 74.2 H RDW Coeff of Zachary 24.1 H Plt Count 278 MPV 10.4 Immature Gran % (Auto) 1.500 H Neut % (Auto) 76.6 H Lymph % (Auto) 7.4 L [place] % (Auto) 10.0 Eos % (Auto) 4.1 Baso % (Auto) 0.4 Absolute Neuts (auto) 5.2 Absolute Lymphs (auto) 0.50 L Nucleated RBC % 0.6 Differential Comment SCANNED Diff Path Review Polychromasia 1+ Hypochromasia Anisocytosis 2+ Acanthocytes (Spur) 3+ Schistocytes 1+ Sodium 140 Potassium 4.3 Chloride 107 Carbon Dioxide 27.0 Anion Gap 6 BUN 18 Creatinine 0.75 Estim Creat Clear Calc 39.39 Est GFR (MDRD) Af Amer 96 Est GFR (MDRD) Non-Af 79 BUN/Creatinine Ratio 24.0 H Glucose 87 Calcium 8.3 L Iron TIBC Iron Saturation Ferritin Vancomycin Trough Micro: Microbiology 07/21/20 18:10 Wound - Right Foot Gram Stain - Final 07/21/20 18:10 Wound - Right Foot Wound Culture - Final Staphylococcus aureus 07/21/20 12:30 Urine, Clean Catch Urine Culture - Final Mixed Gram Positive Organisms 07/21/20 12:49 Blood Culture (Wb) - Left Forearm Blood Culture - Preliminary No growth in 48 hours. 07/21/20 11:46 Blood Culture (Wb) - Anticubital Right Blood Culture - Preliminary No growth in 48 hours. 07/21/20 Unknown Stool Stool Occult Blood (PEDRO) - Final Rhythm Strip Rhythm Strip: A-fib Rate: 83 Physical Exam Narrative GENERAL: cooperative HEENT: Atraumatic; EYES; Anicteric, Normal Conjunctiva NECK; supple, normal thyroid, RESPIRATORY: Diminished to auscultation CARDIOVASCULAR: Irregular S1-S2 GI: soft, normoactive bowel sounds, : No Renal angle tenderness; EXTREMITIES: Trace edema, no clubbing, MUSCULOSKELETAL: no muscle waisting NEURO: Awake; right-sided weakness. SKIN: An ulceration involving the dorsal surface of the right foot PSYCH; Flat affect Assessment & Plan Assessment/Plan (1) Cellulitis: PLAN: Patient is a 80-year-old lady with multiple comorbidities who presented with redness and erythema surrounding right foot dorsal surface wound. 1. Cellulitis surrounding the right foot dorsal surface wound ?Patient MRSA screen was positive subsequently started on vancomycin. Cultures sent. Consult placed wound care nurse -Wound cultures positive for staph most likely MRSA final identification and sensitivities pending consult placed to infectious disease -07/24/2020; Patient seen remains on broad-spectrum antibiotic therapy. Erythema involving the right foot improving.. Cultures from 07/20/2020 + for MRSA, E. coli as well as Acinetobacter species. Consult was placed to infectious disease. Definitive antibiotic therapy deferred 2. Anemia - Secondary to chronic disorder monitoring H&H and transfuse if patient becomes symptomatic or hemoglobin falls below 7 -07/23/2020; patient hemoglobin still remains low ordered iron studies and an order given for patient to receive parenteral iron 3. Hypothyroidism - Patient is on levothyroxine home dose continued 4. Seizure disorder ?Patient is on Keppra as well as valproic acid 5. Paroxysmal A. fib ?Rate controlled on metoprolol as well as systemic anticoagulation with Eliquis continued 6. Dyslipidemia -Patient is on statin therapy, continued at home dose 7. History of previous CVA (ischemic with hemorrhagic conversion) ?With patient has residual right-sided weakness 8. Hypertension - Blood pressure controlled, home medications continued with dose adjustment as needed 9. Depression ?Patient is on SSRI 10. DVT prophylaxis ?On Eliquis Visit Charges Inpatient E&M: 03079 Subs Hosp L2
[2020-07-24] MEDS: Citalopram 10 MG Tablet PO (08:42)
[2020-07-24] MEDS: Potassium Chloride Oral Tablet 20 MEQ PO (08:42)
[2020-07-24] MEDS: levETIRAcetam 1,000 MG Tablet 1000 MG PO (08:43)
--- NOTE | 2020-07-24 11:11 | CASEMGMT ---
Addendum entered by Azul Cantu 07/24/20 14:16: Faxed DC summary to [facility] at this time. Addendum entered by Azul Cantu 07/24/20 12:20: Faxed [facility] referral info and will fax dc instructions once available. Original Note: KEVIN CM in to pt room to speak with son Gabino per his request. He is updated on dc plan at this time. 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 Pt agreeable to plan as well and denies further needs.
--- NOTE | 2020-07-24 13:22 | CON.PCM.ID_ITS ---
Assessment & Plan Assessment/Plan (1) Cellulitis: PLAN: R foot infected wound with surrounding cellulitis - wound care following. Foot improving. Wound cx with mrsa, ecoli, and acinetobacter. On vanc, added unasyn for GNR coverage. Plan on discharge on po doxy 100mg bid and augmentin 875mg bid for one more week. Will follow as needed, thank you (2) Open wound of right foot: HPI Consult Data Date of Consult: 07/24/20 HPI Narrative HPI Narrative: TOVA MCINTOSH, is a 80 F with h/o stroke, PVF, NH, presented to ED 07/21 with about 3 weeks of R foot pain, redness, swelling, ulceration. Denies any inciting event. No fever or chills. Admitted on vanc/zosyn. Wound cx now with MRSA, acinetobacter, ecoli. Feeling better, redness and pain improving. Has completed covid vaccine. Full ROS performed and neg except as noted above. 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) Paroxysmal atrial fibrillation (12/2018) Paroxysmal supraventricular tachycardia Peripheral vascular disease Peripheral vascular occlusive disease Ulcer of right foot with fat layer exposed Home Medications apixaban 5 mg tablet 5 mg PO BID 05/21/19 [History Last Taken 07/21/20] atorvastatin 80 mg PO QHS 07/21/20 [History Last Taken 07/20/20] citalopram 10 mg PO DAILY 07/21/20 [History Last Taken 07/21/20] divalproex 250 mg PO TID 07/21/20 [History Last Taken 07/21/20] levetiracetam 1,000 mg PO BID 07/21/20 [History Last Taken 07/21/20] levothyroxine 25 mcg PO DAILY 07/21/20 [History Last Taken 07/19/20] metoprolol tartrate 25 mg PO BID 07/21/20 [History Last Taken 07/21/20] potassium chloride 20 meq PO DAILY 07/21/20 [History Last Taken 07/21/20] Allergy/AdvReac Type Severity Reaction Status Date / Time coffee (Coffea arabica) AdvReac Abd Verified 05/19/20 16:08 cramps/diarrhea Family History Other CAD (coronary artery disease) Surgical History (Updated 07/21/20 @ 15:43 by Debi Rosado) History of angioplasty of peripheral vessel (12/2017) History of cardioversion (01/21/20) History of coronary artery stent placement (03/18/99) History of hysterectomy History of left heart catheterization (04/06/20) History of loop recorder (12/11/18) Social History Smoking Status: Former smoker Physical Exam Const alert and no apparent distress General Appearance: cooperative HEENT normocephalic and head/scalp atraumatic Eyes PERRL and EOMs intact bilaterally Neck supple and No nodes Resp clear to auscultation bilaterally Cardio regular rate and regular rhythm GI normal to inspection, nondistended, normoactive bowel sounds Extremity General Extremity: edema Skin Skin Narrative: foot wrapped Neuro CN's II-XII intact bilaterally Lab / Micro Data Result Diagrams: 07/24/20 06:00 07/24/20 06:00 Labs: Laboratory Results - last 24 hr 07/23/20 07/24/20 07/24/20 14:33 06:00 06:00 WBC 6.8 RBC 3.00 L Hgb 7.9 L Hct 26.3 L MCV 87.7 MCH 26.3 L MCHC 30.0 L RDW Std Deviation 74.2 H RDW Coeff of Zachary 24.1 H Plt Count 278 MPV 10.4 Immature Gran % (Auto) 1.500 H Neut % (Auto) 76.6 H Lymph % (Auto) 7.4 L [place] % (Auto) 10.0 Eos % (Auto) 4.1 Baso % (Auto) 0.4 Absolute Neuts (auto) 5.2 Absolute Lymphs (auto) 0.50 L Nucleated RBC % 0.6 Differential Comment SCANNED Polychromasia 1+ Anisocytosis 2+ Acanthocytes (Spur) 3+ Schistocytes 1+ Sodium 140 Potassium 4.3 Chloride 107 Carbon Dioxide 27.0 Anion Gap 6 BUN 18 Creatinine 0.75 Estim Creat Clear Calc 39.39 Est GFR (MDRD) Af Amer 96 Est GFR (MDRD) Non-Af 79 BUN/Creatinine Ratio 24.0 H Glucose 87 Calcium 8.3 L Vancomycin Trough 8.1 Micro: Microbiology 07/21/20 17:56 Blood Culture - Preliminary Blood Culture (Wb) - Anticubital Right No growth in 48 hours. 07/21/20 18:10 Gram Stain - Final Wound - Right Foot Wound Culture - Final Staphylococcus aureus Rhythm Strip Rhythm Strip: A-fib Rate: 83
--- NOTE | 2020-07-24 13:57 | PCM.DC.SUM ---
Providers Date of Admission: 07/21/20 Primary Care Physician: Dr. 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/mirror fabrication supervisor Routine Comment: 07/21/20 17:45 Consult: Onc/Wound/mirror fabrication supervisor Routine Comment: 07/23/20 10:36 Consult: Infectious Disease Routine Consulting Provider: Bill Rock Reason for Consult: MRSA FOOR INFECTION EMERGENT Consult: No MD Notified: Yes Date Notified:: 07/23/20 Time Notified: 10:36 Method of Notification: Text Reason For Visit: CELLULITIS, ACUTE ON CHRONIC ANEMIA Diagnosis Discharge Diagnosis (1) Cellulitis: Status: Acute Code(s): L03.90 - Cellulitis, unspecified (2) Open wound of right foot: Status: Acute Code(s): S91.301A - Unspecified open wound, right foot, initial encounter Medications at Discharge Home Medications apixaban 5 mg tablet 5 mg PO BID 05/21/19 atorvastatin 80 mg PO QHS 07/21/20 citalopram 10 mg PO DAILY 07/21/20 divalproex 250 mg PO TID 07/21/20 levetiracetam 1,000 mg PO BID 07/21/20 levothyroxine 25 mcg PO DAILY 07/21/20 metoprolol tartrate 25 mg PO BID 07/21/20 potassium chloride 20 meq PO DAILY 07/21/20 amoxicillin-pot clavulanate [Augmentin] 1 tab PO BID #14 tab 07/24/20 doxycycline hyclate [Vibramycin] 100 mg PO BID #14 cap 07/24/20 Hospital Course Summary of Care Provided Minutes Spent on Discharge: 45 Hospital Course: Patient is a 80-year-old lady with multiple comorbidities who presented with redness and erythema surrounding right foot dorsal surface wound. 1.? Cellulitis surrounding the right foot dorsal surface wound ?Patient MRSA screen was positive subsequently started on vancomycin.? Cultures sent.? Consult placed wound care nurse -Wound cultures positive for staph most likely MRSA final identification and sensitivities pending consult placed to infectious disease -07/24/2020; Patient seen remains on broad-spectrum antibiotic therapy.? Erythema involving the right foot improving..? Cultures from 07/20/2020 + for MRSA, E. coli as well as Acinetobacter species.? Consult was placed to infectious disease.? Definitive antibiotic therapy deferred -Patient was seen in consultation by Dr. Rock who recommended discharging patient home on doxycycline and Augmentin for 1 week. Patient was discharged home with home health 2.? Anemia - Secondary to chronic disorder monitoring H&H and transfuse if patient becomes symptomatic or hemoglobin falls below? 7 -07/23/2020; patient hemoglobin still remains low ordered iron studies and an order given for patient to receive parenteral iron 3.? Hypothyroidism - Patient is on levothyroxine home dose continued 4.? Seizure disorder ?Patient is on Keppra as well as valproic acid 5.? Paroxysmal A. fib ?Rate controlled on metoprolol as well as systemic anticoagulation with Eliquis continued 6.? Dyslipidemia -Patient is on statin therapy, continued at home dose 7.? History of previous CVA (ischemic with hemorrhagic conversion) ?With patient has residual right-sided weakness 8.? Hypertension - Blood pressure controlled, home medications continued with dose adjustment as needed 9.? Depression ?Patient is on SSRI 10.? DVT prophylaxis ?On Eliquis Physical Exam Narrative GENERAL: cooperative HEENT: Atraumatic; EYES; Anicteric, Normal Conjunctiva NECK; supple, normal thyroid, RESPIRATORY: Diminished to auscultation CARDIOVASCULAR: Irregular S1-S2 GI:? soft, normoactive bowel sounds, : No Renal angle tenderness; EXTREMITIES: Trace edema, no clubbing, NEURO:? Awake; right-sided weakness. SKIN: An ulceration involving the dorsal surface of the right foot PSYCH; Flat? affect ABG / Lab / Microbiology Data Result Diagrams: 07/24/20 06:00 07/24/20 06:00 Laboratory: Laboratory Results - last 24 hr 07/23/20 07/24/20 07/24/20 14:33 06:00 06:00 WBC 6.8 RBC 3.00 L Hgb 7.9 L Hct 26.3 L MCV 87.7 MCH 26.3 L MCHC 30.0 L RDW Std Deviation 74.2 H RDW Coeff of Zachary 24.1 H Plt Count 278 MPV 10.4 Immature Gran % (Auto) 1.500 H Neut % (Auto) 76.6 H Lymph % (Auto) 7.4 L [place] % (Auto) 10.0 Eos % (Auto) 4.1 Baso % (Auto) 0.4 Absolute Neuts (auto) 5.2 Absolute Lymphs (auto) 0.50 L Nucleated RBC % 0.6 Differential Comment SCANNED Polychromasia 1+ Anisocytosis 2+ Acanthocytes (Spur) 3+ Schistocytes 1+ Sodium 140 Potassium 4.3 Chloride 107 Carbon Dioxide 27.0 Anion Gap 6 BUN 18 Creatinine 0.75 Estim Creat Clear Calc 39.39 Est GFR (MDRD) Af Amer 96 Est GFR (MDRD) Non-Af 79 BUN/Creatinine Ratio 24.0 H Glucose 87 Calcium 8.3 L Vancomycin Trough 8.1 Microbiology: Microbiology 07/21/20 17:56 Blood Culture - Preliminary Blood Culture (Wb) - Anticubital Right No growth in 48 hours. 07/21/20 18:10 Gram Stain - Final Wound - Right Foot Wound Culture - Final Staphylococcus aureus Microbiology 07/21/20 17:56 Blood Culture (Wb) - Anticubital Right Blood Culture - Preliminary No growth in 48 hours. 07/21/20 18:10 Wound - Right Foot Gram Stain - Final 07/21/20 18:10 Wound - Right Foot Wound Culture - Final Staphylococcus aureus 07/21/20 12:30 Urine, Clean Catch Urine Culture - Final Mixed Gram Positive Organisms 07/21/20 12:49 Blood Culture (Wb) - Left Forearm Blood Culture - Preliminary No growth in 48 hours. 07/21/20 11:46 Blood Culture (Wb) - Anticubital Right Blood Culture - Preliminary No growth in 48 hours. 07/21/20 Unknown Stool Stool Occult Blood (PEDRO) - Final D/C Instructions Discharge Diet: No restrictions Discharge Activity: Return to Normal Activity Meaningful Use Info Meaningful Use Diagnoses (Choose all that apply): None applicable Discharge Plan Admission Admit Date/Time: 07/21/20 17:08 Primary Reason for Your Visit: Polymicrobial cellulitis Attending Provider: Shen Gallardo Primary Care Provider: Cody Hassan Chi Consulting Providers: Bill Rock Instructions Additional Instructions / Restrictions: Cleanse wound to the right dorsal foot daily with soap and water or NS. pat dry. place Adaptic and cover with dry dressing. wrap with gauze roll. please apply SOSA wraps from the base of the toes to just below the knees. Discharge Orders/Prescriptions Prescriptions: New doxycycline hyclate [Vibramycin] 100 mg capsule 100 mg PO BID Qty: 14 RF: 0 amoxicillin-pot clavulanate [Augmentin] 875-125 mg tablet 1 tab PO BID Qty: 14 RF: 0 Continued apixaban 5 mg tablet 5 mg PO BID RF: 0 atorvastatin 80 mg tablet 80 mg PO QHS RF: 0 citalopram 10 mg tablet 10 mg PO DAILY RF: 0 levothyroxine 25 mcg tablet 25 mcg PO DAILY RF: 0 potassium chloride 20 mEq tablet,ER particles/crystals 20 meq PO DAILY RF: 0 divalproex 125 mg capsule, delayed rel sprinkle 250 mg PO TID RF: 0 metoprolol tartrate 25 mg tablet 25 mg PO BID RF: 0 levetiracetam 1,000 mg tablet 1,000 mg PO BID RF: 0 Referrals / Follow Up: Cody Hassan Chi, MD [Primary Care Provider] - In 1 Week Disposition Disposition (needs filled in before D/C Order can be placed): Home Health Service
[2020-07-24] MEDS: oxyCODONE 5 MG Tablet PO (14:33)
--- NOTE | 2020-07-24 14:52 | PHA.DC.MC ---
Pharmacy Service has performed discharge medication reconciliation and counseling for this patient. 1. AUGMENTIN 875MG PO BID X 7 DAYS 2. DOXYCYCLINE 100MG PO BID X 7 DAYS The patient's discharge medication list was reviewed for discrepancies and discrepancies were resolved. Home Medications apixaban 5 mg tablet 5 mg PO BID 05/21/19 atorvastatin 80 mg PO QHS 07/21/20 citalopram 10 mg PO DAILY 07/21/20 divalproex 250 mg PO TID 07/21/20 levetiracetam 1,000 mg PO BID 07/21/20 levothyroxine 25 mcg PO DAILY 07/21/20 metoprolol tartrate 25 mg PO BID 07/21/20 potassium chloride 20 meq PO DAILY 07/21/20 amoxicillin-pot clavulanate [Augmentin] 1 tab PO BID #14 tab 07/24/20 doxycycline hyclate [Vibramycin] 100 mg PO BID #14 cap 07/24/20 The patient was counseled on the following discharge medications and changes in medications for homegoing were reviewed. The Reason for Use, instructions for use, and potential side effects were reviewed for all new medications. The patient's questions regarding all of their medications were answered. The patient was able to verbally demonstrate an understanding of their discharge medications. Patient counseled by pharmacy assistant
--- NOTE | 2020-07-24 15:29 | PCM.DC ---
Discharge Instructions Diet Discharge Diet: No restrictions Activity Discharge Activity: Return to Normal Activity Dressing / Incision Call your doctor if you observe: Fever of 101 or Higher, Shortness of breath, Fainting spells and Chest pain Follow Up Care Test Results: Test results from this visit will be discussed in further detail at your follow-up appointment, if applicable. Discharge Plan Admission Admit Date/Time: 07/21/20 17:08 Primary Reason for Your Visit: Polymicrobial cellulitis Attending Provider: Shen Gallardo Primary Care Provider: Cody Hassan Chi Consulting Providers: [place] Instructions Additional Instructions / Restrictions: Cleanse wound to the right dorsal foot daily with soap and water or NS. pat dry. place Adaptic and cover with dry dressing. wrap with gauze roll. please apply SOSA wraps from the base of the toes to just below the knees. Discharge Orders/Prescriptions Prescriptions: New doxycycline hyclate [Vibramycin] 100 mg capsule 100 mg PO BID Qty: 14 RF: 0 amoxicillin-pot clavulanate [Augmentin] 875-125 mg tablet 1 tab PO BID Qty: 14 RF: 0 Continued apixaban 5 mg tablet 5 mg PO BID RF: 0 atorvastatin 80 mg tablet 80 mg PO QHS RF: 0 citalopram 10 mg tablet 10 mg PO DAILY RF: 0 levothyroxine 25 mcg tablet 25 mcg PO DAILY RF: 0 potassium chloride 20 mEq tablet,ER particles/crystals 20 meq PO DAILY RF: 0 divalproex 125 mg capsule, delayed rel sprinkle 250 mg PO TID RF: 0 metoprolol tartrate 25 mg tablet 25 mg PO BID RF: 0 levetiracetam 1,000 mg tablet 1,000 mg PO BID RF: 0 Referrals / Follow Up: Cody Hassan Chi, MD [Primary Care Provider] - In 1 Week Disposition Disposition (needs filled in before D/C Order can be placed): Home Health Service
== END 2020-07-24 16:37 | disposition home health service (06) | DRG 603 ==
LOC: ED 11:45 → PCU 15:11
PROVIDERS: Admitting Provider Student in an Organized Health Care Education/Training Program; Emergency Provider Emergency Medicine; PCP Family Medicine Geriatric Medicine; Visit Provider Internal Medicine
DX: L03.115 Cellulitis of right lower limb (principal); I47.1 Supraventricular tachycardia; I69.351 Hemiplegia and hemiparesis following cerebral infarction affecting right dominant side; R60.9 Edema, unspecified; E03.9 Hypothyroidism, unspecified; I25.5 Ischemic cardiomyopathy; I25.10 Atherosclerotic heart disease of native coronary artery without angina pectoris; I73.9 Peripheral vascular disease, unspecified; I25.2 Old myocardial infarction; M20.41 Other hammer toe(s) (acquired), right foot; E78.5 Hyperlipidemia, unspecified; I48.0 Paroxysmal atrial fibrillation; D64.9 Anemia, unspecified; G40.909 Epilepsy, unspecified, not intractable, without status epilepticus; I10 Essential (primary) hypertension; F32.9 Major depressive disorder, single episode, unspecified; D63.8 Anemia in other chronic diseases classified elsewhere; B96.20 Unspecified Escherichia coli [E. coli] as the cause of diseases classified elsewhere; B95.62 Methicillin resistant Staphylococcus aureus infection as the cause of diseases classified elsewhere; Z79.899 Other long term (current) drug therapy; Z86.718 Personal history of other venous thrombosis and embolism; Z79.01 Long term (current) use of anticoagulants; Z87.891 Personal history of nicotine dependence
CPT/HCPCS: 36415; 80048; 80053; 80202; 81001; 82274; 82728; 83540; 83550; 83605; 84484; 85025; 85610; 85730; 87040; 87070; 87077; 87086; 87088; 87186; 87205; 87640; 93005; 97110; 97162; 97166; 97530; 97535; 97802; 99285; J7030; J7040; J7050; A4216; J0295; J2405; J2916

== ENCOUNTER → 2020-07-28 15:35 | Outpatient (CLI) | payer MEDICARE, SELFPAY ==
[2020-07-21 15:37] VITALS: BMI 22.6
[2020-07-28 16:58] LABS: Absolute Lymphocyte Count 1.19 X10^3/uL (0.83-4.51); Absolute Neutrophil Count 6.4 X10^3/uL (2.0-7.7); Basophil# 0.05 X10^3/uL; Basophil% 0.6 % (0-1); Eosinophil# 0.22 X10^3/uL; Eosinophils% 2.5 % (0-5); Hematocrit 32.9 % (37-47); Lymphocyte # 1.19 X10^3/ul (0.83-4.51); Lymphocyte % 13.4 % (19-41); Mean Corp Hgb Conc 30.4 g/dL (32-36); Mean Corpuscular Volume 88.9 fL (81-99); Mean Platelet Vol. 10.1 fl (6.2-12.0); Monocyte# 0.96 X10^3/uL; Monocyte% 10.8 % (0-10); NRBC Flagged by Analyzer 0 % (0-5); Neutrophil # 6.38 X10^3/uL (2.7-7.7); Neutrophil % 71.8 % (47-70); POSITIVE MORPHOLOGY YES; Platelet Count 397 K/mm3 (150-450); RBC Distribution Width CV 24.2 % (11.6-14.6); White Blood Count 8.9 K/mm3 (4.4-11.0)
[2020-07-28 16:59] LABS: Differential Indicated SCAN CRITERIA MET
== END ==
PROVIDERS: PCP Family Medicine Geriatric Medicine; Visit Provider Family Medicine Geriatric Medicine
DX: D64.9 Anemia, unspecified (principal)
CPT/HCPCS: 36415; 85025

== ENCOUNTER → 2020-09-04 12:28 | Outpatient (CLI) | payer MEDICARE, SELFPAY ==
[2020-07-21 15:37] VITALS: BMI 22.6
--- NOTE | 2020-09-04 12:35 | RAD_ITS ---
STUDY: X-RAY - RIGHT FOOT CLINICAL: Female, 80 years old. FOOT PAIN TECHNIQUE: 3 view(s) of the foot. COMPARISON: None. FINDINGS: There is a plantar calcaneal spur. Normal visualized subtalar, talonavicular, calcaneocuboid, tarsal and tarsometatarsal articulations. Normal metatarsi. Normal metatarsophalangeal joint of the great toe. Normal tibial and fibular sesamoid bones. Normal interphalangeal joint of the great toe. Normal phalanges of the great toe. Normal second through fifth metatarsophalangeal joints. Normal interphalangeal joints and phalanges of the lesser toes. The soft tissue structures are unremarkable. RAD/Foot min 3 Views IMPRESSION: Small calcaneal spur. No fracture or malalignment. Electronically Signed: Iraj Rucker MD ([place]) at 15:54 EDT , Service support ,
== END ==
PROVIDERS: PCP Family Medicine Geriatric Medicine; Referring Provider Family Medicine Geriatric Medicine; Visit Provider Family Medicine Geriatric Medicine
DX: M79.609 Pain in unspecified limb (principal)
CPT/HCPCS: 73630

== ENCOUNTER → 2020-10-28 11:38 | Outpatient (CLI) | payer MEDICARE, SELFPAY ==
[2020-10-28 12:46] LABS: Absolute Neutrophil Count 6.1 X10^3/uL (2.0-7.7); Basophil# 0.07 X10^3/uL; Basophil% 0.8 % (0-1); Eosinophil# 0.38 X10^3/uL; Eosinophils% 4.4 % (0-5); Hematocrit 38.2 % (37-47); Hemoglobin 11.7 g/dL (12.0-15.0); Lymphocyte % 15.1 % (19-41); Mean Corp Hgb Conc 30.6 g/dL (32-36); Mean Corpuscular Hgb 25.1 pg (27.0-32.0); Mean Corpuscular Volume 81.8 fL (81-99); Mean Platelet Vol. 10.8 fl (6.2-12.0); Monocyte# 0.71 X10^3/uL; Monocyte% 8.2 % (0-10); NRBC Flagged by Analyzer 0 % (0-5); Neutrophil # 6.12 X10^3/uL (2.7-7.7); Neutrophil % 71.2 % (47-70); Platelet Count 295 K/mm3 (150-450); RBC Distribution Width CV 15.9 % (11.6-14.6); RBC Distribution Width SD 47.8 fl (35.1-43.9); Red Blood Count 4.67 M/mm3 (4.2-5.4); White Blood Count 8.6 K/mm3 (4.4-11.0)
[2020-10-28 13:04] LABS: Vitamin D,25 Hydroxy 31.8 ng/mL
[2020-10-28 13:22] LABS: ALB/GLOB Ratio 0.8 RATIO (0.9-2.4); AST(SGOT) 12 U/L (15-37); Alanine Aminotransfer ALT/SGPT 21 U/L (13-56); Albumin, Serum 3.4 g/dL (3.2-5.0); Alkaline Phosphatase 91 U/L (45-117); Anion Gap 5 (5-15); BUN 18 mg/dL (7-18); BUN/Creat Ratio 21.4 RATIO (10-20); Calcium,Total 9.2 mg/dL (8.5-10.1); Chloride 102 mmol/L (98-107); Creatinine, Serum 0.84 mg/dL (0.55-1.02); EST Glomerular Filtration Rate 69 mL/min (>60); Est Glom Filt Rate - Afr Amer 84 mL/min (>60); Globulin 4.1 g/dL (2.2-4.2); Glucose 98 mg/dL (74-106); Potassium 4.5 mmol/L (3.5-5.1); Protein, Total 7.5 g/dL (6.4-8.2); Sodium Level 135 mmol/L (136-145); Thyroid Stim Hormone (TSH) 3.11 uIU/mL (0.358-3.74)
== END ==
PROVIDERS: PCP Family Medicine Geriatric Medicine; Visit Provider Family Medicine Geriatric Medicine
DX: E55.9 Vitamin D deficiency, unspecified (principal); I10 Essential (primary) hypertension
CPT/HCPCS: 36415; 80053; 82306; 84443; 85025

== ENCOUNTER 2021-02-08 20:47 | Inpatient (IN) | payer MEDICARE, SELFPAY ==
[2021-02-08 20:48] VITALS: BP 158/125; PULSE 116; RESP 24; TEMP 36.6; O2SAT 94; BMI 21.9
--- NOTE | 2021-02-08 20:57 | CM.ED ---
SOCIAL WORK Stroke Alert Responded to Stroke Alert. Family present at bedside with patient. Dr. Sullivan in room at this time. This worker to remain available for needs. Norman Coleman, [employer]SE [employer]ORER, LEARNING AND DEVELOPMENT MANAGER
--- NOTE | 2021-02-08 20:58 | EKG12_ITS ---
Test Reason : STROKE Blood Pressure : / mmHG Vent. Rate : 114 BPM Atrial Rate : 105 BPM P-R Int : 000 ms QRS Dur : 094 ms QT Int : 286 ms P-R-T Axes : 000 027 116 degrees QTc Int : 394 ms Atrial fibrillation Septal infarct , age undetermined Nonspecific ST and T wave abnormality Abnormal ECG Confirmed by CORI ROSS, DONNY ([id number]), senior editor SAKSHI SINGH ([id number]) on 02/10/2021 1:59:45 PM Referred By: PL Confirmed By:DONNY PERSAUD MD
--- NOTE | 2021-02-08 20:59 | CT_ITS ---
We are attempting to reach an attending provider to discuss findings. An addendum with communication details will be sent when the communication is complete. STUDY: CTA HEAD AND NECK WITH CONTRAST REASON FOR EXAM: Female, 80 years old. Neuro deficit. Acute stroke suspected. RADIATION DOSAGE (If Supplied By Facility): CTDIvol = ( 28.32 ) mGy, DLP = ( 532.30 ) mGycm TECHNIQUE: CT angiography was performed with a multi-detector CT scanner. Data acquisition was obtained from the skull base through the vertex following intravenous administration of IV 100mL [id number]-[id number]. MIP images were reconstructed from the axial data set. Post-processing of the angiographic images was performed, with multiplanar reformation and 3D reconstruction. Individualized dose optimization techniques were used for this CT. COMPARISON: No relevant priors. FINDINGS: Normal bilateral petrous carotid arteries. There is calcified plaque formation of the right cavernous carotid artery, without a cross-sectional luminal stenosis. There is calcified plaque formation of the left cavernous carotid artery, without a cross-sectional luminal stenosis. Normal right A1 segments of the anterior cerebral artery. Normal left A1 segments of the anterior cerebral artery. Normal intact anterior communicating artery (ACOM). Normal bilateral A2 segments of the anterior cerebral arteries. Normal right M1 and M2 segments of the middle cerebral arteries, with a normal M1 bifurcation. Normal left M1 and M2 segments of the middle cerebral arteries, with a normal M1 bifurcation. Normal right posterior communicating artery (PCOM). Normal left posterior communicating artery (PCOM). Normal bilateral vertebral arteries. Normal basilar artery with a normal basilar bifurcation. The visualized bilateral superior cerebellar (SCA) arteries are normal. Normal P1, P2 and visualized P3 segments of the right posterior cerebral artery. There is a hypoplastic P1 segment of the left posterior cerebral artery. The P2 and visualized P3 segments are partially supplied via the patent posterior communicating artery. There is no demonstrated aneurysm of the [place]. There is no demonstrated abnormality of the visualized brain. AORTIC ARCH: Atherosclerotic changes of the aortic arch without dissection or aneurysm. Normal origins of the brachiocephalic, left common carotid, and left subclavian arteries. RIGHT CAROTID ARTERIES: A small focal calcifications along the course right common carotid artery (CCA) without stricture. Density with calcifications at the carotid bifurcation extending into the carotid bulb with approximate 50% stenosis. Wall calcification at the origin of the right internal carotid (ICA) artery without a hemodynamically significant stenosis. Normal visualized cervical portion of the right internal carotid artery. Normal origin of the right external carotid artery (ECA). LEFT CAROTID ARTERIES: Small focal calcification along the course of the left common carotid artery (CCA) without stenosis.. Extensive calcifications in the carotid bifurcation extending into the bulb with approximate 50-60% stenosis. Minimal atherosclerotic changes at the origin of the left internal carotid (ICA) artery without a hemodynamically significant stenosis. Normal visualized cervical portion of the left internal carotid artery. Normal origin of the left external carotid artery (ECA). VERTEBRAL ARTERIES: Normal bilateral vertebral arteries. CT/STROKE CTA Head AND Neck W/Con IMPRESSION: 1. Hypoplastic P1 segment of the left posterior cerebral artery. The distal portion of the artery is supplied by the posterior communicating artery. 2. Otherwise normal [place]. 3. Atherosclerotic changes at the bilateral carotid bifurcations with approximate 50% stenoses bilaterally. Electronically Signed: Segundo Shay DO at 21:27 EST Tel [phone], Service support ,
--- NOTE | 2021-02-08 21:00 | CT_ITS ---
STUDY: CT HEAD STROKE PROTOCOL W/O CONTRAST INJECTION REASON FOR EXAM: Female, 80 years old. Neuro deficit. Acute stroke suspected RADIATION DOSAGE (If Supplied By Facility): CTDIvol = ( ) mGy, DLP = ( 796.11 ) mGycm TECHNIQUE: Transaxial CT imaging of the brain was performed without administration of intravenous contrast material. Individualized dose optimization techniques were used for this CT. COMPARISON: 05/19/2020. FINDINGS: Normal soft tissue structures. Normal calvarium. There is mild cerebral atrophy with widening of the extra-axial spaces and ventricular dilatation. . 2. Again seen is a large area of encephalomalacia involving the right temporoparietal lobe consistent with remote MCA infarct. Normal basal ganglia and thalami. Normal brainstem. Normal cerebellum. There is no intracranial hemorrhage. There are no findings of an acute ischemic infarction. Normal visualized paranasal sinuses. ASPECT score: 10 CT/STROKE Brain/Head without Cont IMPRESSION: 1. Chronic involutional changes without acute intracranial or calvarial abnormality. 2. Remote right MCA distribution infarct. N.B. : The above Results were Read Back by Segundo Shay DO to ALONDRA BUSBY MD, and understanding confirmed on 02/08/2021 21:12:43 (ET). Electronically Signed: Segundo Shay DO at 21:13 EST Tel [phone], Service support ,
--- NOTE | 2021-02-08 21:00 | EDS_ITS ---
HPI History of Present Illness Chief Complaint: Neuro S/Sx Informant: patient and family Narrative Narrative: We think the patient's symptoms started around 815 this evening. She has more left-sided weakness than is her normal. She has had prior strokes. She is on Eliquis and took it twice today already. She has more left facial droop and more left facial twitching left arm twitching and left leg weakness than would be her normal. She had trouble getting out of the car because of left leg weakness and this normally would not happen. She denies headache. She denies chest pain. She is actually awake and alert. I find out that she is on Dilantin. She is also on Keppra. There is no reported seizure but this is for the twitching secondary to strokes. The story is a little unclear. The son also states that she is on iron for the bleeding she had in her head. Yet I be surprised if she is on Eliquis if she had intracranial bleeding. There are just aspects of the history that are hard to obtain details upon. Nothing is making her symptoms better or worse. It is not worsening or changing over time. 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) Open wound of right foot Paroxysmal atrial fibrillation (12/2018) Paroxysmal supraventricular tachycardia Peripheral vascular disease Peripheral vascular occlusive disease Ulcer of right foot with fat layer exposed Home Medications apixaban 5 mg tablet 5 mg PO BID 05/21/19 [History Last Taken 07/21/20] atorvastatin 80 mg PO QHS 07/21/20 [History Last Taken 07/20/20] divalproex 250 mg PO TID 07/21/20 [History Last Taken 07/21/20] levetiracetam 1,000 mg PO BID 07/21/20 [History Last Taken 07/21/20] levothyroxine 25 mcg PO DAILY 07/21/20 [History Last Taken 07/19/20] metoprolol tartrate 25 mg PO BID 07/21/20 [History Last Taken 07/21/20] potassium chloride 20 meq PO DAILY 07/21/20 [History Last Taken 07/21/20] doxycycline hyclate [Vibramycin] 100 mg PO BID #14 cap 07/24/20 [Rx Last Taken Unknown] Allergy/AdvReac Type Severity Reaction Status Date / Time coffee (Coffea arabica) AdvReac Abd Verified 02/08/21 20:54 cramps/diarrhea Family History Other CAD (coronary artery disease) Surgical History History of angioplasty of peripheral vessel (12/2017) History of cardioversion (01/21/20) History of coronary artery stent placement (03/18/99) History of hysterectomy History of left heart catheterization (04/06/20) History of loop recorder (12/11/18) Social History Smoking Status: Former smoker ROS ROS ED Constitutional Constitutional ED: Denies fever(s) Eyes Eyes: Denies blurry vision ENT ENT ED: Reports other Details: Left facial weakness more than normal. ; Denies rhinorrhea Cardiovascular Cardiovascular: Denies chest pain Respiratory/Chest Respiratory/Chest: Denies dyspnea Gastrointestinal Gastrointestinal: Denies nausea or vomiting Musculoskeletal Musculoskeletal: Denies myalgias Integumentary Denies abscess or rash Neurologic Neurologic: Reports paresthesias and weakness; Denies headache(s) Endocrine Endocrinology: Denies polydipsia or polyuria Hematologic/Lymphatic Hematologic/Lymphatic: Reports easy bleeding and easy bruising Allergic/Immunologic Allergic/Immunologic ED: Denies mouth swelling or urticaria EXAM Physical Exam Const Vital Signs: 02/08/21 20:48 02/08/21 21:02 02/08/21 21:43 Temperature 97.9 F Temperature Source Temporal Pulse Rate 116 H 112 H Respiratory Rate 24 H 29 H Blood Pressure 158/125 H 157/8 H Blood Pressure Mean 136 57 Pulse Ox 94 91 Oxygen Delivery Method Room Air Room Air Nasal Cannula Oxygen Flow Rate (L/min) 5 02/08/21 22:38 Temperature Temperature Source Pulse Rate 113 H Respiratory Rate 20 H Blood Pressure 130/63 H Blood Pressure Mean 85 Pulse Ox 94 Oxygen Delivery Method Nasal Cannula Oxygen Flow Rate (L/min) 5 Patient is awake and alert. Positive well nourished and well developed General Appearance ED: well developed and NAD HEENT Reports moist mucous membranes Nose: other Other Details: She does have some left facial weakness and occasional twitching. Neck supple Chest Wall inspection of chest normal Resp normal respiratory effort and clear to auscultation bilaterally Cardio Cardio Narrative: Heart sounds regular. She does evidently have a history of atrial fibrillation but she sounds relatively regular at this time. Rate: regular rate Rhythm: regular rhythm GI normal to inspection, nondistended, normoactive bowel sounds and soft to palpation Extremity Extremity Narrative: Occasional twitching mostly of left upper extremity. Neuro oriented x3 Neuro Narrative: Patient is alert and oriented to person place time and situation. Please see stroke scale for details. Although her left lower extremity does not get a point for stroke scale it does appear to be a bit weaker than her right lower. The son also states that the motion that she gets with her left leg now is better than he had in the car. Therefore, at this time, there may be some indication of improvement. Sensorium / Orientation: alert Psych mental status grossly normal Skin Rashes: no rashes STROKE Vital Signs/Narrative: Vital Signs Temp Pulse Resp BP Pulse Ox 02/08/21 22:38 113 H 20 H 130/63 H 94 02/08/21 21:43 112 H 29 H 157/8 H 91 02/08/21 20:48 97.9 F 116 H 24 H 158/125 H 94 NIHSS Initial: 1a Level of Consciousness: 0 1b LOC Questions (Score 2 if aphasic/stupor): 0 1c LOC Commands (Only score 1st attempt): 0 2 Best Gaze (If aphasic, use reflexive mvmts.): 0 3 Visual: 0 4 Facial Palsy: 1 5 Motor Arm Right (UN = amputation/fusion): 0 5 Motor Arm Left: 1 6 Motor Leg Right: 0 6 Motor Leg Left: 0 7 Limb ataxia (Only + if out of proportion): 0 8 Sensory (Aphasia/stupor=0 or 1, coma=2): 0 9 Best Language: 0 10 Dysarthria (mute, coma=2, intubated=UN): 1 11 Extinction and Inattention (only scored if +): 0 Total Score: 3 MDM MDM MDM Narrative Medical decision making narrative: Patient started to get more rhythmic motion on the left that looked even more like seizure. But she remained awake and alert. Telestroke neurologist saw her. He thinks this is likely seizure. He did recommend loading with a gram of Keppra. I did finally get the Dilantin level back that shows it is essentially not there. This brings into question whether she is taking that or even her Keppra. I also find out that she has been on and is still on antibiotics for low bilateral lower extremity lesions. The lesions are better but she is still taking the antibiotics. Neither her nor her son know what the antibiotic is but it is once a day. He thought he recognize the name Levaquin. This might fit the picture of increasing seizure. Also, while the patient was here, she started to get some more dyspnea and coarse breath sounds. We have put her on about 4 L of oxygen now. Her sats are 97 to 98% on 5 L but we turned down to 4. Her x-ray shows diffuse infiltrates that could be CHF but could also be aspiration. I have ordered BNP as well as Covid test. I am giving her a dose of Unasyn pending these results. She does not have a history of CHF. I had discussion with her and her son. She does not want to be intubated. She does not want want invasive therapy. Lab Data Attestation: I reviewed the patient's lab results. Labs: Laboratory Results - last 24 hr 02/08/21 02/08/21 02/08/21 20:53 20:53 20:53 WBC 8.6 RBC 5.29 Hgb 13.5 Hct 43.1 MCV 81.5 MCH 25.5 L MCHC 31.3 L RDW Std Deviation 59.2 H RDW Coeff of Zachary 20.4 H Plt Count 260 MPV 11.1 Immature Gran % (Auto) 0.500 Neut % (Auto) 59.6 Lymph % (Auto) 24.2 Robertson % (Auto) 10.2 H Eos % (Auto) 4.6 Baso % (Auto) 0.9 Absolute Neuts (auto) 5.2 Absolute Lymphs (auto) 2.09 Nucleated RBC % 0 Diff Path Review May foll Platelet Estimate ADEQUATE RBC Morphology N CHROM Anisocytosis 1+ Microcytosis RARE Ovalocytes RARE Acanthocytes (Spur) RARE Schistocytes RARE PT 17.1 H INR 1.5 APTT 38.1 H Sodium 137 Potassium 5.2 H Chloride 106 Carbon Dioxide 22.0 Anion Gap 9 BUN 28 H Creatinine 1.03 H Estim Creat Clear Calc 39.85 Est GFR (MDRD) Af Amer 66 Est GFR (MDRD) Non-Af 55 L BUN/Creatinine Ratio 27.2 H Glucose 130 H Calcium 9.4 Troponin I High Sens 19 Phenytoin 02/08/21 21:10 WBC RBC Hgb Hct MCV MCH MCHC RDW Std Deviation RDW Coeff of Zachary Plt Count MPV Immature Gran % (Auto) Neut % (Auto) Lymph % (Auto) Robertson % (Auto) Eos % (Auto) Baso % (Auto) Absolute Neuts (auto) Absolute Lymphs (auto) Nucleated RBC % Diff Path Review Platelet Estimate RBC Morphology Anisocytosis Microcytosis Ovalocytes Acanthocytes (Spur) Schistocytes PT INR APTT Sodium Potassium Chloride Carbon Dioxide Anion Gap BUN Creatinine Estim Creat Clear Calc Est GFR (MDRD) Af Amer Est GFR (MDRD) Non-Af BUN/Creatinine Ratio Glucose Calcium Troponin I High Sens Phenytoin < 0.4 L Radiography Diagnostic Testing: Clinical Impression(s) from Imaging Studies Head/Neck CTA 02/08/21 20:59 IMPRESSION: 1. Hypoplastic P1 segment of the left posterior cerebral artery. The distal portion of the artery is supplied by the posterior communicating artery. 2. Otherwise normal [place] of [place]. 3. Atherosclerotic changes at the bilateral carotid bifurcations with approximate 50% stenoses bilaterally. Electronically Signed: Segundo Shay DO at 21:27 EST Tel [phone], Service support , ADDENDUM: 02/08/21 2978 IMPRESSION: 1. Hypoplastic P1 segment of the left posterior cerebral artery. The distal portion of the artery is supplied by the posterior communicating artery. 2. Otherwise normal [place] of [place]. 3. Atherosclerotic changes at the bilateral carotid bifurcations with approximate 50% stenoses bilaterally. N.B. : The above Results were Read Back by Segundo Shay DO to LAONDRA SULLIVAN MD, and understanding confirmed on 02/08/2021 21:33:20 (ET). Electronically Signed: Segundo Shay DO at 21:27 EST Tel [phone], Service support , Brain CT 02/08/21 21:00 IMPRESSION: 1. Chronic involutional changes without acute intracranial or calvarial abnormality. 2. Remote right MCA distribution infarct. N.B. : The above Results were Read Back by Segundo Shay DO to ALONDRA SULLIVAN MD, and understanding confirmed on 02/08/2021 21:12:43 (ET). Electronically Signed: Segundo Shay DO at 21:13 EST Tel [phone], Service support , ADDENDUM: 02/08/210 IMPRESSION: 1. Chronic involutional changes without acute intracranial or calvarial abnormality. 2. Remote right MCA distribution infarct. N.B. : The above Results were Read Back by Segundo Shay DO to ALONDRA SULLIVAN MD, and understanding confirmed on 02/08/2021 21:12:43 (ET). Electronically Signed: Segundo Shay DO at 21:13 EST Tel [phone], Service support , Chest X-Ray 02/08/21 21:49 IMPRESSION: Cardiomegaly with extensive bilateral airspace disease, edema versus infection. Recommend short-term follow-up to resolution. at 2253 Reported and signed by: Charlie Valentine MD Electronically Signed: Charlie Valentine MD at 22:51 EST Tel , Service support , Discharge Plan Dx/Rx/DC Orders Clinical Impression: Seizure, Respiratory failure with hypoxia Disposition Disposition: [facility]
[2021-02-08 21:08] LABS: Absolute Lymphocyte Count 2.09 X10^3/uL (0.83-4.51); Absolute Neutrophil Count 5.2 X10^3/uL (2.0-7.7); Basophil# 0.08 X10^3/uL; Basophil% 0.9 % (0-1); Eosinophils% 4.6 % (0-5); Hematocrit 43.1 % (37-47); Hemoglobin 13.5 g/dL (12.0-15.0); Lymphocyte # 2.09 X10^3/ul (0.83-4.51); Lymphocyte % 24.2 % (19-41); Mean Corp Hgb Conc 31.3 g/dL (32-36); Mean Corpuscular Hgb 25.5 pg (27.0-32.0); Mean Corpuscular Volume 81.5 fL (81-99); Mean Platelet Vol. 11.1 fl (6.2-12.0); Monocyte# 0.88 X10^3/uL; Monocyte% 10.2 % (0-10); NRBC Flagged by Analyzer 0 % (0-5); Neutrophil # 5.15 X10^3/uL (2.7-7.7); Neutrophil % 59.6 % (47-70); POSITIVE MORPHOLOGY YES; Platelet Count 260 K/mm3 (150-450); RBC Distribution Width CV 20.4 % (11.6-14.6); RBC Distribution Width SD 59.2 fl (35.1-43.9); Red Blood Count 5.29 M/mm3 (4.2-5.4); White Blood Count 8.6 K/mm3 (4.4-11.0)
[2021-02-08 21:09] VITALS: BMI 22.8
[2021-02-08 21:13] LABS: Differential Indicated SCAN CRITERIA MET
[2021-02-08 21:16] LABS: International Normalized Ratio 1.5; Prothrombin Time (Protime)PT. 17.1 SECONDS (11.7-14.9)
[2021-02-08 21:17] LABS: Partial Thromboplast Time 38.1 Seconds (24.1-36.2)
--- NOTE | 2021-02-08 21:22 | ED.RN ---
2114 dr morales from [facility] examined the pt. 2123 dr morales speaking to dr galicia,
[2021-02-08 21:27] LABS: Anion Gap 9 (5-15); BUN 28 mg/dL (7-18); BUN/Creat Ratio 27.2 RATIO (10-20); Calcium,Total 9.4 mg/dL (8.5-10.1); Chloride 106 mmol/L (98-107); Creatinine, Serum 1.03 mg/dL (0.55-1.02); EST Glomerular Filtration Rate 55 mL/min (>60); Est Glom Filt Rate - Afr Amer 66 mL/min (>60); Estimated Creatinine Clearance 39.85 ml/min; Glucose 130 mg/dL (74-106); Potassium 5.2 mmol/L (3.5-5.1); Sodium Level 137 mmol/L (136-145); Troponin-I HS 19 pg/mL (3.0-54.0)
[2021-02-08] MEDS: LORazepam 2 MG/ML Syringe 1 MG IV (21:32)
[2021-02-08 21:36] LABS: Acanthocytes RARE; Anisocytosis 1+; Microcytosis RARE; Ovalocyte RARE; Pathologist Review May foll; Platelet Estimate ADEQUATE (ADEQ); Red Cell Morphology N CHROM NORMAL (NORM C&C); Schistocytes RARE
[2021-02-08 21:43] VITALS: BP 157/8; PULSE 112; RESP 29; O2SAT 91
[2021-02-08 21:46] LABS: Phenytoin (Dilantin) Level < 0.4 mL (10.0-20.0)
--- NOTE | 2021-02-08 21:49 | RAD_ITS ---
HISTORY: Neuro deficit, acute, stroke suspected EXAMINATION/TECHNIQUE: XR Chest 1 View: Portable AP upright chest x-ray COMPARISON: 05/19/20 FINDINGS: LINES/DEVICES: Stable precordial recording device. LUNGS: Extensive bilateral airspace opacities most prominent in the right upper lobe and left midlung field, no pleural effusions. MEDIASTINUM AND CARDIOVASCULAR STRUCTURES: Stable mild cardiomegaly. BONES AND SOFT TISSUES: No acute bony abnormalities. RAD/Chest 1 View IMPRESSION: Cardiomegaly with extensive bilateral airspace disease, edema versus infection. Recommend short-term follow-up to resolution. at 2253 Reported and signed by: Charlie Valentine MD Electronically Signed: Charlie Valentine MD at 22:51 EST Tel , Service support ,
[2021-02-08] MEDS: levETIRAcetam IV 1,000 MG/100 ML BAG 400 MG IV (21:57)
--- NOTE | 2021-02-08 22:13 | ED.RN ---
per dr galicia and the [facility] neurologist,pt appears to be a seizure and no longer need to perform nih and stroke dysphagis.
[2021-02-08 22:14] VITALS: BMI 22.8
[2021-02-08 22:38] VITALS: BP 130/63; PULSE 113; RESP 20; O2SAT 94
--- NOTE | 2021-02-08 23:00 | HP.PCM_ITS ---
HPI - General HPI Narrative TOVA MCINTOSH, is a 80 F who presents emergency room due to worsening left arm and left leg weakness. Onset of symptoms began 815 approximately this evening. Further history reveals the patient has been treated for skin infection of her lower legs with Levaquin recently, patient also has a significant past medical history of stroke with left-sided arm and leg weakness at baseline. Following stroke evaluation in the emergency room it was felt more likely than not that the patient had experienced a breakthrough seizure event and the decision was made to give a loading dose of Keppra and Ativan at which point her symptoms of clonic jerking had resolved. In the emergency room the patient started to d evelop fever and shortness of breath and was placed on oxygen for support, a chest x-ray was performed and patchy infiltrate pneumonia was diagnosed prompting further testing to ascertain source of pneumonia i.e. aspiration versus viral s. Covid test is pending at this time. The patient has received both vaccine doses and her booster. The patient through her son has expressed wishes to be DO NOT RESUSCITATE Comfort Care arrest without any intubation. CT head and CT angiogram were unremarkable. Per neurology request an MRI and EEG will be done in the morning. 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) Open wound of right foot Paroxysmal atrial fibrillation (12/2018) Paroxysmal supraventricular tachycardia Peripheral vascular disease Peripheral vascular occlusive disease Ulcer of right foot with fat layer exposed Home Medications apixaban 5 mg tablet 5 mg PO BID 05/21/19 [History Last Taken 07/21/20] atorvastatin 80 mg PO QHS 07/21/20 [History Last Taken 07/20/20] divalproex 250 mg PO TID 07/21/20 [History Last Taken 07/21/20] levetiracetam 1,000 mg PO BID 07/21/20 [History Last Taken 07/21/20] levothyroxine 25 mcg PO DAILY 07/21/20 [History Last Taken 07/19/20] metoprolol tartrate 25 mg PO BID 07/21/20 [History Last Taken 07/21/20] potassium chloride 20 meq PO DAILY 07/21/20 [History Last Taken 07/21/20] doxycycline hyclate [Vibramycin] 100 mg PO BID #14 cap 07/24/20 [Rx Last Taken Unknown] Allergy/AdvReac Type Severity Reaction Status Date / Time coffee (Coffea arabica) AdvReac Abd Verified 02/08/21 20:54 cramps/diarrhea Family History Other CAD (coronary artery disease) Surgical History History of angioplasty of peripheral vessel (12/2017) History of cardioversion (01/21/20) History of coronary artery stent placement (03/18/99) History of hysterectomy History of left heart catheterization (04/06/20) History of loop recorder (12/11/18) Social History Smoking Status: Former smoker ROS Constitutional Constitutional: Reports fatigue Eyes Eyes: Denies blurry vision ENT HEENT: Denies abnormal hearing Cardiovascular Cardiovascular: Denies chest pain Respiratory/Chest Respiratory/Chest: Reports shortness of breath with exertion Gastrointestinal Gastrointestinal: Denies abdominal pain Genitourinary Genitourinary: Denies dysuria Musculoskeletal Musculoskeletal: Denies back pain Integumentary Integumentary: Denies dry skin Neurologic Neurologic: Reports abnormal gait, lack of coordination and seizures Psychiatric Psychiatric: Reports anxiety Vital Signs Vital Signs Vital Signs: 02/08/21 20:48 02/08/21 21:02 02/08/21 21:43 Temperature 97.9 F Temperature Source Temporal Pulse Rate 116 H 112 H Respiratory Rate 24 H 29 H Blood Pressure 158/125 H 157/8 H Blood Pressure Mean 136 57 Pulse Ox 94 91 Oxygen Delivery Method Room Air Room Air Nasal Cannula Oxygen Flow Rate (L/min) 5 02/08/21 22:38 Temperature Temperature Source Pulse Rate 113 H Respiratory Rate 20 H Blood Pressure 130/63 H Blood Pressure Mean 85 Pulse Ox 94 Oxygen Delivery Method Nasal Cannula Oxygen Flow Rate (L/min) 5 Weight Weight: 137 lb 5.568 oz Body Mass Index (BMI) 22.8 Physical Exam Const alert General Appearance: cooperative HEENT normocephalic and head/scalp atraumatic Eyes PERRL and EOMs intact bilaterally Neck supple Lymph Lymphatic: no lymphadenopathy noted Resp Auscultation: rhonchi throughout Cardio S1 normal heart sound, S2 normal heart sound and no murmurs Rate: tachycardic GI normal to inspection, nondistended, normoactive bowel sounds Extremity no clubbing, cyanosis or edema Neuro Neuro Narrative: left upper extremity 4/5 strength, maintain both lower extremities elevated follows commands , no seizure like activity present during my evaluation Psych affect normal Results Lab / Micro Data Result Diagrams: 02/08/21 20:53 02/08/21 20:53 Labs: Laboratory Results - last 24 hr 02/08/21 20:53: WBC 8.6, RBC 5.29, Hgb 13.5, Hct 43.1, MCV 81.5, MCH 25.5 L, MCHC 31.3 L, RDW Std Deviation 59.2 H, RDW Coeff of Zachary 20.4 H, Plt Count 260, MPV 11.1, Immature Gran % (Auto) 0.500, Neut % (Auto) 59.6, Lymph % (Auto) 24.2, [place] % (Auto) 10.2 H, Eos % (Auto) 4.6, Baso % (Auto) 0.9, Absolute Neuts (auto) 5.2, Absolute Lymphs (auto) 2.09, Nucleated RBC % 0, Diff Path Review May foll, Platelet Estimate ADEQUATE, RBC Morphology N CHROM, Anisocytosis 1+, Microcytosis RARE, Ovalocytes RARE, Acanthocytes (Spur) RARE, Schistocytes RARE 02/08/21 20:53: PT 17.1 H, INR 1.5, APTT 38.1 H 02/08/21 20:53: Sodium 137, Potassium 5.2 H, Chloride 106, Carbon Dioxide 22.0, Anion Gap 9, BUN 28 H, Creatinine 1.03 H, Estim Creat Clear Calc 39.85, Est GFR (MDRD) Af Amer 66, Est GFR (MDRD) Non-Af 55 L, BUN/Creatinine Ratio 27.2 H, Glucose 130 H, Calcium 9.4, Troponin I High Sens 19 02/08/21 21:10: Phenytoin < 0.4 L Radiology Impression Head/Neck CTA 12/06/21 20:59 IMPRESSION: 1. Hypoplastic P1 segment of the left posterior cerebral artery. The distal portion of the artery is supplied by the posterior communicating artery. 2. Otherwise normal [place]. 3. Atherosclerotic changes at the bilateral carotid bifurcations with approximate 50% stenoses bilaterally. Electronically Signed: Segundo Shay DO at 21:27 EST Tel [phone], Service support , ADDENDUM: 02/08/210 IMPRESSION: 1. Hypoplastic P1 segment of the left posterior cerebral artery. The distal portion of the artery is supplied by the posterior communicating artery. 2. Otherwise normal [place]. 3. Atherosclerotic changes at the bilateral carotid bifurcations with approximate 50% stenoses bilaterally. N.B. : The above Results were Read Back by Segundo Shay DO to ALONDRA SULLIVAN MD, and understanding confirmed on 02/08/2021 21:33:20 (ET). Electronically Signed: Segundo Shay DO at 21:27 EST Tel [phone], Service support , Brain CT 02/08/21 21:00 IMPRESSION: 1. Chronic involutional changes without acute intracranial or calvarial abnormality. 2. Remote right MCA distribution infarct. N.B. : The above Results were Read Back by Segundo Shay DO to ALONDRA SULLIVAN MD, and understanding confirmed on 02/08/2021 21:12:43 (ET). Electronically Signed: Segundo Shay DO at 21:13 EST Tel [phone], Service support , ADDENDUM: 02/08/212119 IMPRESSION: 1. Chronic involutional changes without acute intracranial or calvarial abnormality. 2. Remote right MCA distribution infarct. N.B. : The above Results were Read Back by Segundo Shay DO to ALONDRA SULLIVAN MD, and understanding confirmed on 02/08/2021 21:12:43 (ET). Electronically Signed: Segundo Shay DO at 21:13 EST Tel [phone], Service support , Chest X-Ray 02/08/21 21:49 IMPRESSION: Cardiomegaly with extensive bilateral airspace disease, edema versus infection. Recommend short-term follow-up to resolution. at 2253 Reported and signed by: Charlie Valentine MD Electronically Signed: Charlie Valentine MD at 22:51 EST Tel , Service support , Assessment & Plan Assessment/Plan (1) Seizure: (2) Respiratory failure with hypoxia: (3) History of CVA (cerebrovascular accident): (4) Paroxysmal atrial fibrillation: (5) Hyperlipidemia: PLAN: 1. Seizure?patient has been loaded with 1 g of Keppra and given Ativan and will be admitted to progressive care unit, due to history of CVA and left-sided weakness previously confounding her presentation an MRI will be done in the morning along with an EEG. 2. Respiratory failure with hypoxia?patient has been placed on supportive oxygen therapy, Covid test is pending, will start DuoNeb breathing treatments every 4 hours as needed patient has expressed wishes to not be resuscitated in the event that would be deemed necessary. Will consider broad-spectrum antibiotic therapy but will avoid Levaquin due to lowering seizure threshold. 3. Paroxysmal atrial fibrillation?patient is on Eliquis 4. Hyperlipidemia?continue statin medication 5. DVT prophylaxis?patient is already anticoagulated Charges/Coding Visit Charges Inpatient E&M: 86834 Init Hosp L3
[2021-02-08 23:02] VITALS: BP 114/87; PULSE 109; RESP 24; TEMP 36.6; O2SAT 94
[2021-02-08 23:28] LABS: BNP,B-Type NATRIURETIC PEPTIDE 765.2 pg/mL (0-100)
[2021-02-09] VITALS (18 sets, daily range): BP systolic 108–148; BP diastolic 67–110; PULSE 83–143; RESP 13–20; TEMP 36.6–37; O2SAT 92–98; BMI 22.8
--- NOTE | 2021-02-09 00:30 | NURSING ---
emergency pandemic charting
[2021-02-09] MEDS: Divalproex Sodium 125 MG SPRINKLE 250 MG PO ×3 (06:10→20:43)
[2021-02-09] MEDS: Levothyroxine 25 MCG TABLET PO (06:10)
--- NOTE | 2021-02-09 06:42 | CPS ---
2019 - Called and informed Nurse Spray Stainer, Magui, and Charge Nurse, Yisel, that our EEG system is down/being repaired by metal stud framer. Dr. Wang was paged/informed of this as well ([phone]) by this tech. Repair date is unknown at this time.
[2021-02-09] MEDS: Ipratropium/Albuterol Sulfate 3 ML AMPUL.NEB INHALATION (06:57)
[2021-02-09 08:20] LABS: Cholesterol 135 mg/dL (200); High Density Lipoprotein 62 mg/dL; Triglycerides 65 mg/dL; Very Low Density Lipoprotein 13 mg/dL (5-40)
[2021-02-09 08:29] LABS: Thyroid Stim Hormone (TSH) 5.24 uIU/mL (0.358-3.74)
--- NOTE | 2021-02-09 08:36 | NURSING ---
0730-pt attempting to climb out of bed several times this am already. per channel marketing program manager has not been asleep once. chargeback specialist aware and personal alarm placed d/t none being available for ed bed. pt answers questions approp just remains unable to follow directions for saftey. numerous bruises lt elbow and small abrasion from bedrails.
--- NOTE | 2021-02-09 08:38 | NURSING ---
0800son called and mri hx form filled out. dr. mccloud in to see. pt still restless about bed. son reports that pt sleeps in recliner chair
--- NOTE | 2021-02-09 08:38 | NURSING ---
08-sitalyssa provided and able to keep pt redirected and safe while in bed.
--- NOTE | 2021-02-09 08:39 | NURSING ---
pt asleep now with room darkened and resting with sitter in room. texted for something to help with sedation for mri
--- NOTE | 2021-02-09 09:00 | MRI_ITS ---
STUDY: MRI BRAIN WITHOUT CONTRAST REASON FOR EXAM: Female, 80 years old. stroke, INCREASED WEAKNESS LEFT ARM/LEG, SEIZURE ? TECHNIQUE: Standardized multiplanar fat and water weighted pulse sequences were obtained. COMPARISON: 02/08/2021 CT of the head FINDINGS: There is mild cerebral atrophy with widening of the extra-axial spaces and ventricular dilatation. There are multiple white matter hyperintensities, distributed throughout the deep white matter tracts of the cerebral hemispheres, consistent with moderate chronic white matter ischemic changes. Right temporal parietal encephalomalacia and gliosis, consistent with prior insult. Normal bilateral basal ganglia. There is no extra-axial fluid accumulation. Normal sella turcica, pituitary gland, infundibular stalk, optic chiasm and hypothalamus. Normal tectal plate and pineal gland. Normal midbrain, suly and medulla. Normal cerebellum. MRI/Brain without Contrast IMPRESSION: No acute intracranial abnormality. Right temporal parietal encephalomalacia and gliosis, consistent with prior insult. Electronically Signed: Ruddy Dobbs MD at 11:28 EST Tel , Service support ,
[2021-02-09] MEDS: Doxycycline 100 MG CAPSULE PO ×2 (09:46→20:44)
[2021-02-09] MEDS: APIXABAN 5 MG TABLET PO ×2 (09:46→20:42)
[2021-02-09] MEDS: levETIRAcetam 1,000 MG Tablet 1000 MG PO ×2 (09:47→20:43)
[2021-02-09] MEDS: Metoprolol Tartrate 25 MG Tablet PO ×2 (09:47→20:41)
[2021-02-09 10:26] LABS: Mucous, Urine 0 SEEN /hpf (<or=2+)
[2021-02-09 10:37] LABS: Color, Urine Straw (Yellow); Glucose, Dipstick Normal (Normal); Ketone-Dipstick Negative (Negative); Leukocyte Esterase-Dipstick 500 /ul (Negative); Nitrite-Dipstick Negative (Negative); Occult Blood-Urine 25 /ul (Negative); Protein-Dipstick Negative (Negative); Specific Gravity, Urine 1.015 (1.002-1.030); Urine Bilirubin Dipstick Negative (Negative); Urine Clarity Clear (Clear); Urine Urobilinogen Normal (Normal); Urine pH 6.5 (5.0 - 8.0)
[2021-02-09 10:56] LABS: Bacteria RARE /hpf (None Seen); Red Blood Cells-Urine 0-5 SEEN /hpf (0-5); Squamous Epithelial Cells - UA 0-5 SEEN /hpf (5-10); White Blood Cells 0-5 SEEN /hpf (0-5)
--- NOTE | 2021-02-09 11:46 | NURSING ---
report called to [facility] with no questions voiced.
--- NOTE | 2021-02-09 13:04 | NURSING ---
Sitter at bedside d/t patient with confusion.
[2021-02-09 14:32] LABS: Bedside Glucose 121 mg/dL (70-110)
--- NOTE | 2021-02-09 14:55 | PN.HOSP_ITS ---
Subjective Subjective No further events. Objective Data Objective Data Vital Signs: Vital Signs Temp Pulse Resp BP Pulse Ox 36.8 C 104 H 16 118/69 98 02/09/21 12:37 02/09/21 14:37 02/09/21 12:37 02/09/21 12:37 02/09/21 12:37 Oxygen Flow Rate (L/min) 2 Oxygen Delivery Method Nasal Cannula Weight: 62.1 kg Body Mass Index (BMI) 22.8 Intake & Output: Intake and Output for Last 24 Hours 02/07/21 02/08/21 02/09/21 23:59 23:59 23:59 Intake Total 150 / 150 300 / 300 Output Total 2300 / 2300 Balance 150 / 150 -2000 / -1999 Lab / Micro Data Result Diagrams: 02/08/21 20:53 02/08/21 20:53 Labs: Laboratory Results - last 24 hr 02/08/21 20:49: POC Glucose 121 H 02/08/21 20:53: WBC 8.6, RBC 5.29, Hgb 13.5, Hct 43.1, MCV 81.5, MCH 25.5 L, MCHC 31.3 L, RDW Std Deviation 59.2 H, RDW Coeff of Zachary 20.4 H, Plt Count 260, MPV 11.1, Immature Gran % (Auto) 0.500, Neut % (Auto) 59.6, Lymph % (Auto) 24.2, [place] % (Auto) 10.2 H, Eos % (Auto) 4.6, Baso % (Auto) 0.9, Absolute Neuts (auto) 5.2, Absolute Lymphs (auto) 2.09, Nucleated RBC % 0, Diff Path Review May foll, Platelet Estimate ADEQUATE, RBC Morphology N CHROM, Anisocytosis 1+, Microcytosis RARE, Ovalocytes RARE, Acanthocytes (Spur) RARE, Schistocytes RARE 02/08/21 20:53: PT 17.1 H, INR 1.5, APTT 38.1 H 02/08/21 20:53: Sodium 137, Potassium 5.2 H, Chloride 106, Carbon Dioxide 22.0, Anion Gap 9, BUN 28 H, Creatinine 1.03 H, Estim Creat Clear Calc 39.85, Est GFR (MDRD) Af Amer 66, Est GFR (MDRD) Non-Af 55 L, BUN/Creatinine Ratio 27.2 H, Glucose 130 H, Calcium 9.4, Troponin I High Sens 19 02/08/21 20:53: B-Natriuretic Peptide 765.2 H 02/08/21 21:10: Phenytoin < 0.4 L 02/09/21 07:28: TSH 5.24 H 02/09/21 07:38: Triglycerides 65, Cholesterol 135, LDL Cholesterol 60, VLDL Cholesterol 13, HDL Cholesterol 62 02/09/21 09:55: Urine Color Straw, Urine Clarity Clear, Urine pH 6.5, Ur Spe cific [place] 1.015, Urine Protein Negative, Urine Glucose (UA) Normal, Urine Ketones Negative, Urine Occult Blood 25 H, Urine Nitrite Negative, Urine Bilirubin Negative, Urine Urobilinogen Normal, Ur Leukocyte Esterase 500 H, Urine RBC 0-5 SEEN, Urine WBC 0-5 SEEN, Ur Squamous Epith Cells 0-5 SEEN, Urine Bacteria RARE, Urine Mucus 0 SEEN Micro: Microbiology 02/08/21 23:00 Nasal Secretion SARS-CoV-2 Antigen (Rapid) - Final Radiography Diagnostic Testing: Radiology Impression Head/Neck CTA 02/08/21 20:59 IMPRESSION: 1. Hypoplastic P1 segment of the left posterior cerebral artery. The distal portion of the artery is supplied by the posterior communicating artery. 2. Otherwise normal [place]. 3. Atherosclerotic changes at the bilateral carotid bifurcations with approximate 50% stenoses bilaterally. Electronically Signed: Segundo Shay DO at 21:27 EST Tel [phone], Service support , ADDENDUM: 02/08/21 2140 IMPRESSION: 1. Hypoplastic P1 segment of the left posterior cerebral artery. The distal portion of the artery is supplied by the posterior communicating artery. 2. Otherwise normal [place]. 3. Atherosclerotic changes at the bilateral carotid bifurcations with approximate 50% stenoses bilaterally. N.B. : The above Results were Read Back by Segundo Shay DO to ALONDRA BUSBY MD, and understanding confirmed on 02/08/2021 21:33:20 (ET). Electronically Signed: Segundo Shay DO at 21:27 EST Tel [phone], Service support , Brain CT 02/08/21 21:00 IMPRESSION: 1. Chronic involutional changes without acute intracranial or calvarial abnormality. 2. Remote right MCA distribution infarct. N.B. : The above Results were Read Back by Segundo Shay DO to ALONDRA BUSBY MD, and understanding confirmed on 02/08/2021 21:12:43 (ET). Electronically Signed: Segundo Shay DO at 21:13 EST Tel [phone], Service support , ADDENDUM: 02/08/210 IMPRESSION: 1. Chronic involutional changes without acute intracranial or calvarial abnormality. 2. Remote right MCA distribution infarct. N.B. : The above Results were Read Back by Segundo Shay DO to ALONDRA BUSBY MD, and understanding confirmed on 02/08/2021 21:12:43 (ET). Electronically Signed: Segundo Shay DO at 21:13 EST Tel [phone], Service support , Chest X-Ray 02/08/21 21:49 IMPRESSION: Cardiomegaly with extensive bilateral airspace disease, edema versus infection. Recommend short-term follow-up to resolution. at 2253 Reported and signed by: Charlie Valentine MD Electronically Signed: Charlie Valentine MD at 22:51 EST Tel , Service support , Brain MRI 02/09/21 09:00 IMPRESSION: No acute intracranial abnormality. Right temporal parietal encephalomalacia and gliosis, consistent with prior insult. Electronically Signed: Ruddy Dobbs MD at 11:28 EST Tel , Service support , Physical Exam Const alert and no apparent distress Exam Limitations: no limitations HEENT head/scalp atraumatic Head and Scalp: normocephalic Resp normal respiratory effort, no retractions, no use of accessory muscles and clear to auscultation bilaterally Cardio regular rate, regular rhythm, S1 normal heart sound and S2 normal heart sound GI normal to inspection, nondistended, normoactive bowel sounds, soft to palpation, non-tender and non-distended Extremity normal to inspection and full ROM Skin no rashes or lesions noted and no wounds Neuro Neuro Narrative: Strength 5-5 in the right upper and right lower extremity. Also left lower extremity. 4-5 in the left upper extremity. Sensorium / Orientation: awake and alert Assessment & Plan Assessment/Plan (1) Seizure: PLAN: 1. Breakthrough seizure Patient had been on levofloxacin for skin infection. Likely the levofloxacin decrease her seizure threshold which led to this seizure. No further fluoroquinolones Continue with the levetiracetam MRI showed no acute process No EEG can be performed at this institution at this time. Discussed with the patient's son that the patient being transferred to another institution where an EEG to be performed would be of low yield at this time. Additionally, the likel ihood I could transfer the patient to an outside hospital that does have EEG capabilities is extremely low given the current pandemic. There is no suspicion for status epilepticus at this time. 2. History of stroke Secondary to paroxysmal A. fib Anticoagulated on apixaban Continue atorvastatin 3. Tachycardia Positional, worse when she stands up Continue with metoprolol but increase dose from 25-50 Observe 4. VTE prophylaxis: Not indicated as patient is anticoagulated. Discussed the case with the patient's son, Tuan. Charges/Coding Visit Charges Inpatient E&M: 56769 Subs Hosp L3
[2021-02-09] MEDS: Atorvastatin Calcium 80 MG Tablet PO (20:41)
[2021-02-09] MEDS: Metoprolol Tartrate 50 MG Tablet PO (21:42)
[2021-02-10] VITALS (8 sets, daily range): BP systolic 122–127; BP diastolic 71–74; PULSE 75–111; RESP 16–20; TEMP 36.4–36.6; O2SAT 94–97
[2021-02-10] MEDS: Divalproex Sodium 125 MG SPRINKLE 250 MG PO ×2 (06:09→13:38)
[2021-02-10] MEDS: Levothyroxine 25 MCG TABLET PO (06:10)
[2021-02-10] MEDS: Ipratropium/Albuterol Sulfate 3 ML AMPUL.NEB INHALATION ×2 (06:59→11:09)
[2021-02-10] MEDS: APIXABAN 5 MG TABLET PO (08:46)
[2021-02-10] MEDS: levETIRAcetam 1,000 MG Tablet 1000 MG PO (08:46)
[2021-02-10] MEDS: Doxycycline 100 MG CAPSULE PO (08:47)
[2021-02-10] MEDS: Metoprolol Tartrate 50 MG Tablet PO (08:49)
--- NOTE | 2021-02-10 12:06 | CASEMGMT ---
RN CM Assessment Introduced role of RN CM to patient ty Dickerson via phone as patient is was sleeping with sitter at beside during time of assessment. ?Care providers, pharmacy, and demographics verified. Admit Dx: Seizure, Respiratory Failure with Hypoxia Re-Admit: No Barriers/Issues: None PCP: Cody Hassan Specialists: Marianela- Loretta, Cardio- Abimael Preferred Pharmacy: [facility] Insurance: [facility] Benefit:?Yes LNOK: Ty Bright LW/HPOA: Has LW- HPOA ty Bright. Not on file at [facility]. Living Arrangements:?Lives with ty Dickerson in a [facility], 1 step to enter home. ADL?s: Independent with ambulation and ADLs, except current HH- [facility] for SN-once/week and Aide to assist with bathing twice/week. Transportation: ty Dickerson DME: Shower chair- does not use HHC: Current with [facility], SN- once/week, Aide- twice/week SNF: [facility] at [facility] Goal: Home with [facility], May need to add PT depending how patient is doing at time of DC. DC PLAN: Home with [facility], may need to add PT- f/u on mobility as well as possible need for walker. Poornima Mills RNCM
--- NOTE | 2021-02-10 13:46 | PCM.DC ---
Discharge Instructions Diet Discharge Diet: Low fat / Low cholesterol Activity Discharge Activity: Return to Normal Activity Follow Up Care Test Results: Test results from this visit will be discussed in further detail at your follow-up appointment, if applicable. Discharge Plan Admission Admit Date/Time: 02/08/21 23:10 Primary Reason for Your Visit: Breakthrough Seizure Attending Provider: Jd Ortega Primary Care Provider: Cody Hassan Chi Discharge Orders/Prescriptions Prescriptions: Continued apixaban 5 mg tablet 5 mg PO BID RF: 0 atorvastatin 80 mg tablet 80 mg PO QHS RF: 0 levothyroxine 25 mcg tablet 25 mcg PO DAILY RF: 0 potassium chloride 20 mEq tablet,ER particles/crystals 20 meq PO DAILY RF: 0 divalproex 125 mg capsule, delayed rel sprinkle 250 mg PO TID RF: 0 metoprolol tartrate 25 mg tablet 25 mg PO BID RF: 0 levetiracetam 1,000 mg tablet 1,000 mg PO BID RF: 0 doxycycline hyclate [Vibramycin] 100 mg capsule 100 mg PO BID Qty: 14 RF: 0 Referrals / Follow Up: Cody Hassan Chi, MD [Primary Care Provider] - Disposition Disposition (needs filled in before D/C Order can be placed): Home, Self Care
--- NOTE | 2021-02-10 13:50 | PCM.DC.SUM ---
Documented by User: LENI Castellon 02/10/21 13:54 Providers Date of Admission: 02/08/21 Primary Care Physician: Dr. Cody Hassan MD Reason For Visit: SEIZURE, RESPIRATORY FAILURE WITH HYPOXIA Diagnosis Discharge Diagnosis (1) Seizure: Status: Acute Code(s): R56.9 - Unspecified convulsions Medications at Discharge Home Medications apixaban 5 mg tablet 5 mg PO BID 05/21/19 atorvastatin 80 mg PO QHS 07/21/20 divalproex 250 mg PO TID 07/21/20 levetiracetam 1,000 mg PO BID 07/21/20 levothyroxine 25 mcg PO DAILY 07/21/20 metoprolol tartrate 25 mg PO BID 07/21/20 potassium chloride 20 meq PO DAILY 07/21/20 doxycycline hyclate [Vibramycin] 100 mg PO BID #14 cap 07/24/20 Hospital Course Operations None Procedures None Summary of Care Provided Minutes Spent on Discharge: 25 Hospital Course: Patient is a 80-year-old female who originally presented with breakthrough seizure. Patient has a history of seizure disorder and was placed on Levaquin for a skin issue. Patient will be discharged home on Keppra as well as Depakote. Patient underwent a brain CT and MRI which was negative for acute findings. Patient is confused baseline which complicates neurological evaluation however patient son states that she is similar to her baseline perhaps slightly more confused. Patient lives with his son who takes care of her with help of home health care. Patient has home health care nursing, will add PT and OT. Physical Exam Const alert and no apparent distress General Appearance: cooperative Exam Limitations: no limitations HEENT normocephalic and head/scalp atraumatic Eyes PERRL and EOMs intact bilaterally Neck supple Lymph Lymphatic: no lymphadenopathy noted Resp normal respiratory effort, no retractions, no use of accessory muscles and clear to auscultation bilaterally Auscultation: rhonchi throughout Cardio regular rate, regular rhythm, S1 normal heart sound, S2 normal heart sound and no murmurs Rate: tachycardic GI normal to inspection, nondistended, normoactive bowel sounds, soft to palpation, non-tender and non-distended Extremity normal to inspection, full ROM and no clubbing, cyanosis or edema Skin no rashes or lesions noted and no wounds Neuro Neuro Narrative: Strength 5-5 in the right upper and right lower extremity. Also left lower extremity. 4-5 in the left upper extremity. Sensorium / Orientation: awake and alert Psych affect normal Weight / BMI Weight Weight: 136 lb 14.513 oz Body Mass Index (BMI) 22.8 ABG / Lab / Microbiology Data Result Diagrams: 02/08/21 20:53 02/08/21 20:53 Laboratory: Laboratory Results - last 24 hr 02/08/21 20:49: POC Glucose 121 H Microbiology: Microbiology 02/09/21 09:55 Urine Catheter - Hemphill Urine Culture - Preliminary Culture exhibits no growth. 02/08/21 23:00 Nasal Secretion SARS-CoV-2 Antigen (Rapid) - Final D/C Instructions Discharge Diet: Low fat / Low cholesterol Meaningful Use Info Meaningful Use Diagnoses (Choose all that apply): None applicable Discharge Plan Admission Admit Date/Time: 02/08/21 23:10 Primary Reason for Your Visit: Breakthrough Seizure Attending Provider: Jd Ortega Primary Care Provider: Cody Hassan Chi Discharge Orders/Prescriptions Prescriptions: Continued apixaban 5 mg tablet 5 mg PO BID RF: 0 atorvastatin 80 mg tablet 80 mg PO QHS RF: 0 levothyroxine 25 mcg tablet 25 mcg PO DAILY RF: 0 potassium chloride 20 mEq tablet,ER particles/crystals 20 meq PO DAILY RF: 0 divalproex 125 mg capsule, delayed rel sprinkle 250 mg PO TID RF: 0 metoprolol tartrate 25 mg tablet 25 mg PO BID RF: 0 levetiracetam 1,000 mg tablet 1,000 mg PO BID RF: 0 doxycycline hyclate [Vibramycin] 100 mg capsule 100 mg PO BID Qty: 14 RF: 0 Referrals / Follow Up: Cody Hassan Chi, MD [Primary Care Provider] - 02/15/21 3:20 pm Disposition Disposition (needs filled in before D/C Order can be placed): Home, Self Care Documented by User: Dr. Jd Ortega DO 02/10/21 14:13 Providers Date of Admission: 02/08/21 Reason For Visit: SEIZURE, RESPIRATORY FAILURE WITH HYPOXIA Medications at Discharge Home Medications apixaban 5 mg tablet 5 mg PO BID 05/21/19 atorvastatin 80 mg PO QHS 07/21/20 divalproex 250 mg PO TID 07/21/20 levetiracetam 1,000 mg PO BID 07/21/20 levothyroxine 25 mcg PO DAILY 07/21/20 metoprolol tartrate 25 mg PO BID 07/21/20 potassium chloride 20 meq PO DAILY 07/21/20 doxycycline hyclate [Vibramycin] 100 mg PO BID #14 cap 07/24/20 Hospital Course Operations None Procedures None Summary of Care Provided Minutes Spent on Discharge: 35 Hospital Course: Pt seen and examined independently. Data and vitals reviewed. I agree with the above note by the MACHINE [employer]OL ELECTRICIAN. 1. Breakthrough seizure Patient had been on levofloxacin for skin infection. Likely the levofloxacin decrease her seizure threshold which led to this seizure. No further fluoroquinolones Continue with the levetiracetam MRI showed no acute process No EEG can be performed at this institution at this time. Discussed with the patient's son that the patient being transferred to another institution where an EEG to be performed would be of low yield at this time. Additionally, the likelihood I could transfer the patient to an outside hospital that does have EEG capabilities is extremely low given the current pandemic. There is no suspicion for status epilepticus at this time. 2. History of stroke Secondary to paroxysmal A. fib Anticoagulated on apixaban Continue atorvastatin ABG / Lab / Microbiology Data Result Diagrams: 02/08/21 20:53 02/08/21 20:53 Discharge Plan Admission Admit Date/Time: 02/08/21 23:10 Primary Reason for Your Visit: Breakthrough Seizure Attending Provider: Jd Ortega Primary Care Provider: Cody Hassan Chi Discharge Orders/Prescriptions Prescriptions: Continued apixaban 5 mg tablet 5 mg PO BID RF: 0 atorvastatin 80 mg tablet 80 mg PO QHS RF: 0 levothyroxine 25 mcg tablet 25 mcg PO DAILY RF: 0 potassium chloride 20 mEq tablet,ER particles/crystals 20 meq PO DAILY RF: 0 divalproex 125 mg capsule, delayed rel sprinkle 250 mg PO TID RF: 0 metoprolol tartrate 25 mg tablet 25 mg PO BID RF: 0 levetiracetam 1,000 mg tablet 1,000 mg PO BID RF: 0 doxycycline hyclate [Vibramycin] 100 mg capsule 100 mg PO BID Qty: 14 RF: 0 Referrals / Follow Up: Cody Hassan Chi, MD [Primary Care Provider] - 02/15/21 3:20 pm Disposition Disposition (needs filled in before D/C Order can be placed): Home, Self Care Charges/Coding Visit Charges Inpatient E&M: 32234 Disch Hosp
--- NOTE | 2021-02-10 13:56 | CASEMGMT ---
Addendum entered by Debi Maharaj 02/10/21 14:20: Per Hal DENTAL NURSE, pt's son came in and is fine taking pt home today with [facility]. Pt is on room air. Barb BROWN CM Original Note: Pt is active with [facility] for SN and PT/OT added to CASSANDRA order at this time. Clinicals faxed to [facility] and message left with Jorge Alberto at [facility] in regards to CASSANDRA and addition of therapy. CM to follow for any further discharge planning/needs. Barb BROWN CM
== END 2021-02-10 15:03 | disposition home health service (06) | DRG 101 ==
LOC: ED 23:03 → PCU 02-09 00:35
PROVIDERS: Admitting Provider Family Medicine; Emergency Provider Emergency Medicine; PCP Family Medicine Geriatric Medicine
DX: G40.909 Epilepsy, unspecified, not intractable, without status epilepticus (principal); I69.354 Hemiplegia and hemiparesis following cerebral infarction affecting left non-dominant side; I25.10 Atherosclerotic heart disease of native coronary artery without angina pectoris; E78.5 Hyperlipidemia, unspecified; I25.2 Old myocardial infarction; I48.0 Paroxysmal atrial fibrillation; E03.9 Hypothyroidism, unspecified; I25.5 Ischemic cardiomyopathy; L08.9 Local infection of the skin and subcutaneous tissue, unspecified; R29.703 NIHSS score 3; I73.9 Peripheral vascular disease, unspecified; I69.392 Facial weakness following cerebral infarction; I69.328 Other speech and language deficits following cerebral infarction; Z79.899 Other long term (current) drug therapy; Z86.718 Personal history of other venous thrombosis and embolism; Z79.01 Long term (current) use of anticoagulants; Z87.891 Personal history of nicotine dependence
CPT/HCPCS: 36415; 51702; 70450; 70496; 70498; 70551; 71045; 80048; 80061; 80185; 81001; 82962; 83880; 84443; 84484; 85025; 85610; 85730; 87086; 87426; 92610; 93005; 94640; 97162; 97166; 97530; 97535; 99285; J7050; Q9967; A4216; J3490

== ENCOUNTER 2021-05-31 11:16 | Outpatient (CLI) | payer MEDICARE, SELFPAY ==
[2021-05-31 12:31] LABS: Absolute Lymphocyte Count 1.67 X10^3/uL (0.83-4.51); Absolute Neutrophil Count 5.5 X10^3/uL (2.0-7.7); Basophil% 1.1 % (0-1); Eosinophils% 12.9 % (0-5); Hematocrit 49.1 % (37-47); Hemoglobin 15.7 g/dL (12.0-15.0); Lymphocyte # 1.67 X10^3/ul (0.83-4.51); Mean Corpuscular Hgb 28.1 pg (27.0-32.0); Mean Platelet Vol. 12.1 fl (6.2-12.0); Monocyte# 0.77 X10^3/uL; Monocyte% 8.3 % (0-10); NRBC Flagged by Analyzer 0.2 % (0-5); Neutrophil % 59.2 % (47-70); Platelet Count 243 K/mm3 (150-450); RBC Distribution Width CV 15.8 % (11.6-14.6); RBC Distribution Width SD 50.5 fl (35.1-43.9); Red Blood Count 5.58 M/mm3 (4.2-5.4); White Blood Count 9.3 K/mm3 (4.4-11.0)
[2021-05-31 12:42] LABS: Vitamin D,25 Hydroxy 21.7 ng/mL
[2021-05-31 12:48] LABS: ALB/GLOB Ratio 0.7 RATIO (0.9-2.4); AST(SGOT) 26 U/L (15-37); Alanine Aminotransfer ALT/SGPT 23 U/L (13-56); Albumin, Serum 3.5 g/dL (3.2-5.0); Alkaline Phosphatase 85 U/L (45-117); Anion Gap 7 (5-15); BUN 18 mg/dL (7-18); BUN/Creat Ratio 20.8 RATIO (10-20); Calcium,Total 9.2 mg/dL (8.5-10.1); Chloride 105 mmol/L (98-107); Creatinine, Serum 0.86 mg/dL (0.55-1.02); EST Glomerular Filtration Rate 67 mL/min (>60); Est Glom Filt Rate - Afr Amer 81 mL/min (>60); Globulin 4.8 g/dL (2.2-4.2); Glucose 110 mg/dL (74-106); Potassium 4.3 mmol/L (3.5-5.1); Protein, Total 8.3 g/dL (6.4-8.2); Sodium Level 135 mmol/L (136-145); Thyroid Stim Hormone (TSH) 4.59 uIU/mL (0.358-3.74); Uric Acid 5.5 mg/dL (2.6-6.0)
== END 2021-05-31 23:59 | disposition home or self-care (01) ==
LOC: POLAB3 11:17
PROVIDERS: PCP Family Medicine Geriatric Medicine; Visit Provider Family Medicine Geriatric Medicine
DX: E55.9 Vitamin D deficiency, unspecified (principal); I10 Essential (primary) hypertension; M10.9 Gout, unspecified
CPT/HCPCS: 36415; 80053; 82306; 84443; 84550; 85025

== ENCOUNTER 2021-08-18 00:52 | Emergency (ER) | payer MEDICARE, SELFPAY ==
[2021-08-18 00:53] VITALS: BP 174/113; PULSE 133; RESP 44; O2SAT 98
[2021-08-18 01:03] VITALS: BP 174/113; PULSE 120; RESP 13; TEMP 36.6; O2SAT 98; BMI 23.3
[2021-08-18 01:13] VITALS: BP 179/111; PULSE 142; PULSE 149; O2SAT 94
--- NOTE | 2021-08-18 01:14 | EDS_ITS ---
HPI History of Present Illness Chief Complaint: CPR Narrative Narrative: Patient is an 81-year-old female who according to EMS fell through a hole in her floor approximately 8 to 9 feet. They state the called 911 after the fall occurred and when they arrived she was unresponsive but breathing. EMS states that they checked her blood sugar and it was normal. They state that they were transporting her to the hospital when she suddenly lost pulses and stopped breathing and secondary to this they started ACLS protocol. EMS states that the code began at approximately 1239. 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) Open wound of right foot Paroxysmal atrial fibrillation (12/2018) Paroxysmal supraventricular tachycardia Peripheral vascular disease Peripheral vascular occlusive disease Ulcer of right foot with fat layer exposed unable to obtain Home Medications apixaban 5 mg tablet 5 mg PO BID 05/21/19 [History Last Taken 07/21/20] atorvastatin 80 mg PO QHS 07/21/20 [History Last Taken 07/20/20] divalproex 250 mg PO TID 07/21/20 [History Last Taken 07/21/20] levetiracetam 1,000 mg PO BID 07/21/20 [History Last Taken 07/21/20] levothyroxine 25 mcg PO DAILY 07/21/20 [History Last Taken 07/19/20] metoprolol tartrate 25 mg PO BID 07/21/20 [History Last Taken 07/21/20] potassium chloride 20 meq PO DAILY 07/21/20 [History Last Taken 07/21/20] doxycycline hyclate [Vibramycin] 100 mg PO BID #14 cap 07/24/20 [Rx Last Taken Unknown] Allergy/AdvReac Type Severity Reaction Status Date / Time coffee (Coffea arabica) AdvReac Abd Verified 02/08/21 20:54 cramps/diarrhea levofloxacin [From Levaquin] AdvReac seizure Verified 02/09/21 14:55 Family History Other CAD (coronary artery disease) Surgical History History of angioplasty of peripheral vessel (12/2017) History of cardioversion (01/21/20) History of coronary artery stent placement (03/18/99) History of hysterectomy History of left heart catheterization (04/06/20) History of loop recorder (12/11/18) Social History Smoking Status: Former smoker ROS ROS ED Review of Systems ROS Unobtainable: other Details: Patient is unresponsive secondary to cardiopulmonary arrest EXAM Physical Exam Const Vital Signs: 08/18/21 00:53 08/18/21 01:03 Temperature 98 F Temperature Source Temporal Pulse Rate 133 H 120 H Respiratory Rate 44 H 13 Blood Pressure 174/113 H 174/113 H Blood Pressure Mean 133 133 Pulse Ox 98 98 Oxygen Delivery Method Room Air Room Air Constitutional Narrative: Patient is unresponsive with GCS of 3 HEENT HEENT Narrative: No signs of depressed or basilar skull fracture but there is dried blood at the opening to the nostrils and active bleeding noted in the posterior pharynx upon intubation Eyes Eyes Narrative: Pupils are midpoint and fixed Neck Neck Narrative: C-collar in place Chest Wall palpation of chest normal Resp Resp Narrative: No spontaneous respirations but after intubation there is reno ateral breath sounds Cardio Rate: other Other Details: No spontaneous pulses auscultated or palpated GI GI Narrative: Soft and nondistended Extremity Extremity Narrative: Pelvis is stable no shortening or external rotation of either lower extremity Neuro Neuro Narrative: Patient is unresponsive GCS of 3 MDM MDM MDM Narrative Medical decision making narrative: Patient presented to the ER unresponsive in cardiopulmonary arrest with GCS of 3. She was intubated secondary to this and ACLS protocol was performed. Patient arrived in [facility] but then developed ventricular fibrillation. Secondary to this she underwent defibrillation and then was given 300 mg of amiodarone. ACS protocol was continued and patient had a second round of ventricular fibrillation so therefore she underwent a second round of defibrillation and given 150 mg of amiodarone. The patient did achieve return of spontaneous circulation for approximately 2 minutes in between the first and second bouts of ventricular fibrillation. However despite ACLS protocol the patient eventually went back into cardiopulmonary arrest and despite providing medication there was no return of spontaneous circulation. An ultrasound was placed on the patient's chest and there was no spontaneous cardiac activity. Therefore after approximately 40 minutes of known downtime patient was pronounced . The patient was intubated with a 7.5 ET tube. The cords were visualized with the glide scope. The tube was passed with 1 attempt. Confirmation was by bilateral breath sounds fogging in the tube and color change capnography. Patient tolerated the procedure well without complication. Critical Care Time Critical Care Time: Yes Critical care time (excluding procedures): - (20 minutes) Discharge Plan Triage Chief Complaint: CPR ED Provider: Cooper Muse Dx/Rx/DC Orders Clinical Impression: Cardiopulmonary arrest Prescriptions: No Action apixaban 5 mg tablet 5 mg PO BID RF: 0 atorvastatin 80 mg tablet 80 mg PO QHS RF: 0 levothyroxine 25 mcg tablet 25 mcg PO DAILY RF: 0 potassium chloride 20 mEq tablet,ER particles/crystals 20 meq PO DAILY RF: 0 divalproex 125 mg capsule, delayed rel sprinkle 250 mg PO TID RF: 0 metoprolol tartrate 25 mg tablet 25 mg PO BID RF: 0 levetiracetam 1,000 mg tablet 1,000 mg PO BID RF: 0 doxycycline hyclate [Vibramycin] 100 mg capsule 100 mg PO BID Qty: 14 RF: 0 Primary Care Provider: Cody Hassan Chi Referrals: Cody Hassan Chi, MD [Primary Care Provider] - Disposition Disposition:
--- NOTE | 2021-08-18 01:29 | ED.RN ---
total fluid intake 600 ml
--- NOTE | 2021-08-18 01:39 | NURSING ---
600CC OF NS ADMINISTERED.
== END 2021-08-18 05:39 ==
PROVIDERS: Emergency Provider Emergency Medicine; PCP Family Medicine Geriatric Medicine; Visit Provider Emergency Medicine
DX: I46.9 Cardiac arrest, cause unspecified (principal); I25.10 Atherosclerotic heart disease of native coronary artery without angina pectoris; I25.2 Old myocardial infarction; Z87.891 Personal history of nicotine dependence; Z86.718 Personal history of other venous thrombosis and embolism; Z95.5 Presence of coronary angioplasty implant and graft
CPT/HCPCS: 31500; 92950; 99284; J7030; J7050; A4216